=== PATIENT | female | born 1965 | race Caucasian/White ===

== ENCOUNTER 2024-12-11 14:28 | Emergency (ER) | payer OTHER, SELFPAY ==
[2024-12-11 14:51] VITALS: BP 170/113; PULSE 80; RESP 16; TEMP 36.6; O2SAT 98; BMI 35.0
--- NOTE | 2024-12-11 14:56 | CRLHL7_ITS ---
For Patients: As a result of the Century Cures Act, medical imaging exams and procedure reports are released immediately into your electronic medical record. You may view this report before your referring provider. If you have questions, please contact your health care provider. INDICATION: Headache after lifting. TECHNIQUE: Noncontrast CT of the head with multiplanar reconstruction utilizing bone and soft tissue algorithms. COMPARISON: None available. FINDINGS: No acute intracranial hemorrhage. The thao-white matter interface is preserved. The ventricles are normal in size. No abnormal extra-axial fluid collection is identified. Normal calvarium and skull base. Unremarkable orbits. The imaged paranasal sinuses and mastoid air cells are clear. IMPRESSION: No acute intracranial abnormality. Please note that all CT scans at this facility use dose modulation, iterative reconstruction, and/or weight-based dosing when appropriate to reduce radiation dose to as low as reasonably achievable. Dictated by Ant Hdez MD @ 12/11/2024 3:51:00 PM (Electronically Signed)
[2024-12-11] MEDS: ONDANSETRON 2 MG/ML inj 4 MG IVP (15:12)
[2024-12-11] MEDS: 0.9 % SODIUM CHLORIDE 1000 ml 1,000 ML IV (15:12)
[2024-12-11] MEDS: KETOROLAC 30 MG/ML inj IVP (15:12)
[2024-12-11 15:17] LABS: Basophils Absolute Auto 0.09 K/uL (0.00-0.30); Basophils Percent Auto 1.2 % (0.0-3.0); Eosinophils Absolute Auto 0.25 K/uL (0.00-0.50); Eosinophils Percent Auto 3.4 % (0.0-7.0); Hematocrit 37.4 % (33.0-51.0); Hemoglobin* 12.3 gm/dL (12.0-16.0); Lymphocytes Absolute Auto 2.23 K/uL (0.90-2.90); Lymphocytes Percent Auto 29.9 % (20-44); Mean Corpuscular HGB Conc 33 gm/dL (32-36); Mean Corpuscular Hemoglobin 30 pg (26-34); Mean Corpuscular Volume 90 fL (80-100); Monocytes Percent Auto 6.6 % (0.0-11.0); Neutrophils Absolute Auto 4.39 K/uL (1.7-7.0); Neutrophils Percent Auto 58.9 % (42.0-72.0); Platelet Count* 268 K/uL (140-440); RDW Coefficient of Variation % 12.9 % (11.5-15.5); Red Blood Count 4.17 m/uL (4.00-5.20); White Blood Count* 7.45 K/uL (4.50-11.00)
[2024-12-11 15:24] LABS: Chloride* 104 mmol/L (96-114)
[2024-12-11 15:25] LABS: Albumin* 4.7 g/dL (3.3-5.0); Potassium* 3.6 mmol/L (3.6-5.1); Sodium* 139 mmol/L (135-149)
[2024-12-11 15:27] LABS: Alanine Aminotransferase* 19 U/L (4-35); Anion Gap 9 mEq/L (7-15); Aspartate Amino Transferase* 28 U/L (12-35); Blood Urea Nitrogen* 18 mg/dL (7-30); Carbon Dioxide* 26 mmol/L (20-32); Creatinine* 0.8 mg/dL (0.5-1.5); Est. Creatinine Clearance* 78.27; Estimated Glomerular Filt Rate 86 ml/min
[2024-12-11 15:28] LABS: Alkaline Phosphatase* 80 U/L (40-150); Bilirubin Total* 0.6 mg/dL (0.1-1.5); Calcium* 9.6 mg/dL (8.4-10.6); Glucose* 107 mg/dL (60-115); Total Protein* 7.3 g/dL (6.0-8.3)
[2024-12-11 15:31] LABS: Slide Review Reflex No
--- NOTE | 2024-12-11 15:48 | ED_ITS ---
HPI - General Adult General Chief complaint: Headache/Migraine Stated complaint: very lightheaded, nauseous Time Seen by Provider: 12/11/24 14:52 History of Present Illness HPI narrative: Patient is a 59-year-old woman who was lifting heavy stack of would which she developed severe frontal headache. Patient became dizzy and lightheaded. The pain was 8/10 in intensity and she felt like her gait was somewhat unsteady. She presented to the emergency room where she promptly vomited nonbilious material. She is still has a significant headache over the frontal aspect of her head. Her nausea is improving with IV Zofran. No other focal neurologic complaints. Patient has had no similar symptoms previously. She takes minimal home medication in the form of vitamins and supplements. Related Data Home Medications ?Medication ?Instructions ?Recorded ?Confirmed No Known Home Medications 12/11/24 12/11/24 Allergies Allergy/AdvReac Type Severity Reaction Status Date / Time Penicillins Allergy Intermediate Verified 12/11/24 14:48 Review of Systems Status of ROS: Reports: 10 or more systems reviewed and unremarkable except as noted in History and below Exam Narrative: Exam Narrative: EXAM GENERAL: Patient appears comfortable and well. EYES: No scleral icterus. ENT: Tympanic membranes and oropharynx normal. THYROID: no thyroid nodules or thyromegaly. LYMPH: No supraclavicular or cervical lymphadenopathy. SKIN: Visible skin seen during exam normal or with benign process only. EXT: No dependent lower extremity pedal edema. HEART: Regular rate and rhythm with no murmurs, rubs, or gallops. LUNGS: Clear to auscultation bilaterally with no crackles or wheezes. ABD: Soft, non tender, non distended. PSYCH: Good eye contact, speech is not pressured. Neurologic cranial nerves 2-12 grossly intact no focal defects. Const: Vital Signs, click to edit/add: Vital Signs - 24 hr 12/11/24 14:51 Temperature 97.9 F Pulse Rate [Pulse Oximeter] 80 Respiratory Rate 16 Blood Pressure [Ri ght Upper Arm] 170/113 H Pulse Oximetry 98 Oxygen Delivery Me thod Room Air Course Course ED Course: Patient seen and examined. 1 L of normal saline given 4 mg of Zofran given 30 mg of IV Toradol given. CT of the head negative per my review labs are reassuring. Vital Signs Vital signs: Initial Vital Signs Temperature 97.9 F 05/17/25 14:51 Temperature Source Temporal Artery Scan 12/11/24 14:51 Pulse Rate 80 12/11/24 14:51 Respiratory Rate 16 12/11/24 14:51 Blood Pressure 170/113 H 12/11/24 14:51 Blood Pressure Mean 132 H 12/11/24 14:51 Pulse Oximetry 98 12/11/24 14:51 Oxygen Delivery Method Room Air 12/11/24 14:51 Vital Signs Temperature 97.9 F 12/11/24 14:51 Pulse Rate 80 12/11/24 14:51 Respiratory Rate 16 12/11/24 14:51 Blood Pressure 170/113 H 12/11/24 14:51 Pulse Oximetry 98 12/11/24 14:51 Oxygen Delivery Method Room Air 12/11/24 14:51 Temperature 97.9 F 12/11/24 14:51 Pulse Rate 80 12/11/24 14:51 Respiratory Rate 16 12/11/24 14:51 Blood Pressure 170/113 H 12/11/24 14:51 Pulse Oximetry 98 12/11/24 14:51 Oxygen Delivery Method Room Air 12/11/24 14:51 Medications Administered Medications: Discontinued Medications Generic Name Dose Route Start Last Admin Trade Name Freq PRN Reason Stop Dose Admin Sodium Chloride 1,000 mls @ 1,000 mls/hr 12/11/24 14:57 12/11/24 15:12 0.9 % Sodium Chloride 1000 Ml IV 12/11/24 15:56 1,000 mls/hr .Q1H EDILSON Administration Ketorolac Tromethamine 30 mg 12/11/24 14:56 12/11/24 15:12 Ketorolac 30 Mg/Ml Inj IVP 12/11/24 14:57 30 mg ONCE ONE Administration Ondansetron HCl 4 mg 12/11/24 14:56 12/11/24 15:12 Ondansetron 2 Mg/Ml Inj IVP 12/11/24 14:57 4 mg ONCE ONE Administration Medical Decision Making [facility] Narrative Medical decision making narrative: Patient is a 59-year-old healthy woman who comes in with dizziness and severe headache after lifting a heavy object at home. Patient and now feels like she has some room spinning symptoms. I did do CT of her head which is unremarkable labs are reassuring. My neurologic exam and my complete exam were both normal. I did treat her with normal saline Zofran and Toradol with improvement of symptoms. I did instruct her on the Jesusita maneuver for at home if the dizziness persists. I do recommend that she follow-up with her primary physician in the next week especially if her symptoms persist. All questions are answered. Lab Data Labs: Lab Results 12/11/24 Range/Units 15:05 WBC 7.45 (4.50-11.00) K/uL RBC 4.17 (4.00-5.20) m/uL Hgb 12.3 (12.0-16.0) gm/dL Hct 37.4 (33.0-51.0) % MCV 90 (80-100) fL MCH 30 (26-34) pg MCHC 33 (32-36) gm/dL RDW Coeff of Preeti 12.9 (11.5-15.5) % Plt Count 268 (140-440) K/uL Neut % (Auto) 58.9 (42.0-72.0) % Lymph % (Auto) 29.9 (20-44) % Bullitt % (Auto) 6.6 (0.0-11.0) % Eos % (Auto) 3.4 (0.0-7.0) % Baso % (Auto) 1.2 (0.0-3.0) % Neut # (Auto) 4.39 (1.7-7.0) K/uL Lymph # (Auto) 2.23 (0.90-2.90) K/uL Bullitt # (Auto) 0.50 (0.00-0.90) K/UL Eos # (Auto) 0.25 (0.00-0.50) K/uL Baso # (Auto) 0.09 (0.00-0.30) K/uL Abs Immat Gran (auto) 0.00 (0.00-0.30) K/uL Imm/Tot Granulo (auto) 0.0 % Sodium 139 (135-149) mmol/L Potassium 3.6 (3.6-5.1) mmol/L Chloride 104 (96-114) mmol/L Carbon Dioxide 26 (20-32) mmol/L Anion Gap 9 (7-15) mEq/L BUN 18 (7-30) mg/dL Creatinine 0.8 (0.5-1.5) mg/dL Estimated Creat Clear 78.27 Estimated GFR 86 ml/min Glucose 107 (60-115) mg/dL Calcium 9.6 (8.4-10.6) mg/dL Total Bilirubin 0.6 (0.1-1.5) mg/dL AST 28 (12-35) U/L ALT 19 (4-35) U/L Alkaline Phosphatase 80 (40-150) U/L Total Protein 7.3 (6.0-8.3) g/dL Albumin 4.7 (3.3-5.0) g/dL Discharge Plan Discharge Clinical Impression: Headache Patient Disposition: Home, Self-Care Condition: Stable Instructions: Acute Headache (ED) Additional Instructions: Tylenol Motrin Rest Fluids Jesusita maneuver as described Follow-up with your doctor as needed. Activity Level: No Restrictions Discharge Diet: Regular Prescriptions: No Action No Known Home Medications Follow Up/Referrals: Provider,Not a Local [Primary Care Provider] - Stand Alone Forms: MyHealth Info Instructions
[2024-12-11 16:07] VITALS: BP 152/98; PULSE 63; RESP 16
== END 2024-12-11 16:08 | disposition home or self-care (01) ==
PROVIDERS: Emergency Provider Internal Medicine
DX: R51.9 Headache, unspecified (principal)
CPT/HCPCS: 36415; 70450; 80053; 85025; 96374; 96375; 99283; 99284; J1885; J2405; J7030

== ENCOUNTER 2025-04-06 22:55 | Emergency (ER) | payer OTHER, SELFPAY ==
--- OUTSIDE RECORDS SUMMARY | 2024-12-17 10:40 | XMS_ITS | Encounter Summary ---
Author Organization [facility] Address [address] [facility] 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 Name Role Phone Remi Camacho MD Unavailable Alexis Vargas MD Unavailable Cecilio VelascoM Unavailable [phone] Johnny Gauthier MD Unavailable Alpa Max PA-C Unavailable Ayana Fuller MD Unavailable [phone] Nanci Villalba MD Primary Care Provider Ayana Fuller MD Unavailable [phone] Nanci Villalba MD Unavailable [phone] Abdirizak Dowd MD Unavailable Abdirizak Dowd MD Unavailable [phone] Jessica Butler MD Unavailable Ayana Fuller MD Unavailable [phone] Loli Louis DPM, Podiatry /Foot and Ankle Surgery Unavailable Ashwin Franklin MD Unavailable [phone] Valeria Sullivan PA-C Unavailable [phone] Reason for Referral * Diagnostic Imaging MRI (Routine) - Closed Specialty Diagnoses / Procedures Referred By Lashon t Referred To Contact Radiology. Diagnoses Acute nonintractable headache, unspecified headache type Dizziness Procedures MR Brain w/o Contrast Nanci Villalba MD [address] [place] [address] [place] [address] Phone: tel: fax: [facility] [address] 1st [place] [address] Phone: tel: fax: Referral ID Status Reason Start Date Expiration Date Visits Re quested Visits Authorized [id number] Closed 12/18/2024 12/18/2025 1 1 Reason for Visit * Reason Comments Hospital F/U Is feeling okay toda y, is feeling pressure like a band on her head, is having balance issues which isn't normal Encounter Details Date Type Department Care Team (Latest Contact Info) Description 12/17/2024 10:40 AM CDT Office Visit [facility] [place] [id number] [facility], [address] [place], [place] [address] Nanci Villalba MD [address] [place] [address] [id number] Hospital discharge follow-up (Primary Dx); Acute nonintractable headache, unspecified headache type; Elevated blood pressure reading without diagnosis of hypertension; Dizziness Social History Tobacco Use Types Packs/Day Years Used Date Smoking Tobacco: Never Smokeless Tobacco: Never Alcohol Use Standard Drinks/Week Comments No 0 (1 standard drink = 0.6 oz pur e alcohol) Glasses Wine Social Connection and Isolation Panel [NHANES] A nswer Date Recorded Frequency of Communication with Friends and Fami ly Not on file 08/10/2024 How often do you get together with friends or re latives? Twice a week 08/10/2024 Attends Latter Day Services Not on file 08/10 Active Member of Clubs or Organizations Not on f ile 08/10/2024 Attends Club or Organization Meetings Not on sb e 08/10/2024 Marital Status Not on file 08/10/2024 PHQ-2 Answer Date Recorded PHQ-2 Score 0 08/11/2024 [facility] - Occupational Stress Questionnaire Answer Date Recorded Do you feel stress - tense, restless, nervous, or anxious, or unable to sleep at night because your mind is troubled all the time - these days? Only a little 08/10/2024 Exercise Vital Sign Answer Date Recorde d On average, how many days pe r week do you engage in moderate to strenuous exercise (like a brisk walk)? 3 days 08/10/2024 On average, how many minutes do you engage in exercise at this level? 40 min 08/10/2024 Adolescent Education Answer Date Record ed Getting School Help Needed Not on file 04/21 Food Insecurity Answer Date Recorded Within the past 12 months, d id you worry that your food would run out before you got money to buy more? No 08/10/2024 Within the past 12 months, d id the food you bought just not last and you didn t have money to get more? No 08/10/2024 Housing Stability Answer Date Recorded Do you have housing? (Larryin g is defined as stable permanent housing and does not include staying outside in a car, in a tent, in an abandoned building, in an overnight mcfp, or couch-surfing.) Yes 08/10/2024 Are you worried about losing your housing? No 08/10/2024 Financial Resource Strain Answer Date R ecorded Within the past 12 months, h ave you or your family members you live with been unable to get utilities (heat, electricity) when it was really needed? No 08/10/2024 Transportation Needs Answer Date Record ed Within the past 12 months, h as lack of transportation kept you from medical appointments, getting your medicines, non-medical meetings or appointments, work, or from getting things that you need? No 08/10/2024 Interpersonal Safety Answer Date Record ed Do you feel physically and e motionally safe where you currently live? Yes 08/11/2024 Within the past 12 months, h ave you been hit, slapped, kicked or otherwise physically hurt by someone? No 08/11/2024 Within the past 12 months, h ave you been humiliated or emotionally abused in other ways by your partner or ex-partner? 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 Gender Identity Not on file Sexual Orientation Not on file Occupation Industry Job Start Date Job End Date Unemployed Not on file Not on file Not on file documented as of this encounter Last Filed Vital Signs Vital Sign Reading Time Taken Comments Blood Pressure 148/101 12/17/2024 10:33 AM CDT Cecilia's machine Pulse 63 12/17/2024 10:31 AM CDT Temperature 36.7 C (98.1 F) 12/17/2024 10:31 AM CDT Respiratory Rate 15 12/17/2024 10:3 1 AM CDT Oxygen Saturation 100% 12/17/2024 10: 31 AM CDT Inhaled Oxygen Concentration - - Weight - - Height - - Body Mass Index - - documented in this encounter Patient Instructions * Patient Instructions* Nnaci Villalba MD - 12/17/2024 10:40 AM CDT Blood pressure machine is accurate Check readings daily and send me after getting 4-6 readings (My Chart) Vertigo treatment Here is a short video that describes the Jesusita maneuver. You may try this at home if you are experiencing vertigo. If you are unsuccessful (not all types of vertigo respond, but worth a try), then contact us for referral to the vestibular clinic. [email or web address] documented in this encounter Progress Notes * Nanci Villalba MD - 12/17/2024 10:40 AM CDT Images from the original note were not included. Jean [address], [facility] [address] Patient: Cecilia Hammond 1965 Date of Visit: 9:44 PM Referring Provider Referred Self Assessment & Plan (Z09) Hospital discharge follow-up (primary encounter diagnosis) (R51.9) Acute nonintractable headache, unspecified headache type Comment: ER visit for acute onset of migraine like headache with some dizziness, suspect this is vestibular migraine. Still with some residual symptoms. Dull left sided headache. Doing Jesusita maneuverat home Plan: discussed symptoms, CT brain negative for acute bleeding. Discussed ordering MRI scan. Returnto ER for escalating symptoms, weakness, neuro changes. (R03.0) Elevated blood pressure reading without diagnosis of hypertension Comment: elevated blood pressures in ER and at today's visit. She as a reliable BP monitor BP Readings from Last 3 Encounters: 12/17/24 (!) 148/101 11/16/24 129/79 08/11/24 (!) 153/92 Plan: continue checking home readings and send numbers via My chart in next 2-4 wks Hold on Rx for antihypertensive med at this time. Addendum February 21, 2025 Home BP readings sent by Cecilia No need for medication at this time 43 minutes spend on the date of this encounter doing chart review, history and exam, documentation and further activities as noted above. Nanci Villalba MD Cecilia Hammond is a 59 year old female here for the following issues: Hospital discharge follow-up/Headache ER visit 12/11/24 for evaluation of headache, lightheaded, dizzy upon standing up whoosh . Reportsit was difficult driving to ER due to movement (did Jesusita maneuver after ER visit)nausea, pounding,no light sensitivity Abrupt onset of severe frontal headache (8/10) while lifting heavy stack of wood, upon standing,shefelt a whoosh not a spin, then a band of pain throbbing across eyes, felt sharp, pressure, vision was fine. Became lightheaded, dizzy, unsteady gait Vomited in ER x 3 Given saline, Zofran, Toradol--helped with nausea and pain CT scan head negative for bleed Afebrile, hypertensive, 170/113 in ER CBC/ Comp panel normal Discharged home, Jesusita maneuver discussed Today Bending forward seemed to trigger return of headache after ER, took Aleve at bedtime Day after ER left parietal area throbbing, fullness behind eyes and at left side of face. Took tylenol worked from home, went away 3 hr Now fullness, pounding over left side of face and behind eyes. Dry eyes but no light sensitivity. Taking Aleve at night No meds today, pressure over face today, 2/10 Was able to sleep flat for past 2 night Bought flonase Headache is manageable , no nausea Previous hx of cluster migraines, dx at [facility] [place] in her 20s Ocular migraine x 1 episode in this past year, saw eye doctor Post nasal drip Started yesterday, right side now left Sore throat, mild Cetirizine daily Some pressure over left side of face. Previous sinus infection. Elevated blood pressure BP elevated during recent ER trip No current antihypertensive meds Brought in BP ,accurate hers 148/101, ours 145/98 Yesterday, checked BP 143/88, 118/81 after 5 min Previous 142/88 Eating less salt No ankle swelling BP Readings from Last 3 Encounters: 11/16/24 129/79 08/11/24 (!) 153/92 06/07/24 136/86 Patient Active Problem List Diagnosis Esophageal reflux Lichen sclerosus et atrophicus Menopause Eczema History of multiple allergies Chronic idiopathic urticaria Pain of right forearm Morbid obesity (H) Lichen planus Ocular migraine Acute bilateral low back pain with right-sided sciatica Elevated blood pressure reading without diagnosis of hypertension Family history of thyroid disease Current Outpatient Medications Medication Sig Dispense Refill Calcium-Magnesium (TRISTEN/MAG CITRATE PO) Take 1 tablet by mouth 2 times daily. cetirizine (ALLERGY RELIEF CETIRIZINE) 10 MG tablet Take 10 mg by mouth daily. Cholecalciferol (VITAMIN D3) 50 MCG CAPS clindamycin (CLEOCIN) 300 MG capsule TAKE 2 CAPSULES BY MOUTH 1 HOURS BEFORE DENTAL APPOINTMENT 2 capsule 4 clobetasol (TEMOVATE) 0.05 % external ointment Apply sparingly to affected area twice weekly. Do not apply to face. 30 g 3 conjugated estrogens (PREMARIN) 0.625 MG/GM vaginal cream Place 0.5 g vaginally twice a week. 30 g 1 cyanocobalamin (VITAMIN B-12) 500 MCG tablet Take 1 tablet (500 mcg) by mouth daily Docosahexaenoic Acid (DHA OMEGA 3 PO) estradiol (ESTRACE) 0.1 MG/GM vaginal cream Place 2 g vaginally twice a week. 42.5 g 3 fluocinonide (LIDEX) 0.05 % external gel DRY AREA OF AFFECTED GINGIVA WITH GAUZE AND APPLY SMALL AMOUNT TO THE AFFECTED AREA THREE TIMES DAILY. NOTHING BY MOUTH FOR 30 MINUTES AFTER hydrocortisone 2.5 % ointment Apply to the rash on the face twice daily for 7 days. Restart if rashflares. 30 g 4 Methylcobalamin (METHYL B-12 PO) Take 1 tablet by mouth daily. pimecrolimus (ELIDEL) 1 % external cream Apply topically 2 times daily. Apply for estelle maintenance. 100 g 5 Probiotic Product (UP4 PROBIOTICS WOMENS PO) Take 1 tablet by mouth 2 times daily. vitamin E (TOCOPHEROL) 400 units (180 mg) capsule Allergies Allergen Reactions Ciprofloxacin Hives Warm red patch above right anglican for three days. Beta Adrenergic Blockers Other (See Comments) Contraindicated with allergy injections Cats Dogs Dust Mites Other Drug Allergy (See Comments) Amalgam Paraphenylenediamine Other (See Comments) Positive (+) skin patch test Tape [Adhesive Tape] Other (See Comments) STERI-STRIPS (Blisters) Metal [Edison] Rash Amalgam (mercury + silver) Penicillins Rash EXAM BP (!) 148/101 (BP Location: Left arm, Patient Position: Sitting, Cuff Size: Adult Regular) Pulse63 Temp 98.1 ??F (36.7 ??C) (Skin) Resp 15 LMP 06/07/2016 (Approximate) SpO2 100% Gen: Alert, pleasant, NAD COR: S1,S2, no murmur Lungs: CTA bilaterally, no rhonchi, wheezes or rales Ext: no peripheral edema, pulses full Neuro: CN 2-12 grossly intact DTR +2/4 in all extremities Normal tandem gait, toe walking, heel walking Rhomberg negative Mild nystagmus with rightward gaze, extinguishes with repeat eye movement. She is asymptomatic documented in this encounter Nursing Notes * Isabel Fox, EMT - 12/17/2024 10:40 AM CDT 59 year old Chief Complaint Patient presents with Hospital F/U Is feeling okay today, is feeling pressure like a band on her head, is having balance issues which isn't normal Blood pressure (!) 148/101, pulse 63, temperature 98.1 ??F (36.7 ??C), temperature source Skin, resp. rate 15, last menstrual period 06/07/2016, SpO2 100%, not currently . There is no height or weight on file to calculate BMI. Patient Active Problem List Diagnosis Esophageal reflux Lichen sclerosus et atrophicus Menopause Eczema History of multiple allergies Chronic idiopathic urticaria Pain of right forearm Morbid obesity (H) Lichen planus Ocular migraine Acute bilateral low back pain with right-sided sciatica Elevated blood pressure reading without diagnosis of hypertension Family history of thyroid disease Wt Readings from Last 2 Encounters: 11/16/24 108.4 kg (239 lb) 06/07/24 108.9 kg (240 lb) BP Readings from Last 3 Encounters: 12/17/24 (!) 148/101 11/16/24 129/79 08/11/24 (!) 153/92 Current Outpatient Medications Medication Sig Dispense Refill Calcium-Magnesium (TRISTEN/MAG CITRATE PO) Take 1 tablet by mouth 2 times daily. cetirizine (ALLERGY RELIEF CETIRIZINE) 10 MG tablet Take 10 mg by mouth daily. Cholecalciferol (VITAMIN D3) 50 MCG CAPS clindamycin (CLEOCIN) 300 MG capsule TAKE 2 CAPSULES BY MOUTH 1 HOURS BEFORE DENTAL APPOINTMENT 2 capsule 4 clobetasol (TEMOVATE) 0.05 % external ointment Apply sparingly to affected area twice weekly. Do not apply to face. 30 g 3 cyanocobalamin (VITAMIN B-12) 500 MCG tablet Take 1 tablet (500 mcg) by mouth daily Docosahexaenoic Acid (DHA OMEGA 3 PO) fluocinonide (LIDEX) 0.05 % external gel DRY AREA OF AFFECTED GINGIVA WITH GAUZE AND APPLY SMALL AMOUNT TO THE AFFECTED AREA THREE TIMES DAILY. NOTHING BY MOUTH FOR 30 MINUTES AFTER hydrocortisone 2.5 % ointment Apply to the rash on the face twice daily for 7 days. Restart if rashflares. 30 g 4 Methylcobalamin (METHYL B-12 PO) Take 1 tablet by mouth daily. pimecrolimus (ELIDEL) 1 % external cream Apply topically 2 times daily. Apply for estelle maintenance. 100 g 5 Probiotic Product (UP4 PROBIOTICS WOMENS PO) Take 1 tablet by mouth 2 times daily. vitamin E (TOCOPHEROL) 400 units (180 mg) capsule conjugated estrogens (PREMARIN) 0.625 MG/GM vaginal cream Place 0.5 g vaginally twice a week. (Patient not taking: Reported on 12/17/2024) 30 g 1 estradiol (ESTRACE) 0.1 MG/GM vaginal cream Place 2 g vaginally twice a week. (Patient not taking: Reported on 12/17/2024) 42.5 g 3 No current facility-administered medications for this visit. Social History Tobacco Use Smoking status: Never Smokeless tobacco: Never Vaping Use Vaping status: Never Used Substance Use Topics Alcohol use: No Alcohol/week: 0.0 standard drinks of alcohol Comment: Glasses Wine Drug use: No Health Maintenance Due Topic Date Due SKIN CANCER SCREENING 09/26/2023 Lab Results Component Value Date PAP NIL 01/10/2020 December 17, 2024 10:35 AM documented in this encounter Plan of Treatment Upcoming Encounters Date Type Department Care Team (Late st Contact Info) Description 04/20/[address] [facility] [address] [address] Ashwin Franklin MD [address] [place] [address] [id number] Previsit 04/20/2025 1:00 PM CDT Office Visit [facility] [address] [address] Ashwin Franklin MD [address] [place] [address] 05/20/2025 12:45 PM CDT Office Visit 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 [place] [address] [facility] 3rd [place] [phone] Jessica Butler MD [address] [facility] [address] [place], [place] [phone] documented as of this encounter Results * MR Brain w/o Contrast (01/02/2025 8:12 AM CDT) Anatomical Region Laterality Modality Head, SUBRAD MR NEURO, UMP MR NEURO, RAD MR Magnetic Resonance 01/02/2025 8:12 AM CDT Impressions 01/04/2025 9:20 AM CDT IMPRESSION: 1. No acute intracranial process. 2. Minimal presumed age-related changes of the brain, as described. Narrative 01/04/2025 9:20 AM CDT EXAM: MR BRAIN W/O CONTRAST LOCATION: [facility] DATE: 01/02/2025 INDICATION: Suspect vestibular migraine. Persistent pain at left parietal lobe with episodic dizziness, CT scan of brain negative. COMPARISON: None. TECHNIQUE: Routine multiplanar multisequence head MRI without intravenous contrast. FINDINGS: INTRACRANIAL CONTENTS: No findings of recent infarct. The ventricles are normal in size and configuration. A couple of punctate/patchy foci of T2 FLAIR hyperintense signal in the cerebral white matter, nonspecific, potentially representing minimal chronic small vessel ischemic change. Minimal age-commensurate generalized cerebral volume loss. No intracranial hemorrhage, extra-axial fluid collection, or mass effect. SELLA: No abnormality accounting for technique. OSSEOUS STRUCTURES/SOFT TISSUES: Normal marrow signal. The major intracranial vascular flow voids are maintained. ORBITS: No abnormality accounting for technique. SINUSES/MASTOIDS: No paranasal sinus mucosal disease. No middle ear or mastoid effusion. Procedure Note Ridge Larsen MD - 01/04/2025 EXAM: MR BRAIN W/O CONTRAST LOCATION: [facility] DATE: 01/02/2025 INDICATION: Suspect vestibular migraine. Persistent pain at left parietallobe with episodic dizziness, CT scan of brain negative. COMPARISON: None. TECHNIQUE: Routine multiplanar multisequence head MRI without intravenouscontrast. FINDINGS: INTRACRANIAL CONTENTS: No findings of recent infarct. The ventricles arenormal in size and configuration. A couple of punctate/patchy foci of [id number] hyperintense signal in the cerebral white matter, nonspecific,potentially representing minimal chronic small vessel ischemic change. Minimal age-commensurate generalizedcerebral volume loss. No intracranial hemorrhage, extra-axial fluidcollection, or mass effect. SELLA: No abnormality accounting for technique. OSSEOUS STRUCTURES/SOFT TISSUES: Normal marrow signal. The majorintracranial vascular flow voids are maintained. ORBITS: No abnormality accounting for technique. SINUSES/MASTOIDS: No paranasal sinus mucosal disease. No middle ear ormastoid effusion. IMPRESSION: 1. No acute intracranial process. 2. Minimal presumed age-related changes of the brain, as described. 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 Relationship Specialty Start Date End Date Nanci Villalba MD [address] [place] [id number] PCP - General Internal Medicine 06/01/19 Remi Camacho MD [address] [facility] [address] [place], [place] [address] Dermatology 08/28/16 Alexis Vargas MD [address] [place] [address] Dermatology 07/14/17 Cecilio Velasco DPM [address] [place], [place] [phone] Podiatry 12/31/17 Johnny Gauthier MD [address] [facility] [address] [place], [place] [address] Family Medicine - Sports Medicine 08/20/18 Alpa Max PA-C [address] [facility] [address] [place], [place] [phone] Physician Pigment Mixer Physician Pigment Mixer 08/28/18 Ayana Fuller MD [address] [place], [place] [address] hims coder 12/01/18 Ayana Fuller MD [address] [place], [place] [address] Assigned OBGYN Provider 05/19/20 Nanci Villalba MD [address] [facility] [place] [address] Assigned PCP 12/21/20 Abdirizak Dowd MD [address] [place] [address] Dermatology 08/09/21 Abdirizak Dowd MD [address] [place] [address] Dermatology 12/21/21 Jessica Butler MD [address] [place] [address] 98 [place] [address] Dermatology 02/21/23 Ayana Fuller MD [address] [address] [place] [address] hims coder 02/24/23 Loli Louis DPM, Podiatry/Foot and Ankle Surgery [address] [facility] [address] [place] [address] Assigned Musculoskeletal Provider 09/19/23 03/18/25 Ashwin Franklin MD [address] [place] [address] Dermatology 09/17/24 Valeria Sullivan PA-C Dermatology [address] [place] [address] Assigned Dermatology Provider 10/17/24 03/18/25 documented as of this encounter
--- OUTSIDE RECORDS SUMMARY | 2025-02-28 11:00 | XMS_ITS | Encounter Summary ---
Author Organization [facility] Address [address] [place] [address] Care Team Providers Care Oil Driller Name Role Phone Remi Camacho MD Unavailable Alexis Vargas MD Unavailable Cecilio VelascoM Unavailable [phone] Johnny Gauthier MD Unavailable Alpa Max PA-C Unavailable Ayana Fuller MD Unavailable [phone] Nanci Villalba MD Primary Care Provider Ayana Fuller MD Unavailable [phone] Nanci Villalba MD Unavailable [phone] Abdirizak Dowd MD Unavailable Abdirizak Dowd MD Unavailable [phone] Jessica Butler MD Unavailable Ayana Fuller MD Unavailable [phone] Loli Louis DPM, Podiatry /Foot and Ankle Surgery Unavailable Ashwin Franklin MD Unavailable Valeria Sullivan PA-C Unavailable [phone] Reason for Visit * Reason Comments Derm Problem Pt reports that her skin is doing okay. For the facial dermatitis, is using Elidel cream. She has questions about LS; Is currently using clobetasol twice a week. Encounter Details Date Type Department Care Team (Late st Contact Info) Description 02/28/2025 11:00 AM CDT Office Visit 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 Twice a week 08/10/2024 Attends Scientologist Services Not on file 08/10 Active Member of Clubs or Organizations Not on f ile 08/10/2024 Attends Club or Organization Meetings Not on sb e 08/10/2024 Marital Status Not on file 08/10/2024 PHQ-2 Answer Date Recorded PHQ-2 Score 0 08/11/2024 [facility] - Occupational Stress [...] Answer Date Recorded Do you have housing? 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 S/p shave bx 12/27/22. 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 No atypia on dermoscopy 4 mm Photo 01/26/24, stable on follow up 02/28/25 Assessment & Plan: # benign nevus, right jawline. Reviewed prior notes and images, lesion is stable in size ([id number]) and appearance, no concerning features on dermoscopy - benign, no treatment indicated. # lichen sclerosus w/ flare c/b erosions - follows w/ prescriptionist, using clobetasol ointment twice weekly. - stop using aquaphor, use vaseline as barrier instead incase of sensitization to lanolin - clobetasol BID for 2 weeks, then go back to 2x/week - apply to entire affected area including whole vestibule, not just to vulva - advise derm or prescriptionist care team if not improving Procedures Performed: None Follow-up: 6 month(s) in-person for annual FBSE, or earlier for new or changing lesions Staff and Resident: Note is not final until signed and attested by attending physician. Vernon Uribe MD Internal Medicine & Dermatology, PGY2 I, Jessica Butler MD, saw this patient with the resident and agree with the resident???s findings and plan of care as documented in the resident???s note. CC: Derm Problem (Pt reports that her skin is doing okay. For the facial dermatitis, is using Elidel cream when any She has questions about LS; ) HPI: Ms. Cecilia Hammond is a(n) 59 year old female who presents today as a return patient for lesion monitoring on pigmented macule on right jawline. Also inquires about lichen sclerosis. - has not noticed changes in spot on jawline - lichen sclerosis being treated by prescriptionist, clobetasol ointment twice weekly - if not leaning forward, urine touches posterior vulvar vestibule which causes burning and intensepain for past 10 days. Cannot touch the area with toilet paper. Okay with sitting but sometimes painful w/ walking or sitting on bad days. Had before, thought possibly due to estrodil cream so stopped, pain improved but now returned without any estrogen cream. Using aquaphor as barrier. Patient is otherwise feeling well, without additional skin concerns. Labs Reviewed: N/A Physical Exam: Vitals: LMP 06/07/2016 (Approximate) SKIN: Focused examination of face and vulva was performed. - brown pigmented macule 0.4 x 0.4 cm on right jawline w/ benign features on dermoscopy. Stable in appearance and size compared to prior. - Sensitive exam done w/ Dr. Butler as lab systems analyst - raw red eroded patches bilateral lower vestibule L > R with small white scar- like macule - no purulent discharge noted - No other lesions of concern on areas examined. Medications: Current Outpatient Medications Medication Sig Dispense Refill [...] taking: Reported on 12/17/2024) 30 g 1 cyanocobalamin (VITAMIN B-12) 500 MCG tablet Take 1 tablet (500 mcg) by mouth daily Docosahexaenoic Acid (DHA OMEGA 3 PO) estradiol (ESTRACE) 0.1 MG/GM vaginal cream Place 2 g vaginally twice a week. (Patient not taking: Reported on 12/17/2024) 42.5 g 3 fluocinonide (LIDEX) 0.05 % [...] E (TOCOPHEROL) 400 units (180 mg) capsule No current facility-administered medications for this visit. Past Medical History: Patient Active Problem List Diagnosis Esophageal reflux Lichen sclerosus et atrophicus Menopause Eczema History of multiple allergies Chronic idiopathic urticaria Pain of right forearm Morbid obesity (H) Lichen planus Ocular migraine Acute bilateral low back pain with right-sided sciatica Elevated blood pressure reading without diagnosis of hypertension Family history of thyroid disease Past Medical History: Diagnosis Date Abnormal Pap smear 2004? Eczemas, dyshidrotic Fascitis plantar 03/10/2008 Uterine fibroids Varicose veins CC No referring provider defined for this encounter. on close of this encounter. documented in this encounter Nursing Notes * Lorena Garrido CMA - 02/28/2025 11:00 AM CDT Dermatology Rooming Note Cecilia Hammond's goals for this visit include: Chief Complaint Patient presents with Derm Problem Pt reports that her skin is doing okay. For the facial dermatitis, is using Elidel cream. She hasquestions about LS; Is currently using clobetasol twice a week. AKSHAT Wei documented in this encounter Plan of Treatment Upcoming Encounters Date Type Department Care Team (Late st Contact Info) Description 04/20/[address] [facility] All[facility] [address] [phone] Ashwin Franklin MD [address] [place] [address] [phone] Previsit 04/20/2025 1:00 PM CDT Office Visit [facility] [address] [phone] Ashwin Franklin MD [address] [place] [address] [phone] 05/20/2025 12:45 PM CDT Office Visit [facility] [address] [place] [address] 3rd Floor,[address] [facility] 88 [place] [phone] Ayana Fuller MD [address] [place] [address] 300 [place] [address] 09/05/2025 9:45 AM CAB STARTER Office Visit [facility] Dermatology [address] [place] [phone] Jessica Butler MD [address] [facility] 98 [place], [place] [phone] documented as of this encounter Visit Diagnoses Diagnosis Benign nevus without atypia- Primary Lichen sclerosus of female genitalia documented in this encounter Additional Health Concerns Assessment Noted Time PHQ-9 Depression Total Score: 2 10/15/19 23 2:22 PM CDT documented as of this encounter Care Teams Oil Driller Relationship Specialty Start Date End Date Nanci Villalba MD [address] [place] [address] [place] [address] PCP - General Internal Medicine 06/01/19 Remi Camacho MD [address] [facility] 136 [place], [place] [address] Dermatology 08/28/16 Alexis Vargas MD 2450 [place] [address] Dermatology 07/14/17 Cecilio Velasco DPM 909 [place], [place] [address] Podiatry 12/31/17 Johnny Gauthier MD [address] [place], [place] [address] Family Medicine - Sports Medicine 08/20/18 Alpa Max PA-C [address] [facility] 98 [place], [place] [address] Physician Relay Motorman Physician Relay Motorman 08/28/18 Ayana Fuller MD [address] [facility] 300 [place], [place] [phone] band bias machine operator 12/01/18 Ayana Fuller MD [address] [place] [address] [place], [place] [address] Assigned OBGYN Provider 05/19/20 Nanci Villalba MD [address] [facility] [place] [address] Assigned PCP 12/21/20 bAdirizak Dowd MD [address] [place] [address] Dermatology 08/09/21 Abdirizak Dowd MD [address] [place] [address] Dermatology 12/21/21 Jessica Butler MD [address] [place] [address] 98 [place] [address] Dermatology 02/21/23 Ayana Fuller MD [address] [facility] 300 [place] [address] band bias machine operator 02/24/23 Loli Louis DPJean, Podiatry/Foot and Ankle Surgery [address] [facility] 300 [place] [address] Assigned Musculoskeletal Provider 09/19/23 03/18/25 Ashwin Franklin MD [address] [place] [address] Dermatology 09/17/24 Valeria Sullivan PACassieC Dermatology [address] [place] [address] Assigned Dermatology Provider 10/17/24 03/18/25 documented as of this encounter
[2025-04-06 23:01] VITALS: BP 177/115; PULSE 64; RESP 16; TEMP 36.9; O2SAT 99
--- NOTE | 2025-04-06 23:17 | ED.GENADULT ---
HPI - General Adult General Chief complaint: Allergic Reaction Stated complaint: facial swelling/lips Time Seen by Provider: 04/06/25 23:09 Source: patient Mode of arrival: ambulatory Limitations: no limitations History of Present Illness HPI narrative: 59-year-old female presenting today with lip swelling that is been going on for approximately 24 hours. It started on the upper lips and now has migrated to the lower lips, with the upper lips resolving in going back to normal. She denies any swelling of the tongue, back of the throat. No difficulty breathing or swallowing. No difficulty speaking or changes in the sound quality of her voice. Patient takes several cgqa-nch-vjlcjab vitamins, no Richard inhibitors or other prescription medications. No introduction of new foods, make up , lotions or soaps. No family history of hereditary angioedema. Related Data Previous Rx's ?Medication ?Instructions ?Recorded prednisone 20 mg tablet 40 mg (2 x 20 mg) PO DAILY 5 days 04/06/25 #10 tabs Allergies Allergy/AdvReac Type Severity Reaction Status Date / Time Penicillins Allergy Intermediate Verified 12/11/24 14:48 Review of Systems Status of ROS: Reports: 10 or more systems reviewed and unremarkable except as noted in History and below Exam Narrative: Exam Narrative: Well-nourished well-developed patient in no acute distress. Alert and oriented. Answers questions appropriately. Mood and affect are appropriate. Thoughts are goal oriented and rational. No tangential or magical thinking noted. Patient speaks in full sentences without needing to catch her breath. Voice does not sound muffled. HEENT: Normocephalic atraumatic. Pupils are equally round reactive to light. Extraocular muscles are intact. Conjunctivae are moist without any icterus noted. Moist mucous membranes. Posterior pharynx is normal. Neck is soft without any lymphadenopathy or thyromegaly. No masses are appreciated. Lower lip is markedly swollen. Cardiovascular: Heart is regular rate and rhythm. Lungs: Clear to auscultation bilaterally no wheezes appreciated. Skin: Well perfused without any obvious rashes. Const: Vital Signs, click to edit/add: Vital Signs - 24 hr 04/06/25 23:01 Temperature 98.4 F Pulse Rate [Pulse Oximeter] 64 Respiratory Rate 16 Blood Pressure [Ri ght Upper Arm] 177/115 H Pulse Oximetry 99 Oxygen Delivery Me thod Room Air Course Course ED Course: Patient appears to have angioedema. There is no evidence of anaphylaxis or other reactions consistent with an allergic reaction such as hives. Did go ahead and give the patient 25 mg of Benadryl. She does have cetirizine at home. Recommend that she stop taking all of her vitamins or anything that isn't necessary for her immediate health. Vital Signs Vital signs: Initial Vital Signs Temperature 98.4 F 04/06/25 23:01 Temperature Source Temporal Artery Scan 04/06/25 23:01 Pulse Rate 64 04/06/25 23:01 Respiratory Rate 16 04/06/25 23:01 Blood Pressure 177/115 H 04/06/25 23:01 Blood Pressure Mean 135 H 04/06/25 23:01 Blood Pressure Position Sitting 04/06/25 23:01 Pulse Oximetry 99 04/06/25 23:01 Oxygen Delivery Method Room Air 04/06/25 23:01 Vital Signs Temperature 98.4 F 04/06/25 23:01 Pulse Rate 64 04/06/25 23:01 Respiratory Rate 16 04/06/25 23:01 Blood Pressure 177/115 H 04/06/25 23:01 Pulse Oximetry 99 04/06/25 23:01 Oxygen Delivery Method Room Air 04/06/25 23:01 Temperature 98.4 F 04/06/25 23:01 Pulse Rate 64 04/06/25 23:01 Respiratory Rate 16 04/06/25 23:01 Blood Pressure 177/115 H 04/06/25 23:01 Pulse Oximetry 99 04/06/25 23:01 Oxygen Delivery Method Room Air 04/06/25 23:01 Medical Decision Making [facility] Narrative Medical decision making narrative: 59-year-old female with angioedema. Recommend follow-up with primary care. Will do Benadryl once per day and cetirizine b.i.d.. Will prescribed prednisone daily for 5 days. Discharge Plan Discharge Clinical Impression: Angioedema, Elevated blood pressure reading Patient Disposition: Home, Self-Care Condition: Stable Additional Instructions: Recommend taking cetirizine 10 mg in the morning and 10 mg at night. Add Benadryl 25 mg every night as well. Do this for the next 5 days. We will go ahead and start you on a steroid therapy given the amount of swelling present. This will be once per day also for 5 days. Can take 1st dose tomorrow morning. Return to the emergency department if you have any swelling of the tongue, difficulty breathing or changes in the sound of your voice. Lastly, your blood pressure was quite elevated today. Recommend you follow-up with your primary care provider in the next 1-2 weeks to have this rechecked. Prescriptions: New prednisone 20 mg tablet 40 mg PO DAILY 5 Days Qty: 10 0RF Follow Up/Referrals: Provider,Not a Local [Primary Care Provider, Family Practice] Stand Alone Forms: Egnyte Info Instructions
--- OUTSIDE RECORDS SUMMARY | 2025-04-06 23:35 | XMS_ITS | Encounter Summary ---
Author Organization [facility] Address [address] [place] [address] Care Team Providers Care Pattern Marking Supervisor Name Role Phone Remi Camacho MD Unavailable [phone] Alexis Vargas MD Unavailable [phone] Cecilio Velasco DPM Unavailable [phone] Johnny Gauthier MD Unavailable [phone] Alpa Max PA-C Unavailable Ayana Fuller MD Unavailable [phone] Nanci Villalba MD Primary Care Provider Ayana Fuller MD Unavailable [phone] Ashwin Franklin MD Unavailable [phone] Magda Goode MD Unavailable [phone] Nanci Villalba MD Unavailable [phone] Abdirizak Dowd MD Unavailable [phone] Abdirizak Dowd MD Unavailable [phone] Abdirizak Dowd MD Unavailable [phone] Jessica Butler MD Unavailable [phone] Ayana Fuller MD Unavailable [phone] Loli LouisM, Podiatry /Foot and Ankle Surgery Unavailable Jessica Butler MD Unavailable [phone] Ashwin Franklin MD Unavailable [phone] Valeria Sullivan PA-C Unavailable [phone] Jessica Butler MD Unavailable [phone] Encounter Details Date Type Department Care Team (Late st Contact Info) Description 12/12/2021 MyC Medical Advice [facility] [address] [place] [address] Nanci Villalba MD [address] [place] [address] Social History Tobacco Use Types Packs/Day Years Used Date Smoking Tobacco: Never Smokeless Tobacco: Never Alcohol Use Standard Drinks/Week Comments No 0 (1 standard drink = 0.6 oz pur e alcohol) Glasses Wine Humiliation, Afraid, Rape, and Kick questionnair e Answer Date Recorded Within the last year, have y ou been afraid of your partner or ex-partner? No 02/28/2021 Within the last year, have y ou been humiliated or emotionally abused in other ways by your partner or ex-partner? No Within the last year, have y ou been kicked, hit, slapped, or otherwise physically hurt by your partner or ex-partner? No 02/28/2021 Within the last year, have y ou been raped or forced to have any kind of sexual activity by your partner or ex-partner? 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 No / Unsure 12/06/2021 4:27 PM CDT documented as of this encounter Plan of Treatment Upcoming Encounters Date Type Department Care Team (Late st Contact Info) Description 04/20/2025 PRE VISIT [facility] [address] [phone] Ashwin Franklin MD [address] [place] [address] [phone] Previsit 04/20/2025 1:00 PM CDT Office Visit [facility] Allergy [address] [phone] Ashwin Franklin MD [address] [place] [address] [phone] 05/20/2025 12:45 PM CDT Office Visit [facility] [place] [address] [place] [address] 3rd Floor,[address] [facility] [place] [facility] 88 [place] [phone] Ayana Fuller MD [address] [place] [address] 300 [place], [place] [address] 09/05/2025 9:45 AM 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 Office Visit [facility] Clinic [address] [place] [phone] Jessica Butler MD [address] [place] [address] 98 [place], [place] [address] documented as of this encounter Visit Diagnoses Not on filedocumented in this encounter Additional Health Concerns Assessment Noted Time PHQ-9 Depression Total Score: 2 02/29/20 21 1:38 PM CDT documented as of this encounter Care Teams Pattern Marking Supervisor Relationship Specialty Start Date End Date Nanci Villalba MD [address] [facility] [address] PCP - General Internal Medicine 06/01/19 Remi Camacho MD 420 [facility] 136 [place], [place] [phone] Dermatology 08/28/16 Alexis Vargas MD 2450 [place] [address] Dermatology 07/14/17 Cecilio Velasco DPM 909 [place], [place] [phone] Podiatry 12/31/17 Johnny Gauthier MD [address] [place] [address] Family Medicine - Sports Medicine 08/20/18 Alpa Max PA-C 420 [facility] 98 [place], [place] [phone] Physician Equipment Specialist Physician Equipment Specialist 08/28/18 Ayana Fuller MD [address] [facility] 300 [place] [address] director industrial relations 12/01/18 Ayana Fuller MD [address] [facility] 300 [place] [address] Assigned OBGYN Provider 05/19/20 Ashwin Franklin MD [address] [place] [address] Assigned Surgical Provider 05/19/20 03/22/22 Magda Goode MD [address] [place] [address] Assigned Musculoskeletal Provider 10/01/20 01/03/23 Nanci Villalba MD [address] [place] [address] [id number] Assigned PCP 12/21/20 Abdirizak Dowd MD [address] [place] [address] 961995 Dermatology 08/09/21 Abdirizak Dowd MD [address] [place] [address] [id number] Dermatology 12/21/21 Abdirizak Dowd MD [address] [place] [address] 019255 Assigned Surgical Provider 03/23/22 02/16/24 Jessica Butler MD [address] [place] [address] 98 [place] [address] Dermatology 02/21/23 Ayana Fuller MD [address] [place] [address] director industrial relations 02/24/23 Loli Louis DPJean, Podiatry/Foot and Ankle Surgery [address] [place] [address] [place] [address] Assigned Musculoskeletal Provider 09/19/23 03/18/25 Jessica Butler MD [address] [address] Assigned Surgical Provider 02/17/24 10/16/24 Ashwni Franklin MD [address] [place] [address] Dermatology 09/17/24 Valeria Sullivan, PACassieC Dermatology [address] [place] [address] Assigned Dermatology Provider 10/17/24 03/18/25 Jessica Butler MD [address] [address] Assigned Dermatology Provider 03/19/25 documented as of this encounter
--- OUTSIDE RECORDS SUMMARY | 2025-04-06 23:35 | XMS_ITS | Encounter Summary ---
Author Organization [place] Address [address] [facility] [place] [address] Care Team Providers Care Medical Auditor Name Role Phone Remi Camacho MD Unavailable Alexis Vargas MD Unavailable Cecilio VelascoM Unavailable [phone] Johnny Gauthier MD Unavailable Alpa Max PA-C Unavailable Ayana Fuller MD Unavailable [phone] Nanci Villalba MD Primary Care Provider Ayana Fuller MD Unavailable [phone] Nanci Villalba MD Unavailable + [phone] Abdirizak Dowd MD Unavailable Abdirizak Dowd MD Unavailable [phone] Jessica Butler MD Unavailable [phone] Ayana Fuller MD Unavailable [phone] Loli Louis DPM, Podiatry /Foot and Ankle Surgery Unavailable Jessica Butler MD Unavailable [phone] Ashwin Franklin MD Unavailable +[phone] Valeria Sullivan PA-C Unavailable [phone] Jessica Butler MD Unavailable [phone] Encounter Details Date Type Department Care Team (Late st Contact Info) Description 09/22/2024 MyC Medical Advice [facility] Dermatology Clinic [place] [address] [facility] [address] 3rd [place] [address] Jessica Butler MD 420 [facility] 98 [place] [address] Social History Tobacco Use Types Packs/Day Years [...] re latives? Twice a week 08/10/2024 Attends Gnosticist Services Not on file 08/10 Active Member of Clubs or Organizations Not on f ile 08/10/2024 Attends Club or Organization Meetings Not on sb e 08/10/2024 Marital Status Not on file 08/10/2024 PHQ-2 Answer Date Recorded PHQ-2 Score 0 08/11/2024 [facility] [place] of Occupat ional Health - Occupational Stress [...] in an abandoned building, in an overnight detention, or couch-surfing.) Yes 08/10/2024 Are you worried [...] on file Legal Sex Female 3:34 AM TRAINING AND DEVELOPMENT HEAD Gender Identity Not on file Sexual Orientation Not on file Occupation Industry Job Start Date Job End Date Unemployed Not on file Not on file Not on file documented as of this encounter Miscellaneous Notes * Telephone Encounter - Negin Guerra LPN - 09/22/2024 4:28 PM TRAINING AND DEVELOPMENT HEAD Jessica Butler MD to [facility] Dermatology Adult Csc 09/20/24 8:18 AM Yes, she should be seen and then we can take over the Elidel prescription. Could see any provider, including PA to expedite appointment. NING AND DEVELOPMENT HEAD documented in this encounter Plan of Treatment Upcoming Encounters Date Type Department Care Team (Late st Contact Info) Description 04/20/2025 PRE VISIT [facility] Allergy [address] [phone] Ashwin Franklin MD [address] [place] [address] [phone] Previsit 04/20/2025 1:00 PM CDT Office Visit [facility] Allergy [address] [phone] Ashwin Franklin MD [address] [place] [address]2005 05/20/2025 12:45 PM CDT Office Visit [facility] Women's [facility] [address] 3rd Floor,[address] [place] [facility] 88 [place] [phone] Ayana Fuller MD [address] [facility] 300 [place] [address] 09/05/2025 9:45 AM TRAINING AND DEVELOPMENT HEAD Office Visit [facility] Dermatology Clinic [address] [place] [phone] Jessica Butler MD 420 [facility] 98 [place], [place] [address] documented as of this encounter Visit Diagnoses Not on filedocumented in this encounter Additional Health Concerns Assessment Noted Time PHQ-9 Depression Total Score: 2 10/15/19 23 2:22 PM CDT documented as of this encounter Care Teams Medical Auditor Relationship Specialty Start Date End Date Nanci Villalba MD [address] [place] [address] [place] [address] PCP - General Internal Medicine 06/01/19 Remi Camacho MD 420 [facility] 136 [place] [address] Dermatology 08/28/16 Alexis Vargas MD [address]50 [place] [address] Dermatology 07/14/17 Cecilio Velasco DPM 909 [place], [place] 45[address]85 Podiatry 12/31/[address] [facility] [address] [place] [address] Family Medicine - Sports Medicine 08/20/18 Alpa Max PA-C 420 [facility] 98 [place] [address] Physician Patient Care Technician Instructor Physician Patient Care Technician Instructor 08/28/18 Ayana Fuller MD [address] [facility] 300 [place], [place] 52[address] flux core welder 12/01/18 Ayana Fuller MD [address] [facility] 300 [place], [place] [address] Assigned OBGYN Provider 05/19/20 Nanci Villalba MD [address] [place] [address] Assigned PCP 12/21/20 Abdirizak [place] MD [address] [place] [address] Dermatology 08/09/21 Abdirizak Dowd MD [address] [place] [address] Dermatology 12/21/21 Jessica Butler MD [address] [place] [address] Dermatology 02/21/23 Ayana Fuller MD [address] [place] [address] flux core welder 02/24/23 Loli Louis DPM, Podiatry/Foot and Ankle Surgery [address] [address] Assigned Musculoskeletal Provider 09/19/23 03/18/25 Jessica Butler MD [address] [place] [address] Assigned Surgical Provider 02/17/24 10/16/24 Ashwin Franklin MD [address] [place] [address] Dermatology 09/17/24 Valeria Sullivan PA-C Dermatology [address] [place] [address] Assigned Dermatology Provider 10/17/24 03/18/25 Jessica Butler MD [address] [place] [address] 98 [place] [address] Assigned Dermatology Provider 03/19/25 documented as of this encounter
--- OUTSIDE RECORDS SUMMARY | 2025-04-06 23:35 | XMS_ITS | Encounter Summary ---
Author Organization [place] Address [address] [facility] [place] [address] Care Team Providers Care Water Meter Mechanic Name Role Phone Remi Camacho MD Unavailable Alexis Vargas MD Unavailable [phone] Cecilio VelascoM Unavailable [phone] Johnny Gauthier MD Unavailable Alpa Max PA-C Unavailable Ayana Fuller MD Unavailable [phone] Nanci Villalba MD Primary Care Provider Ayana Fuller MD Unavailable [phone] Nanci Villalba MD Unavailable [phone] Abdirizak Dowd MD Unavailable Abdirizak Dowd MD Unavailable [phone] Jessica Butler MD Unavailable [phone] Ayana Fuller MD Unavailable [phone] Loli Louis DPM, Podiatry /Foot and Ankle Surgery Unavailable Jessica Butler MD Unavailable [phone] Ashwin Franklin MD Unavailable [phone] Valeria Sullivan PA-C Unavailable [phone] Jessica Butler MD Unavailable [phone] Encounter Details Date Type Department Care Team (Late st Contact Info) Description 04/01/2024 MyC Medical Advice Initial Department [facility] Social History Tobacco Use Types Packs/Day Years Used Date Smoking Tobacco: Never Smokeless Tobacco: Never Alcohol Use Standard Drinks/Week Comments No 0 (1 standard drink = 0.6 oz pur e alcohol) Glasses Wine PHQ-2 Answer Date Recorded PHQ-2 Score 0 11/17/2023 Adolescent Education Answer Date Record ed Getting School Help Needed Not on file 04/21 Food Insecurity Answer Date Recorded Within the past 12 months, d id you worry that your food would run out before you got money to buy more? No 06/08/2023 Within the past 12 months, d id the food you bought just not last and you didn t have money to get more? No 06/08/2023 Housing Stability Answer Date Recorded Do you have housing? (Leila arthur is defined as stable permanent housing and does not include staying outside in a car, in a tent, in an abandoned building, in an overnight jail, or couch-surfing.) Yes 06/08/2023 Are you worried about losing your housing? No 06/08/2023 Financial Resource Strain Answer Date R ecorded Within the past 12 months, h ave you or your family members you live with been unable to get utilities (heat, electricity) when it was really needed? No 06/08/2023 Transportation Needs Answer Date Record ed Within the past 12 months, h as lack of transportation kept you from medical appointments, getting your medicines, non-medical meetings or appointments, work, or from getting things that you need? No 06/08/2023 Interpersonal Safety Answer Date Record ed Do you feel physically and e motionally safe where you currently live? Yes 06/09/2023 Within the past 12 months, h ave you been hit, slapped, kicked or otherwise physically hurt by someone? No 06/09/2023 Within the past 12 months, h ave you been humiliated or emotionally abused in other ways by your partner or ex-partner? No 06/09/2023 Comments No Sex and Gender Information Value Date Recorded Sex Assigned at Not on file Legal Sex Female 3:34 AM CHURN TENDER Gender Identity Not on file Sexual Orientation Not on file Occupation Industry Job Start Date Job End Date Unemployed Not on file Not on file Not on file documented as of this encounter Plan of Treatment Upcoming Encounters Date Type Department Care Team (Late st Contact Info) Description 04/20/[address] [facility] Allergy [address] [phone] Ashwin Franklin MD [address] [place] [address] [phone] Previsit 04/20/2025 1:00 PM CDT Office Visit [facility] Allergy [address] [phone] Ashwin Franklin MD [address] [place] [address] [phone] 05/20/2025 12:45 PM CDT Office Visit [facility] Women's [facility] [address] 3rd Floor,[address] [facility] 88 [place] [phone] Ayana Fuller MD [address] [facility] 300 [place], [place] [address] 09/05/2025 9:45 AM CHURN TENDER Office Visit [facility] Dermatology Clinic [address]rd [place] [phone] Jessica Butler MD [address] [place] [address] 98 [place], [place] [address] documented as of this encounter Visit Diagnoses Not on filedocumented in this encounter Additional Health Concerns Assessment Noted Time PHQ-9 Depression Total Score: 2 10/15/19 23 2:22 PM CDT documented as of this encounter Care Teams Water Meter Mechanic Relationship Specialty Start Date End Date Nanci Villalba MD [address] [place] [address] PCP - General Internal Medicine 06/01/19 Remi Camacho MD 420 [facility] 136 [place] [address] Dermatology 08/28/16 Alexis Vargas MD 2450 [place] [address] Dermatology 07/14/17 Cecilio Velasco DPM 909 [place] [address] Podiatry 12/31/17 Johnny Gauthier MD [address] [facility] [address] [place] [address] Family Medicine - Sports Medicine 08/20/18 Alpa Max PA-C 420 [facility] 98 [place] [address] Physician Client Service Supervisor Physician Client Service Supervisor 08/28/18 Ayana Fuller MD [address] [facility] 300 [place] [address] case investigator 12/01/18 Ayana Fuller MD [address] [place] [address] Assigned OBGYN Provider 05/19/20 Nanci Villalba MD [address] [place] [address] Assigned PCP 12/21/20 Abdirizak Dowd MD [address] [place] [address] Dermatology 08/09/21 Abdirizak Dowd MD [address] [place] [address] 562425 Dermatology 12/21/21 Jessica Butler MD [address] [place] [address] Dermatology 02/21/23 Ayana Fuller MD [address] [place] [address] [phone] case investigator 02/24/23 Loli Louis DPJean, Podiatry/Foot and Ankle Surgery [address] [address] Assigned Musculoskeletal Provider 09/19/23 03/18/25 Jessica Butler MD [address] [place] [address] Assigned Surgical Provider 02/17/24 10/16/24 Ashwin Franklin MD [address] [place] [address] Dermatology 09/17/24 Valeria Sullivan PA-C Dermatology [address] [place] [address] Assigned Dermatology Provider 10/17/24 03/18/25 Jessica Butler MD [address] [place] [address] 98 [place] [address] Assigned Dermatology Provider 03/19/25 documented as of this encounter
--- OUTSIDE RECORDS SUMMARY | 2025-04-06 23:35 | XMS_ITS | Encounter Summary ---
Author Organization [place] Address [address] [facility] [place] [address] Care Team Providers Care Bond Broker Name Role Phone Remi Camacho MD Unavailable [phone] Alexis Vargas MD Unavailable [phone] Cecilio Velasco DPM Unavailable [phone] Johnny Gauthier MD Unavailable [phone] Alpa Max PA-C Unavailable [phone] Ayana Fuller MD Unavailable [phone] Nanci Villalba MD Primary Care Provider Ayana Fuller MD Unavailable [phone] Ashwin Franklin MD Unavailable [phone] Magda Goode MD Unavailable [phone] Nanci Villalba MD Unavailable [phone] Abdirizak Dowd MD Unavailable [phone] Abdirizak Dowd MD Unavailable [phone] Abdirizak Dowd MD Unavailable [phone] Jessica Butler MD Unavailable [phone] Ayana Fuller MD Unavailable [phone] Loli LouisM, Podiatry /Foot and Ankle Surgery Unavailable Jessica Butler MD Unavailable [phone] Ashwin Franklin MD Unavailable [phone] Valeria Sullivan PA-C Unavailable [phone] Jessica Butler MD Unavailable [phone] Encounter Details Date Type Department Care Team (Late st Contact Info) Description 08/25/2021 MyC Medical Advice [address] [place] [address] Solange Stoddard, PT [facility] 8301 [place] [address] Social History Tobacco Use Types Packs/Day Years [...] PHQ-2 Answer Date Recorded PHQ-2 Score 0 05/15/2021 Comments No Sex and Gender Information Value Date Recorded Sex Assigned at Not on file Legal Sex Female 3:34 AM FLY FRAME TENDER Gender Identity Not on file Sexual Orientation Not on file Occupation Industry Job Start Date Job End Date Unemployed Not on file Not on file Not on file COVID-19 Exposure Response Date Recorded In the last month, have you been in contact with someone who was confirmed or suspected to have Coronavirus / COVID-19? Unable to assess 08/09/2021 9:59 AM FLY FRAME TENDER documented as of this encounter Plan of Treatment Upcoming Encounters Date Type Department Care Team (Late st Contact Info) Description 04/20/2025 PRE VISIT [facility] Allergy Clinic [address] [phone] Ashwin Franklin MD [address] [place] [address] Previsit 04/20/2025 1:00 PM CDT Office Visit [facility] Allergy [address] [phone] Ashwin Franklin MD [address] [place] [address]535 05/20/2025 12:45 PM CDT Office Visit [facility] [place] [address] [place] [address] 3rd Floor,[address] [facility] 88 [place] [phone] Ayana Fuller MD [address] [place] [address] 300 [place], [place] [address] 09/05/2025 9:45 AM FLY FRAME TENDER Office Visit [facility] Dermatology Clinic [address]rd [place] [phone] Jessica Butler MD [address] [place] [address] 98 [place], [place] 8[address] documented as of this encounter Visit Diagnoses Not on filedocumented in this encounter Additional Health Concerns Assessment Noted Time PHQ-9 Depression Total Score: 2 02/29/20 21 1:38 PM CDT documented as of this encounter Care Teams Bond Broker Relationship Specialty Start Date End Date Nanci Villalba MD 901 [facility] S [facility] [place] [address] PCP - General Internal Medicine 06/01/19 Remi Camacho MD 420 [facility] 136 [place], [place] [phone] Dermatology 08/28/16 Alexis Vargas MD 2450 [place] [address] Dermatology 07/14/17 Cecilio Velasco DPM 909 [place], [place] [phone] Podiatry 12/31/17 Johnny Gauthier MD [address] [place] [address] Family Medicine - Sports Medicine 08/20/18 Alpa Max PA-C 420 [facility] 98 [place], [place] [phone] Physician Military Administrative Technician Physician Military Administrative Technician 08/28/18 Ayana Fuller MD [address] [facility] 300 [place] [address] chute puller 12/01/18 Ayana Fuller MD [address] [facility] 300 [place] [address] Assigned OBGYN Provider 05/19/20 Ashwin Franklin MD [address] [place] [address] Assigned Surgical Provider 05/19/20 03/22/22 Magda Goode MD [address] [place] [address] Assigned Musculoskeletal Provider 10/01/20 01/03/23 Nanci Villalba MD [address] [place] [address] 117335 Assigned PCP 12/21/20 Abdirizak Dowd MD [address] [place] [address] [phone] Dermatology 08/09/21 Abdirizak Dowd MD [address] [place] [address] 905445 Dermatology 12/21/21 Abdirizak Dowd MD [address] [place] [address] 267205 Assigned Surgical Provider 03/23/22 02/16/24 Jessica Butler MD [address] [place] [address] 98 [place] [address] Dermatology 02/21/23 Ayana Fuller MD [address] [place] [address] chute puller 02/24/23 Loli Louis DPJean, Podiatry/Foot and Ankle Surgery [address] [place] [address] [place] [address] Assigned Musculoskeletal Provider 09/19/23 03/18/25 Jessica Butler MD [address] [address] Assigned Surgical Provider 02/17/24 10/16/24 Ashwin Franklin MD [address] [place] [address] Dermatology 09/17/24 Valeria Sullivan, PACassieC Dermatology [address] [place] [address] Assigned Dermatology Provider 10/17/24 03/18/25 Jessica Butler MD [address] [address] Assigned Dermatology Provider 03/19/25 documented as of this encounter
--- OUTSIDE RECORDS SUMMARY | 2025-04-06 23:35 | XMS_ITS | Encounter Summary ---
Author Organization [place] Address [address] [facility] [facility] [place] [address] Care Team Providers Care Arcade Game Technician Name Role Phone Remi Camacho MD Unavailable [phone] Alexis Vargas MD Unavailable Cecilio VelascoM Unavailable [phone] Johnny Gauthier MD Unavailable Alpa Max PA-C Unavailable [phone] Ayana Fuller MD Unavailable [phone] Nanci Villalba MD Primary Care Provider Ayana Fuller MD Unavailable [phone] Nanci Villalba MD Unavailable + [phone] Abdirizak Dowd MD Unavailable Abdirizak Dowd MD Unavailable [phone] Jessica Butler MD Unavailable Ayana Fuller MD Unavailable [phone] Loli Louis DPM, Podiatry /Foot and Ankle Surgery Unavailable Jessica Butler MD Unavailable [phone] Ashwin Franklin MD Unavailable [phone] Valeria Sullivan PA-C Unavailable [phone] Jessica Butler MD Unavailable [phone] Reason for Visit * Reason Onset Date Comments Medication Request 09/17/2024 pimecrolimus (ELIDEL) 1 % external cream [[id number]] (Order [id number]) Encounter Details Date Type Department Care Team (Late st Contact Info) Description 09/17/2024 Telephone [facility] D[facility]atology [facility] [place] [address] [facility] [address] 3rd [place] [address] Jessica Butler MD 420 [facility] 98 [place] [address] Medication Request (pimecrolimus (ELIDEL) 1 % external cream [[id number]] (Order [id number])) Social History Tobacco Use Types Packs/Day Years [...] re latives? Twice a week 08/10/2024 Attends [employer] Services Not on file 08/10 Active Member of Clubs or Organizations Not on f ile 08/10/2024 Attends Club or Organization Meetings Not on sb e 08/10/2024 Marital Status Not on file 08/10/2024 PHQ-2 Answer Date Recorded PHQ-2 Score 0 08/11/2024 [facility] [place] of Occupat ional Health - Occupational Stress [...] in an abandoned building, in an overnight assisted, or couch-surfing.) Yes 08/10/2024 Are you worried [...] on file Legal Sex Female 3:34 AM SUPERVISOR BOARDING Gender Identity Not on file Sexual Orientation Not on file Occupation Industry Job Start Date Job End Date Unemployed Not on file Not on file Not on file documented as of this encounter Miscellaneous Notes * Telephone Encounter - Yue Arellano RN - 09/17/2024 2:02 PM SUPERVISOR BOARDING Spoke with pt. She is wondering if Dr Butler can take over her prescription for elidel. Pt also reports new symptoms of under eye redness, swelling, dryness, and itching over the last 6-8 weeks. She states the elidel seems to help it and also has been using aquaphor. Pt is requesting an in person evaluation as well. Routing to Dr Butler and her nurse to advise. Yue Cochran RNglass technologist Surgery RVISOR BOARDING * Telephone Encounter - Teagan Wylie - 09/17/2024 1:31 PM CST Images from the original note were not included. PT was never seen by Derm for this medication. It was prescribed by Dr. Franklin in 2020. Next appointment for monitoring of different condition is scheduled in February. PT reports that this is helpful in managing their condition. PT reports swelling of the eyes and discomfort. RVISOR BOARDING * Telephone Encounter - Shawna Frederick - 09/17/2024 1:01 PM CST [facility] Call Center Phone Message May a detailed message be left on voicemail: yes Reason for Call: Medication Question or concern regarding medication Prescription Clarification Name of Medication: pimecrolimus (ELIDEL) 1 % external cream [[id number]] (Order [id number]) Prescribing Provider: pt thought this was previously prescribed by Dr. Franklin, wondering if Dr. Butler can fill them for her? Pharmacy: [facility] in [place] What on the order needs clarification? wondering if Dr. Butler can fill them for her? Action Taken: Message routed to: [facility] Derm Travel Screening: Not Applicable Date of Service: RVISOR BOARDING documented in this encounter Plan of Treatment Upcoming Encounters Date Type Department Care Team (Late st Contact Info) Description 04/20/2025 PRE VISIT [facility] Allergy [address] [phone] Ashwin Franklin MD [address] [place] [address] 707425 Previsit 04/20/2025 1:00 PM CDT Office Visit [facility] Allergy [address] [phone] Ashwin Franklin MD [address] [place] [address] 929745 05/20/2025 12:45 PM CDT Office Visit [facility] Women's [facility] [address] 3rd Floor,[address] [facility] 88 [place] [phone] Ayana Fuller MD [address] [facility] 300 [place], [place] [address] 09/05/2025 9:45 AM SUPERVISOR BOARDING Office Visit [facility] Dermatology [address] 3rd [place] [phone] Jessica Butler MD 420 [facility] 98 [place], [place] 046475 documented as of this encounter Visit Diagnoses Not on filedocumented in this encounter Additional Health Concerns Assessment Noted Time PHQ-9 Depression Total Score: 2 10/15/19 23 2:22 PM CDT documented as of this encounter Care Teams Arcade Game Technician Relationship Specialty Start Date End Date Nanci Villalba MD [address] [place] [address] S [facility] [place] [address] PCP - General Internal Medicine 06/01/19 Remi Camacho MD 420 [facility] 136 [place] [address] Dermatology 08/28/16 Alexis Vargas MD 2450 [place] [address] Dermatology 07/14/17 Cecilio Velasco DPM [address] [place] [address] Podiatry 12/31/17 Johnny Gauthier MD [facility] [place] [address] [place], [place] 962834 Family Medicine - Sports Medicine 08/20/18 Alpa Max PA-C [address] [place] [address] 98 [place] [address] Physician Tool Grinding Technician Physician Tool Grinding Technician 08/28/18 Ayana Fuller MD 606 [address] [facility] 300 [place], [place] 952244 acidizer water well 12/01/18 Ayana Fuller MD [address] [place] [address] 300 [place], [place] 187074 Assigned OBGYN Provider 05/19/20 Nanci Villalba MD [address] [place] [address] 016775 Assigned PCP 12/21/20 Abdirizak Dowd MD [address] [place] [address] [phone] Dermatology 08/09/21 Abdirizak Dowd MD [address] [place] [address] 894865 Dermatology 12/21/21 Jessica Butler MD [address] [address] Dermatology 02/21/23 Ayana Fuller MD [address] [place] [address] 300 [place] [address] acidizer water well 02/24/23 Loli Louis DPJean, Podiatry/Foot and Ankle Surgery [address] [facility] 300 [place], [place] 969377 Assigned Musculoskeletal Provider 09/19/23 03/18/25 Jessica Butler MD [address] [place] [address] Assigned Surgical Provider 02/17/24 10/16/24 Ashwin Franklin MD [address] [place] [address] Dermatology 09/17/24 Valeria Sullivan PA-C Dermatology [address] [place] [address] Assigned Dermatology Provider 10/17/24 03/18/25 Jessica Butler MD [address] [place] [address] Assigned Dermatology Provider 03/19/25 documented as of this encounter
--- OUTSIDE RECORDS SUMMARY | 2025-04-06 23:35 | XMS_ITS | Encounter Summary ---
Author Organization [place] Address [address] [facility] [place] [address] Care Team Providers Care Drawer In Dobby Loom Name Role Phone Remi Camacho MD Unavailable Alexis Vargas MD Unavailable Cecilio VelascoM Unavailable [phone] Johnny Gauthier MD Unavailable Alpa Max PA-C Unavailable Ayana Fuller MD Unavailable [phone] Nanci Villalba MD Primary Care Provider Ayana Fuller MD Unavailable [phone] Nanci Villalba MD Unavailable [phone] Abdirizak Dowd MD Unavailable Abdirizak Dowd MD Unavailable [phone] Jessica Butler MD Unavailable [phone] Ayana Fuller MD Unavailable [phone] Loli Louis DPM, Podiatry /Foot and Ankle Surgery Unavailable Jessica Butler MD Unavailable [phone] Ashwin Franklin MD Unavailable [phone] Valeria Sullivan PA-C Unavailable [phone] Jessica Butler MD Unavailable [phone] Encounter Details Date Type Department Care Team (Late st Contact Info) Description 08/26/2024 MyC Medical Advice [facility] [address] [place] [address] [place] [address] [place] [address] [place] [address] [place] [address] Social History Tobacco Use Types Packs/Day Years [...] re latives? Twice a week 08/10/2024 Attends Religion Services Not on file 08/10 Active Member of Clubs or Organizations Not on f ile 08/10/2024 Attends Club or Organization Meetings Not on sb e 08/10/2024 Marital Status Not on file 08/10/2024 PHQ-2 Answer Date Recorded PHQ-2 Score 0 08/11/2024 [facility] [place] of Occupat ional Health - Occupational Stress [...] in an abandoned building, in an overnight prison, or couch-surfing.) Yes 08/10/2024 Are you worried [...] on file Legal Sex Female 3:34 AM PUBLIC RELATIONS COUNSELOR Gender Identity Not on file Sexual Orientation Not on file Occupation Industry Job Start Date Job End Date Unemployed Not on file Not on file Not on file documented as of this encounter Plan of Treatment Upcoming Encounters Date Type Department Care Team (Late st Contact Info) Description 04/20/2025 PRE VISIT [facility] All[facility] Clinic [address] [address] Ashwin Franklin MD [address] [place] [address] Previsit 04/20/2025 1:00 PM CDT Office Visit [facility] [address] [phone] Ashwin Franklin MD 909 [place], [place] 6[address] 05/20/2025 12:45 PM CDT Office Visit [facility] Women's [facility] [address] 3rd Floor,[address] [facility] 88 [place] [phone] Ayana Fuller MD [address] [facility] 300 [place], [place] [address]40[address] 09/05/2025 9:45 AM PUBLIC RELATIONS COUNSELOR Office Visit [facility] Dermatology Clinic [address]rd [place] [phone] Jessica Butler MD 420 [facility] 98 [place], [place] 701215 documented as of this encounter Visit Diagnoses Not on filedocumented in this encounter Additional Health Concerns Assessment Noted Time PHQ-9 Depression Total Score: 2 10/15/19 23 2:22 PM CDT documented as of this encounter Care Teams Drawer In Dobby Loom Relationship Specialty Start Date End Date Nanci Villalba MD 901 [facility] [place] [address] PCP - General Internal Medicine 06/01/19 Remi Camacho MD 420 [facility] 136 [place] [address] Dermatology 08/28/16 Alexis Vargas MD 2450 [place] [address] Dermatology 07/14/17 Cecilio Velasco DPM [address] [place] [address] Podiatry 12/31/17 Johnny Gauthier MD [address] [place] [address] R102 [place] [address] Family Medicine - Sports Medicine 08/20/18 Alpa Max PA-C [address] [place] [address] 98 [place], [place] 822835 Physician Amortization Clerk Physician Amortization Clerk 08/28/18 Ayana Fuller MD [address] [place] [address] 474734 retail selling specialist 12/01/18 Ayana Fuller MD [address] [place] [address] 979404 Assigned OBGYN Provider 05/19/20 Nanci Villalba MD [address] [place] [address] 984705 Assigned PCP 12/21/20 Abdirizak Dowd MD [address] [place] [address] 093015 Dermatology 08/09/21 Abdirizak Dowd MD [address] [place] [address] 749525 Dermatology 12/21/21 Jessica Butler MD 420 [facility] 98 [place] [address] Dermatology 02/21/23 Ayana Fuller MD 606 [address] [facility] 300 [place] [address] retail selling specialist 02/24/23 Loli Louis DPM, Podiatry/Foot and Ankle Surgery [address] [facility] 300 [place] [address] Assigned Musculoskeletal Provider 09/19/23 03/18/25 Jessica Butler MD [address] [address] Assigned Surgical Provider 02/17/24 10/16/24 Ashwin Franklin MD 909 [place] [address] Dermatology 09/17/24 Valeria Sullivan, PA-C Dermatology [address] [place] [address] Assigned Dermatology Provider 10/17/24 03/18/25 Jessica Butler MD [address] [address] Assigned Dermatology Provider 03/19/25 documented as of this encounter
--- OUTSIDE RECORDS SUMMARY | 2025-04-06 23:35 | XMS_ITS | Encounter Summary ---
Author Organization [place] Address [address] [facility] [place] [address] Care Team Providers Care Energy And Sustainability Manager Name Role Phone Remi Camacho MD Unavailable Alexis Vargas MD Unavailable Cecilio VelascoM Unavailable [phone] Johnny Gauthier MD Unavailable Alpa Max PA-C Unavailable [phone] Ayana Fuller MD Unavailable [phone] Nanci Villalba MD Primary Care Provider Ayana Fuller MD Unavailable [phone] Nanci Villalba MD Unavailable [phone] Abdirizak Dowd MD Unavailable Abdirizak Dowd MD Unavailable [phone] Jessica Butler MD Unavailable Ayana Fuller MD Unavailable [phone] Loli Louis DPM, Podiatry /Foot and Ankle Surgery Unavailable Jessica Butler MD Unavailable [phone] Ashwin Franklin MD Unavailable [phone] Valeria Sullivan PA-C Unavailable [phone] Jessica Butler MD Unavailable [phone] Encounter Details Date Type Department Care Team (Late st Contact Info) Description 05/27/2024 MyC Medical Advice [facility] [address] [place] [address] [place] [address] [place] [address] [place] [address] [place] [address] Social History Tobacco Use Types [...] you got money to buy more? No 04/27/2024 Within the past 12 months, d id the food you bought just not last and you didn t have money to get more? No 04/27/2024 Housing Stability Answer Date Recorded Do you have housing? (Housin g is defined as stable permanent housing and does not include staying outside in a car, in a tent, in an abandoned building, in an overnight alf, or couch-surfing.) Yes 04/27/2024 Are you worried about losing your housing? No 04/27/2024 Financial Resource Strain Answer Date R ecorded Within the past 12 months, h ave you or your family members you live with been unable to get utilities (heat, electricity) when it was really needed? No 04/27/2024 Transportation Needs Answer Date Record ed Within the past 12 months, h as lack of transportation kept you from medical appointments, getting your medicines, non-medical meetings or appointments, work, or from getting things that you need? No 04/27/2024 Interpersonal Safety Answer Date Record ed Do you feel physically and e motionally safe where you currently live? Yes 05/10/2024 Within the past 12 months, h ave you been hit, slapped, kicked or otherwise physically hurt by someone? No 05/10/2024 Within the past 12 months, h ave you been humiliated or emotionally abused in other ways by your partner or ex-partner? 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 Gender Identity Not on file Sexual Orientation Not on file Occupation Industry Job Start Date Job End Date Unemployed Not on file Not on file Not on file documented as of this encounter Plan of Treatment Upcoming Encounters Date Type Department Care Team (Late st Contact Info) Description 04/20/2025 PRE VISIT [facility] Allergy [address] [phone] Ashwin Franklin MD [address] [place] [address] 111625 Previsit 04/20/2025 1:00 PM CDT Office Visit [facility] Allergy [address] [phone] Ashwin Franklin MD [address] [place] [address] 581235 05/20/2025 12:45 PM CDT Office Visit [facility] [address] 3rd Floor,[address] [place] [facility] 88 [place] [phone] Ayana Fuller MD [address] [place] [address] [place] [address] 09/05/2025 9:45 AM BALLET COMPANY ARTISTIC DIRECTOR Office Visit [facility] Dermatology [address] 3rd [place] [phone] Jessica Butler MD 420 [facility] 98 [place] [address] documented as of this encounter Visit Diagnoses Not on filedocumented in this encounter Additional Health Concerns Assessment Noted Time PHQ-9 Depression Total Score: 2 10/15/19 23 2:22 PM CDT documented as of this encounter Care Teams Energy And Sustainability Manager Relationship Specialty Start Date End Date Nanci Villalba MD [address] [place] [address] A [place], [place] 377715 PCP - General Internal Medicine 06/01/19 Remi Camacho MD [address] [place] [address] Dermatology 08/28/16 Alexis Vargas MD [address] [place] [address] Dermatology 07/14/17 Cecilio Velasco DPM [address] [place] [address] 952105 Podiatry 12/31/17 Johnny Gauthier MD [address] [place], [place] 7[address]102 [place] [address] Family Medicine - Sports Medicine 08/20/18 Alpa Max PA-C 420 [facility] 98 [place] [address] Physician Solution Consultant Physician Solution Consultant 08/28/18 Ayana Fuller MD [address] [facility] 300 [place] [address] instructor correspondence school 12/01/18 Ayana Fluler MD [address] [facility] 300 [place] [address] Assigned OBGYN Provider 05/19/20 Nanci Villalba MD [address] [place] [address] [place] [address] Assigned PCP 12/21/20 Abdirizak Dowd MD [address] [place] [address] 054445 Dermatology 08/09/21 Abdirizak Dowd MD [address] [place] [address] 408865 Dermatology 12/21/21 Jessica Butler MD [address] [place] [address] [facility] 98 [place] [address] Dermatology 02/21/23 Ayana Fuller MD [address] [address] instructor correspondence school 02/24/23 Loli Louis, DPM, Podiatry/Foot and Ankle Surgery [address] [facility] 300 [place] [address] Assigned Musculoskeletal Provider 09/19/23 03/18/25 Jessica Butler MD [address] [address] Assigned Surgical Provider 02/17/24 10/16/24 Ashwin Franklin MD [address] [place] [address] Dermatology 09/17/24 Valeria Sullivan PACassieC Dermatology [address] [place] [address] Assigned Dermatology Provider 10/17/24 03/18/25 Jessica Butler MD [address] [address] Assigned Dermatology Provider 03/19/25 documented as of this encounter
--- OUTSIDE RECORDS SUMMARY | 2025-04-06 23:35 | XMS_ITS | Encounter Summary ---
Author Organization [place] Address [address] [facility] [place] [address] Care Team Providers Care Rn Dermatology Name Role Phone Remi Camacho MD Unavailable Alexis Vargas MD Unavailable Cecilio VelascoM Unavailable [phone] Johnny Gauthier MD Unavailable [phone] Alpa Max PA-C Unavailable Ayana Fuller MD Unavailable [phone] Nanci Villalba MD Primary Care Provider Ayana Fuller MD Unavailable [phone] Nanci Villalba MD Unavailable [phone] Abdirizak Dowd MD Unavailable Abdirizak Dowd MD Unavailable [phone] Jessica Butler MD Unavailable [phone] Ayana Fuller MD Unavailable [phone] Loli Louis DPM, Podiatry /Foot and Ankle Surgery Unavailable Jessica Butler MD Unavailable [phone] Ashwni Franklin MD Unavailable [phone] Valeria Sullivan PA-C Unavailable [phone] Jessica Butler MD Unavailable [phone] Encounter Details Date Type Department Care Team (Late st Contact Info) Description 05/16/2024 MyC Medical Advice [facility] [address] [place] [address] [place] [address] [place] [place] [address] Social History Tobacco Use Types [...] in an overnight jail, or couch-surfing.) Yes 04/27/2024 Are you worried [...] on file Legal Sex Female 3:34 AM BARGE HAND Gender Identity Not on file Sexual Orientation Not on file Occupation Industry Job Start Date Job End Date Unemployed Not on file Not on file Not on file documented as of this encounter Plan of Treatment Upcoming Encounters Date Type Department Care Team (Late st Contact Info) Description 04/20/2025 PRE VISIT [facility] Allergy [address] [phone] Ashwin Franklin MD [address] [place] [address] 458605 Previsit 04/20/2025 1:00 PM CDT Office Visit [facility] Allergy [address] [phone] Ashwin Franklin MD [address] [place] [address] 05/20/2025 12:45 PM CDT Office Visit [facility] Women's [facility] [address] 3rd Floor,[address] [place] [facility] 88 [place] [phone] Ayana Fuller MD [address] [place] [address] [place] [address] 09/05/2025 9:45 AM BARGE HAND Office Visit [facility] Dermatology [address] 3rd [place] [phone] Jessica Butler MD 420 [facility] 98 [place] [address] documented as of this encounter Visit Diagnoses Not on filedocumented in this encounter Additional Health Concerns Assessment Noted Time PHQ-9 Depression Total Score: 2 10/15/19 23 2:22 PM CDT documented as of this encounter Care Teams Rn Dermatology Relationship Specialty Start Date End Date Nanci Villalba MD [address] [place] [address] A [place], [place] [phone] PCP - General Internal Medicine 06/01/19 Remi Camacho MD [address] [place] [address] Dermatology 08/28/16 Alexis Vargas MD [address] [place] [address] Dermatology 07/14/17 Cecilio Velasco DPM [address] [place] [address] 811295 Podiatry 12/31/17 Johnny Gauthier MD [address] [place], [place] [address] [place] [address] Family Medicine - Sports Medicine 08/20/18 Alpa Max PA-C 420 [facility] 98 [place] [address] Physician Biomed Tech Physician Biomed Tech 08/28/18 Ayana Fuller MD [address] [facility] 300 [place] [address] dosimetrist 12/01/18 Ayana Fuller MD [address] [facility] 300 [place] [address] Assigned OBGYN Provider 05/19/20 Nanci Villalba MD [address] [place] [address] [place] [address] Assigned PCP 12/21/20 Abdirizak Dowd MD [address] [place] [address] 930435 Dermatology 08/09/21 Abdirizak Dowd MD [address] [place] [address] 946155 Dermatology 12/21/21 Jessica Butler MD [address] [place] [address] [facility] 98 [place] [address] Dermatology 02/21/23 Ayana Fuller MD [address] [address] dosimetrist 02/24/23 Loli Louis, DPM, Podiatry/Foot and Ankle Surgery [address] [facility] 300 [place] [address] Assigned Musculoskeletal Provider 09/19/23 03/18/25 Jessica Butler MD [address] [address] Assigned Surgical Provider 02/17/24 10/16/24 Ashwin Franklin MD [address] [place] [address] Dermatology 09/17/24 Valeria Sullivan PACassieC Dermatology [address] [place] [address] Assigned Dermatology Provider 10/17/24 03/18/25 Jessica Butler MD [address] [address] Assigned Dermatology Provider 03/19/25 documented as of this encounter
--- OUTSIDE RECORDS SUMMARY | 2025-04-06 23:35 | XMS_ITS | Encounter Summary ---
Author Organization [facility] Address [address] [place] [address] Care Team Providers Care Manager New Product Name Role Phone Remi Camacho MD Unavailable +[phone] Alexis Vargas MD Unavailable +[phone] Cecilio Velasco DPM Unavailable [phone] Johnny Gauthier MD Unavailable +[phone] Alpa Max PA-C Unavailable +[phone] Ayana Fuller MD Unavailable +[phone] Nanci Villalba MD Primary Care Provider Ashwin Franklin MD Unavailable +[phone] Magda Goode MD Unavailable +[phone] Ayana Fuller MD Unavailable +[phone] Ashwin Franklin MD Unavailable +[phone] Cecilio Velasco DPM Unavailable +[phone] Nanci Villalba MD Unavailable +[phone] Magda Goode MD Unavailable + [phone] Nanci Villalba MD Unavailable +[phone] Abdirizak Dowd MD Unavailable +[phone] Abdirizak Dowd MD Unavailable +[phone] Abdirizak Dowd MD Unavailable +[phone] Jessica Butler MD Unavailable +[phone] Ayana Fuller MD Unavailable +[phone] Loli LouisM, Podiatry /Foot and Ankle Surgery Unavailable Jessica Butler MD Unavailable +[phone] Ashwin Franklin MD Unavailable +[phone] Valeria Sullivan PA-C Unavailable +[phone] Jessica Butler MD Unavailable +[phone] Encounter Details Date Type Department Care Team (Late st Contact Info) Description 11/02/2019 MyC Medical Advice [facility] [address] [address] Solange Stoddard, PT [facility] [address] [place], [place] [phone] Social History Tobacco Use Types Packs/Day Years Used Date Smoking Tobacco: Never Smokeless Tobacco: Never Alcohol Use Standard Drinks/Week Comments No 0 (1 standard drink = 0.6 oz pur e alcohol) Glasses Wine PHQ-2 Answer Date Recorded PHQ-2 Score 0 05/31/2019 Comments No Sex and Gender Information Value Date Recorded Sex Assigned at Not on file Legal Sex Female 3:34 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 Gender Identity Not on file Sexual Orientation Not on file Occupation Industry Job Start Date Job End Date Unemployed Not on file Not on file Not on file documented as of this encounter Plan of Treatment Upcoming Encounters Date Type Department Care Team (Late st Contact Info) Description 04/20/2025 PRE VISIT [facility] [address] [phone] Ashwin Franklin MD [address] [place] [address] 165755 Previsit 04/20/2025 1:00 PM CDT Office Visit [facility] [address] [phone] Ashwin Franklin MD [address] [place] [address] 05/20/2025 12:45 PM CDT Office Visit [facility] [address] 3rd Floor,[address] [place] [facility] 88 [place] [phone] Ayana Fuller MD [address] [facility] 300 [place], [place] [address] 09/05/2025 9:45 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 Office Visit [facility] [address] 3rd [place] [phone] Jessica Butler MD 420 [facility] 98 [place], [place] 6[address]105 documented as of this encounter Visit Diagnoses Not on filedocumented in this encounter Additional Health Concerns Assessment Noted Time PHQ-9 Depression Total Score: 2 08/02/19 20 1:35 PM COMPUTER SYSTEMS AUDITOR documented as of this encounter Care Teams Manager New Product Relationship Specialty Start Date End Date Nanci Villalba MD [address] [place] [address] [place], [place] 5[address] PCP - General Internal Medicine 06/01/19 Remi Camacho MD 420 [facility] 136 [place], [place] 37[address]64 Dermatology 08/28/16 Alexis Vargas MD 2450 [place], [place] 180384 Dermatology 07/14/17 Cecilio Velasco DPM 909 [place], [place] 385285 Podiatry 12/31/17 Johnny Gauthier MD [facility] [place] [id number] [place], [place] 6348[address] Family Medicine - Sports Medicine 08/20/18 Alpa Max PA-C 420 [facility] 98 [place], [place] [address] Physician Marker Shipments Physician Marker Shipments 08/28/18 Ayana Fuller MD [facility] [address] [address] help desk engineer 12/01/18 Ashwin Franklin MD 909 [place], [place] 389385 Assigned Pediatric Specialist Provider 05/19/20 08/27/20 Magda Goode MD 909 [place], [place] 226295 Assigned Musculoskeletal Provider 05/19/20 08/19/20 Ayana Fuller MD [address] [facility] 300 [place], [place] [address]674 Assigned OBGYN Provider 05/19/20 Ashwin Franklin MD [address] [place] [address] Assigned Surgical Provider 05/19/20 03/22/22 Cecilio Velasco DPM [address] [place] [address] Assigned Musculoskeletal Provider 08/20/20 09/30/20 Nanci Villalba MD [address] [place] [address] Assigned PCP 09/10/20 11/04/20 Magda Goode MD [address] [place] [address] Assigned Musculoskeletal Provider 10/01/20 01/03/23 Nanci Villalba MD [address] [place] [address] Assigned PCP 12/21/20 Abdirizak Dowd MD [address] [place] [address] Dermatology 08/09/21 Abdirizak Dowd MD [address] [place] [address] Dermatology 12/21/21 Abdirizak Dowd MD [address] [place] [address] Assigned Surgical Provider 03/23/22 02/16/24 Jessica Butler MD 420 [facility] 98 [place] [address] Dermatology 02/21/23 Ayana Fuller MD [address] [place] [address] [place] [address] help desk engineer 02/24/23 Loli Louis DPM, Podiatry/Foot and Ankle Surgery [address] [facility] 300 [place] [address] Assigned Musculoskeletal Provider 09/19/23 03/18/25 Jessica Butler MD 420 [facility] 98 [place] [address] Assigned Surgical Provider 02/17/24 10/16/24 Ashwin Franklin MD 909 [place] [address] Dermatology 09/17/24 Valeria Sullivan, PA-C Dermatology [address] [place] [address] Assigned Dermatology Provider 10/17/24 03/18/25 Jessica Butler MD [address] [place] [facility] 98 [place] [address] Assigned Dermatology Provider 03/19/25 documented as of this encounter
--- OUTSIDE RECORDS SUMMARY | 2025-04-06 23:35 | XMS_ITS | Encounter Summary ---
Author Organization [facility] Address [address] [place] [address] Care Team Providers Care Casino Operations Supervisor Name Role Phone Remi Camacho MD Unavailable [phone] Alexis Vargas MD Unavailable +[phone] Cecilio Velasco DPM Unavailable [phone] Johnny Gauthier MD Unavailable [phone] Alpa Max PA-C Unavailable Ayana Fuller MD Unavailable +[phone] Nanci Villalba MD Primary Care Provider Ayana Fuller MD Unavailable +[phone] Ashwin Franklin MD Unavailable +[phone] Magda Goode MD Unavailable +[phone] Nanci Villalba MD Unavailable +[phone] Abdirizak Dowd MD Unavailable +[phone] Abdirizak Dowd MD Unavailable [phone] Abdirizak Dowd MD Unavailable +[phone] Jessica Butler MD Unavailable +[phone] Ayana Fuller MD Unavailable +[phone] Loli LouisM, Podiatry /Foot and Ankle Surgery Unavailable Jessica Butler MD Unavailable +[phone] Ashwin Franklin MD Unavailable +[phone] Valeria Sullivan PA-C Unavailable +[phone] Jessica Butler MD Unavailable [phone] Encounter Details Date Type Department Care Team (Late st Contact Info) Description 11/19/2021 [facility] Heart [address] [phone] [facility] Social History Tobacco Use Types Packs/Day Years [...] on file 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 Gender Identity Not on file Sexual Orientation Not on file Occupation Industry Job Start Date Job End Date Unemployed Not on file Not on file Not on file documented as of this encounter Plan of Treatment Upcoming Encounters Date Type Department Care Team (Late st Contact Info) Description 04/20/2025 PRE VISIT [facility]ergy [address] [place] [address] [phone] Ashwin Franklin MD [address] [place] [address] 930955 Previsit 04/20/2025 1:00 PM CDT Office Visit [facility]ergy [address] [place] [address] [phone] Ashwin Franklin MD [address] [place] [address] 813115 05/20/2025 12:45 PM CDT Office Visit [facility] [address] [place], [place] [address]e 3rd Floor,[address] [place] Professional [facility]ldg [facility] 88 [place] [phone] Ayana Fuller MD [address] [place] [address] 300 [place], [place] [address]34 09/05/2025 9:45 AM WASTEWATER TREATMENT SUPERVISOR Office Visit [facility] Dermatology [address] 3rd [place] [phone] Jessica Butler MD [address] [place] [address] 98 [place], [place] 403355 documented as of this encounter Visit Diagnoses Not on filedocumented in this encounter Additional Health Concerns Assessment Noted Time PHQ-9 Depression Total Score: 2 02/29/20 21 1:38 PM CDT documented as of this encounter Care Teams Casino Operations Supervisor Relationship Specialty Start Date End Date Nanci Villalba MD [address] [place] [address] [place] [address] PCP - General Internal Medicine 06/01/19 Remi Camacho MD 420 [facility] 136 [place] [address] Dermatology 08/28/16 Alexis Vargas MD 2450 [place] [address] Dermatology 07/14/17 Cecilio Velasco DPM [address] [place] [address] Podiatry 12/31/17 Johnny Gauthier MD [facility] [address] [place] [address] Family Medicine - Sports Medicine 08/20/18 Alpa Max PA-C 420 [facility] 98 [place] [address] Physician Gardening Manager Physician Gardening Manager 08/28/18 Ayana Fuller MD [address] [facility] 300 [place], [place] 202764 curing supervisor 12/01/18 Ayana Fuller MD [address] [facility] 300 [place], [place] 429124 Assigned OBGYN Provider 05/19/20 Ashwin Franklin MD [address] [place] [address] Assigned Surgical Provider 05/19/20 03/22/22 Magda Goode MD [address] [place] [address] Assigned Musculoskeletal Provider 10/01/20 01/03/23 Nanci Villalba MD [address] [place] [address] [place] [address] Assigned PCP 12/21/20 Abdirizak Dowd MD [address] [place] [address] Dermatology 08/09/21 Abdirizak Dowd MD [address] [place] [address] Dermatology 12/21/21 Abdirizak Dowd MD [address] [place] [address] Assigned Surgical Provider 03/23/22 02/16/24 Jessica Butler MD [address] [place] [address] Dermatology 02/21/23 Ayana Fuller MD [address] [place] [address] 300 [place] [address] curing supervisor 02/24/23 Loli Louis DPM, Podiatry/Foot and Ankle Surgery [address] [address] Assigned Musculoskeletal Provider 09/19/23 03/18/25 Jessica Butler MD [address] [place] [address] Assigned Surgical Provider 02/17/24 10/16/24 Ashwin Franklin MD [address] [place] [address] Dermatology 09/17/24 Valeria Sullivan, PA-C Dermatology [address] [place] [address] Assigned Dermatology Provider 10/17/24 03/18/25 Jessica Butler MD [address] [place] [address] 98 [place] [address] Assigned Dermatology Provider 03/19/25 documented as of this encounter
--- OUTSIDE RECORDS SUMMARY | 2025-04-06 23:35 | XMS_ITS | Encounter Summary ---
Author Organization [facility] Address [address] [facility] [place] [address] Care Team Providers Care Regional Operations Director Name Role Phone Remi Camacho MD Unavailable [phone] Alexis Vargas MD Unavailable Cecilio VelascoM Unavailable +[phone] Johnny Gauthier MD Unavailable Alpa Max PA-C Unavailable [phone] Ayana Fuller MD Unavailable +[phone] Nanci Villalba MD Primary Care Provider Ayana Fuller MD Unavailable +[phone] Nanci Villalba MD Unavailable + [phone] Abdirizak Dowd MD Unavailable Abdirizak Dowd MD Unavailable +[phone] Jessica Butler MD Unavailable +[phone] Ayana Fuller MD Unavailable [phone] Loli Louis DPM, Podiatry /Foot and Ankle Surgery Unavailable Jessica Butler MD Unavailable +[phone] Ashwin Franklin MD Unavailable +[phone] Valeria Sullivan PA-C Unavailable [phone] Jessica Butler MD Unavailable [phone] Encounter Details Date Type Department Care Team (Late st Contact Info) Description 07/04/2024 MyC Medical Advice [facility] [place] [address] [address] [place] [address] Nanci Villalba MD [facility] [address] [facility] [place] [address] Social History Tobacco Use Types Packs/Day [...] an overnight senior care, or couch-surfing.) Yes 04/27/2024 Are you worried [...] on file 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 Gender Identity Not on file Sexual Orientation Not on file Occupation Industry Job Start Date Job End Date Unemployed Not on file Not on file Not on file documented as of this encounter Plan of Treatment Upcoming Encounters Date Type Department Care Team (Late st Contact Info) Description 04/20/2025 PRE VISIT [facility] [address] [phone] Ashwin Franklin MD [address] [place] [address] 647745 Previsit 04/20/2025 1:00 PM CDT Office Visit [facility] [address] [phone] Ashwin Franklin MD [address] [place] [address] 651445 05/20/2025 12:45 PM CDT Office Visit [facility] [address] 3rd Floor,[address] [place] [facility] 88 [place] [phone] Ayana Fuller MD [address] [place] [address] [place] [address] 09/05/2025 9:45 AM SIMULATION DEVELOPER Office Visit [facility] Dermatology [address] 3rd [place] [phone] Jessica Butler MD 420 [facility] 98 [place] [address] documented as of this encounter Visit Diagnoses Not on filedocumented in this encounter Additional Health Concerns Assessment Noted Time PHQ-9 Depression Total Score: 2 10/15/19 23 2:22 PM CDT documented as of this encounter Care Teams Regional Operations Director Relationship Specialty Start Date End Date Nanci Villalba MD [address] [place] [address] A [place], [place] 8[address] PCP - General Internal Medicine 06/01/19 Remi Camacho MD [address] [place] [address] 136 [place] [address] Dermatology 08/28/16 Alexis Vargas MD [address] [place] [address] Dermatology 07/14/17 Cecilio Velasco DPM [address] [place] [address] Podiatry 12/31/17 Johnny Gauthier MD [address] [place] [address] R102 [place] [address] Family Medicine - Sports Medicine 08/20/18 Alpa Max PA-C 420 [facility] 98 [place] [address] Physician Claims Adjuster Supervisor Physician Claims Adjuster Supervisor 08/28/18 Ayana Fuller MD [address] [facility] 300 [place] [address] design engineering technician 12/01/18 Ayana Fuller MD [address] [facility] 300 [place] [address] Assigned OBGYN Provider 05/19/20 Nanci Villalba MD [address] [place] [address] [place] [address] Assigned PCP 12/21/20 Abdirizak Dowd MD [address] [place] [place] [address] 296195 Dermatology 08/09/21 Abdirizak Dowd MD [address] [place] [place] [address] 515395 Dermatology 12/21/21 Jessica Butler MD 420 [facility] 98 [place] [address] Dermatology 02/21/23 Ayana Fuller MD [address] [facility] 300 [place] [address] design engineering technician 02/24/23 Loli Louis, DPM, Podiatry/Foot and Ankle Surgery [address] [facility] 300 [place] [address] Assigned Musculoskeletal Provider 09/19/23 03/18/25 Jessica Butler MD [address] [address] Assigned Surgical Provider 02/17/24 10/16/24 Ashwin Franklin MD [address] [place] [address] Dermatology 09/17/24 Valeria Sullivan PA-C Dermatology [address] [place] [address] Assigned Dermatology Provider 10/17/24 03/18/25 Jessica Butler MD [address] [address] Assigned Dermatology Provider 03/19/25 documented as of this encounter
--- OUTSIDE RECORDS SUMMARY | 2025-04-06 23:35 | XMS_ITS | Encounter Summary ---
Author Organization [facility] Address [address] [place] [address] Care Team Providers Care Park Aide Name Role Phone Remi Camacho MD Unavailable Alexis Vargas MD Unavailable [phone] Cecilio Velasco DPM Unavailable [phone] Johnny Gauthier MD Unavailable +[phone] Alpa Max PA-C Unavailable [phone] Ayana Fuller MD Unavailable [phone] Nanci Villalba MD Primary Care Provider Ashwin Franklni MD Unavailable [phone] Magda Goode MD Unavailable +[phone] Ayana Fuller MD Unavailable +[phone] Ashwin Franklin MD Unavailable +[phone] Cecilio Velasco DPM Unavailable +[phone] Nanci Villalba MD Unavailable [phone] Magda Goode MD Unavailable +[phone] Nanci Villalba MD Unavailable +[phone] Abdirizak Dowd MD Unavailable +[phone] Abdirizak Dowd MD Unavailable +[phone] Abdirizak Dowd MD Unavailable +[phone] Jessica Butler MD Unavailable +[phone] Ayana Fuller MD Unavailable +[phone] Loli LouisM, Podiatry /Foot and Ankle Surgery Unavailable Jessica Butler MD Unavailable +[phone] Ashwin Franklin MD Unavailable [phone] Valeria Sullivan PA-C Unavailable +[phone] Jessica Butler MD Unavailable [phone] Encounter Details Date Type Department Care Team (Late st Contact Info) Description 11/02/2019 MyC Medical Advice [address] [place] [address] Nanci Villalba MD [address] [place] [address] [phone] Social History Tobacco Use Types Packs/Day Years Used Date Smoking Tobacco: Never Smokeless Tobacco: Never Alcohol Use Standard Drinks/Week Comments No 0 (1 standard drink = 0.6 oz pur e alcohol) Glasses Wine PHQ-2 Answer Date Recorded PHQ-2 Score 0 05/31/2019 Comments No Sex and Gender Information Value Date Recorded Sex Assigned at Not on file 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 Gender Identity Not on file Sexual Orientation Not on file Occupation Industry Job Start Date Job End Date Unemployed Not on file Not on file Not on file documented as of this encounter Plan of Treatment Upcoming Encounters Date Type Department Care Team (Late st Contact Info) Description 04/20/2025 PRE VISIT [facility] [address] [phone] Ashwin Franklin MD [address] [place] [address] [phone] Previsit 04/20/2025 1:00 PM CDT Office Visit [facility] [address] [phone] Ashwin Franklin MD [address] [place] [address] 05/20/2025 12:45 PM CDT Office Visit [facility] [address] 3rd Floor,[address] [place] [facility]ldg [facility] 88 [place] [phone] Ayana Fuller MD [address] [facility] 300 [place], [place] [address] 09/05/2025 9:45 AM SURFACE MOUNT TECHNOLOGY OPERATOR Office Visit [facility] [address] 3rd [place] [phone] Jessica Butler MD 420 [facility] 98 [place], [place] 14[address]85 documented as of this encounter Visit Diagnoses Not on filedocumented in this encounter Additional Health Concerns Assessment Noted Time PHQ-9 Depression Total Score: 2 08/02/19 20 1:35 PM SURFACE MOUNT TECHNOLOGY OPERATOR documented as of this encounter Care Teams Park Aide Relationship Specialty Start Date End Date Nanci Villalba MD [address] [place] [address] A [place], [place] 4[address] PCP - General Internal Medicine 06/01/19 Remi Camacho MD 420 [facility] 136 [place], [place] 07[address]84 Dermatology 08/28/16 Alexis Vargas MD 2450 [place], [place] 572264 Dermatology 07/14/17 Cecilio Velasco DPM 909 [place], [place] 14[address]35 Podiatry 12/31/17 Johnny Gauthier MD [facility]2 [place] 4819202 [place], [place] 295984 Family Medicine - Sports Medicine 08/20/18 Alpa Max PA-C 420 [facility] 98 [place], [place] 59[address] Physician Ophthalmologist Physician Ophthalmologist 08/28/18 Ayana Fuller MD 60[facility] [address] [address] cotton wringer 12/01/18 Ashwin Franklin MD 909 [place], [place] 9[address]385 Assigned Pediatric Specialist Provider 05/19/20 08/27/20 Magda Goode MD 909 [place], [place] 589175 Assigned Musculoskeletal Provider 05/19/20 08/19/20 Ayana Fuller MD [address] [facility] 300 [place], [place] 636204 Assigned OBGYN Provider 05/19/20 Ashwin Franklin MD [address] [place] [address] Assigned Surgical Provider 05/19/20 03/22/22 Cecilio Velasco DPM [address] [place] [address] Assigned Musculoskeletal Provider 08/20/20 09/30/20 Nanci Villalba MD [address] [place] [address] Assigned PCP 09/10/20 11/04/20 Magda Goode MD [address] [place] [address] Assigned Musculoskeletal Provider 10/01/20 01/03/23 Nanci Villalba MD [address] [place] [address] Assigned PCP 12/21/20 Abdirizak Dowd MD [address] [place] [address] Dermatology 08/09/21 Abdirizak Dowd MD [address] [place] [address] Dermatology 12/21/21 Abdirizak Dowd MD [address] [place] [address] Assigned Surgical Provider 03/23/22 02/16/24 Jessica Butler MD 420 [facility] 98 [place] [address] Dermatology 02/21/23 Ayana Fuller MD [address] [place] [address] [place] [address] cotton wringer 02/24/23 Loli Louis DPM, Podiatry/Foot and Ankle Surgery [address] [facility] 300 [place] [address] Assigned Musculoskeletal Provider 09/19/23 03/18/25 Jessica Butler MD 420 [facility] 98 [place] [address] Assigned Surgical Provider 02/17/24 10/16/24 Ashwin Franklin MD 909 [place] [address] Dermatology 09/17/24 Valeria Sullivan, PA-C Dermatology [address] [place] [address] Assigned Dermatology Provider 10/17/24 03/18/25 Jessica Butler MD [address] [place] [address] [facility] 98 [place] [address] Assigned Dermatology Provider 03/19/25 documented as of this encounter
--- OUTSIDE RECORDS SUMMARY | 2025-04-06 23:35 | XMS_ITS | Encounter Summary ---
Author Organization [place] Address [address] [place] [place] [address] Care Team Providers Care Biomedical Engineering Supervisor Name Role Phone Remi Camacho MD Unavailable Alexis Vargas MD Unavailable [phone] Cecilio VelascoM Unavailable [phone] Johnny Gauthier MD Unavailable Alpa Max PA-C Unavailable [phone] Ayana Fuller MD Unavailable [phone] Nanci Villalba MD Primary Care Provider Ayana Fuller MD Unavailable +[phone] Nanci Villalba MD Unavailable + [phone] Abdirizak Dowd MD Unavailable Abdirizak Dowd MD Unavailable [phone] Jessica Butler MD Unavailable Ayana Fuller MD Unavailable [phone] Loli Louis DPM, Podiatry /Foot and Ankle Surgery Unavailable Jessica Butler MD Unavailable +[phone] Ashwin Franklin MD Unavailable [phone] Valeria Sullivan PA-C Unavailable [phone] Jessica Butler MD Unavailable [phone] Encounter Details Date Type Department Care Team [...] in an abandoned building, in an overnight custodial, or couch-surfing.) Yes 06/08/2023 Are you worried [...] on file 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 Gender Identity Not on file Sexual Orientation Not on file Occupation Industry Job Start Date Job End Date Unemployed Not on file Not on file Not on file documented as of this encounter Plan of Treatment Upcoming Encounters Date Type Department Care Team (Late st Contact Info) Description 04/20/2025 PRE VISIT [facility] Allergy [address] [phone] Ashwin Franklin MD [address] [place] [address] 191605 Previsit 04/20/2025 1:00 PM CDT Office Visit [facility] Allergy [address] [phone] Ashwin Franklin MD [address] [place] [address] [phone] 05/20/2025 12:45 PM CDT Office Visit [facility] Women's [facility] [address] 3rd Floor,[address] [place] [facility] 88 [place] [phone] Ayana Fuller MD [address] [facility] 300 [place], [place] [address] 09/05/2025 9:45 AM CLINICAL TRIALS DATA COORDINATOR Office Visit [facility] Dermatology Clinic [address] 3rd [place] [phone] Jessica Butler MD [address] [place] [address] 98 [place], [place] 434195 documented as of this encounter Visit Diagnoses Not on filedocumented in this encounter Additional Health Concerns Assessment Noted Time PHQ-9 Depression Total Score: 2 10/15/19 23 2:22 PM CDT documented as of this encounter Care Teams Biomedical Engineering Supervisor Relationship Specialty Start Date End Date Nanci Villalba MD [address] [place] [address] PCP - General Internal Medicine 06/01/19 Remi Camacho MD 420 [facility] 136 [place] [address] Dermatology 08/28/16 Alexis Vargas MD 2450 [place] [address] Dermatology 07/14/17 Cecilio Velasco DPM 909 [place] [address] Podiatry 12/31/17 Johnny Gauthier MD [address] [facility] [address] [place] [address] Family Medicine - Sports Medicine 08/20/18 Alpa Max PA-C 420 [facility] 98 [place] [address] Physician Recycling Specialist Physician Recycling Specialist 08/28/18 Ayana Fuller MD [address] [facility] 300 [place] [address] typing office worker 12/01/18 Ayana Fuller MD [address] [place] [address]398 Assigned OBGYN Provider 05/19/20 Nanci Villlaba MD [address] [place] [address] Assigned PCP 12/21/20 Abdirizak Dowd MD [address] [place] [address] Dermatology 08/09/21 Abdirizak Dowd MD [address] [place] [address] 577135 Dermatology 12/21/21 Jessica Butler MD [address] [place] [address] Dermatology 02/21/23 Ayana Fuller MD [address] [place] [address] [phone] typing office worker 02/24/23 Loli Louis DPJean, Podiatry/Foot and Ankle Surgery [address] [address] Assigned Musculoskeletal Provider 09/19/23 03/18/25 Jessica Butler MD [address] [place] [address] 23482 Assigned Surgical Provider 02/17/24 10/16/24 Ashwin Franklin MD [address] [place] [address] Dermatology 09/17/24 Valeria Sullivan PA-C Dermatology [address] [place] [address] 24484 Assigned Dermatology Provider 10/17/24 03/18/25 Jessica Butler MD [address] [place] [address] 98 [place] [address] Assigned Dermatology Provider 03/19/25 documented as of this encounter
--- OUTSIDE RECORDS SUMMARY | 2025-04-06 23:35 | XMS_ITS | Encounter Summary ---
Author Organization [place] Address [address] [facility] [place] [address] Care Team Providers Care Professional Development Instructor Name Role Phone Remi Camacho MD Unavailable [phone] Alexis Vargas MD Unavailable [phone] Cecilio Velasco DPM Unavailable [phone] Johnny Gauthier MD Unavailable [phone] Alpa Max PA-C Unavailable Ayana Fuller MD Unavailable [phone] Nanci Villalba MD Primary Care Provider Ayana Fuller MD Unavailable [phone] Ashwin Franklin MD Unavailable [phone] Magda Goode MD Unavailable [phone] Nanci Villalba MD Unavailable [phone] Abdirizak Dowd MD Unavailable [phone] Abdirizak Dowd MD Unavailable [phone] Abdirizak Dowd MD Unavailable [phone] Jessica Butler MD Unavailable [phone] Ayana Fuller MD Unavailable [phone] Loli LouisM, Podiatry /Foot and Ankle Surgery Unavailable Jessica Butler MD Unavailable +[phone] Ashwin Franklin MD Unavailable [phone] Valeria Sullivan PA-C Unavailable [phone] Jessica Butler MD Unavailable [phone] Encounter Details Date Type Department Care Team (Late st Contact Info) Description 12/11/2021 [facility] [place] [place] Medical Advice [facility] Pharm D Project 7[address] [place] [address] Jennifer Richardson Social History Tobacco Use Types Packs/Day Years [...] on file 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 Allergy [address] [phone] Ashwin Franklin MD [address] [place] [address] [id number] Previsit 04/20/2025 1:00 PM CDT Office Visit [facility] Allergy [address] [phone] Ashwin Franklin MD [address] [place] [address] 140445 05/20/2025 12:45 PM CDT Office Visit [facility] Women's [facility] [address] [place] [address] 3rd Floor,[address] [place] [facility] 88 [place] [phone] Ayana Fuller MD [address] [place] [address] 300 [place], [place] [address]164 09/05/2025 9:45 AM MUSEUM CURATOR Office [facility] Dermatology Clinic [address] 3rd [place] [phone] Jessica Butler MD 420 [facility] 98 [place], [place] [address] documented as of this encounter Visit Diagnoses Not on filedocumented in this encounter Additional Health Concerns Assessment Noted Time PHQ-9 Depression Total Score: 2 02/29/20 21 1:38 PM CDT documented as of this encounter Care Teams Professional Development Instructor Relationship Specialty Start Date End Date Nanci Villalba MD [address] [place] [address] [place] [address] PCP - General Internal Medicine 06/01/19 Remi Camacho MD 420 [facility] 136 [place] [address] Dermatology 08/28/16 Alexis Vargas MD [address] [place] [address] Dermatology 07/14/17 Cecilio Velasco DPM [address] [place] [address] 326695 Podiatry 12/31/17 Johnny Gauthier MD [facility] [address] [place], [place] 4[address] Family Medicine - Sports Medicine 08/20/18 Alpa Max PA-C 420 [facility] 98 [place], [place] 9737[address] Physician Lunch Counter Manager Physician Lunch Counter Manager 08/28/18 Ayana Fuller MD [address] [facility] 300 [place], [place] [address] reading instructor 12/01/18 Ayana Fuller MD [address] [facility] 300 [place], [place] [phone] Assigned OBGYN Provider 05/19/20 Ashwin Franklin MD [address] [place] [address] [id number] Assigned Surgical Provider 05/19/20 03/22/22 Magda Goode MD [address] [place] [address] 50504 Assigned Musculoskeletal Provider 10/01/20 01/03/23 Nanci Villalba MD [address] [place] [address] 127[address] Assigned PCP 12/21/20 Abdirizak Dowd MD [address] [place] [address] 080945 Dermatology 08/09/21 Abdirizak Dowd MD [address] [place] [address] 168115 Dermatology 12/21/21 Abdirizak Dowd MD [address] [place] [address] 283805 Assigned Surgical Provider 03/23/22 02/16/24 Jessica Butler MD [address] [place] [address] 98 [place] [address] Dermatology 02/21/23 Ayana Fuller MD 606 [facility] 300 [place], [place] 7[address] reading instructor 02/24/23 Loli Louis DPM, Podiatry/Foot and Ankle Surgery 18466 [facility] 300 [place] [address] Assigned Musculoskeletal Provider 09/19/23 03/18/25 Jessica Butler MD [address] [place] [address] 41990 Assigned Surgical Provider 02/17/24 10/16/24 Ashwin Franklin MD [address] [place] [address] 90[address] Dermatology 09/17/24 Valeria Sullivan PA-C Dermatology [address] [place] [address] Assigned Dermatology Provider 10/17/24 03/18/25 Jessica Butler MD [address] [place] [address]13 Assigned Dermatology Provider 03/19/25 documented as of this encounter
--- OUTSIDE RECORDS SUMMARY | 2025-04-06 23:36 | XMS_ITS | Encounter Summary ---
Author Organization [place] Address [address] [facility] [place] [address] Care Team Providers Care Inhalation Therapy Aide Name Role Phone Remi Camacho MD Unavailable Alexis Vargas MD Unavailable Cecilio Velasco DPM Unavailable [phone] Johnny Gauthier MD Unavailable [phone] Alpa Max PA-C Unavailable Ayana Fuller MD Unavailable [phone] Nanci Villalba MD Primary Care Provider Ayana Fuller MD Unavailable [phone] Magda Goode MD Unavailable [phone] Nanci Villalba MD Unavailable [phone] Abdirizak Dowd MD Unavailable Abdirizak Dowd MD Unavailable [phone] Abdirizak Dowd MD Unavailable Jessica Butler MD Unavailable Ayana Fuller MD Unavailable [phone] Loli LouisM, Podiatry /Foot and Ankle Surgery Unavailable Jessica Butler MD Unavailable [phone] Ashwin Franklin MD Unavailable [phone] Valeria Sullivan PA-C Unavailable [phone] Jessica Butler MD Unavailable [phone] Encounter Details Date Type Department Care Team (Late st Contact Info) Description 04/09/2022 MyC Medical Advice [address] [place] [address] Nanci Villalba MD [address] [place] [address] Social History Tobacco Use Types Packs/Day [...] on file 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 No / Unsure 03/11/2022 1:39 PM CDT documented as of this encounter Plan of Treatment Upcoming Encounters Date Type Department Care Team (Late st Contact Info) Description 04/20/2025 PRE VISIT [facility] Allergy Clinic [address] [phone] Ashwin Franklin MD [address] [place] [address] [phone] Previsit 04/20/2025 1:00 PM CDT Office Visit [facility] Allergy [address] [phone] Ashwin Franklin MD [address] [place] [address] [phone] 05/20/2025 12:45 PM CDT Office Visit [facility] [place] [address] [place] [address] 3rd Floor,[address] [place] [facility] 88 [place] [phone] Ayana Fuller MD [address] [address] [facility] 300 [place], [place] [address]304 09/05/2025 9:45 AM LEGAL COLLECTOR Office Visit [facility] Dermatology Clinic [address] 3rd [place] [phone] Jessica Butler MD 420 [facility] 98 [place], [place] [address]635 documented as of this encounter Visit Diagnoses Not on filedocumented in this encounter Additional Health Concerns Assessment Noted Time PHQ-9 Depression Total Score: 2 02/29/20 21 1:38 PM CDT documented as of this encounter Care Teams Inhalation Therapy Aide Relationship Specialty Start Date End Date Nanci Villalba MD [address] [place], [place] [phone] PCP - General Internal Medicine 06/01/19 Remi Camacho MD 420 [facility] 136 [place], [place] 0[address]774 Dermatology 08/28/16 Alexis Vargas MD 2450 [place], [place] 334194 Dermatology 07/14/17 Cecilio Velasco DPM 909 [place], [place] 113585 Podiatry 12/31/17 Johnny Gauthier MD [address] [place], [place] 758624 Family Medicine - Sports Medicine 08/20/18 Alpa Max PA-C 420 [facility] 98 [place], [place] 105025 Physician Roll Trucker Physician Roll Trucker 08/28/18 Ayana Fuller MD [address] [place] 300 [place] [address] journalist 12/01/18 Ayana Fuller MD [address] [place] 300 [place], [place] 435094 Assigned OBGYN Provider 05/19/20 Magda Goode MD [address] [place] [address] 89059 Assigned Musculoskeletal Provider 10/01/20 01/03/23 Nanci Villalba MD [address] [place] [address] [place] [address] Assigned PCP 12/21/20 Abdirizak Dowd MD [address] [place] [address] 807515 Dermatology 08/09/21 Abdirizak Dowd MD [address] [place] [address] Dermatology 12/21/21 Abdirizak Dowd MD [address] [place] [address] 955615 Assigned Surgical Provider 03/23/22 02/16/24 Jessica Butler MD [address] [place] [address] 98 [place] [address] Dermatology 02/21/23 Ayana Fuller MD [address] [place] [address] 300 [place] [address] journalist 02/24/23 Loli Louis, DPM, Podiatry/Foot and Ankle Surgery [address] [address] Assigned Musculoskeletal Provider 09/19/23 03/18/25 Jessica Butler MD [facility] [address] [address] Assigned Surgical Provider 02/17/24 10/16/24 Ashwin Franklin MD 909 [place] [address] Dermatology 09/17/24 Valeria Sullivan PACassieC Dermatology [address] [place] [address] Assigned Dermatology Provider 10/17/24 03/18/25 Jessica Butler MD [address] [address] Assigned Dermatology Provider 03/19/25 documented as of this encounter
--- OUTSIDE RECORDS SUMMARY | 2025-04-06 23:36 | XMS_ITS | Encounter Summary ---
Author Organization [place] Address [address] [facility] [place] [address] Care Team Providers Care Surgical Corsetier Name Role Phone Remi Camacho MD Unavailable [phone] Alexis Vargas MD Unavailable Cecilio VelascoM Unavailable [phone] Johnny Gauthier MD Unavailable [phone] Alpa Max PA-C Unavailable Ayana Fuller MD Unavailable [phone] Nanci Villalba MD Primary Care Provider Ayana Fuller MD Unavailable [phone] Nanci Villalba MD Unavailable [phone] Abdirizak Dowd MD Unavailable Abdirizak Dowd MD Unavailable [phone] Jessica Butler MD Unavailable [phone] Ayana Fuller MD Unavailable [phone] Loli Louis DPM, Podiatry /Foot and Ankle Surgery Unavailable Ashwin Franklin MD Unavailable Valeria Sullivan PA-C Unavailable [phone] Jessica Butler MD Unavailable [phone] Encounter Details Date Type Department Care Team (Late st Contact Info) Description 01/04/2025 MyC Medical Advice Physicians [facility] Building [address] [facility], [address] [place], [place] [phone] Nanci Villalba MD [address] [facility] [place] [address] Social History Tobacco Use Types [...] re latives? 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 Gender Identity Not on file Sexual Orientation Not on file Occupation Industry Job Start Date Job End Date Unemployed Not on file Not on file Not on file documented as of this encounter Plan of Treatment Upcoming Encounters Date Type Department Care Team (Late st Contact Info) Description 04/20/2025 PRE VISIT [facility] Allergy Clinic [address] [phone] Ashwin Franklin MD [address] [place] [address] Previsit 04/20/2025 1:00 PM CDT Office Visit [facility] Allergy Clinic [address] [phone] Ashwin Franklin MD [address] [place] [address] 05/20/2025 12:45 PM CDT Office Visit [facility] Women's [facility] 3[address] [facility],[address] [place] [facility] 88 [place] [phone] Ayana Fuller MD [address] [place] [address] 300 [place], [place] [address]374 09/05/2025 9:45 AM IMPLEMENTATION PROJECT COORDINATOR Office Visit [facility] Dermatology Clinic [address] 3rd [place] [phone] Jessica Butelr MD 420 [facility] 98 [place], [place] 26[address] documented as of this encounter Visit Diagnoses Not on filedocumented in this encounter Additional Health Concerns Assessment Noted Time PHQ-9 Depression Total Score: 2 10/15/19 23 2:22 PM CDT documented as of this encounter Care Teams Surgical Corsetier Relationship Specialty Start Date End Date Nanci Villalba MD [address] [place] [address] [place] [address] PCP - General Internal Medicine 06/01/19 Remi Camacho MD 420 [facility] 136 [place], [place] [phone] Dermatology 08/28/16 Alexis Vargas MD 2450 [place], [place] 813974 Dermatology 07/14/17 Cecilio Velasco DPM 909 [place], [place] [address]375 Podiatry 12/31/17 Johnny Gauthier MD [address] [place], [place] 84[address] Family Medicine - Sports Medicine 08/20/18 Alpa Max PA-C 420 [facility] 98 [place], [place] 2[address]65 Physician Medical Secretary Teacher Physician Medical Secretary Teacher 08/28/18 Ayana Fuller MD [address] [facility] 300 [place] [address] ux design manager 12/01/18 Ayana Fuller MD [address] [facility] 300 [place] [address] Assigned OBGYN Provider 05/19/20 Nanci Villalba MD [address] [facility] [place], [place] 550134[address] Assigned PCP 12/21/20 Abdirizak Dowd MD [address] [facility] A [place], [place] 79[address] Dermatology 08/09/21 Abdirizak Dowd MD [address] [place] [address] A [place], [place] [address] Dermatology 12/21/21 Jessica Butler MD 420 [facility] 98 [place] [address] Dermatology 02/21/23 Ayana Fuller MD [address] [place] 300 [place] [address] ux design manager 02/24/23 Loli Louis DPJean, Podiatry/Foot and Ankle Surgery [address] [facility] 300 [place], [place] [address] Assigned Musculoskeletal Provider 09/19/23 03/18/25 Ashwin Franklin MD 909 [place] [address] Dermatology 09/17/24 Valeria Sullivan PACassieC Dermatology [address] [place] [address] Assigned Dermatology Provider 10/17/24 03/18/25 Jessica Butler MD 420 [facility] 98 [place] [address] Assigned Dermatology Provider 03/19/25 documented as of this encounter
--- OUTSIDE RECORDS SUMMARY | 2025-04-06 23:36 | XMS_ITS | Encounter Summary ---
Author Organization [place] Address [address] [facility] [place] [address] Care Team Providers Care Children'S Minister Name Role Phone Remi Camacho MD Unavailable [phone] Alexis Vargas MD Unavailable [phone] Cecilio Velasco DPM Unavailable [phone] Johnny Gauthier MD Unavailable [phone] Alpa Max PA-C Unavailable Ayana Fuller MD Unavailable [phone] Nanci Villalba MD Primary Care Provider Ayana Fuller MD Unavailable [phone] Magda Goode MD Unavailable [phone] Nanci Villalba MD Unavailable [phone] Abdirizak Dowd MD Unavailable Abdirizak Dowd MD Unavailable [phone] Abdirizak Dowd MD Unavailable Jessica Butler MD Unavailable Ayana Fuller MD Unavailable [phone] Loli LouisM, Podiatry /Foot and Ankle Surgery Unavailable Jessica Butler MD Unavailable [phone] Ashwin Franklin MD Unavailable [phone] Valeria Sullivan PA-C Unavailable [phone] Jessica Butler MD Unavailable [phone] Encounter Details Date Type Department Care Team (Late st Contact Info) Description 06/08/2022 MyC Medical Advice [address] [place] [address] Nanci Villalba MD [address] [place] [address] Social History Tobacco Use Types Packs/Day [...] on file 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 No / Unsure 06/07/2022 1:31 PM CISO documented as of this encounter Plan of Treatment Upcoming Encounters Date Type Department Care Team (Late st Contact Info) Description 04/20/2025 PRE VISIT [facility] [address] [phone] Ashwin Franklin MD [address] [place] [address] 295495 Previsit 04/20/2025 1:00 PM CDT Office Visit [facility] Allergy [address] [phone] Ashwin Franklin MD [address] [place] [address] [phone] 05/20/2025 12:45 PM CDT Office Visit [facility] [place] [address] 3rd Floor,[address] [place] [facility] 88 [place] [phone] Ayana Fuller MD [address] [facility] 300 [place], [place] [address] 09/05/2025 9:45 AM CISO Office Visit [facility] [address] 3rd [place] [phone] Jessica Butler MD [address] [place] [address] 98 [place], [place] [address] documented as of this encounter Visit Diagnoses Not on filedocumented in this encounter Additional Health Concerns Assessment Noted Time PHQ-9 Depression Total Score: 2 02/29/20 21 1:38 PM CDT documented as of this encounter Care Teams Children'S Minister Relationship Specialty Start Date End Date Nanci Villalba MD [address] [place] [address] PCP - General Internal Medicine 06/01/19 Remi Camacho MD 420 [facility] 136 [place], [place] [address]14 Dermatology 08/28/16 Alexis Vargas MD 2450 [place], [place] 483334 Dermatology 07/14/17 Cecilio Velasco DPM 909 [place], [place] [address] Podiatry 12/31/17 Johnny Gauthier MD [address] [place], [place] 903874 Family Medicine - Sports Medicine 08/20/18 Alpa Max PA-C 420 [facility] 98 [place], [place] 94[address] Physician Vp Of Product Physician Vp Of Product 08/28/18 Ayana Fuller MD [address] [place] [address] [place], [place] [address]404 debeader 12/01/18 Ayana Fuller MD [address] [place] [address] [place], [place] 664584 Assigned OBGYN Provider 05/19/20 Magda Goode MD [address] [place] [address] Assigned Musculoskeletal Provider 10/01/20 01/03/23 Nanci Villalba MD [address] [place] [address] [place] [address] Assigned PCP 12/21/20 Abdirizak Dowd MD [address] [place] [address] 290285 Dermatology 08/09/21 bAdirizak Dowd MD [address] [place] [address] Dermatology 12/21/21 Abdirizak Dowd MD [address] [place] [address] 400135 Assigned Surgical Provider 03/23/22 02/16/24 Jessica Butler MD [address] [place] [address] 98 [place] [address] Dermatology 02/21/23 Ayana Fuller MD 606 [facility] 300 [place] [address] debeader 02/24/23 Loli Louis, DPM, Podiatry/Foot and Ankle Surgery [address] [address] Assigned Musculoskeletal Provider 09/19/23 03/18/25 Jessica Butler MD [address] [address] Assigned Surgical Provider 02/17/24 10/16/24 Ashwin Franklin MD 909 [place] [address] Dermatology 09/17/24 Valeria Sullivan PA-C Dermatology [address] [place] [address] Assigned Dermatology Provider 10/17/24 03/18/25 Jessica Butler MD [address] [address] Assigned Dermatology Provider 03/19/25 documented as of this encounter
--- OUTSIDE RECORDS SUMMARY | 2025-04-06 23:36 | XMS_ITS | Encounter Summary ---
Author Organization [place] Address [address] [facility] [place] [address] Care Team Providers Care Shingles Roofer Name Role Phone Remi Camacho MD Unavailable [phone] Alexis Vargas MD Unavailable Cecilio VelascoM Unavailable [phone] Johnny Gauthier MD Unavailable Alpa Max PA-C Unavailable Ayana Fuller MD Unavailable [phone] Nanci Villalba MD Primary Care Provider Ayana Fuller MD Unavailable [phone] Nanci Villalba MD Unavailable [phone] Abdirizak Dowd MD Unavailable Abdirizak Dowd MD Unavailable [phone] Jessica Butler MD Unavailable [phone] Ayana Fuller MD Unavailable [phone] Loli Louis DPM, Podiatry /Foot and Ankle Surgery Unavailable Ashwin Franklin MD Unavailable [phone] Valeria Sullivan PA-C Unavailable [phone] Jessica Butler MD Unavailable [phone] Encounter Details Date Type Department Care Team (Late st Contact Info) Description 12/13/2024 Telephone [facility] Building [address] [facility], [address] [place], [place] [phone] Nanci Villalba MD [address] [place] [address] Social History Tobacco Use Types [...] re latives? 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 Called and requested records which are being faxed now. WAYNE Swan, RN 12/13/24, 10:50 AM * Telephone Encounter - Heidi Medellin RN - 12/13/2024 9:06 AM CDT Pt called to report she was seen at [facility] on 12/11/2024. She was lifting something heavy using her left side of body and then quickly put the object down. She stood up and experienced head norton, dizziness and pounding in both temples. Reports she freaked out and became nauseous. CT and accompanying tests were normal. Reports BP at hospital was 170/13, took again 153/87 P 80. She was nauseous and vomited in ER and given IV fluids, pain meds and anti-nausea meds. Returned home and continued with low-grade headache since then. Woke up this morning with headache in right rastafari and feels pressure behind eyes. Does not have BP machine at home and is looking for one with a large cuff. Reports Dr. Villalba advised lifestyle changes at previous visit and is working on them. Unable to sync medical record through [employer] so pt will scan and send to My Chart. Held 40 min appt on 12/17/[address] Villalba wants to see pt today for 20 min appt. WAYNE Swan, ELLI 12/13/24, 9:31 AM documented in this encounter Plan of Treatment Upcoming Encounters Date Type Department Care Team (Late st Contact Info) Description 04/20/2025 PRE VISIT [facility] Allergy [address] [phone] Ashwin Franklin MD [address] [place] [address] Previsit 04/20/2025 1:00 PM CDT Office Visit [facility] All[facility] [address] [phone] Ashwin Franklin MD 909 [place], [place] [address] 05/20/2025 12:45 PM CDT Office Visit [facility] [address] 3rd Floor,[address] [place] [facility] 88 [place] [phone] Ayana Fuller MD [address] [facility] 300 [place], [place] [address] 09/05/2025 9:45 AM BUCKLE SORTER Office Visit [facility] [place] [address] [facility] 3rd [place] [phone] Jessica Butler MD 420 [facility] 98 [place], [place] [address] documented as of this encounter Visit Diagnoses Not on filedocumented in this encounter Additional Health Concerns Assessment Noted Time PHQ-9 Depression Total Score: 2 10/15/19 23 2:22 PM CDT documented as of this encounter Care Teams Shingles Roofer Relationship Specialty Start Date End Date Nanci Villalba MD [address] [place] [address] A [place], [place] [address] PCP - General Internal Medicine 06/01/19 Remi Camacho MD 420 [facility] 136 [place] [address] Dermatology 08/28/16 Alexis Vargas MD 2450 [place] [address] Dermatology 07/14/17 Cecilio Velasco DPM [address] [place] [address] Podiatry 12/31/17 Johnny Gauthier MD [address] [facility] [address] [place] [address] Family Medicine - Sports Medicine 08/20/18 Alpa Max PA-C 420 [facility] 98 [place] [address] Physician Customer Project Manager Physician Customer Project Manager 08/28/18 Ayana Fuller MD [address] [facility] 300 [place] [address] alteration workroom supervisor 12/01/18 Ayana Fuller MD [address] [facility] 300 [place] [address] Assigned OBGYN Provider 05/19/20 Nanci Villalba MD [address] [place] [address] 126395 Assigned PCP 12/21/20 Abdirizak Dowd MD [address] [place] [address] 487395 Dermatology 08/09/21 Abdirizak Dowd MD [address] [place] [address] Dermatology 12/21/21 Jessica Butler MD [address] [address] Dermatology 02/21/23 Ayana Fuller MD [address] [facility] 300 [place] [address] alteration workroom supervisor 02/24/23 Loli Louis, DPM, Podiatry/Foot and Ankle Surgery [address] [facility] 300 [place] [address] Assigned Musculoskeletal Provider 09/19/23 03/18/25 Ashwin Franklin MD [address] [place] [address] Dermatology 09/17/24 Valeria Sullivan, PA-C Dermatology [address] [place] [address] Assigned Dermatology Provider 10/17/24 03/18/25 Jessica Butler MD [address] [place] [address] 98 [place] [address] Assigned Dermatology Provider 03/19/25 documented as of this encounter
--- OUTSIDE RECORDS SUMMARY | 2025-04-06 23:36 | XMS_ITS | Encounter Summary ---
Author Organization [place] Address [address] [facility] [place] [address] Care Team Providers Care Field Control Inspector Name Role Phone Remi Camacho MD Unavailable Alexis Vargas MD Unavailable Cecilio VelascoM Unavailable [phone] Johnny Gauthier MD Unavailable Alpa Max PA-C Unavailable Ayana Fuller MD Unavailable [phone] Nanci Villalba MD Primary Care Provider Ayana Fuller MD Unavailable [phone] Nanci Villalba MD Unavailable [phone] Abdirizak Dowd MD Unavailable Abdirizak Dowd MD Unavailable [phone] Jessica Butler MD Unavailable [phone] Ayana Fuller MD Unavailable [phone] Loli Louis DPM, Podiatry /Foot and Ankle Surgery Unavailable Ashwin Franklin MD Unavailable [phone] Valeria Sullivan PA-C Unavailable [phone] Encounter Details Date Type Department Care Team (Late st Contact Info) Description 01/04/2025 Results Follow-Up [facility] Internal Medicine [address] 4th [place] [address] Nanci Villalba MD [address] [facility] [place] [place] [address] Subj: Message about your results Social History Tobacco Use Types Packs/Day Years [...] re latives? 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 Gender Identity Not on file Sexual Orientation Not on file Occupation Industry Job Start Date Job End Date Unemployed Not on file Not on file Not on file documented as of this encounter Plan of Treatment Upcoming Encounters Date Type Department Care Team (Late st Contact Info) Description 04/20/2025 PRE VISIT [facility] [address] [address] Ashwin Franklin MD [address] [place] [address] Previsit 04/20/2025 1:00 PM CDT Office Visit [facility] [address] [phone] Ashwin Franklin MD 909 [place], [place] [address] 05/20/2025 12:45 PM CDT Office Visit [facility] Women[facility] [address] 3rd Floor,[address] [place] [facility] 88 [place] [phone] Ayana Fuller MD [address] [facility] 300 [place], [place] [address] 09/05/2025 9:45 AM PRODUCT SUPPORT ENGINEER Office Visit [facility] [address]rd [place] [phone] Jessica Butler MD 420 [facility] 98 [place] [address] documented as of this encounter Visit Diagnoses Not on filedocumented in this encounter Additional Health Concerns Assessment Noted Time PHQ-9 Depression Total Score: 2 10/15/19 23 2:22 PM CDT documented as of this encounter Care Teams Field Control Inspector Relationship Specialty Start Date End Date Nanci Villalba MD [address] [place] [address] [place] [address] PCP - General Internal Medicine 06/01/19 Remi Camacho MD 420 [facility] 136 [place] [address] Dermatology 08/28/16 Alexis Vargas MD 2450 [place] [address] Dermatology 07/14/17 Cecilio Velasco DPM 909 [facility] [place], [place] [address] Podiatry 12/31/17 Johnny Gauthier MD [address] [place] [address] Family Medicine - Sports Medicine 08/20/18 Alpa Max PA-C 420 [facility] 98 [place], [place] [address] Physician Director Of Acquisition Marketing Physician Director Of Acquisition Marketing 08/28/18 Ayana Fuller MD [address] [place] [address] [place], [place] [address] pattern finisher 12/01/18 Ayana Fuller MD [address] [place] [address] [place], [place] [address] Assigned OBGYN Provider 05/19/20 Nanci Villalba MD [address] [place], [place] [address] Assigned PCP 12/21/20 Abdirizak Dowd MD [address] [facility] [place], [place] [address] Dermatology 08/09/21 Abdirizak Dowd MD 901 [facility] [place], [place] [address] Dermatology 12/21/21 Jessica Butler MD [address] [place] [address] 98 [place] [address] Dermatology 02/21/23 Ayana Fuller MD [address] [facility] 300 [place] [address] pattern finisher 02/24/23 Loli Louis DPM, Podiatry/Foot and Ankle Surgery [address] [facility] 300 [place] [address] Assigned Musculoskeletal Provider 09/19/23 03/18/25 Ashwin Franklin MD [address] [place] [address] Dermatology 09/17/24 Valeria Sullivan, PA-C Dermatology [address] [place] [address] Assigned Dermatology Provider 10/17/24 03/18/25 documented as of this encounter
--- OUTSIDE RECORDS SUMMARY | 2025-04-06 23:36 | XMS_ITS | Encounter Summary ---
Author Organization [place] Address [address] [facility] [place] [address] Care Team Providers Care Airline Operations Agent Name Role Phone Remi Camacho MD Unavailable [phone] Alexis Vargas MD Unavailable [phone] Cecilio VelascoM Unavailable [phone] Johnny Gauthier MD Unavailable Alpa Max PA-C Unavailable Ayana Fuller MD Unavailable [phone] Nanci Villalba MD Primary Care Provider Ayana Fuller MD Unavailable [phone] Nanci Villalba MD Unavailable [phone] Abdirizak Dowd MD Unavailable Abdirizak Dowd MD Unavailable [phone] Jessica Butler MD Unavailable [phone] Ayana Fuller MD Unavailable [phone] Loli Louis DPM, Podiatry /Foot and Ankle Surgery Unavailable Ashwin Franklin MD Unavailable Valeria Sullivan PA-C Unavailable [phone] Encounter Details Date Type Department Care Team (Late st Contact Info) Description 02/24/[address] 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 All[facility] Clinic [address] [address] Ashwin Franklin MD [address] [place] [address] Previsit 04/20/2025 1:00 PM CDT Office Visit [facility] Clinic [place] [address] [place] [phone] Ashwin Franklin MD 909 [place] [address] 05/20/2025 12:45 PM CDT Office Visit [facility] [address] 3rd Floor,[address] [place] [facility] 88 [place] [phone] Ayana Fuller MD [address] [facility] 300 [place], [place] [address] 09/05/2025 9:45 AM SAWMILL TALLY CLERK Office Visit [facility] Dermatology Clinic [address] 3rd [place] [phone] Jessica Butler MD 420 [facility] 98 [place], [place] [address] documented as of this encounter Visit Diagnoses Not on filedocumented in this encounter Additional Health Concerns Assessment Noted Time PHQ-9 Depression Total Score: 2 10/15/19 23 2:22 PM CDT documented as of this encounter Care Teams Airline Operations Agent Relationship Specialty Start Date End Date Nanci Villalba MD [address] [place] [address] [place] [address] PCP - General Internal Medicine 06/01/19 Remi Camacho MD 420 [facility] 136 [place], [place] [address] Dermatology 08/28/16 Alexis Vargas MD 2450 [place] [address] Dermatology 07/14/17 Cecilio Velasco DPM [address] [facility] [place], [place] [address] Podiatry 12/31/17 Johnny Gauthier MD [address] [place], [place] [address] Family Medicine - Sports Medicine 08/20/18 Alpa Max PA-C 420 [facility] 98 [place], [place] [address] Physician Plant And Maintenance Technician Physician Plant And Maintenance Technician 08/28/18 Ayana Fluler MD [address] [place] [address] [place], [place] [address] all source intelligence analyst 12/01/18 Ayana Fuller MD [address] [place] [address] [place] [address] Assigned OBGYN Provider 05/19/20 Nanci Villalba MD [address] [place], [place] [address] Assigned PCP 12/21/20 Abdirizak Dowd MD [address] [place], [place] [address] Dermatology 08/09/21 Abdirizak Dowd MD [address] [place] [address] Dermatology 12/21/21 Jessica Butler MD 420 [facility] 98 [place] [address] Dermatology 02/21/23 Ayana Fuller MD [address] [facility] 300 [place] [address] all source intelligence analyst 02/24/23 Loli Louis DPM, Podiatry/Foot and Ankle Surgery [address] [facility] 300 [place], [place] [address] Assigned Musculoskeletal Provider 09/19/23 03/18/25 Ashwin Franklin MD 909 [place] [address] Dermatology 09/17/24 Valeria Sullivan PACassieC Dermatology [address] [place] [address] Assigned Dermatology Provider 10/17/24 03/18/25 documented as of this encounter
--- OUTSIDE RECORDS SUMMARY | 2025-04-06 23:36 | XMS_ITS | Encounter Summary ---
Author Organization [place] Address [address] [facility] [place] [address] Care Team Providers Care Loading And Unloading Supervisor Name Role Phone Remi Camacho MD Unavailable Alexis Vargas MD Unavailable Cecilio VelascoM Unavailable [phone] Johnny Gauthier MD Unavailable Alpa Max PA-C Unavailable Ayana Fuller MD Unavailable [phone] Nanci Villalba MD Primary Care Provider Ayana Fuller MD Unavailable [phone] Nanci Villalba MD Unavailable [phone] Abdirizak Dowd MD Unavailable Abdirizak Dowd MD Unavailable [phone] Jessica Butler MD Unavailable Ayana Fuller MD Unavailable [phone] Loli Louis DPM, Podiatry /Foot and Ankle Surgery Unavailable Ashwin Franklin MD Unavailable Valeria Sullivan PA-C Unavailable [phone] Jessica Butler MD Unavailable [phone] Encounter Details Date Type Department Care Team (Late st Contact Info) Description 02/21/2025 MyC Medical Advice [facility] Building [address] [facility], [address] [place], [place] [phone] Nanci Villalba MD [address] [facility] [place] [address] Social History Tobacco Use Types [...] re latives? 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 [address] [phone] Ashwin Franklin MD [address] [place] [address] Previsit 04/20/2025 1:00 PM CDT Office Visit [facility] [address] [phone] Ashwin Franklin MD [address] [place] [address] 05/20/2025 12:45 PM CDT Office Visit [facility] [address] [facility] [facility] [address] [place] [phone] Ayana Fuller MD [address] [place] [address] 300 [place], [place] [address] 09/05/2025 9:45 AM JANITOR HELPER Office Visit [facility] Dermatology Clinic [address] [place] [phone] Jessica Butler MD [address] [facility] 98 [place], [place] [phone] documented as of this encounter Visit Diagnoses Not on filedocumented in this encounter Additional Health Concerns Assessment Noted Time PHQ-9 Depression Total Score: 2 10/15/19 23 2:22 PM CDT documented as of this encounter Care Teams Loading And Unloading Supervisor Relationship Specialty Start Date End Date Nanci Villalba MD [address] [place] [address] [place] [address] PCP - General Internal Medicine 06/01/19 Remi Camacho MD [address] [facility] 136 [place], [place] [phone] Dermatology 08/28/16 Alexis Vargas MD [address] [place], [place] [address] Dermatology 07/14/17 Cecilio Velasco DPM 909 [place], [place] [address] Podiatry 12/31/17 Johnny Gauthier MD [address] [place], [place] [address] Family Medicine - Sports Medicine 08/20/18 Alpa Max PA-C 420 [facility] 98 [place], [place] [address] Physician Sales And Marketing Professional Physician Sales And Marketing Professional 08/28/18 Ayana Fuller MD [address] [facility] 300 [place] [address] stand up comedian 12/01/18 Ayana Fuller MD [address] [facility] 300 [place] [address] Assigned OBGYN Provider 05/19/20 Nanci Villalba MD [address] [facility] [place], [place] [phone] Assigned PCP 12/21/20 Abdirizak Dowd MD [address] [facility] [place], [place] [address] Dermatology 08/09/21 Abdirizak Dowd MD [address] [place] [address] [place], [place] [address] Dermatology 12/21/21 Jessica Butler MD 420 [facility] 98 [place] [address] Dermatology 02/21/23 Ayana Fuller MD [address] [facility] 300 [place] [address] stand up comedian 02/24/23 Loli Louis DPJean, Podiatry/Foot and Ankle Surgery [address] [facility] 300 [place], [place] [address] Assigned Musculoskeletal Provider 09/19/23 03/18/25 Ashwin Franklin MD 909 [place] [address] Dermatology 09/17/24 Valeria Sullivan PACassieC Dermatology [address] [place] [address] Assigned Dermatology Provider 10/17/24 03/18/25 Jessica Butler MD 420 [facility] 98 [place] [address] Assigned Dermatology Provider 03/19/25 documented as of this encounter
--- OUTSIDE RECORDS SUMMARY | 2025-04-06 23:36 | XMS_ITS | Encounter Summary ---
Author Organization [place] Address [address] [place] [address] Care Team Providers Care Crusher Loader Equipment Operator Name Role Phone Remi Camacho MD Unavailable Alexis Vargas MD Unavailable [phone] Cecilio Velasco DPM Unavailable [phone] Johnny Gauthier MD Unavailable [phone] Alpa Max PA-C Unavailable Ayana Fuller MD Unavailable [phone] Nanci Villalba MD Primary Care Provider Ashwin Franklin MD Unavailable [phone] Magda Goode MD Unavailable [phone] Ayana Fuller MD Unavailable [phone] Ashwin Franklin MD Unavailable [phone] Cecilio Velasco DPM Unavailable [phone] Nanci Villalba MD Unavailable [phone] Magda Goode MD Unavailable [phone] Nanci Villalba MD Unavailable [phone] Abdirizak Dowd MD Unavailable [phone] Abdirizak Dowd MD Unavailable [phone] Abdirizak Dowd MD Unavailable [phone] Jessica Butler MD Unavailable [phone] Ayana Fuller MD Unavailable [phone] Loli LouisM, Podiatry /Foot and Ankle Surgery Unavailable Jessica Butler MD Unavailable [phone] Ashwin Franklin MD Unavailable [phone] Valeria Sullivan PA-C Unavailable [phone] Jessica Butler MD Unavailable [phone] Encounter Details Date Type Department Care Team (Late st Contact Info) Description 11/02/2019 MyC Medical Advice [facility] [address] 3rd Floor,[address] [facility] [address] [place] [address] Aayna Fuller MD [address] [facility] [address] [place] [address] Social History Tobacco Use Types Packs/Day Years Used Date Smoking Tobacco: Never Smokeless Tobacco: Never Alcohol Use Standard Drinks/Week Comments No 0 (1 standard drink = 0.6 oz pur e alcohol) Glasses Wine PHQ-2 Answer Date Recorded PHQ-2 Score 0 05/31/2019 Comments No Sex and Gender Information Value Date Recorded Sex Assigned at Not on file 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 Gender Identity Not on file Sexual Orientation Not on file Occupation Industry Job Start Date Job End Date Unemployed Not on file Not on file Not on file documented as of this encounter Plan of Treatment Upcoming Encounters Date Type Department Care Team (Late st Contact Info) Description 04/20/2025 PRE VISIT [facility] Allergy [address] [phone] Ashwin Franklin MD [address] [place] [phone] Previsit 04/20/2025 1:00 PM CDT Office Visit [facility] Allergy [address] [phone] Ashwin Franklin MD [address] [place] [phone] 05/20/2025 12:45 PM CDT Office Visit [facility] [address] 3rd Floor,[address] [place] [facility] 88 [place] [phone] Ayana Fuller MD [address] [facility] [address] [place] [address], [place] [address] 09/05/2025 9:45 AM REVIEWER SALES Office Visit [facility] Dermatology [address]rd [place] [phone] Jessica Butler MD 420 [facility] [address], [place] [address] documented as of this encounter Visit Diagnoses Not on filedocumented in this encounter Additional Health Concerns Assessment Noted Time PHQ-9 Depression Total Score: 2 08/02/19 20 1:35 PM REVIEWER SALES documented as of this encounter Care Teams Crusher Loader Equipment Operator Relationship Specialty Start Date End Date Nanci Villalba MD [address] [place] [address] PCP - General Internal Medicine 06/01/19 Remi Camacho MD [address] [place] [address] [place] [address] Dermatology 08/28/16 Alexis Vargas MD [address] [place] [address] Dermatology 07/14/17 Cecilio Velasco DPM [address] [place] [address] Podiatry 12/31/17 Johnny Gauthier MD [address] [place] [address] [phone] Family Medicine - Sports Medicine 08/20/18 Alpa Max PA-C [address] [place] [address] 98 [place], [place] [address] Physician Eating Disorder Psychologist Physician Eating Disorder Psychologist 08/28/18 Ayana Fuller MD [address] [place] [phone] renewals manager 12/01/18 Ashwin Franklin MD [address] [place] [address] [phone] Assigned Pediatric Specialist Provider 05/19/20 08/27/20 Magda Goode MD [address] [place] [address] [phone] Assigned Musculoskeletal Provider 05/19/20 08/19/20 Ayana Fuller MD [address] [place] [address] [phone] Assigned OBGYN Provider 05/19/20 Ashwin Franklin MD [address] [place] [address] Assigned Surgical Provider 05/19/20 03/22/22 Cecilio Velasco DPM [address] [place] [address] Assigned Musculoskeletal Provider 08/20/20 09/30/20 Nanci Villalba MD [address] [place] [address] Assigned PCP 09/10/20 11/04/20 Magda Goode MD [address] [place] [address] Assigned Musculoskeletal Provider 10/01/20 01/03/23 Nanci Villalba MD [address] [place] [address] Assigned PCP 12/21/20 Abdirizak Dowd MD [address] [place] [address] Dermatology 08/09/21 Abdirizak Dowd MD [address] [place] [address] [phone] Dermatology 12/21/21 Abdirizak Dowd MD [address] [place] [address] Assigned Surgical Provider 03/23/22 02/16/24 Jessica Butler MD 420 [facility] [address] [place] [address] Dermatology 02/21/23 Ayana Fuller MD [address] [facility] [address] [place] [address] renewals manager 02/24/23 Loli Louis DPM, Podiatry/Foot and Ankle Surgery [address] [facility] 300 [place] [address] Assigned Musculoskeletal Provider 09/19/23 03/18/25 Jessica Butler MD [address] [address] Assigned Surgical Provider 02/17/24 10/16/24 Ashwin Franklin MD [address] [place] [address] Dermatology 09/17/24 Valeria Sullivan PA-C Dermatology [address] [place] [address] Assigned Dermatology Provider 10/17/24 03/18/25 Jessica Butler MD [address] [address] Assigned Dermatology Provider 03/19/25 documented as of this encounter
--- OUTSIDE RECORDS SUMMARY | 2025-04-06 23:36 | XMS_ITS | Clinical Summary ---
Author Organization [place] Address [address] [place] [address] Care Team Providers Care Retail Asset Protection Specialist Name Role Phone Remi Camacho MD Unavailable Alexis Vargas MD Unavailable [phone] Cecilio Velasco DPM Unavailable [phone] Johnny Gauthier MD Unavailable [phone] Alpa Max PA-C Unavailable Ayana Fuller MD Unavailable [phone] Nanci Villalba MD Primary Care Provider Ayana Fuller MD Unavailable [phone] Nanci Villalba MD Unavailable [phone] Abdirizak Dowd MD Unavailable [phone] Abdirizak Dowd MD Unavailable [phone] Jessica Butler MD Unavailable [phone] Ayana Fuller MD Unavailable [phone] Ashwin Franklin MD Unavailable [phone] Jessica Butler MD [facility] Allergies Active Allergy Reactions Criticality Noted Date Comments Beta Adrenergic Blockers Other (See Comments) 11/24/2015 Contraindicated with allergy injections Cats 11/07/2015 Ciprofloxacin Hives Medium 02/14/2016 Warm red patch above right samaritan for three days. Dogs 11/07/2015 Dust Mites 11/07/2015 Edison Rash Low 04/01/2020 Amalgam (mercury + silver) Other Drug Allergy (See Comments) 02/28/2021 Amalgam Paraphenylenediamine Other (See Comments) 06/16/2015 Positive (+) skin patch test Penicillins Rash Low 08/24/2006 Adhesive Tape Other (See Comments) 12/28/2010 STERI-STRIPS (Blisters) Medications fluocinonide (LIDEX) 0.05 % external gel DRY AREA OF AFFECTED GINGIVA WITH GAUZE AND APPLY SMALL AMOUNT TO THE AFFECTED AREA THREE TIMES DAILY. NOTHING BY MOUTH FOR 30 MINUTES AFTER 3 Active clobetasol (TEMOVATE) 0.05 % external ointmentIndicat ions:Lichen sclerosus Apply sparingly to affected area twice weekly. Do not apply to face. 30 g 3 3 Active cyanocobalamin (VITAMIN B-12) 500 MCG tablet Take 1 tablet (500 mcg) by mouth daily 3 Active conjugated estrogens (PREMARIN) 0.625 MG/GM vaginal creamIndication s:Vaginal atrophy Place 0.5 g vaginally twice a week. 30 g 1 4 Active Additional Information Patient not taking.Reported on 12/17/2024 cetirizine (ALLERGY RELIEF CETIRIZINE) 10 MG tablet Take 10 mg by mouth daily. Active Calcium-Magnesi um (TRISTEN/MAG CITRATE PO) Take 1 tablet by mouth 2 times daily. 2 Active Methylcobalamin (METHYL B-12 PO) Take 1 tablet by mouth daily. 9 Active Docosahexaenoic Acid (DHA OMEGA 3 PO) 2 Active Probiotic Product (UP4 PROBIOTICS WOMENS PO) Take 1 tablet by mouth 2 times daily. 5 Active vitamin E (TOCOPHEROL) 400 units (180 mg) capsule 8 Active Cholecalciferol (VITAMIN D3) 50 MCG CAPS 9 Active estradiol (ESTRACE) 0.1 MG/GM vaginal creamIndication s:Vaginal atrophy Place 2 g vaginally twice a week. 42.5 g 3 5 Active Additional Information Patient not taking.Reported on 12/17/2024 pimecrolimus (ELIDEL) 1 % external creamIndication s:Facial dermatitis Apply topically 2 times daily. Apply for estelle maintenance. 100 g 5 5 Active hydrocortisone 2.5 % ointmentIndicat ions:Facial dermatitis Apply to the rash on the face twice daily for 7 days. Restart if rash flares. 30 g 4 5 Active clindamycin (CLEOCIN) 300 MG capsuleIndicati ons:S/P left knee surgery TAKE 2 CAPSULES BY MOUTH 1 HOURS BEFORE DENTAL APPOINTMENT 2 capsule 4 5 Active Active Problems Problem Noted Date Diagnosed Date Elevated blood pressure read ing without diagnosis of hypertension 08/11/2024 Family history of thyroid disease 08/11/2024 Ocular migraine 04/27/2024 Acute bilateral low back pain with right-sided s ciatica 04/27/2024 Lichen planus 06/09/2023 Morbid obesity 06/07/2022 Pain of right forearm 09/01/2021 Chronic idiopathic urticaria 09/01/2019 Lichen sclerosus et atrophicus 05/31/2019 Overview (05/31/2019): 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 with lime plant operator at [facility], no hx of asthma Menopause 05/31/2017 Esophageal reflux 04/28/2014 Resolved Problems Problem Noted Date Diagnosed Date Resolved Date Vaginal atrophy 12/27/2022 11/24/2023 Pelvic floor dysfunction 12/27/2022 Aftercare following surgery of the musculoskeletal system 04/17/2020 10/11/2020 Patellofemoral arthritis of left knee 02/23/2020 10/11/2020 Overview (02/23/2020): Added automatically from request for surgery [id number] Medial epicondylitis of elbow, left 12/17/2019 01/28/2020 Hip pain, left 11/09/2019 01/28/2020 Patellofemoral arthralgia of both knees 09/25/2018 05/15/2019 Peroneal tendonitis, left 03/06/2018 Hip pain, left 07/04/2017 12/26/2017 Vaginal discharge 02/28/2014 11/01/2014 Metrorrhagia 02/09/2013 11/01/2014 Patellofemoral stress syndrome 12/27/2011 05/25/2012 Patellofemoral stress syndrome 02/21/2011 07/02/2011 Plantar fasciitis 06/16/2008 06/16/2008 Overview (04/27/2012): (Problem list name updated by automated process. Provider to review and confirm.) Foot pain 06/16/2008 06/16/2008 Overview (04/27/2012): (Problem list name updated by automated process. Provider to review and confirm.) Plantar fasciitis 03/10/2008 06/16/2008 Overview (04/27/2012): (Problem list name updated by automated process. Provider to review and confirm.) Encounters Date Type Department Care Team Description 04/06/2025 MyC Medical Advice [facility] Dermatology [address] [place] [address] Hallie Hager 04/06/2025 MyC Medical Advice [facility] [address] [facility], [place] [address] Nanci Villalba MD 04/05/2025 Documentation Only [facility] Orth[facility] Clinic [address] 4th [place] [phone] Magda Goode MD Forms 02/28/2025 11:00 AM CDT Office Visit [facility] Dermatology [address] [place] [phone] Jessica Butler MD Benign nevus without atypia (Primary Dx); Lichen sclerosus of female genitalia 02/28/2025 Telephone [facility] Clinic [address] [place] [phone] Jessica Butelr MD 02/27/2025 Travel 02/24/2025 MyC Medical Advice [facility] [place] [address] [place] [facility] [address] [place] [phone] Ayana Fuller MD 02/21/2025 MyC Medical Advice [facility] [address] [place] [address] Nanci Villalba MD 02/15/2025 Care Coordination [facility] Orthopedic [address] [place] [phone] Magda Goode MD Medication Refill 02/08/2025 Medical Correspondence [facility] Information Management [address] [place] [address] Scan, Non-Provider 01/04/2025 Results Follow-Up [facility] [address] [place] [phone] Nanci Villalba MD Subj: Message about your results 01/04/2025 MyC Medical Advice [facility] [address] [place] [address] Nanci Villalba MD from Last 3 Months Immunizations Immunization Administration Dates Next Due COVID-19 12+ (MODERNA) 04/27/2024 COVID-19 MONOVALENT 12+ (Pfizer) 07/17/2021,10/27,11/01/2020 COVID-19 Monovalent 12+ (Pfizer 2021) 12/21/2021 Influenza Vaccine 18-64 (Flublok) 05/31/2019 Influenza Vaccine >6 months,quad, PF 05/08/2023, 06/07/2022,04/27/2021 Influenza, Split Virus, Triv alent, Pf (Fluzone\Fluarix) 04/27/2024 Influenza,INJ,MDCK,PF,Quad >6mo(Flucelvax) 05/18 Pneumococcal 20 valent Conju gate (Prevnar 20) 08/11/2024 TDAP (Adacel,Boostrix) 06/07/2022 TDAP Vaccine (Boostrix) 11/05/2011 Zoster recombinant adjuvanted (Shingrix) 021,02/28/2021 Family History Medical History Relation Comments Anesthesia Reaction Father Hallucinatio n with kidney stone removal Cerebrovascular Disease Father Hypertension Father Skin Cancer Father Thyroid Disease Father Cerebrovascular Disease Maternal Grandfather Osteoporosis Maternal Grandmother Hypertension Mother Heart Disease Paternal Grandfather Thyroid Cancer Paternal Grandmother Pulmonary fibrosis Sister 1 Depression Sister 2 Myasthenia gravis Sister 2 s/p thymectomy Other - See Comments Sister 2 Lipoidema, obesity Skin Cancer Sister 2 Thyroid Disease Sister 2 Anxiety Disorder Sister 3 Depression Sister 3 Thyroid Disease Sister 4 Unknown/Adopted Sister 5 Family History Negative No family hx of Relation Status Comments Father Maternal Grandfather Maternal Grandmother Mother Alive Paternal Grandfather Paternal Grandmother Sister 1 Alive Sister 2 Alive Sister 3 Alive Sister 4 Alive Sister 5 Alive Social History Tobacco Use Types Packs/Day Years Used Date Smoking Tobacco: Never Smokeless Tobacco: Never Tobacco Cessation:Counseling Given: Not Answered Alcohol Use Standard Drinks/Week Comments No 0 (1 standard drink = 0.6 oz pur e alcohol) Glasses Wine Social Connection and Isolation Panel [NHANES] A nswer Date Recorded Frequency of Communication with Friends and Fami ly Not on file 08/10/2024 How often do you get together with friends or re latives? Twice a week 08/10/2024 Attends Protestant Services Not on file 08/10 Active Member of Clubs or Organizations Not on f ile 08/10/2024 Attends Club or Organization Meetings Not on sb e 08/10/2024 Marital Status Not on file 08/10/2024 PHQ-2 Answer Date Recorded PHQ-2 Score 0 08/11/2024 [employer] [place] of Occupat ional Health - Occupational Stress [...] Date Recorded Do you have housing? (Leila g is defined as stable permanent housing [...] on file Legal Sex Female 3:34 AM LINING SEWER Gender Identity Not on file Sexual Orientation Not on file Occupation Industry Job Start Date Job End Date Unemployed Not on file Not on file Not on file Last Filed Vital Signs Vital Sign Reading Time Taken Comments Blood Pressure 148/101 12/17/2024 10:33 AM CDT Cecilia's machine Pulse 63 12/17/2024 10:31 AM CDT Temperature 36.7 C (98.1 F) 12/17/2024 10:31 AM CDT Respiratory Rate 15 12/17/2024 10:3 1 AM CDT Oxygen Saturation 100% 12/17/2024 10: 31 AM CDT Inhaled Oxygen Concentration - - Weight 108.4 kg (239 lb) 11/16/2024 11: 19 AM CDT Height 174 cm (5' 8.5) 05/17/2024 10:0 1 AM CDT Body Mass Index 35.81 05/17/2024 10:01 AM CDT Plan of Treatment Upcoming Encounters Date Type Department Care Team (Late st Contact Info) Description 04/20/2025 PRE VISIT [facility] Allergy [address] [phone] Ashwin Franklin MD [address] [place] [phone] Previsit 04/20/2025 1:00 PM CDT Office Visit [facility] Allergy [address] [phone] Ashwin Franklin MD [address] [place] [phone] 05/20/2025 12:45 PM CDT Office Visit [facility] [address] [place] [facility] [address] [place] [phone] Ayana Fuller MD [address] [place], [place] [address] 09/05/2025 9:45 AM LINING SEWER Office Visit [facility] Dermatology [facility] [place] [address] 3rd [place] [address] Jessica Butler MD [address] [facility] [address] [place] [address] Health Maintenance Due Date Last Done Comments ANNUAL REVIEW OF HM ORDERS 1965 CT COLONOGRAPHY 1965 FIT 1965 FLEX SIG 1965 sDNA (Cologuard) 1965 SKIN CANCER SCREENING 09/26/2023 09/25/2022 INFLUENZA VACCINE (#1) 2025 , 05/08/2023, 06/07/2022, Additional history exists YEARLY PREVENTIVE VISIT 08/11/2025 08/11/19 25, 06/09/2023, 06/07/2022, Additional history exists MAMMO SCREENING 10/30/2025 10/30/2024, 09/25, 03/15/2023, Additional history exists DIABETES SCREENING 08/11/2027 08/11/2024, 1 08/07/2021, 12/15/2017, Additional history exists ADVANCE CARE PLANNING 12/17/2028 12/18/2023 COLONOSCOPY 04/12/2029 04/12/2019, 04/12/2019 COLORECTAL CANCER SCREENING 04/12/2029 LIPID 08/11/2029 08/11/2024, 05/28, 06/07/2022, Additional history exists HPV TEST 11/16/2029 11/16/2024, 12/26, 11/01/2014 PAP 11/16/2029 11/16/2024, 10/27, 11/16/2024, Additional history exists DTAP/TDAP/TD VACCINE (3 - Td or Tdap) 06/07/2032 06/07/2022, 11/05/2011 ZOSTER VACCINE Completed 05/15/2021, 02/28/2021 HEPATITIS C SCREENING Addressed 06/09/2023 Overri dden with the intention of not completing the topic HIV SCREENING Addressed 06/09/2023 Overridden zoraida h the intention of not completing the topic COVID-19 VACCINE Completed 04/27/2024, 06/2023, 07/26/2022, Additional history exists PHQ-2 (once per calendar year) Completed 08/11/2024, 11/17/2023, 04/16/2023, Additional history exists PNEUMOCOCCAL VACCINE 50+ YEARS Completed 08/11/2024 HEPATITIS B VACCINE Discontinued HPV VACCINE (No Doses Required) Completed MENINGITIS VACCINE Aged Out No longer eligible based on patient's age to complete this topic Medical Devices Implanted Type Area Impregnator Helper Device Identifier Shelf Expiration Date Model / Serial / Lot Bone Cement Radiopaque Simplex P Speedset 6192-1-001 Implanted:Qty: 1 on 04/13/2020 by Magda Goode MD at [facility] Cement, Bone Left: Knee [employer] 09/24/2020 6192-1-001 / / [id number] Genny Ii Resurfacing Patellar Component 32mm 7.5mm Thick Implanted:Qty: 1 on 04/13/2020 by Magda Goode MD at [facility] Left: Knee [employer] 01/11/2030 [id number] / / [id number] Journey Pfj Oxinium Trochlear Component, Medium, Left Implanted:Qty: 1 on 04/13/2020 by Magda Goode MD at [facility] Left: Knee [employer]W 10/01/2029 [id number] / / [id number] Procedures Procedure Name Priority Date/Time Associated Diagnosis Comments HPV AND GYNECOLOGIC CYTOLOGY PANEL Routine 11/16/2024 11:47 AM CDT Screening for malignant neoplasm of cervix MA SCREENING BILATERAL W/ EPI Routine 10/30/2024 11:39 AM CDT Visit for screening mammogram BASIC METABOLIC PANEL Routine 08/11/2024 10:49 AM LINING SEWER Elevated blood pressure reading without diagnosis of hypertension LIPID PROFILE Routine 08/11/2024 10:49 AM LINING SEWER Lipid screening COLONOSCOPY Routine 04/12/2019 6:40 AM CDT from Last 3 Months or Most Recently Relevant to Health Maintenance Results * HPV and Gynecologic Cytology Panel - Recommended Age 30 - 65 Years (11/16/2024 11:47 AM CDT) Human Papilloma Virus 16 DNA Negative Negative 11/17/2024 10:24 PM CDT [facility] Human Papilloma Virus 18 DNA Negative Negative 11/17/2024 10:24 PM CDT [facility] Human Papilloma Virus Other Negative Negative 11/17/2024 10:24 PM CDT [facility] FINAL DIAGNOSIS This patient's sample is negative for high risk HPV DNA. METHODOLOGY: The Digify system uses automated extraction, simultaneous amplification of HPV (E6/E7 oncogenes) and beta-globin, followed by real time detection of fluorescent labeled HPV and beta globin using specific oligonucleotide probes. The test specifically identifies types HPV 16 DNA and HPV 18 DNA while concurrently detecting the rest of the high risk types (31, 33, 35, 39, 45, 51, 52, 56, 58, 59, 66 or 68). COMMENTS: This test is not intended for use as a screening device for woman under age 30 with normal cervical cytology. Results should be correlated with cytologic and histologic findings. Close clinical follow up is recommended. Please see the separate Gynecologic Cytology (Pap) report from the same collection date. 11/17/2024 10:24 PM CDT [facility] Brushing ENDOCERVICAL STRUCTURE / Unknown Non-blood Collection / Unknown 11/16/2024 11:47 AM CDT 11/16/2024 6:30 PM CDT us Ayana Fuller MD LAB - BLOOD ORDERABLES Final Result [facility] Specialty Lab [address] [place] [address], [facility] MOLECULAR DIAGNOSTICS Molecular Diagnostics [address], [address] [place] [address], [place] * MA Screening Bilateral w/ Epi (10/30/2024 11:39 AM CDT) Anatomical Region Laterality Modality Breast Bilateral Mammography Impressions 11/01/2024 8:35 AM CDT IMPRESSION: ACR BI-RADS Category 1: Negative BREAST CANCER SCREENING RECOMMENDATION: Routine yearly mammography beginning at age 40 or as discussed with your provider. The results and recommendations of this examination will be communicated to the patient. Nba Randolph MD Narrative 11/01/2024 8:35 AM CDT BILATERAL FULL FIELD DIGITAL SCREENING MAMMOGRAM WITH TOMOSYNTHESIS Performed on: 10/30/24 Compared to: 10/14/2023, 10/14/2023, 03/15/2023, 03/09/2022, 01/12/2021, 01/06/2020, and 12/23/2018 Technique: This study was evaluated with the assistance of Computer-Aided Detection. Breast Tomosynthesis was used in interpretation. Findings: There are scattered areas of fibroglandular density. There is no radiographic evidence of malignancy. Nanci Villalba MD IMG MAMMOGRAPHY ORDERAB LES Final Result * (ABNORMAL) Lipid Profile (08/11/2024 10:49 AM LINING SEWER) Cholesterol 223(H) <200 mg/dL 08/11/2024 3:17 PM LINING SEWER [facility] Triglycerides 87 <150 mg/dL 08/11/2024 3:17 PM LINING SEWER [facility] Direct Measure HDL 51 >=50 mg/dL 08/11/2024 3:17 PM LINING SEWER [facility] LDL Cholesterol Calculated 155(H) <100 mg/dL 08/11/2024 3:17 PM LINING SEWER [facility] Non HDL Cholesterol 172(H) <130 mg/dL 08/11/2024 3:17 PM LINING SEWER [facility] Patient Fasting > 8hrs? Yes 08/11/2024 3:17 PM LINING SEWER [facility] Blood BLOOD SPECIMEN / Unknown Venipuncture / Unknown 08/11/2024 10:49 AM LINING SEWER 08/11/2024 10:55 AM LINING SEWER Narrative [facility] - 08/11/2024 3:17 PM LINING SEWER Cholesterol Desirable: < 200 mg/dL Borderline High: 200 - 239 mg/dL High: >= 240 mg/dL Triglycerides Normal: < 150 mg/dL Borderline High: 150 - 199 mg/dL High: 200-499 mg/dL Very High: >= 500 mg/dL Direct Measure HDL Female: >= 50 mg/dL Male: >= 40 mg/dL LDL Cholesterol Desirable: < 100 mg/dL Above Desirable: 100 - 129 mg/dL Borderline High: 130 - 159 mg/dL High: 160 - 189 mg/dL Very High: >= 190 mg/dL Non HDL Cholesterol Desirable: < 130 mg/dL Above Desirable: 130 - 159 mg/dL Borderline High: 160 - 189 mg/dL High: 190 - 219 mg/dL Very High: >= 220 mg/dL Nanci Villalba MD LAB - BLOOD ORDERABLES Final Result [facility] [place] [address] [facility] [place] [address] * Basic metabolic panel (08/11/2024 10:49 AM LINING SEWER) Sodium 139 135 - 145 mmol/L 08/11/2024 3:17 PM LINING SEWER [facility] Potassium 4.9 3.4 - 5.3 mmol/L 08/11/2024 3:17 PM LINING SEWER [facility] Chloride 104 98 - 107 mmol/L 08/11/2024 3:17 PM LINING SEWER [facility] Carbon Dioxide (CO2) 27 22 - 29 mmol/L 08/11/2024 3:17 PM LINING SEWER [facility] Anion Gap 8 7 - 15 mmol/L 08/11/2024 3:17 PM LINING SEWER [facility] Urea Nitrogen 16.8 6.0 - 20.0 mg/dL 08/11/2024 3:17 PM LINING SEWER [facility] Creatinine 0.70 0.51 - 0.95 mg/dL 08/11/2024 3:17 PM LINING SEWER [facility] GFR Estimate >90 >60 mL/min/1.7 3m2 08/11/2024 3:17 PM LINING SEWER [facility] Comment:eGFR calculated us2020 CKD-EPI equation. Calcium 10.0 8.8 - 10.4 mg/dL 08/11/2024 3:17 PM LINING SEWER [facility] Comment:Reference intervals for this test were updated on 02/10/2024 to reflect our healthy population more accurately. There may be differences in the flagging of prior results with similar values performed with this method. Those prior results can be interpreted in the context of the updated reference intervals. Glucose 89 70 - 99 mg/dL 08/11/2024 3:17 PM LINING SEWER [facility] Patient Fasting > 8hrs? Yes 08/11/2024 3:17 PM LINING SEWER [facility] Blood BLOOD SPECIMEN / Unknown Venipuncture / Unknown 08/11/2024 10:49 AM LINING SEWER 08/11/2024 10:55 AM LINING SEWER us Nanci Villalba MD LAB - BLOOD ORDERABLES Final Result [facility] Lab [address] [facility] [address] [place] [address] * COLONOSCOPY (04/12/2019 6:40 AM CDT) [facility] COLONOSCOPY [facility] [address] [place] [address] [phone] Endoscopy Department ___ Patient Name: Cecilia Hammond Procedure Date: 04/12/2019 6:40 AM Date of : 1965 Admit Type: Outpatient Age: 53 Gender: Female Note Status: Finalized Attending MD: Carla Valladares MD Pause for the Cause: performed. Total Sedation Time: 17 minutes of continuous 1:1 bedside monitoring performed. ___ Procedure: Colonoscopy Indications: Screening for colorectal malignant neoplasm Providers: Carla Valladares MD, Victoria Friend RN Referring MD: Ayana Fuller MD Medicines: Midazolam 2 mg IV, Fentanyl 50 micrograms IV Complications: No immediate complications. ___ Procedure: Pre-Anesthesia Assessment: - Prior to the procedure, a History and Physical was performed, and patient medications and allergies were reviewed. The patient is competent. The risks and benefits of the procedure and the sedation options and risks were discussed with the patient. All questions were answered and informed consent was obtained. Patient identification and proposed procedure were verified by the physician, the nurse and the bulk mail technician in the pre-procedure area in the procedure room. Mental Status Examination: alert and oriented. Airway Examination: normal oropharyngeal airway and neck mobility. Respiratory Examination: clear to auscultation. CV Examination: normal. Prophylactic Antibiotics: The patient does not require prophylactic antibiotics. Prior Anticoagulants: The patient has taken no previous anticoagulant or antiplatelet agents. ASA Grade Assessment: I - A normal, healthy patient. After reviewing the risks and benefits, the patient was deemed in satisfactory condition to undergo the procedure. The anesthesia plan was to use moderate sedation / analgesia (conscious sedation). Immediately prior to administration of medications, the patient was re-assessed for adequacy to receive sedatives. The heart rate, respiratory rate, oxygen saturations, blood pressure, adequacy of pulmonary ventilation, and response to care were monitored throughout the procedure. The physical status of the patient was re-assessed after the procedure. After obtaining informed consent, the colonoscope was passed under direct vision. Throughout the procedure, the patient's blood pressure, pulse, and oxygen saturations were monitored continuously. The Colonoscope was introduced through the anus and advanced to the terminal ileum, with identification of the appendiceal orifice and IC valve. The colonoscopy was performed with ease. The quality of the bowel preparation was evaluated using the BBPS ([place] Bowel Preparation Scale) with scores of: Right Colon = 3, Transverse Colon = 3 and Left Colon = 3 (entire mucosa seen well with no residual staining, small fragments of stool or opaque liquid). The total BBPS score equals 9. Findings: The terminal ileum appeared normal. Non-bleeding internal hemorrhoids were found during retroflexion. The hemorrhoids were mild. The exam was otherwise without abnormality. No colon polyps were seen on today's exam. The perianal and digital rectal examinations were normal. Impression: - The examined portion of the ileum was normal. - Non-bleeding internal hemorrhoids. - The examination was otherwise normal. - No specimens collected. Recommendation: - Discharge patient to home (ambulatory). - Resume previous diet. - Continue present medications. - Await pathology results. - Repeat colonoscopy in 10 years for screening purposes. - Return to referring physician PRN. - The findings and recommendations were discussed with the patient. Electronically signed by: Carla Valladares MD Carla Valladares MD 04/12/2019 9:00:33 AM I was physically present for the entire viewing portion of the exam. 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 Analyst Expl anation Advance Directives and Living Will 12/18/2023 Health Care Directiv e 11-20-2023 Healthcare Agents on File Name Relationship Healthcare Agent Nayelyhi p Kais Rahman Spouse Health Care Agent Marlin Hammond Sister First Alternat e Health Care Agent Christiana Alvarez Sister Second Altern ate Health Care Agent Care Teams Retail Asset Protection Specialist Relationship Specialty Start Date End Date Nanci Villalba MD [address] [place] [address] [place], [place] [address]85 PCP - General Internal Medicine 06/01/19 Remi Camacho MD 420 [facility] 136 [place], [place] 370464 Dermatology 08/28/16 Alexis Vargas MD 2450 [place], [place] 941654 Dermatology 07/14/17 Cecilio Velasco DPM 909 [place], [place] 488055 Podiatry 12/31/17 Johnny Gauthier MD [facility] [address] [place], [place] 264564 Family Medicine - Sports Medicine 08/20/18 Alpa Max PA-C 420 [facility] 98 [place], [place] 7[address]85 Physician Black Oxide Operator Physician Black Oxide Operator 08/28/18 Ayana Fuller MD [address] [place] [address] machinist tool and die 12/01/18 Ayana Fuller MD [address] [place] [address] Assigned OBGYN Provider 05/19/20 Nanci Villalba MD [address] [place] [address] [place], [place] 622555 Assigned PCP 12/21/20 Abdirizak Dowd MD [address] [place] [address] 410685 Dermatology 08/09/21 Abdirizak Dowd MD [address] [place] [address] 702675 Dermatology 12/21/21 Jessica Butler MD [address] [address] MD Dermatology 02/21/23 Ayana Fuller MD [address] [address] machinist tool and die 02/24/23 Ashwin Franklin MD [address] [place] [address] 807585 Dermatology 09/17/24 Jessica Butler MD 420 [facility] 98 [place], [place] 658195 Assigned Dermatology Provider 03/19/25
--- OUTSIDE RECORDS SUMMARY | 2025-04-06 23:36 | XMS_ITS | Encounter Summary ---
Author Organization [place] Address [address] [facility] [place] [address] Care Team Providers Care Station Installation Supervisor Name Role Phone Remi Camacho MD Unavailable Alexis Vargas MD Unavailable [phone] Cecilio VelascoM Unavailable [phone] Johnny Gauthier MD Unavailable [phone] Alpa Max PA-C Unavailable Ayana Fuller MD Unavailable [phone] Nanci Villalba MD Primary Care Provider Ayana Fuller MD Unavailable [phone] Nanci Villalba MD Unavailable [phone] Abdirizak Dowd MD Unavailable Abdirizak Dowd MD Unavailable [phone] Jessica Butler MD Unavailable Ayana Fuller MD Unavailable [phone] Loli Louis DPM, Podiatry /Foot and Ankle Surgery Unavailable Ashwin Franklin MD Unavailable Valeria Sullivan PA-C Unavailable [phone] Jessica Butler MD Unavailable [phone] Encounter Details Date Type Department Care Team (Late st Contact Info) Description 12/13/2024 MyC Medical Advice [facility] Building [address] [facility] [facility], [address] [place], [place] [phone] Nanci Villalba MD [address] [facility] [place] [address] Social History Tobacco Use Types [...] re latives? Twice a week 08/10/2024 Attends Gnosticism Services Not on file 08/10 Active Member of Clubs or Organizations Not on f ile 08/10/2024 Attends Club or Organization Meetings Not on sb e 08/10/2024 Marital Status Not on file 08/10/2024 PHQ-2 Answer Date Recorded PHQ-2 Score 0 08/11/2024 [facility] - Occupational [...] in an abandoned building, in an overnight mcc, or couch-surfing.) Yes 08/10/2024 Are you worried [...] on file Legal Sex Female 3:34 AM DOMESTIC TRAVEL CONSULTANT Gender Identity Not on file Sexual Orientation Not on file Occupation Industry Job Start Date Job End Date Unemployed Not on file Not on file Not on file documented as of this encounter Miscellaneous Notes * Telephone Encounter - Naheed Cruz - 12/13/2024 10:38 AM CDT Requesting call back from Heidi. documented in this encounter Plan of Treatment Upcoming Encounters Date Type Department Care Team (Late st Contact Info) Description 04/20/2025 PRE VISIT [facility] [address] [phone] Ashwin Franklin MD [address] [place] [address] 245145 Previsit 04/20/2025 1:00 PM CDT Office Visit [facility] Allergy [address] [phone] Ashwin Franklin MD [address] [place] [address] 744935 05/20/2025 12:45 PM CDT Office Visit [facility] [address] 3rd Floor,[address] [place] [facility] 88 [place] [phone] Ayana Fuller MD [address] [facility] 300 [place], [place] 5[address]14 09/05/2025 9:45 AM DOMESTIC TRAVEL CONSULTANT Office Visit [facility] Dermatology [address] 3rd [place] [phone] Jessica Butler MD 420 [facility] 98 [place], [place] 869175 documented as of this encounter Visit Diagnoses Not on filedocumented in this encounter Additional Health Concerns Assessment Noted Time PHQ-9 Depression Total Score: 2 10/15/19 23 2:22 PM CDT documented as of this encounter Care Teams Station Installation Supervisor Relationship Specialty Start Date End Date Nanci Villalba MD [address] [place] [address] [place] [address] PCP - General Internal Medicine 06/01/19 Remi Camacho MD 420 [facility] 136 [place] [address] Dermatology 08/28/16 Alexis Vargas MD 2450 [place] [address] Dermatology 07/14/17 Cecilio Velasco DPM [address] [place] [address] 395345 Podiatry 12/31/17 Johnny Gauthier MD [address] [place] [address] [address] [place], [place] 429784 Family Medicine - Sports Medicine 08/20/18 Alpa Max PA-C [address] [place] [address] 98 [place], [place] 884735 Physician Studio Couch Frame Builder Physician Studio Couch Frame Builder 08/28/18 Ayana Fuller MD [address] [place] [address] 771364 internet salesperson 12/01/18 Ayana Fuller MD [address] [place] [address] 300 [place], [place] 0[address]44 Assigned OBGYN Provider 05/19/20 Nanci Villalba MD [address] [place] [address] [place], [place] [phone] Assigned PCP 12/21/20 Abdirizak Dowd MD [address] [place] [address] [place], [place] [phone] Dermatology 08/09/21 Abdirizak Dowd MD [address] [place] [address] [place], [place] 9[address]65 Dermatology 12/21/21 Jessica Butler MD 420 [facility] 98 [place] [address] Dermatology 02/21/23 Ayana Fuller MD 606 [facility] 300 [place] [address] internet salesperson 02/24/23 Loli Louis DPM, Podiatry/Foot and Ankle Surgery [address] [facility] 300 [place] [address] Assigned Musculoskeletal Provider 09/19/23 03/18/25 Ashwin Franklin MD 909 [place], [place] 553665 Dermatology 09/17/24 Valeria Sullivan, PA-C Dermatology [address] [place] [address] Assigned Dermatology Provider 10/17/24 03/18/25 Jessica Butler MD 420 [facility] 98 [place] [address] Assigned Dermatology Provider 03/19/25 documented as of this encounter
--- OUTSIDE RECORDS SUMMARY | 2025-04-06 23:36 | XMS_ITS | Encounter Summary ---
Author Organization [place] Address [address] [facility] [place] [address] Care Team Providers Care Porter Luggage Name Role Phone Remi Camacho MD Unavailable Alexis Vargas MD Unavailable Cecilio Velasco DPM Unavailable [phone] Johnny Gauthier MD Unavailable [phone] Alpa Max PA-C Unavailable Ayana Fuller MD Unavailable [phone] Nanci Villalba MD Primary Care Provider Ayana Fuller MD Unavailable [phone] Magda Goode MD Unavailable [phone] Nanci Villalba MD Unavailable [phone] Abdirizak Dowd MD Unavailable Abdirizak Dowd MD Unavailable [phone] Abdirizak Dowd MD Unavailable Jessica Butler MD Unavailable Ayana Fuller MD Unavailable [phone] Loli LouisM, Podiatry /Foot and Ankle Surgery Unavailable Jessica Butler MD Unavailable [phone] Ashwin Franklin MD Unavailable [phone] Valeria Sullivan PA-C Unavailable [phone] Jessica Butler MD Unavailable [phone] Encounter Details Date Type Department Care Team (Late st Contact Info) Description 01/02/2023 MyC Medical Advice [facility] [address] [facility] [address] [place] [address] [place] [address] [place] [address] Social History Tobacco Use Types [...] PHQ-2 Answer Date Recorded PHQ-2 Score 0 10/14/2022 Comments No Sex and Gender Information Value Date Recorded Sex Assigned at Not on file Legal Sex Female 3:34 AM PANEL LAMINATOR Gender Identity Not on file Sexual Orientation Not on file Occupation Industry Job Start Date Job End Date Unemployed Not on file Not on file Not on file COVID-19 Exposure Response Date Recorded In the last 10 days, have yo u been in contact with someone who was confirmed or suspected to have Coronavirus/COVID-19? No / Unsure 12/27/2022 6:19 AM CDT documented as of this encounter Plan of Treatment Upcoming Encounters Date Type Department Care Team (Late st Contact Info) Description 04/20/2025 PRE VISIT [facility] [address] [phone] Ashwin Franklin MD [address] [place] [address] [phone] Previsit 04/20/2025 1:00 PM CDT Office Visit [facility] Allergy [address] [phone] Ashwin Franklin MD [address] [place] [address] 660645 05/20/2025 12:45 PM CDT Office Visit [facility] [place] [address] [place] [address] 3rd Floor,[address] [place] [facility]ldg [facility] 88 [place] [phone] Ayana Fuller MD [address] [address] 300 [place], [place] 585184 09/05/2025 9:45 AM PANEL LAMINATOR Office Visit [facility] Dermatology Clinic [address] 3rd [place] [phone] Jessica Butler MD [address] [place] [address] 98 [place], [place] 741875 documented as of this encounter Visit Diagnoses Not on filedocumented in this encounter Additional Health Concerns Assessment Noted Time PHQ-9 Depression Total Score: 2 10/15/19 2:22 PM CDT documented as of this encounter Care Teams Porter Luggage Relationship Specialty Start Date End Date Nanci Villalba MD [address] [place], [place] 8[address] PCP - General Internal Medicine 06/01/19 Remi Camacho MD 420 [facility] 136 [place], [place] 211484 Dermatology 08/28/16 Alexis Vargas MD 2450 [place], [place] 294484 Dermatology 07/14/17 Cecilio Velasco DPM 909 [place], [place] 440865 Podiatry 12/31/17 Johnny Gauthier MD [address] [place], [place] 662404 Family Medicine - Sports Medicine 08/20/18 Alpa Max PA-C 420 [facility] 98 [place], [place] 9[address]65 Physician [facility]S Institution Attendant Physician [facility]S Institution Attendant 08/28/18 Ayana Fuller MD [address] [place] [address] scheduling assistant 12/01/18 Ayana Fuller MD [address] [place], [place] 065004 Assigned OBGYN Provider 05/19/20 Magda Goode MD [address] [place] [address] Assigned Musculoskeletal Provider 10/01/20 01/03/23 Nanci Villalba MD [address] [place] [address] [place] [address] Assigned PCP 12/21/20 Abdirizak Dowd MD [address] [place] [address] 261885 Dermatology 08/09/21 Abdirizak Dowd MD [address] [place] [address] Dermatology 12/21/21 Abdirizak Dowd MD [address] [place] [address] 885375 Assigned Surgical Provider 03/23/22 02/16/24 Jessica Butler MD [address] [place] [address] 98 [place] [address] Dermatology 02/21/23 Ayana Fuller MD 60 [facility] 300 [place] [address] scheduling assistant 02/24/23 Loli Louis, DPM, Podiatry/Foot and Ankle Surgery [address] [address] Assigned Musculoskeletal Provider 09/19/23 03/18/25 Jessica Butler MD 420 [facility] 98 [place] [address] Assigned Surgical Provider 02/17/24 10/16/24 Ashwin Franklin MD [address] [place] [address] Dermatology 09/17/24 Valeria Sullivan PACassieC Dermatology [address] [place] [address] Assigned Dermatology Provider 10/17/24 03/18/25 Jessica Butler MD [address] [address] Assigned Dermatology Provider 03/19/25 documented as of this encounter
--- OUTSIDE RECORDS SUMMARY | 2025-04-06 23:36 | XMS_ITS | Encounter Summary ---
Author Organization [place] Address [address] [place] [address] Care Team Providers Care Lead Java Software Engineer Name Role Phone Remi Camacho MD Unavailable Alexis Vargas MD Unavailable [phone] Cecilio Velasco DPM Unavailable [phone] Johnny Gauthier MD Unavailable [phone] Alpa Max PA-C Unavailable Ayana Fuller MD Unavailable [phone] Nanci Villalba MD Primary Care Provider Ashwin Franklin MD Unavailable [phone] Magda Goode MD Unavailable [phone] Ayana Fuller MD Unavailable [phone] Ashwin Franklin MD Unavailable [phone] Cecilio Velasco DPM Unavailable [phone] Nanci Villalba MD Unavailable [phone] Magda Goode MD Unavailable [phone] Nanci Villalba MD Unavailable [phone] Abdirizak Dowd MD Unavailable [phone] Abdirizak Dowd MD Unavailable [phone] Abdirizak Dowd MD Unavailable [phone] Jessica Butler MD Unavailable [phone] Ayana Fuller MD Unavailable [phone] Loli LouisM, Podiatry /Foot and Ankle Surgery Unavailable Jessica Butler MD Unavailable [phone] Ashwin Franklin MD Unavailable [phone] Valeria Sullivan PA-C Unavailable [phone] Jessica Butler MD Unavailable [phone] Reason for Visit * Reason Onset Date Comments *-*INCOMING RECORDS*-* 12/17/2019 Encounter Details Date Type Department Care Team (Late st Contact Info) Description 12/17/2019 PRE VISIT [facility] [address] [place] [phone] Cecilio Velasco DPM 909 [place] [address] *-*INCOMING RECORDS*-* Social History Tobacco Use Types Packs/Day Years Used Date Smoking Tobacco: Never Smokeless Tobacco: Never Alcohol Use Standard Drinks/Week Comments No 0 (1 standard drink = 0.6 oz pur e alcohol) Glasses Wine PHQ-2 Answer Date Recorded PHQ-2 Score 0 05/31/2019 Comments No Sex and Gender Information Value Date Recorded Sex Assigned at Not on file Legal Sex Female 3:34 AM IN STORE DEMONSTRATOR Gender Identity Not on file Sexual Orientation Not on file Occupation Industry Job Start Date Job End Date Unemployed Not on file Not on file Not on file COVID-19 Exposure Response Date Recorded In the last month, have you been in contact with someone who was confirmed or suspected to have Coronavirus / COVID-19? No / Unsure 12/18/2019 7:56 AM CDT documented as of this encounter Plan of Treatment Upcoming Encounters Date Type Department Care Team (Late st Contact Info) Description 04/20/2025 PRE VISIT [facility] Allergy [address] [phone] Ashwin Franklin MD [address] [place] [address] 612735 Previsit 04/20/2025 1:00 PM CDT Office Visit [facility] Allergy [address] [phone] Ashwin Franklin MD [address] [place] [address] 409915 05/20/2025 12:45 PM CDT Office Visit [facility] Women's [facility] [address] [place] [address] 3rd Floor,[address] [place] [facility] 88 [place] [phone] Ayana Fuller MD [address] [place] [address] 300 [place], [place] [address]654 09/05/2025 9:45 AM IN STORE DEMONSTRATOR Office Visit [facility] Dermatology [address] 3rd [place] [phone] Jessica Butler MD 420 [facility] 98 [place] [address] documented as of this encounter Visit Diagnoses Not on filedocumented in this encounter Additional Health Concerns Assessment Noted Time PHQ-9 Depression Total Score: 2 08/02/19 20 1:35 PM IN STORE DEMONSTRATOR documented as of this encounter Care Teams Lead Java Software Engineer Relationship Specialty Start Date End Date Nanci Villalba MD [address] [place] [address] PCP - General Internal Medicine 06/01/19 Remi Camacho MD 420 [facility] 136 [place] [address] Dermatology 08/28/16 Alexis Vargas MD [address] [place] [address] Dermatology 07/14/17 Cecilio Velasco DPM [address] [place] [address] 437055 Podiatry 12/31/17 Johnny Gauthier MD [address] [place], [place] 49[address]102 [place], [place] [address] Family Medicine - Sports Medicine 08/20/18 Alpa Max PA-C [address] [place] [address] 98 [place], [place] 329045 Physician Test Deck Supervisor Physician Test Deck Supervisor 08/28/18 Ayana Fuller MD [address] [place] [address] 300 [place], [place] 328474 commercial accountant 12/01/18 Ashwin Franklin MD [address] [place] [address] 931335 Assigned Pediatric Specialist Provider 05/19/20 08/27/20 Magda Goode MD [address] [place] [address] 399635 Assigned Musculoskeletal Provider 05/19/20 08/19/20 Ayana Fuller MD [address] [address] Assigned OBGYN Provider 05/19/20 Ashwin Franklin MD [address] [place] [address] Assigned Surgical Provider 05/19/20 03/22/22 Cecilio Velasco DPM [address] [place] [address] Assigned Musculoskeletal Provider 08/20/20 09/30/20 Nanci Villalba MD [address] [place] [address] Assigned PCP 09/10/20 11/04/20 Magda Goode MD [address] [place] [address] Assigned Musculoskeletal Provider 10/01/20 01/03/23 Nanci Villalba MD [address] [place] [address] Assigned PCP 12/21/20 Abdirizak Dowd MD [address] [place] [address] 164645 Dermatology 08/09/21 Abdirizak Dowd MD [address] [place] [address] 823865 Dermatology 12/21/21 Abdirizak Dowd MD [address] [place] [address] Assigned Surgical Provider 03/23/22 02/16/24 Jessica Butler MD [address] [place] [address] Dermatology 02/21/23 Ayana Fuller MD 606 [facility] 300 [place] [address] commercial accountant 02/24/23 Loli Louis DPM, Podiatry/Foot and Ankle Surgery [address] [facility] 300 [place], [place] 212187 Assigned Musculoskeletal Provider 09/19/23 03/18/25 Jessica Butler MD [address] [place] [address] Assigned Surgical Provider 02/17/24 10/16/24 Ashwin Franklin MD [address] [place] [address] Dermatology 09/17/24 Valeria Sullivan, PA-C Dermatology [address] [place] [address] Assigned Dermatology Provider 10/17/24 03/18/25 Jessica Butler MD [address] [place] [address] Assigned Dermatology Provider 03/19/25 documented as of this encounter
--- OUTSIDE RECORDS SUMMARY | 2025-04-06 23:36 | XMS_ITS | Encounter Summary ---
Author Organization [place] Address [address] [facility] [place] [address] Care Team Providers Care Ash Handler Name Role Phone Remi Camacho MD Unavailable Alexis Vargas MD Unavailable [phone] Cecilio Velasco DPM Unavailable [phone] Johnny Gauthier MD Unavailable Alpa Max PA-C Unavailable Ayana Fuller MD Unavailable [phone] Nanci Villalba MD Primary Care Provider Ayana Fuller MD Unavailable [phone] Nanci Villalba MD Unavailable [phone] Abdirizak Dowd MD Unavailable Abdirizak Dowd MD Unavailable [phone] Jessica Butler MD Unavailable [phone] Ayana Fuller MD Unavailable [phone] Ashwin Franklin MD Unavailable [phone] Jessica Butler MD Unavailable Encounter Details Date Type Department Care Team (Late st Contact Info) Description 04/06/2025 MyC Medical Advice [facility] Dermatology Clinic [address] 3rd [place] [address] Alley Hallie Social History Tobacco Use Types Packs/Day Years [...] re latives? Twice a week 08/10/2024 Attends Sabianist Services Not on file 08/10 Active Member of Clubs or Organizations Not on f ile 08/10/2024 Attends Club or Organization Meetings Not on sb e 08/10/2024 Marital Status Not on file 08/10/2024 PHQ-2 Answer Date Recorded PHQ-2 Score 0 08/11/2024 [facility] [place] of Occupat ional Health - Occupational Stress [...] on file Legal Sex Female 3:34 AM SALES OFFICE ADMINISTRATOR Gender Identity Not on file Sexual Orientation Not on file Occupation Industry Job Start Date Job End Date Unemployed Not on file Not on file Not on file documented as of this encounter Plan of Treatment Upcoming Encounters Date Type Department Care Team (Late st Contact Info) Description 04/20/2025 PRE VISIT [facility] All[facility] Clinic [address] [phone] Ashwin Franklin MD [address] [place] [address] 486225 Previsit 04/20/2025 1:00 PM CDT Office Visit [facility] [address] [phone] Ashwin Franklin MD [address] [place] [address] 944685 05/20/2025 12:45 PM CDT Office Visit [facility] [address] 3rd Floor,[address] [place] Professional Bldg [facility] 88 [place] [phone] Ayana Fuller MD [address] [facility] 300 [place] [address] 09/05/2025 9:45 AM SALES OFFICE ADMINISTRATOR Office Visit [facility] [place] 909 [facility] 3rd [place] [phone] Jessica Butler MD 420 [facility] 98 [place], [place] 501365 documented as of this encounter Visit Diagnoses Not on filedocumented in this encounter Additional Health Concerns Assessment Noted Time PHQ-9 Depression Total Score: 2 10/15/19 23 2:22 PM CDT documented as of this encounter Care Teams Ash Handler Relationship Specialty Start Date End Date Nanci Villalba MD [address] [place] [address] [place], [place] 719975 PCP - General Internal Medicine 06/01/19 Remi Camacho MD 420 [facility] 136 [place], [place] 390714 Dermatology 08/28/16 Alexis Vargas MD 2450 [place] [address] Dermatology 07/14/17 Cecilio Velasco DPM 909 [place] [address] Podiatry 12/31/17 Johnny Gauthier MD [address] [place] [address] Family Medicine - Sports Medicine 08/20/18 Alpa Max PA-C [address] [address] Physician Textile Bag Sewer Physician Textile Bag Sewer 08/28/18 Ayana Fuller MD [address] 119454 optimization engineer 12/01/18 Ayana Fuller MD [address] 279364 Assigned OBGYN Provider 05/19/20 Nanci Villalba MD [address] [place] [address] Assigned PCP 12/21/20 Abdirizak Dowd MD [address] [place] [address] 215575 Dermatology 08/09/21 Abdirizak Dowd MD [address] [place] [address] Dermatology 12/21/21 Jessica Butler MD [address] 489385 Dermatology 02/21/23 Ayana Fuller MD [address] 947864 optimization engineer 02/24/23 Ashwin Franklin MD [address] [place] [address] Dermatology 09/17/24 Jessica Butler MD [address] [place] [address] Assigned Dermatology Provider 03/19/25 documented as of this encounter
--- OUTSIDE RECORDS SUMMARY | 2025-04-06 23:36 | XMS_ITS | Encounter Summary ---
Author Organization [place] Address [address] [facility] [place] [address] Care Team Providers Care Social Service Technician Name Role Phone Remi Camacho MD Unavailable Alexis Vargas MD Unavailable [phone] Cecilio VelascoM Unavailable [phone] Johnny Gauthier MD Unavailable Alpa Max PA-C Unavailable Ayaan Fuller MD Unavailable +[phone] Nacni Villalba MD Primary Care Provider Ayana Fuller MD Unavailable [phone] Nanci Villalba MD Unavailable [phone] Abdirizak Dowd MD Unavailable Abdirizak Dowd MD Unavailable [phone] Jessica Butler MD Unavailable [phone] Ayana Fuller MD Unavailable [phone] Loli Louis DPM, Podiatry /Foot and Ankle Surgery Unavailable Ashwin Franklin MD Unavailable [phone] Valeria Sullivan PA-C Unavailable [phone] Encounter Details Date Type Department Care Team (Late st Contact Info) Description 02/08/2025 Medical Correspondence [facility] Information Management [address] [facility] [address] [place] [address] Scan, Non-Provider Social History Tobacco Use Types Packs/Day Years [...] Answer Date Recorded PHQ-2 Score 0 08/11/2024 [facility] [place] of Occupat ional Health - Occupational Stress [...] in an abandoned building, in an overnight half-way, or couch-surfing.) Yes 08/10/2024 Are you worried [...] on file 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 Gender Identity Not on file Sexual Orientation Not on file Occupation Industry Job Start Date Job End Date Unemployed Not on file Not on file Not on file documented as of this encounter Plan of Treatment Upcoming Encounters Date Type Department Care Team (Late st Contact Info) Description 04/20/2025 PRE VISIT [facility] [address] [address] Ashwin Franklin MD [address] [place] [address] Previsit 04/20/2025 1:00 PM CDT Office Visit [facility] [address] [address] Ashwin Franklin MD [address] [place] [address] 05/20/2025 12:45 PM CDT Office Visit [facility] [address] 3rd Floor,[address] [place] [facility] 88 [place] [phone] Ayana Fuller MD [address] [facility] 300 [place], [place] [address] 09/05/2025 9:45 AM WATER AND FIRE TECHNICIAN Office Visit [facility] [place] 909 [facility] 3rd [place] [phone] Jessica Butler MD 420 [facility] 98 [place], [place] [address] documented as of this encounter Visit Diagnoses Not on filedocumented in this encounter Additional Health Concerns Assessment Noted Time PHQ-9 Depression Total Score: 2 10/15/19 23 2:22 PM CDT documented as of this encounter Care Teams Social Service Technician Relationship Specialty Start Date End Date Nanci Villalba MD [address] [place] [address] A [place], [place] [address] PCP - General Internal Medicine 06/01/19 Remi Camacho MD 420 [facility] 136 [place], [place] [address] Dermatology 08/28/16 Alexis Vargas MD 2450 [place] [address] Dermatology 07/14/17 Cecilio Velasco DPM 909 [place], [place] [address] Podiatry 12/31/17 Johnny Gauthier MD [address] [place] [address] Family Medicine - Sports Medicine 08/20/18 Alpa Max PA-C 420 [facility] 98 [place], [place] [address] Physician Hunting And Fishing Guide Physician Hunting And Fishing Guide 08/28/18 Ayana Fuller MD [address] [facility] 300 [place], [place] [address] box builder 12/01/18 Ayana Fuller MD [address] [facility] 300 [place], [place] [address] Assigned OBGYN Provider 05/19/20 Nanci Villalba MD [address] [place], [place] [address] Assigned PCP 12/21/20 Abdirizak Dowd MD [address] [facility] A [place], [place] [address] Dermatology 08/09/21 Abdirizak Dowd MD [address] [place], [place] [address] Dermatology 12/21/21 Jessica Butler MD 420 [facility] 98 [place] [address] Dermatology 02/21/23 Ayana Fuller MD [address] [facility] 300 [place] [address] box builder 02/24/23 Loli Louis DPM, Podiatry/Foot and Ankle Surgery [address] [facility] 300 [place] [address] Assigned Musculoskeletal Provider 09/19/23 03/18/25 Ashwin Franklin MD 909 [place] [address] Dermatology 09/17/24 Valeria Sullivan, PA-C Dermatology [address] [place] [id number] Assigned Dermatology Provider 10/17/24 03/18/25 documented as of this encounter
--- OUTSIDE RECORDS SUMMARY | 2025-04-06 23:36 | XMS_ITS | Encounter Summary ---
Author Organization [place] Address [address] [place] [address] Care Team Providers Care Scale Expert Name Role Phone Remi Camacho MD Unavailable Alexis Vargas MD Unavailable [phone] Cecilio Velasco DPM Unavailable [phone] Johnny Gauthier MD Unavailable [phone] Alpa Max PA-C Unavailable [phone] Ayana Fuller MD Unavailable [phone] Nanci Villalba MD Primary Care Provider Ashwin Franklin MD Unavailable [phone] Magda Goode MD Unavailable [phone] Ayana Fuller MD Unavailable [phone] Ashwin Franklin MD Unavailable [phone] Cecilio Velasco DPM Unavailable [phone] Nanci Villalba MD Unavailable [phone] Magda Goode MD Unavailable [phone] Nanci Villalba MD Unavailable [phone] Abdirizak Dowd MD Unavailable [phone] Abdirizak Dowd MD Unavailable [phone] Abdirizak Dowd MD Unavailable [phone] Jessica Butler MD Unavailable [phone] Ayana Fuller MD Unavailable [phone] Loli LouisM, Podiatry /Foot and Ankle Surgery Unavailable Jessica Butler MD Unavailable [phone] Ashwin Franklin MD Unavailable +[phone] Valeria Sullivan PA-C Unavailable [phone] Jessica Butler MD Unavailable [phone] Encounter Details Date Type Department Care Team (Late st Contact Info) Description 01/18/2020 [facility] Medical Advice [facility] [address] 3rd Floor,[address] [place] [facility] 88 [place] [address] Ayana Fuller MD [address] [facility] 300 [place] [address] Social History Tobacco Use Types Packs/Day Years Used Date Smoking Tobacco: Never Smokeless Tobacco: Never Alcohol Use Standard Drinks/Week Comments No 0 (1 standard drink = 0.6 oz pur e alcohol) Glasses Wine PHQ-2 Answer Date Recorded PHQ-2 Score 0 05/31/2019 Comments No Sex and Gender Information Value Date Recorded Sex Assigned at Not on file 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 No / Unsure 01/10/2020 4:27 PM CDT documented as of this encounter Plan of Treatment Upcoming Encounters Date Type Department Care Team (Late st Contact Info) Description 04/20/2025 PRE VISIT [facility] [address] [phone] Ashwin Franklin MD [address] [place] [address] 828735 Previsit 04/20/2025 1:00 PM CDT Office Visit [facility] [address] [phone] Ashwin Franklin MD [address] [place] [address] 05/20/2025 12:45 PM CDT Office Visit [facility] [address] [place], [place] [address]e 3rd Floor,[address] [place] [facility] 88 [place] [phone] Ayana Fuller MD [address] [place] [address] 300 [place], [place] [address] 09/05/2025 9:45 AM AUTO BODY REPAIRMAN Office Visit [facility] Dermatology [address] 3rd [place] [phone] Jessica Butler MD [address] [place] [address] 98 [place], [place] [address] documented as of this encounter Visit Diagnoses Not on filedocumented in this encounter Additional Health Concerns Assessment Noted Time PHQ-9 Depression Total Score: 2 08/02/19 20 1:35 PM AUTO BODY REPAIRMAN documented as of this encounter Care Teams Scale Expert Relationship Specialty Start Date End Date Nanci Villalba MD [address] [place] [address] [place] [address] PCP - General Internal Medicine 06/01/19 Remi Camacho MD 420 [facility] 136 [place] [address] Dermatology 08/28/16 Alexis Vargas MD 2450 [place], [place] [address] Dermatology 07/14/17 Cecilio Velasco DPM 909 [place], [place] [address] Podiatry 12/31/17 Johnny Gauthier MD [facility] [address] [place], [place] [address] Family Medicine - Sports Medicine 08/20/18 Alpa Max PA-C 420 [facility] 98 [place], [place] [phone] Physician Motor Vehicle Inspector Physician Motor Vehicle Inspector 08/28/18 Ayana Fuller MD [address] [place] 300 [place], [place] [phone] financial aid officer 12/01/18 Ashwin Franklin MD 909 [place], [place] 123465 Assigned Pediatric Specialist Provider 05/19/20 08/27/20 Magda Goode MD 909 [place], [place] 196405 Assigned Musculoskeletal Provider 05/19/20 08/19/20 Ayana Fuller MD [address] [address] Assigned OBGYN Provider 05/19/20 Ashwin Franklin MD [address] [place] [address] 738975 Assigned Surgical Provider 05/19/20 03/22/22 Cecilio Velasco DPM [address] [place] [address]84255 Assigned Musculoskeletal Provider 08/20/20 09/30/20 Nanci Villalba MD [address] [place] [address] [id number] Assigned PCP 09/10/20 11/04/20 Magda Goode MD [address] [place] [address] 113585 Assigned Musculoskeletal Provider 10/01/20 01/03/23 Nanci Villalba MD [address] [place] [address] 2039[address] Assigned PCP 12/21/20 Abdirizak Dowd MD [address] [place] [address] 656305 Dermatology 08/09/21 Abdirizak Dowd MD [address] [place] [address] Dermatology 12/21/21 Abdirizak Dowd MD 909 [place] [address] Assigned Surgical Provider 03/23/22 02/16/24 Jessica Butler MD 420 [facility] 98 [place] [address] Dermatology 02/21/23 Ayana Fuller MD [address] [facility] 300 [place] [address] financial aid officer 02/24/23 Loli Louis DPM, Podiatry/Foot and Ankle Surgery [address] [facility] 300 [place] [address] Assigned Musculoskeletal Provider 09/19/23 03/18/25 Jessica Butler MD [address] [address] Assigned Surgical Provider 02/17/24 10/16/24 Ashwin Franklin MD [address] [place] [address] Dermatology 09/17/24 Valeria Sullivan PA-C Dermatology [address] [place] [address] Assigned Dermatology Provider 10/17/24 03/18/25 Jessica Butler MD [address] [address] Assigned Dermatology Provider 03/19/25 documented as of this encounter
--- OUTSIDE RECORDS SUMMARY | 2025-04-06 23:36 | XMS_ITS | Encounter Summary ---
Author Organization [place] Address [address] [facility] [place] [address] Care Team Providers Care Senior Product Consultant Name Role Phone Remi Camacho MD Unavailable Alexis Vargas MD Unavailable Cecilio Velasco DPM Unavailable [phone] Johnny Gauthier MD Unavailable Alpa Max PA-C Unavailable Ayana Fuller MD Unavailable [phone] Nanci Villalba MD Primary Care Provider Ayana Fuller MD Unavailable [phone] Nanci Villalba MD Unavailable [phone] Abdirizak Dowd MD Unavailable Abdirizak Dowd MD Unavailable [phone] Jessica Butler MD Unavailable Ayana Fuller MD Unavailable [phone] Ashwin Franklin MD Unavailable [phone] Jessica Butler MD Unavailable Encounter Details Date Type Department Care Team (Late st Contact Info) Description 04/06/2025 MyC Medical Advice [facility] Building [address] [place], [place] [address] Nanci Villalba MD [address] [place], [place] [address] Social History Tobacco Use Types Packs/Day Years [...] re latives? 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 Gender Identity Not on file Sexual Orientation Not on file Occupation Industry Job Start Date Job End Date Unemployed Not on file Not on file Not on file documented as of this encounter Plan of Treatment Upcoming Encounters Date Type Department Care Team (Late st Contact Info) Description 04/20/2025 PRE VISIT [facility] Allergy [address] [address] Ashwin Franklin MD [address] [place] [address] [phone] Previsit 04/20/2025 1:00 PM CDT Office Visit [facility] Allergy [address] [address] Ashwin Franklin MD 909 [place] [address] 05/20/2025 12:45 PM CDT Office Visit [facility] [address] [facility] 3rd Floor,[address] [place] [facility] 88 [place] [phone] Ayana Fuller MD [address] [facility] 300 [place], [place] [address] 09/05/2025 9:45 AM WHITE WASHER PILER Office Visit [facility] [place] 909 [facility] 3rd [place] [phone] Jessica Butler MD 420 [facility] 98 [place], [place] [address] documented as of this encounter Visit Diagnoses Not on filedocumented in this encounter Additional Health Concerns Assessment Noted Time PHQ-9 Depression Total Score: 2 10/15/19 23 2:22 PM CDT documented as of this encounter Care Teams Senior Product Consultant Relationship Specialty Start Date End Date Nanci Villalba MD [address] [place] [address] [place] [address] PCP - General Internal Medicine 06/01/19 Remi Camacho MD [address] [place] [address] 136 [place] [address] Dermatology 08/28/16 Alexis Vargas MD [address] [place] [address] Dermatology 07/14/17 Cecilio Velasco DPM [address] [place] [address] 85[address] Podiatry 12/31/17 Johnny Gauthier MD [address] [facility] [address] [place], [place] [address] Family Medicine - Sports Medicine 08/20/18 Alpa Max PA-C 420 [facility] 98 [place], [place] [address] Physician Ota Physician Ota 08/28/18 Ayana Fuller MD [address] [email or web address] 300 [place], [place] [address] transit proof machine operator 12/01/18 Ayana Fuller MD [address] [place] [address] [place], [place] [address] Assigned OBGYN Provider 05/19/20 Nanci Villalba MD [address] [facility] [place], [place] [address] Assigned PCP 12/21/20 Abdirizak Dowd MD [address] [place] [address] [place], [place] 38[address]85 Dermatology 08/09/21 Abdirizak Dowd MD [address] [place] [address] [place], [place] [address]85 Dermatology 12/21/21 Jessica Butler MD 420 [facility] 98 [place], [place] [address] Dermatology 02/21/23 Ayana Fuller MD [address] [place] [address] [place], [place] 52[address] transit proof machine operator 02/24/23 Ashwin Franklin MD 909 [facility] SE [place], [place] [phone] Dermatology 09/17/24 Jessica Butler MD 420 [facility] 98 [place], [place] [address] Assigned Dermatology Provider 03/19/25 documented as of this encounter
--- OUTSIDE RECORDS SUMMARY | 2025-04-06 23:36 | XMS_ITS | Encounter Summary ---
Author Organization [place] Address [address] [facility] [place] [address] Care Team Providers Care Chief General Pediatric Clinic Name Role Phone Remi Camacho MD Unavailable Alexis Vargas MD Unavailable [phone] Cecilio Velasco DPM Unavailable [phone] Johnny Gauthier MD Unavailable [phone] Alpa Max PA-C Unavailable Ayana Fuller MD Unavailable [phone] Nanci Villalba MD Primary Care Provider Ayana Fuller MD Unavailable [phone] Magda Goode MD Unavailable [phone] Nanci Villalba MD Unavailable [phone] Abdirizak Dowd MD Unavailable Abdirizak Dowd MD Unavailable [phone] Abdirizak Dowd MD Unavailable Jessica Butler MD Unavailable Ayana Fuller MD Unavailable [phone] Loli LouisM, Podiatry /Foot and Ankle Surgery Unavailable Jessica Butler MD Unavailable [phone] Ashwin Franklin MD Unavailable [phone] Valeria Sullivan PA-C Unavailable [phone] Jessica Butler MD Unavailable [phone] Encounter Details Date Type Department Care Team (Late st Contact Info) Description 10/21/2022 MyC Medical Advice [address] [place] [address] Nanci Villalba MD [address] [place] [address] Social History Tobacco Use Types Packs/Day [...] on file 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 No / Unsure 10/14/2022 2:12 PM CDT documented as of this encounter Plan of Treatment Upcoming Encounters Date Type Department Care Team (Late st Contact Info) Description 04/20/2025 PRE VISIT [facility] [address] [phone] Ashwin Franklin MD [address] [place] [address] [phone] Previsit 04/20/2025 1:00 PM CDT Office Visit [facility] [address] [phone] Ashwin Franklin MD [address] [place] [address] [phone] 05/20/2025 12:45 PM CDT Office Visit [facility] [place] [address] [place] [address] 3rd Floor,[address] [place] [facility] 88 [place] [phone] Ayana Fuller MD [address] [facility] 300 [place], [place] [address] 09/05/2025 9:45 AM PADDED PRODUCTS INSPECTOR TRIMMER Office Visit [facility] Dermatology Clinic [address] 3rd [place] [phone] Jessica Butler MD 420 [facility] 98 [place], [place] [address] documented as of this encounter Visit Diagnoses Not on filedocumented in this encounter Additional Health Concerns Assessment Noted Time PHQ-9 Depression Total Score: 2 10/15/19 23 2:22 PM CDT documented as of this encounter Care Teams Chief General Pediatric Clinic Relationship Specialty Start Date End Date Nanci Villalba MD [address] [place], [place] [address] PCP - General Internal Medicine 06/01/19 Remi Camacho MD 420 [facility] 136 [place], [place] [address]304 Dermatology 08/28/16 Alexis Vargas MD 2450 [place], [place] [address]774 Dermatology 07/14/17 Cecilio Velasco DPM 909 [place], [place] 5[address] Podiatry 12/31/17 Johnny Gauthier MD [address] [place], [place] [address] Family Medicine - Sports Medicine 08/20/18 Alpa Max PA-C 420 [facility] 98 [place], [place] [address] Physician Evp Physician Evp 08/28/18 Ayana Fuller MD [address] [place] [address] [place] [address] nutritionalist 12/01/18 Ayana Fuller MD [address] [place] 300 [place], [place] 82[address]24 Assigned OBGYN Provider 05/19/20 Magda Goode MD [address] [place] [address] Assigned Musculoskeletal Provider 10/01/20 01/03/23 Nanci Villalba MD [address] [place] [address] [place] [address] Assigned PCP 12/21/20 Abdirizak Dowd MD [address] [place] [address] 775865 Dermatology 08/09/21 Abdirizak Dowd MD [address] [place] [address] Dermatology 12/21/21 Abdirizak Dowd MD [address] [place] [address] 481205 Assigned Surgical Provider 03/23/22 02/16/24 Jessica Butler MD [address] [place] [address] 98 [place] [address] Dermatology 02/21/23 Ayana Fuller MD [address] [place] [address] 300 [place] [address] nutritionalist 02/24/23 Loli Louis, DPM, Podiatry/Foot and Ankle Surgery [address] [address] Assigned Musculoskeletal Provider 09/19/23 03/18/25 Jessica Butler MD [facility] [address] [address] Assigned Surgical Provider 02/17/24 10/16/24 Ashwin Franklin MD 909 [place] [address] Dermatology 09/17/24 Valeria Sullivan PACassieC Dermatology [address] [place] [address] Assigned Dermatology Provider 10/17/24 03/18/25 Jessica Butler MD [address] [address] Assigned Dermatology Provider 03/19/25 documented as of this encounter
--- OUTSIDE RECORDS SUMMARY | 2025-04-06 23:36 | XMS_ITS | Encounter Summary ---
Author Organization [place] Address [address] [facility] [place] [address] Care Team Providers Care Lobby Attendant Name Role Phone Remi Camacho MD Unavailable Alexis Vargas MD Unavailable Cecilio Velasco DPM Unavailable [phone] Johnny Gauthier MD Unavailable [phone] Alpa Max PA-C Unavailable [phone] Ayana Fuller MD Unavailable [phone] Nanci Villalba MD Primary Care Provider Ayana Fuller MD Unavailable [phone] Nanci Villalba MD Unavailable +[phone] Abdirizak Dowd MD Unavailable [phone] Abdirizak Dowd MD Unavailable Abdirizak Dowd MD Unavailable +[phone] Jessica Butler MD Unavailable +[phone] Ayana Fuller MD Unavailable [phone] Loli Louis DPM, Podiatry /Foot and Ankle Surgery Unavailable Jessica Butler MD Unavailable +[phone] Ashwin Franklin MD Unavailable +[phone] BertronValeria Jaylan MOTTA Unavailable +[phone] Jessica Butler MD Unavailable [phone] Encounter Details Date Type Department Care Team (Late st Contact Info) Description 01/24/2023 MyC Medical Advice [facility] Women's [address] 3rd Floor,[address] [place] [facility] 88 [place] [address] Rocío Martinez RN Social History Tobacco Use Types Packs/Day Years [...] on file 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 No / Unsure 01/23/2023 11:30 AM CDT documented as of this encounter Plan of Treatment Upcoming Encounters Date Type Department Care Team (Late st Contact Info) Description 04/20/2025 PRE VISIT [facility] Allergy [address] [phone] Ashwin Franklin MD [address] [place] [address] [phone] Previsit 04/20/2025 1:00 PM CDT Office Visit [facility] Allergy [address] [phone] Ashwin Franklin MD [address] [place] [address] 356345 05/20/2025 12:45 PM CDT Office Visit [facility] Women's [facility] [address] [place] [address] 3rd Floor,[address] [place] [facility] 88 [place] [phone] Ayana Fuller MD [address] [place] [address] 300 [place], [place] [phone] 09/05/2025 9:45 AM ENVELOPE MAKER Office Visit [facility] Dermatology [address] 3rd [place] [phone] Jessica Butler MD 420 [facility] 98 [place], [place] 298255 documented as of this encounter Visit Diagnoses Not on filedocumented in this encounter Additional Health Concerns Assessment Noted Time PHQ-9 Depression Total Score: 2 10/15/19 23 2:22 PM CDT documented as of this encounter Care Teams Lobby Attendant Relationship Specialty Start Date End Date Nanci Villalba MD [address] [place] [address] [phone] PCP - General Internal Medicine 06/01/19 Remi Camacho MD 420 [facility] 136 [place] [address] Dermatology 08/28/16 Alexis Vargas MD 2450 [place] [address] Dermatology 07/14/17 Cecilio Velasco DPM 909 [place] [address] Podiatry 12/31/17 Johnny Gauthier MD [address] [place] [address] Family Medicine - Sports Medicine 08/20/18 Alpa Max PA-C 420 [facility] 98 [place] [address] Physician Television Actor Physician Television Actor 08/28/18 Ayana Fuller MD [address] [facility] 300 [place] [address] canvas baster jumpbasting 12/01/18 Ayana Fuller MD [address] [facility] 300 [place], [place] [phone] Assigned OBGYN Provider 05/19/20 Nanci Villalba MD 901 [facility] [place], [place] 822265 Assigned PCP 12/21/20 Abdirizak Dowd MD [address] [place] [address] 817535 Dermatology 08/09/21 Abdirizak Dowd MD [address] [place] [address] 316175 Dermatology 12/21/21 Abdirizak Dowd MD [address] [place] [address] 081555 Assigned Surgical Provider 03/23/22 02/16/24 Jessica Butler MD [address] [address] Dermatology 02/21/23 Ayana Fuller MD [address] [phone] canvas baster jumpbasting 02/24/23 Loli Louis DPM, Podiatry/Foot and Ankle Surgery 72968 [facility] 300 [place] [address] Assigned Musculoskeletal Provider 09/19/23 03/18/25 Jessica Butler MD 420 [facility] 98 [place] [address] Assigned Surgical Provider 02/17/24 10/16/24 Ashwin Franklin MD 909 [place] [address] Dermatology 09/17/24 Valeria Sullivan PA-C Dermatology [address] [place] [address] Assigned Dermatology Provider 10/17/24 03/18/25 Jessica Butler MD [address] [place] [address] 98 [place] [address] Assigned Dermatology Provider 03/19/25 documented as of this encounter
--- OUTSIDE RECORDS SUMMARY | 2025-04-06 23:37 | XMS_ITS | Encounter Summary ---
Author Organization [place] Address [address] [place] [address] Care Team Providers Care Print Line Inspector Name Role Phone Remi Camacho MD Unavailable Alexis Vargas MD Unavailable [phone] Cecilio Velasco DPM Unavailable [phone] Johnny Gauthier MD Unavailable Alpa Max PA-C Unavailable Ayana Fuller MD Unavailable [phone] Nanci Villalba MD Primary Care Provider Ashwin Franklin MD Unavailable [phone] Magda Goode MD Unavailable [phone] Ayana Fuller MD Unavailable [phone] Ashwin Franklin MD Unavailable [phone] Cecilio Velasco DPM Unavailable [phone] Nanci Villalba MD Unavailable [phone] Magda Goode MD Unavailable [phone] Nanci Villalba MD Unavailable [phone] Abdirizak Dowd MD Unavailable +[phone] Abdirizak Dowd MD Unavailable [phone] Abdirizak Dowd MD Unavailable [phone] Jessiac Butler MD Unavailable [phone] Ayana Fuller MD Unavailable [phone] Loli LouisM, Podiatry /Foot and Ankle Surgery Unavailable Jessica Butler MD Unavailable [phone] Ashwin Franklin MD Unavailable +[phone] Valeria Sullivan PA-C Unavailable [phone] Jessica Butler MD Unavailable [phone] Encounter Details Date Type Department Care Team (Late st Contact Info) Description 05/16/2020 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 No / Unsure 05/15/2020 8:58 AM CDT documented as of this encounter Plan of Treatment Upcoming Encounters Date Type Department Care Team (Late st Contact Info) Description 04/20/2025 PRE VISIT [facility] Allergy [address] [phone] Ashwin Franklin MD [address] [place] [address] 474285 Previsit 04/20/2025 1:00 PM CDT Office Visit [facility] Allergy [address] [phone] Ashwin Franklin MD [address] [place] [address] 949765 05/20/2025 12:45 PM CDT Office Visit [facility] Women's [facility] [address] [place], [place] [address]e 3rd Floor,[address] [place] [facility] 88 [place] [phone] Ayana Fuller MD [address] [place] [address] 300 [place], [place] 5[address]34 09/05/2025 9:45 AM TANK BUILDER HELPER Office Visit [facility] Dermatology [address] 3rd [place] [phone] Jessica Butler MD [address] [place] [address] 98 [place] [address] documented as of this encounter Visit Diagnoses Not on filedocumented in this encounter Additional Health Concerns Assessment Noted Time PHQ-9 Depression Total Score: 2 08/02/19 20 1:35 PM TANK BUILDER HELPER documented as of this encounter Care Teams Print Line Inspector Relationship Specialty Start Date End Date Nanci Villalba MD [address] [place] [address] [place] [address] PCP - General Internal Medicine 06/01/19 Remi Camacho MD 420 [facility] 136 [place], [place] [address]1934 Dermatology 08/28/16 Alexis Vargas MD 2450 [place] [address] Dermatology 07/14/17 Cecilio Velasco DPM [address] [place] [address] 160515 Podiatry 12/31/17 Johnny Gauthier MD [address] [place], [place] 58[address]44 Family Medicine - Sports Medicine 08/20/18 Alpa Max PA-C 420 [facility] 98 [place], [place] 6[address] Physician Forest Ecologist Physician Forest Ecologist 08/28/18 Ayana Fuller MD 606 24TH [facility] 300 [place], [place] 031464 advertising copy writer 12/01/18 Ashwin Franklin MD 909 [place], [place] 189365 Assigned Pediatric Specialist Provider 05/19/20 08/27/20 Magda Goode MD 909 [place], [place] 544275 Assigned Musculoskeletal Provider 05/19/20 08/19/20 Ayana Fuller MD 606 [facility] 300 [place] [address] Assigned OBGYN Provider 05/19/20 Ashwin Franklin MD [address] [place] [address] Assigned Surgical Provider 05/19/20 03/22/22 Cecilio Velasco DPM [address] [place] [address] 904665 Assigned Musculoskeletal Provider 08/20/20 09/30/20 Nanci Villalba MD [address] [place] [address] Assigned PCP 09/10/20 11/04/20 Magda Goode MD [address] [place] [address] 353875 Assigned Musculoskeletal Provider 10/01/20 01/03/23 Nanci Villalba MD [address] [place] [address] Assigned PCP 12/21/20 Abdirizak Dowd MD [address] [place] [address] 741445 Dermatology 08/09/21 Abdirizak Dowd MD [address] [place] [address] Dermatology 12/21/21 Abdirizak Dowd MD 909 [place] [address] Assigned Surgical Provider 03/23/22 02/16/24 Jessica Butler MD [address] [address] Dermatology 02/21/23 Ayana Fuller MD 606 [facility] 300 [place] [address] advertising copy writer 02/24/23 Loli Louis DPM, Podiatry/Foot and Ankle Surgery 23256 [facility] 300 [place] [address] Assigned Musculoskeletal Provider 09/19/23 03/18/25 Jessica Butler MD [address] [address] Assigned Surgical Provider 02/17/24 10/16/24 Ashwin Franklin MD [address] [place] [address] Dermatology 09/17/24 Valeria Sullivan, PA-C Dermatology [address] [place] [address] Assigned Dermatology Provider 10/17/24 03/18/25 Jessica Butler MD [address] [address] Assigned Dermatology Provider 03/19/25 documented as of this encounter
--- OUTSIDE RECORDS SUMMARY | 2025-04-06 23:37 | XMS_ITS | Encounter Summary ---
Author Organization [place] Address [address] [facility] [place] [address] Care Team Providers Care Key Bed Installer Name Role Phone Lacie Marks MD Primary Care Provider Remi Camacho MD Unavailable [phone] Alexis Vargas MD Unavailable [phone] Cecilio Velasco DPM Unavailable [phone] Johnny Gauthier MD Unavailable [phone] Alpa Max PA-C Unavailable [phone] Ayana Fuller MD Unavailable [phone] No Ref-Primary, Physician Primary Care Provider Nanci Villalba MD Primary Care Provider Ashwin Franklin MD Unavailable [phone] Magda Goode MD Unavailable [phone] Ayana Fuller MD Unavailable [phone] Ashwin Franklin MD Unavailable [phone] Cecilio Velasco DPM Unavailable Nanci Villalba MD Unavailable [phone] Magda Goode MD Unavailable [phone] Nanci Villalba MD Unavailable [phone] Abdirizak Dowd MD Unavailable [phone] Abdirizak Dowd MD Unavailable +[phone] Abdirizak Dowd MD Unavailable [phone] Jessica Butler MD Unavailable [phone] Ayana Fuller MD Unavailable [phone] Loli Louis DPM, Podiatry /Foot and Ankle Surgery Unavailable Jessica Butler MD Unavailable [phone] Ashwin Franklin MD Unavailable [phone] Valeria Sullivan PA-C Unavailable [phone] Jessica Butler MD Unavailable [phone] Encounter Details Date Type Department Care Team (Late st Contact Info) Description 01/01/2019 MyC Medical Advice [facility] 2635 [facility] 100 [place] [address] Rehana Sykes, ELLI Social History Tobacco Use Types Packs/Day Years Used Date Smoking Tobacco: Never Smokeless Tobacco: Never Alcohol Use Standard Drinks/Week Comments No 0 (1 standard drink = 0.6 oz pur e alcohol) Glasses Wine PHQ-2 Answer Date Recorded PHQ-2 Score 0 08/04/2018 Comments No Sex and Gender Information Value Date Recorded Sex Assigned at Not on file Legal Sex Female 3:34 AM RECEPTIONIST Gender Identity Not on file Sexual Orientation Not on file Occupation Industry Job Start Date Job End Date Unemployed Not on file Not on file Not on file documented as of this encounter Plan of Treatment Upcoming Encounters Date Type Department Care Team (Late st Contact Info) Description 04/20/2025 PRE VISIT [facility] Allergy [address] [phone] Ashwin Franklin MD [address] [place] [address] 567515 Previsit 04/20/2025 1:00 PM CDT Office Visit [facility] All[facility] Clinic [address] [phone] Ashwin Franklin MD [address] [place] [address] 05/20/2025 12:45 PM CDT Office Visit [facility] Women's [facility] [address] 3rd Floor,[address] [place] [facility] 88 [place] [phone] Ayana Fuller MD [address] [address] 09/05/2025 9:45 AM RECEPTIONIST Office Visit [facility] Dermatology Clinic [address] 3rd [place] [phone] Jsesica Butler MD 420 [facility] 98 [place], [place] [address] documented as of this encounter Visit Diagnoses Not on filedocumented in this encounter Care Teams Key Bed Installer Relationship Specialty Start Date End Date Lacie Marks MD [address] [place] 300 [place] [address] PCP - General custom feed mill operator helper 11/01/14 03/19/19 No Ref-Primary, Physician PCP - General 03/20/19 05/31/19 Nanci Villalba MD [address] [facility] [place] [address] PCP - General Internal Medicine 06/01/19 Remi Camacho MD 420 [facility] 136 [place] [address] Dermatology 08/28/16 Alexis Vargas MD 2450 [place], [place] 04055[address] Dermatology 07/14/17 Cecilio Velasco DPM [address] [place] [address] Podiatry 12/31/17 Johnny Gauthier MD [facility] [place] 0838402 [place] [address] Family Medicine - Sports Medicine 08/20/18 Alpa Max PA-C 420 [facility] 98 [place] [address] Physician Double Reamer Operator Physician Double Reamer Operator 08/28/18 Ayana Fuller MD 606 24[facility] 300 [place] [address] custom feed mill operator helper 12/01/18 Ashwin Franklin MD 909 [place] [address] Assigned Pediatric Specialist Provider 05/19/20 08/27/20 Magda Goode MD [address] [place] [address] [phone] Assigned Musculoskeletal Provider 05/19/20 08/19/20 Ayana Fuller MD [address] [id number] Assigned OBGYN Provider 05/19/20 Ashwin Franklin MD [address] [place] [address] 116455 Assigned Surgical Provider 05/19/20 03/22/22 Cecilio Velasco DPM [address] [place] [address] 751825 Assigned Musculoskeletal Provider 08/20/20 09/30/20 Nanci Villalba MD [address] [place] [address] Assigned PCP 09/10/20 11/04/20 Magda Goode MD [address] [place] [address] Assigned Musculoskeletal Provider 10/01/20 01/03/23 Nanci Villalba MD [address] [place] [address] Assigned PCP 12/21/20 Abdirizak Dowd MD [address] [place] [address] 399625 Dermatology 08/09/21 Abdirizak Dowd MD [address] [place] [address] Dermatology 12/21/21 Abdirizak Dowd MD 9 [place] [address] Assigned Surgical Provider 03/23/22 02/16/24 Jessica Butler MD [address] [address] Dermatology 02/21/23 Ayana Fuller MD 606 [facility] 300 [place], [place] [address]774 custom feed mill operator helper 02/24/23 Loli Louis DPM, Podiatry/Foot and Ankle Surgery [address] [facility] 300 [place] [address] Assigned Musculoskeletal Provider 09/19/23 03/18/25 Jessica Butler MD [address] [place] [address] Assigned Surgical Provider 02/17/24 10/16/24 Ashwin Franklin MD [address] [place] [address] Dermatology 09/17/24 Valeria Sullivan PACassieC Dermatology [address] [place] [address] [id number] Assigned Dermatology Provider 10/17/24 03/18/25 Jessica Butler MD [address] [place] [address] Assigned Dermatology Provider 03/19/25 documented as of this encounter
--- OUTSIDE RECORDS SUMMARY | 2025-04-06 23:37 | XMS_ITS | Encounter Summary ---
Author Organization [place] Address [address] [facility] [place] [address] Care Team Providers Care Hand Bunch Maker Name Role Phone Remi Camacho MD Unavailable Alexis Vargas MD Unavailable [phone] Cecilio VelascoM Unavailable [phone] Johnny Gauthier MD Unavailable Alpa Max PA-C Unavailable Ayana Fuller MD Unavailable [phone] Nanci Villalba MD Primary Care Provider Ayana Fuller MD Unavailable [phone] Nanci Villalba MD Unavailable [phone] Abdirizak Dowd MD Unavailable Abdirizak Dowd MD Unavailable [phone] Jessica Butler MD Unavailable Ayana Fuller MD Unavailable [phone] Loli Louis DPM, Podiatry /Foot and Ankle Surgery Unavailable Ashwin [place] MD Unavailable Valeria Sullivan PA-C Unavailable [phone] Encounter Details Date Type Department Care Team (Late st Contact Info) Description 02/28/2025 Telephone [facility] Dermatology Clinic [place] [phone] [facility] [address] 3rd [place] [address] Jessica Butler MD 420 [facility] 98 [place] [address] Social History Tobacco Use Types [...] re latives? 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 Gender Identity Not on file Sexual Orientation Not on file Occupation Industry Job Start Date Job End Date Unemployed Not on file Not on file Not on file documented as of this encounter Miscellaneous Notes * Telephone Encounter - Shilpa Brewer - 03/01/2025 9:33 AM CDT 03/01 Left Voicemail (1st Attempt) and Sent Mychart (1st Attempt) for the patient to call back and schedule the following: Appointment type: Return Dermatology Provider: Luke Return date: Aug 2025 Specialty phone number: [phone] Additional appointment(s) needed: na Additonal Notes: Okay to use ARMAND per [place] * Telephone Encounter - Shilpa Brewer - 02/28/2025 11:53 AM CDT 02/28 Pt came to pod to schedule follow up with Dr. Butler. Order request for Aug 2025. No openingsuntil December 2025. Okay to use ARMAND? Please advise. documented in this encounter Plan of Treatment Upcoming Encounters Date Type Department Care Team (Late st Contact Info) Description 04/20/2025 PRE VISIT [facility] Allergy [address] [phone] Ashwin [place] MD [address] [place] [address] 720295 Previsit 04/20/2025 1:00 PM CDT Office Visit [facility] Allergy [address] [phone] Ashwin Franklin MD [address] [place] [address] [phone] 05/20/2025 12:45 PM CDT Office Visit [facility] Women's [facility] [address] 3rd Floor,[address] [place] [facility]ld[facility] 88 [place] [phone] Ayana Fuller MD [address] [facility] 300 [place], [place] [address]484 09/05/2025 9:45 AM BASKET BOTTOM MACHINE OPERATOR Office Visit [facility] Dermatology Clinic [address]rd [place] [phone] Jessica Butler MD [address] [place] [address] 98 [place], [place] 454175 documented as of this encounter Visit Diagnoses Not on filedocumented in this encounter Additional Health Concerns Assessment Noted Time PHQ-9 Depression Total Score: 2 10/15/19 23 2:22 PM CDT documented as of this encounter Care Teams Hand Bunch Maker Relationship Specialty Start Date End Date Nanci Villalba MD [address] [place], [place] [address] PCP - General Internal Medicine 06/01/19 Remi Camacho MD 420 [facility] 136 [place], [place] 455834 Dermatology 08/28/16 Alexis Vargas MD 2450 [place], [place] 094724 Dermatology 07/14/17 Cceilio Velasco DPM 909 [facility] SE [place], [place] 222405 Podiatry 12/31/17 Johnny Gauthier MD [address] [place] [address] Family Medicine - Sports Medicine 08/20/18 Alpa Max PA-C 420 [facility] 98 [place], [place] 130715 Physician Correctional Case Manager Physician Correctional Case Manager 08/28/18 Ayana Fuller MD 606 24TH [facility] 300 [place], [place] 826444 floor representative 12/01/18 Ayana Fuller MD 606 24[facility] 300 [place] [address] Assigned OBGYN Provider 05/19/20 Nanci Villalba MD [address] [place] [address] Assigned PCP 12/21/20 Abdirizak Dowd MD [address] [place] [address] 743075 Dermatology 08/09/21 Abdirizak Dowd MD [address] [place] [address] 041915 Dermatology 12/21/21 Jessica Butler MD [address] [place] [address] 98 [place] [address] Dermatology 02/21/23 Ayana Fuller MD [address] [place] [address] floor representative 02/24/23 Loli Louis, DPM, Podiatry/Foot and Ankle Surgery 15795 [facility] 300 [place] [address] Assigned Musculoskeletal Provider 09/19/23 03/18/25 Ashwin Franklin MD [address] [place] [address] Dermatology 09/17/24 Valeria Sullivan, PA-C Dermatology [address] [place] [address] Assigned Dermatology Provider 10/17/24 03/18/25 documented as of this encounter
--- OUTSIDE RECORDS SUMMARY | 2025-04-06 23:37 | XMS_ITS | Encounter Summary ---
Author Organization [facility] Address [address] [facility] [place] [address] Care Team Providers Care Director Compliance Name Role Phone Remi Camacho MD Unavailable [phone] Alexis Vargas MD Unavailable +[phone] Cecilio VelascoM Unavailable +[phone] Johnny Gauthier MD Unavailable +[phone] Alpa Max PA-C Unavailable +[phone] Ayana Fuller MD Unavailable +[phone] Nanci Villalba MD Primary Care Provider Ayana Fuller MD Unavailable + [phone] Ashwin Franklin MD Unavailable +[phone] Cecilio VelascoM Unavailable +[phone] Nanci Villalba MD Unavailable +[phone] Magda Goode MD Unavailable +[phone] Nanci Villalba MD Unavailable +[phone] Abdirizak Dowd MD Unavailable +[phone] Abdirizak Dowd MD Unavailable +[phone] Abdirizak Dowd MD Unavailable +[phone] Jessica Butler MD Unavailable +[phone] Ayana Fuller MD Unavailable +[phone] Loli Louis DPM, Podiatry /Foot and Ankle Surgery Unavailable Jessica Butler MD Unavailable +[phone] Ashwin Franklin MD Unavailable +[phone] Valeria Sullivan PA-C Unavailable +[phone] Jessica Butler MD Unavailable +[phone] Encounter Details Date Type Department Care Team (Late st Contact Info) Description 09/07/2020 MyC Medical Advice [facility] [address] [address] Victoria De La Cruz, [facility] [address] [place] [address] Social History Tobacco Use Types Packs/Day Years Used Date Smoking Tobacco: Never Smokeless Tobacco: Never Alcohol Use Standard Drinks/Week Comments No 0 (1 standard drink = 0.6 oz pur e alcohol) Glasses Wine PHQ-2 Answer Date Recorded PHQ-2 Score 0 05/31/2019 Comments No Sex and Gender Information Value Date Recorded Sex Assigned at Not on file 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 Gender Identity Not on file Sexual Orientation Not on file Occupation Industry Job Start Date Job End Date Unemployed Not on file Not on file Not on file documented as of this encounter Plan of Treatment Upcoming Encounters Date Type Department Care Team (Late st Contact Info) Description 04/20/2025 PRE VISIT [facility] [address] [address] Ashwin Franklin MD [address] [place] [address] Previsit 04/20/2025 1:00 PM CDT Office Visit [facility] [address] [phone] Ashwin Franklin MD 909 [place], [place] 46[address] 05/20/2025 12:45 PM CDT Office Visit [facility] Women's [facility] [address] 3rd Floor,[address] [facility] [address] [place] [phone] Ayana Fuller MD [address] [facility] 300 [place] [address] 09/05/2025 9:45 AM SHEET ROCK SANDER Office Visit [facility] [address] [place] [phone] Jessica Butler MD 420 [facility] 98 [place], [place] 6[address] documented as of this encounter Visit Diagnoses Not on filedocumented in this encounter Additional Health Concerns Assessment Noted Time PHQ-9 Depression Total Score: 2 08/02/19 20 1:35 PM SHEET ROCK SANDER documented as of this encounter Care Teams Director Compliance Relationship Specialty Start Date End Date Nanci Villalba MD [address] [facility] [place] [place] [address] PCP - General Internal Medicine 06/01/19 Remi Camacho MD 420 [facility] 136 [place] [address] Dermatology 08/28/16 Alexis Vargas MD [address] [place] [address] Dermatology 07/14/17 Cecilio Velasco DPM [address] [place] [address] Podiatry 12/31/17 Johnny Gauthier MD [address] [place], [place] [address] [place] [address] Family Medicine - Sports Medicine 08/20/18 Alpa Max PA-C [address] [place] [address] 98 [place] [address] Physician Director Of Recruitment And Admissions Physician Director Of Recruitment And Admissions 08/28/18 Ayana Fuller MD [address] [place] [address] 649634 church business administrator 12/01/18 Ayana Fuller MD [address] [place] [address] 536764 Assigned OBGYN Provider 05/19/20 Ashwin Franklin MD [address] [place] [address] Assigned Surgical Provider 05/19/20 03/22/22 Cecilio Velasco DPM [address] [place] [address] Assigned Musculoskeletal Provider 08/20/20 09/30/20 Nanci Villalba MD [address] [place] [address] Assigned PCP 09/10/20 11/04/20 Magda Goode MD [address] [place] [address] Assigned Musculoskeletal Provider 10/01/20 01/03/23 Nanci Villalba MD [address] [place] [address] Assigned PCP 12/21/20 Abdirizak Dowd MD [address] [place] [address] Dermatology 08/09/21 Abdirizak Dowd MD [address] [place] [address] Dermatology 12/21/21 Abdirizak Dowd MD [address] [place] [address] 180075 Assigned Surgical Provider 03/23/22 02/16/24 Jessica Butler MD [address] [place] [address] 98 [place] [address] Dermatology 02/21/23 Ayana Fuller MD 606 [facility] 300 [place], [place] 6[address]684 church business administrator 02/24/23 Loli Louis, DPM, Podiatry/Foot and Ankle Surgery [address] [facility] 300 [place] [address] Assigned Musculoskeletal Provider 09/19/23 03/18/25 Jessica Butler MD [address] [place] [address] Assigned Surgical Provider 02/17/24 10/16/24 Ashwin Franklin MD [address] [place] [address] Dermatology 09/17/24 Valeria Sullivan, PA-C Dermatology [address] [place] [address] Assigned Dermatology Provider 10/17/24 03/18/25 Jessica Butler MD [address] [place] [address] Assigned Dermatology Provider 03/19/25 documented as of this encounter
--- OUTSIDE RECORDS SUMMARY | 2025-04-06 23:37 | XMS_ITS | Encounter Summary ---
Author Organization [facility] Address [address] [place] [address] Care Team Providers Care Cane Burner Name Role Phone Remi Camacho MD Unavailable [phone] Alexis Vargas MD Unavailable +[phone] Cecilio Velasco DPM Unavailable [phone] Johnny Gauthier MD Unavailable Alpa Max PA-C Unavailable Ayana Fuller MD Unavailable +[phone] Nanci Villalba MD Primary Care Provider Ashwin Franklin MD Unavailable +[phone] Magda Goode MD Unavailable +[phone] Ayana Fuller MD Unavailable +[phone] Ashwin Franklin MD Unavailable +[phone] Cecilio Velasco DPM Unavailable [phone] Nanci Villalba MD Unavailable [phone] Magda Goode MD Unavailable +[phone] Nanci Villalba MD Unavailable +[phone] Abdirizak Dowd MD Unavailable +[phone] Abdirizak Dowd MD Unavailable +[phone] Abdirizak Dowd MD Unavailable +[phone] Jessica Butler MD Unavailable [phone] Ayana Fuller MD Unavailable +[phone] Loli LouisM, Podiatry /Foot and Ankle Surgery Unavailable Jessica Butler MD Unavailable +[phone] Ashwin Franklin MD Unavailable +[phone] Valeria Sullivan PA-C Unavailable +[phone] Jessica Butler MD Unavailable [phone] Encounter Details Date Type Department Care Team (Late st Contact Info) Description 05/16/2020 MyC Medical Advice [facility] Rehabilitation Services [facility] [address] [place] [address] [address] [place] [address] [place], PT [address] [place], [place] [address] Social History Tobacco Use Types Packs/Day Years Used Date Smoking Tobacco: Never Smokeless Tobacco: Never Alcohol Use Standard Drinks/Week Comments No 0 (1 standard drink = 0.6 oz pur e alcohol) Glasses Wine PHQ-2 Answer Date Recorded PHQ-2 Score 0 05/31/2019 Comments No Sex and Gender Information Value Date Recorded Sex Assigned at Not on file Legal Sex Female 3:34 AM CHARGER TESTER Gender Identity Not on file Sexual Orientation [...] st Contact Info) Description 04/20/2025 PRE VISIT [facility] Allergy [address] [phone] Ashwin Franklin MD [address] [place] [address] 737315 Previsit 04/20/2025 1:00 PM CDT Office Visit [facility] Allergy [address] [phone] Ashwin Franklin MD [address] [place] [address] 333195 05/20/2025 12:45 PM CDT Office Visit [facility] Women's [facility] [address] [place] [address] 3rd Floor,[address] [facility] 88 [place] [phone] [place] Fuller [place] [address] [place] [address] 300 [place], [place] [address] 09/05/2025 9:45 AM CHARGER TESTER Office Visit [facility] Dermatology [address] [place] [phone] Jessica Butler MD [address] [place] [address] 98 [place] [address] documented as of this encounter Visit Diagnoses Not on filedocumented in this encounter Additional Health Concerns Assessment Noted Time PHQ-9 Depression Total Score: 2 08/02/19 20 1:35 PM CHARGER TESTER documented as of this encounter Care Teams Cane Burner Relationship Specialty Start Date End Date Nanci Villalba MD [address] [place] [address] [place] [address] PCP - General Internal Medicine 06/01/19 Remi Camacho MD 420 [facility] 136 [place], [place] 95[address] Dermatology 08/28/16 Alexis Vargas MD 2450 [place] [address] Dermatology 07/14/17 Cecilio Velasco DPM 909 [place], [place] [address]215 Podiatry 12/31/17 Johnny Gauthier MD [address] [place], [place] [address] Family Medicine - Sports Medicine 08/20/18 Alpa Max PA-C 420 [facility] 98 [place], [place] [address] Physician Graduate Rn Physician Graduate Rn 08/28/18 Ayana Fuller MD [address] [facility] 300 [place], [place] 10[address]74 grab operator 12/01/18 Ashwin Franklin MD 909 [place], [place] 473285 Assigned Pediatric Specialist Provider 05/19/20 08/27/20 Magda Goode MD 909 [place], [place] 727985 Assigned Musculoskeletal Provider 05/19/20 08/19/20 Ayana Fuller MD [facility] 300 [place], [place] 7[address]404 Assigned OBGYN Provider 05/19/20 Ashwin Franklin MD [address] [place] [address] Assigned Surgical Provider 05/19/20 03/22/22 Cecilio Velasco DPM [address] [place] [address] 493195 Assigned Musculoskeletal Provider 08/20/20 09/30/20 Nanci Villalba MD [address] [place] [address] Assigned PCP 09/10/20 11/04/20 Magda Goode MD [address] [place] [address] 388635 Assigned Musculoskeletal Provider 10/01/20 01/03/23 Nanci Villalba MD [address] [place] [address] 544105 Assigned PCP 12/21/20 Abdirizak Dowd MD [address] [place] [address] 769445 Dermatology 08/09/21 Abdirizak Dowd MD [address] [place] [address] 461765 Dermatology 12/21/21 Abdirizak Dowd MD 909 [place] [address] Assigned Surgical Provider 03/23/22 02/16/24 Jessica Butler MD [address] [address] Dermatology 02/21/23 Ayana Fuller MD [address] [place] [address] 300 [place] [address] grab operator 02/24/23 Loli Louis DPM, Podiatry/Foot and Ankle Surgery [address] [facility] 300 [place] [address] Assigned Musculoskeletal Provider 09/19/23 03/18/25 Jessica Butler MD [address] [place] [address] Assigned Surgical Provider 02/17/24 10/16/24 Ashwin Franklin MD [address] [place] [address] Dermatology 09/17/24 Valeria Sullivan, PACassieC Dermatology [address] [place] [address] [phone] Assigned Dermatology Provider 10/17/24 03/18/25 Jessica Butler MD [address] [address] Assigned Dermatology Provider 03/19/25 documented as of this encounter
--- OUTSIDE RECORDS SUMMARY | 2025-04-06 23:37 | XMS_ITS | Encounter Summary ---
Author Organization [facility] Address [address] [facility] [place] [address] Care Team Providers Care Splitter Operator Name Role Phone Lacie Marks MD Primary Care Provider Coby Mcelroy MD Unavailable Grace Goodrich MD Unavailable [phone] Remi Camacho MD Unavailable Shane Pemberton MD Unavailable +[phone] Alexis Vargas MD Unavailable +[phone] Cecilio Velasco DPM Unavailable +[phone] Johnny Gauthier MD Unavailable +[phone] Alpa Max PA-C Unavailable +[phone] Ayana Fuller MD Unavailable [phone] No Ref-Primary, Physician Primary Care Provider Nanci Villalba MD Primary Care Provider Ashwin Franklin MD Unavailable +[phone] Magda Goode MD Unavailable + [phone] Ayana Fuller MD Unavailable +[phone] Ashwin Franklin MD Unavailable +[phone] Cecilio Velasco DPM Unavailable + [phone] Nanci Villalba MD Unavailable +[phone] Magda Goode MD Unavailable + Nanci Villalba MD Unavailable +[phone] Abdirizak Dowd MD Unavailable Abdirizak Dowd MD Unavailable +[phone] Abdirizak Dowd MD Unavailable +[phone] Jessica Butler MD Unavailable +[phone] Ayana Fuller MD Unavailable +[phone] Loli LouisM, Podiatry /Foot and Ankle Surgery Unavailable Jessica Butler MD Unavailable +[phone] Ashwin Franklin MD Unavailable +[phone] Valeria Sullivan PA-C Unavailable +[phone] Jessica Butler MD Unavailable +[phone] Encounter Details Date Type Department Care Team (Late st Contact Info) Description 12/16/2014 MyC Medical Advice [facility] Women's [facility] [address] [employer] 88 [place] [address] Lacie Marks MD [address] [place] 300 [place] [address] Social History Tobacco Use Types Packs/Day Years Used Date Smoking Tobacco: Never Smokeless Tobacco: Never Alcohol Use Standard Drinks/Week Comments Yes 0 (1 standard drink = 0.6 oz pur e alcohol) Glasses Wine Comments No Sex and Gender Information Value Date Recorded Sex Assigned at Not on file Legal Sex Female 3:34 AM FORM STRIPPER Gender Identity Not on file Sexual Orientation Not on file Occupation Industry Job Start Date Job End Date Unemployed Not on file Not on file Not on file documented as of this encounter Plan of Treatment Upcoming Encounters Date Type Department Care Team (Late st Contact Info) Description 04/20/2025 PRE VISIT [facility] Allergy [address] [phone] Ashwin Franklin MD [address] [place] [address] 489575 Previsit 04/20/2025 1:00 PM CDT Office Visit [facility] Allergy [address] [phone] Ashwin Franklin MD [address] [place] [address] 347355 05/20/2025 12:45 PM CDT Office Visit [facility] Women[facility] [address] 3rd Floor,[address] [employer] [facility] 88 [place] [phone] Ayana Fuller MD [address] [facility] 300 [place], [place] 4[address] 09/05/2025 9:45 AM FORM STRIPPER Office Visit [facility] Dermatology Clinic [address] 3rd [place] [phone] Jessica Butler MD 420 [facility] 98 [place], [place] [address]15 documented as of this encounter Visit Diagnoses Not on filedocumented in this encounter Care Teams Splitter Operator Relationship Specialty Start Date End Date Lacie Marks MD [address] [facility] 300 [place], [place] [phone] PCP - General relay engineer 11/01/14 03/19/19 No Ref-Primary, Physician PCP - General 03/20/19 05/31/19 Nanci Villalba MD [address] [place] [address] A [place], [place] [address] PCP - General Internal Medicine 06/01/19 Coby Mcelroy MD 606 24[address] [facility] 300 [place], [place] [phone] Resident Dermatology 03/22/15 03/22/15 Grace Goodrich MD [facility] [place] [phone] [place] [address] [place] [phone] Resident Dermatology 03/22/15 06/04/17 Remi Camacho MD 420 [facility] 136 [place] [address] Dermatology 08/28/16 Shane Pemberton MD [facility] 420 [facility] 391 [place], [place] [phone] Resident Student in organized health care education/training program 05/13/17 02/16/18 Alexis Vargas MD 2450 [place], [place] 938764 Dermatology 07/14/17 Cecilio Velasco DPM 909 [place], [place] 4[address] Podiatry 12/31/17 Johnny Gauthier MD [facility] [place] [address] Family Medicine - Sports Medicine 08/20/18 Alpa Max PA-C [address] [place] [address] 98 [place], [place] 47[address] Physician Career Consultant Physician Career Consultant 08/28/18 Ayana Fuller MD [address] [facility] 300 [place], [place] [address] relay engineer 12/01/18 Ashwin Franklin MD [address] [place] [address] 928675 Assigned Pediatric Specialist Provider 05/19/20 08/27/20 Magda Goode MD [address] [place] [address] 057665 Assigned Musculoskeletal Provider 05/19/20 08/19/20 Ayana Fuller MD [address] 886884 Assigned OBGYN Provider 05/19/20 Ashwin Franklin MD [address] [place] [address] 694695 Assigned Surgical Provider 05/19/20 03/22/22 Cecilio Velasco DPM [address] [place] [address] 786365 Assigned Musculoskeletal Provider 08/20/20 09/30/20 Nanci Villalba MD [address] [place] [address] Assigned PCP 09/10/20 11/04/20 Magda Goode MD [address] [place] [address] Assigned Musculoskeletal Provider 10/01/20 01/03/23 Nanci Villalba MD [address] [place] [address] Assigned PCP 12/21/20 Abdirizak Dowd MD [address] [place] [address] Dermatology 08/09/21 Abdirizak Dowd MD [address] [place] [address] 505805 Dermatology 12/21/21 Abdirizak Dowd MD [address] [place] [address] Assigned Surgical Provider 03/23/22 02/16/24 Jessica Butler MD [address] [place] [address] 98 [place] [address] Dermatology 02/21/23 Ayana Fuller MD [address] [place] [address] 300 [place] [address] relay engineer 02/24/23 Loli Louis DPM, Podiatry/Foot and Ankle Surgery [address] [place] [address] Assigned Musculoskeletal Provider 09/19/23 03/18/25 Jessica Butler MD [address] [address] Assigned Surgical Provider 02/17/24 10/16/24 Ashwin Franklin MD [address] [place] [address] Dermatology 09/17/24 Valeria Sullivan PACassieC Dermatology [address] [place] [address] Assigned Dermatology Provider 10/17/24 03/18/25 Jessica Butler MD [address] [address] Assigned Dermatology Provider 03/19/25 documented as of this encounter
--- OUTSIDE RECORDS SUMMARY | 2025-04-06 23:37 | XMS_ITS | Encounter Summary ---
Author Organization [facility] Address [address] [place] [address] Care Team Providers Care Per Diem Clerk Name Role Phone Remi Camacho MD Unavailable Alexis Vargas MD Unavailable [phone] Cecilio Velasco DPM Unavailable [phone] Johnny Gauthier MD Unavailable +[phone] Alpa Max PA-C Unavailable Ayana Fuller MD Unavailable +[phone] Nanci Villalba MD Primary Care Provider Ashwin Franklin MD Unavailable +[phone] Magda Goode MD Unavailable +[phone] Ayana Fuller MD Unavailable +[phone] Ashwin Franklin MD Unavailable +[phone] Cecilio Velasco DPM Unavailable +[phone] Nanci Villalba MD Unavailable +[phone] Magda Goode MD Unavailable +[phone] Nanci Villalba MD Unavailable +[phone] Abdirizak Dowd MD Unavailable +[phone] Abdirizak Dowd MD Unavailable +[phone] Abdirizak Dowd MD Unavailable +[phone] Jessica Butler MD Unavailable +[phone] Ayana Fuller MD Unavailable +[phone] Loli LouisM, Podiatry /Foot and Ankle Surgery Unavailable Jessica Butler MD Unavailable +[phone] Ashwin Franklin MD Unavailable +[phone] Valeria Sullivan PA-C Unavailable +[phone] Jessica Butler MD Unavailable [phone] Encounter Details Date Type Department Care Team (Late st Contact Info) Description 07/05/2020 MyC Medical Advice [facility] [address] [place] [address] [address] [place] [address] Ridge Cloud, PT [address] [place], [place] 6[address] Social History Tobacco Use Types Packs/Day Years Used Date Smoking Tobacco: Never Smokeless Tobacco: Never Alcohol Use Standard Drinks/Week Comments No 0 (1 standard drink = 0.6 oz pur e alcohol) Glasses Wine PHQ-2 Answer Date Recorded PHQ-2 Score 0 05/31/2019 Comments No Sex and Gender Information Value Date Recorded Sex Assigned at Not on file Legal Sex Female 3:34 AM HAY BALER Gender Identity Not on file Sexual Orientation Not on file Occupation Industry Job Start Date Job End Date Unemployed Not on file Not on file Not on file COVID-19 Exposure Response Date Recorded In the last month, have you been in contact with someone who was confirmed or suspected to have Coronavirus / COVID-19? No / Unsure 06/12/2020 9:04 AM HAY BALER documented as of this encounter Plan of Treatment Upcoming Encounters Date Type Department Care Team (Late st Contact Info) Description 04/20/2025 PRE VISIT [facility] Allergy [address] [phone] Ashwin Franklin MD [address] [place] [address] 710105 Previsit 04/20/2025 1:00 PM CDT Office Visit [facility] [address] [phone] Ashwin Franklin MD [address] [place] [address] 208135 05/20/2025 12:45 PM CDT Office Visit [facility] Women's [facility] [address] [place], [place] [address]e 3rd Floor,[address] [place] [facility] 88 [place] [phone] Ayana Fuller MD [address] [place] [address] 300 [place], [place] 476524 09/05/2025 9:45 AM HAY BALER Office Visit [facility] Dermatology [address] 3rd [place] [phone] Jessica Butler MD [address] [place] [address] 98 [place] [address] documented as of this encounter Visit Diagnoses Not on filedocumented in this encounter Additional Health Concerns Assessment Noted Time PHQ-9 Depression Total Score: 2 08/02/19 20 1:35 PM HAY BALER documented as of this encounter Care Teams Per Diem Clerk Relationship Specialty Start Date End Date Nanci Villalba MD [address] [place] [address] [place] [address] PCP - General Internal Medicine 06/01/19 Remi Camacho MD 420 [facility] 136 [place], [place] 355474 Dermatology 08/28/16 Alexis Vagras MD 2450 [place] [address] Dermatology 07/14/17 Cecilio Velasco DPM [address] [place] [address] 433165 Podiatry 12/31/17 Johnny Gauthier MD [address] [place], [place] 397[address] Family Medicine - Sports Medicine 08/20/18 Alpa Max PA-C 420 [facility] 98 [place], [place] 338785 Physician Shearing Shed Worker Physician Shearing Shed Worker 08/28/18 Ayana Fuller MD [address] [facility] 300 [place], [place] 340444 business development agent 12/01/18 Ashwin Franklin MD 909 [place], [place] 813165 Assigned Pediatric Specialist Provider 05/19/20 08/27/20 Magda Goode MD 909 [place], [place] 599135 Assigned Musculoskeletal Provider 05/19/20 08/19/20 Ayana Fuller MD 606 [facility] 300 [place] [address] Assigned OBGYN Provider 05/19/20 Ashwin Franklin MD [address] [place] [address] Assigned Surgical Provider 05/19/20 03/22/22 Cecilio Velasco DPM [address] [place] [address] 666655 Assigned Musculoskeletal Provider 08/20/20 09/30/20 Nanci Villalba MD [address] [place] [address]33 Assigned PCP 09/10/20 11/04/20 Magda Goode MD [address] [place] [address] 116265 Assigned Musculoskeletal Provider 10/01/20 01/03/23 Nanci Villalba MD [address] [place] [address] Assigned PCP 12/21/20 Abdirizak Dowd MD [address] [place] [address] 792005 Dermatology 08/09/21 Abdirizak Dowd MD [address] [place] [address] Dermatology 12/21/21 Abdirizak Dowd MD 909 [place] [address] Assigned Surgical Provider 03/23/22 02/16/24 Jessica Butler MD [address] [address] Dermatology 02/21/23 Ayana Fuller MD 606 [facility] 300 [place] [address] business development agent 02/24/23 Loli Louis DPM, Podiatry/Foot and Ankle Surgery 0[address]68 [facility] 300 [place] [address] Assigned Musculoskeletal Provider 09/19/23 03/18/25 Jessica Butler MD [address] [address] Assigned Surgical Provider 02/17/24 10/16/24 Ashwin Franklin MD [address] [place] [address] Dermatology 09/17/24 Valeria Sullivan, PA-C Dermatology [address] [place] [address] Assigned Dermatology Provider 10/17/24 03/18/25 Jessica Butler MD [address] [address] Assigned Dermatology Provider 03/19/25 documented as of this encounter
--- OUTSIDE RECORDS SUMMARY | 2025-04-06 23:37 | XMS_ITS | Encounter Summary ---
Author Organization [facility] Address [address] [place] [address] Care Team Providers Care Annual Giving Manager Name Role Phone Lacie Marks MD Primary Care Provider Remi Camacho MD Unavailable [phone] Alexis Vargas MD Unavailable [phone] Cecilio Velasco DPM Unavailable [phone] Johnny Gauthier MD Unavailable [phone] Alpa Max PA-C Unavailable [phone] Ayana Fuller MD Unavailable [phone] No Ref-Primary, Physician Primary Care Provider Nanci Villalba MD Primary Care Provider Ashwin Franklin MD Unavailable [phone] Magda Goode MD Unavailable [phone] yAana Fuller MD Unavailable +[phone] Ashwin Franklin MD Unavailable +[phone] Cecilio Velasco DPM Unavailable Nanci Villalba MD Unavailable +[phone] Magda Goode MD Unavailable [phone] Nanci Villalba MD Unavailable +[phone] Abdirizak Dowd MD Unavailable Abdirizak Dowd MD Unavailable [phone] Abdirizak Dowd MD Unavailable [phone] Jessica Butler MD Unavailable +[phone] Ayana Fuller MD Unavailable +[phone] Loli Louis DPM, Podiatry /Foot and Ankle Surgery Unavailable Jessica Butler MD Unavailable +[phone] Ashwin Franklin MD Unavailable [phone] Valeria Sullivan PA-C Unavailable +[phone] Jessica Butler MD Unavailable [phone] Encounter Details Date Type Department Care Team (Late st Contact Info) Description 10/21/2018 MyC Medical Advice [address] [address] Solange Stoddard, PT [facility] [id number] [place] [address] Social History Tobacco Use Types Packs/Day Years Used Date Smoking Tobacco: Never Smokeless Tobacco: Never Alcohol Use Standard Drinks/Week Comments No 0 (1 standard drink = 0.6 oz pur e alcohol) Glasses Wine PHQ-2 Answer Date Recorded PHQ-2 Score 0 08/04/2018 Comments No Sex and Gender Information Value Date Recorded Sex Assigned at Not on file Legal Sex Female 3:34 AM EDUCATIONAL PROGRAMMING DIRECTOR Gender Identity Not on file Sexual Orientation Not on file Occupation Industry Job Start Date Job End Date Unemployed Not on file Not on file Not on file documented as of this encounter Plan of Treatment Upcoming Encounters Date Type Department Care Team (Late st Contact Info) Description 04/20/2025 PRE VISIT [facility] Allergy [address] [phone] Ashwin Franklin MD [address] [place] [address] 026645 Previsit 04/20/2025 1:00 PM CDT Office Visit [facility] Allergy [address] [phone] Ashwin Franklin MD [address] [place] [address] 670595 05/20/2025 12:45 PM CDT Office Visit [facility] Women's [facility] [address] 3rd Floor,[address] [place] [facility] 88 [place] [phone] Ayana Fuller MD [address] 760164 09/05/2025 9:45 AM EDUCATIONAL PROGRAMMING DIRECTOR Office Visit [facility] Dermatology [address] 3rd [place] [phone] Jessica Butler MD [address] [place] [address] 98 [place], [place] 309555 documented as of this encounter Visit Diagnoses Not on filedocumented in this encounter Care Teams Annual Giving Manager Relationship Specialty Start Date End Date Lacie Marks MD [address] [place] 300 [place], [place] [phone] PCP - General hangersmith 11/01/14 03/19/19 No Ref-Primary, Physician PCP - General 03/20/19 05/31/19 Nanci Villalba MD [address] [place], [place] 724935 PCP - General Internal Medicine 06/01/19 Remi Camacho MD 420 [facility] 136 [place], [place] 286554 Dermatology 08/28/16 Alexis Vargas MD 2450 [place], [place] 866244 Dermatology 07/14/17 Cecilio Velasco DPM [address] [place] [address] 131825 Podiatry 12/31/17 Johnny Gauthier MD [address] [place], [place] 138634 Family Medicine - Sports Medicine 08/20/18 Alpa Max PA-C 420 [facility] 98 [place], [place] 184735 Physician Associate Store Leader Physician Associate Store Leader 08/28/18 Ayana Fuller MD 606 24TH [facility] 300 [place], [place] [phone] hangersmith 12/01/18 Ashwin Franklin MD [address] [place] [address] 485105 Assigned Pediatric Specialist Provider 05/19/20 08/27/20 Magda Goode MD [address] [place] [address] Assigned Musculoskeletal Provider 05/19/20 08/19/20 Ayana Fuller MD [address] 573094 Assigned OBGYN Provider 05/19/20 Ashwin Franklin MD [address] [place] [address] 662465 Assigned Surgical Provider 05/19/20 03/22/22 Cecilio Velasco DPM [address] [place] [address] 875935 Assigned Musculoskeletal Provider 08/20/20 09/30/20 Nanci Villalba MD [address] [place] [address] Assigned PCP 09/10/20 11/04/20 Magda Goode MD [address] [place] [address] Assigned Musculoskeletal Provider 10/01/20 01/03/23 Nanci Villalba MD [address] [place] [address] Assigned PCP 12/21/20 Abdirizak Dowd MD [address] [place] [address] MD Dermatology 08/09/21 Abdirizak Dowd MD [address] [place] [address] Dermatology 12/21/21 Abdirizak Dowd MD [address] [place] [address] Assigned Surgical Provider 03/23/22 02/16/24 Jesisca Butler MD [address] [place] [address] Dermatology 02/21/23 Ayana Fuller MD [address] [place] [address] hangersmith 02/24/23 Loli Louis DPM, Podiatry/Foot and Ankle Surgery [address] [address] Assigned Musculoskeletal Provider 09/19/23 03/18/25 Jessica Butler MD [address] [place] [address] Assigned Surgical Provider 02/17/24 10/16/24 Ashwin Franklin MD [address] [place] [address] Dermatology 09/17/24 Valeria Sullivan, PA-C Dermatology [address] [place] [address] Assigned Dermatology Provider 10/17/24 03/18/25 Jessica Butler MD [address] [place] [address] 98 [place] [address] Assigned Dermatology Provider 03/19/25 documented as of this encounter
--- OUTSIDE RECORDS SUMMARY | 2025-04-06 23:37 | XMS_ITS | Encounter Summary ---
Author Organization [place] Address 2450 [facility] [place] [address] Care Team Providers Care Post Tensioning Ironworker Name Role Phone No Ref-Primary, Physician Primary Care Provider Lacie Marks MD Primary Care Provider Coby Mcelroy MD Unavailable Grace Goodrich MD Unavailable [phone] Remi Camacho MD Unavailable [phone] Shane Pemberton MD Unavailable +[phone] Alexis Vargas MD Unavailable [phone] Cecilio Velasco DPM Unavailable [phone] Johnny Gauthier MD Unavailable [phone] Alpa Max PA-C Unavailable Ayana Fuller MD Unavailable [phone] No Ref-Primary, Physician Primary Care Provider Nanci Villalba MD Primary Care Provider Ashwin Franklin MD Unavailable [phone] Magda Goode MD Unavailable + [phone] Ayana Fuller MD Unavailable [phone] Ashwin Franklin MD Unavailable [phone] Krista Cecilio Manny DPM Unavailable Nanci Villalba MD Unavailable [phone] Magda Goode MD Unavailable + [phone] Nanci Villalba MD Unavailable [phone] Abdirizak Dowd MD Unavailable Abdirizak Dowd MD Unavailable Nile, Abdirizak Turner MD Unavailable Jessica Butler MD Unavailable [phone] Ayana Fuller MD Unavailable [phone] Loli Louis DPM, Podiatry /Foot and Ankle Surgery Unavailable Jessica Butler MD Unavailable +[phone] Ashwin Franklin MD Unavailable [phone] Valeria Sullivan PA-C Unavailable +[phone] Jessica Butler MD Unavailable [phone] Encounter Details Date Type Department Care Team (Late st Contact Info) Description 05/30/[address] [facility] Women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 Allergy [address] [phone] Ashwin Franklin MD [address] [place] [address] 075075 Previsit 04/20/2025 1:00 PM CDT Office Visit [facility] Allergy [address] [phone] Ashwin Franklin MD [address] [place] [address] 514905 05/20/2025 12:45 PM CDT Office Visit [facility] [address] 3rd Floor,[address] [place] [facility] 88 [place] [phone] Ayana Fuller MD [address] 147[address] 09/05/2025 9:45 AM VARNISH MELTER HELPER Office Visit [facility] Dermatology [address] 3rd [place] [phone] Jessica Butler MD [address] [place] [address] 98 [place] [address] documented as of this encounter Visit Diagnoses Not on filedocumented in this encounter Care Teams Post Tensioning Ironworker Relationship Specialty Start Date End Date No Ref-Primary, Physician PCP - General 12/28/10 10/31/14 Lacie Marks MD [address] [place] [address] [place], [place] [phone] PCP - General booker 11/01/14 03/19/19 No Ref-Primary, Physician PCP - General 03/20/19 05/31/19 Nanci Villalba MD [address] [place] [address] [place] [address] PCP - General Internal Medicine 06/01/19 Coby Mcelroy MD [address] [place] [address] 300 [place] [address] Resident Dermatology 03/22/15 03/22/15 Grace Goodrich MD [facility] [place] [address] [place] [address] [place], [place] [phone] Resident Dermatology 03/22/15 06/04/17 Remi Camacho MD 420 [facility] 136 [place], [place] 6[address]04 Dermatology 08/28/16 Shane Pemberton MD [facility] 420 [facility] 391 [place], [place] 151095 Resident Student in organized health care education/training program 05/13/17 02/16/18 Alexis Vargas MD 2450 [place], [place] 531424 Dermatology 07/14/17 Cecilio Velasco DPM 909 [place], [place] 340425 Podiatry 12/31/17 Johnny Gauthier MD [address] [facility] [address] [place] [address] Family Medicine - Sports Medicine 08/20/18 Alpa Max PA-C [address] [place] [address] [facility] 98 [place] [address] Physician Primary Special Educator Physician Primary Special Educator 08/28/18 Ayana Fuller MD [address] [place] [address] [place], [place] 871314 booker 12/01/18 Ashwin Franklin MD [address] [place] [address] Assigned Pediatric Specialist Provider 05/19/20 08/27/20 Magda Goode MD [address] [place] [address] 733225 Assigned Musculoskeletal Provider 05/19/20 08/19/20 Ayana Fuller MD [address] [facility] 300 [place], [place] 467474 Assigned OBGYN Provider 05/19/20 Ashwin Franklin MD [address] [place] [address] Assigned Surgical Provider 05/19/20 03/22/22 Cecilio Velasco DPM [address] [place] [address] 28[address] Assigned Musculoskeletal Provider 08/20/20 09/30/20 Nanci Villalba MD [address] [place] [address] Assigned PCP 09/10/20 11/04/20 Magda Goode MD [address] [place] [address] Assigned Musculoskeletal Provider 10/01/20 01/03/23 Nanci Villalba MD [address] [place] [address] Assigned PCP 12/21/20 Abdirizak Dowd MD [address] [place] [address] 176785 Dermatology 08/09/21 Abdirizak Dowd MD [address] [place] [address] 746995 Dermatology 12/21/21 Abdirizak Dowd MD [address] [place] [address]47 Assigned Surgical Provider 03/23/22 02/16/24 Jessica Butler MD [address] [place] [address] 98 [place] [address] Dermatology 02/21/23 Ayana Fuller MD 60 [facility] 300 [place] [address] booker 02/24/23 Loli Louis, DPJean, Podiatry/Foot and Ankle Surgery [address] [address] Assigned Musculoskeletal Provider 09/19/23 03/18/25 Jessica Butler MD 420 [facility] 98 [place] [address] Assigned Surgical Provider 02/17/24 10/16/24 Ashwin Franklin MD 909 [place] [address] Dermatology 09/17/24 Valeria Sullivan, PA-C Dermatology [address] [place] [address] Assigned Dermatology Provider 10/17/24 03/18/25 Jessica Butler MD [address] [address] [address] Assigned Dermatology Provider 03/19/25 documented as of this encounter
--- OUTSIDE RECORDS SUMMARY | 2025-04-06 23:37 | XMS_ITS | Encounter Summary ---
Author Organization [place] Address [address] [place] [address] Care Team Providers Care Paralegal Internship Name Role Phone Remi Camacho MD Unavailable [phone] Alexis Vargas MD Unavailable [phone] Cecilio VelascoM Unavailable [phone] Johnny Gauthier MD Unavailable Alpa Max PA-C Unavailable [phone] Ayana Fuller MD Unavailable [phone] Nanci Villalba MD Primary Care Provider Ayana Fuller MD Unavailable +[phone] Nanci Villalba MD Unavailable [phone] Abdirizak Dowd MD Unavailable Abdirizak Dowd MD Unavailable [phone] Jessica Butler MD Unavailable Ayana Fuller MD Unavailable [phone] Loli Louis DPM, Podiatry /Foot and Ankle Surgery Unavailable Ashwin [place] MD Unavailable [phone] Valeria Sullivan PA-C Unavailable [phone] Encounter Details Date Type Department Care Team (Latest Contact Info) Description 02/27/2025 Travel Social History Tobacco Use Types Packs/Day Years [...] re latives? 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 Gender Identity Not on file Sexual Orientation Not on file Occupation Industry Job Start Date Job End Date Unemployed Not on file Not on file Not on file documented as of this encounter Plan of Treatment Upcoming Encounters Date Type Department Care Team (Late st Contact Info) Description 04/20/2025 PRE VISIT [facility] [address] [address] Ashwin Franklin MD [address] [place] [address] 052705 Previsit 04/20/2025 1:00 PM CDT Office Visit [facility] [address] [phone] Ashwin Franklin MD [address] [place] [address] 489165 05/20/2025 12:45 PM CDT Office Visit [facility] [address] 3rd Floor,[address] [place] [facility] 88 [place] [phone] Ayana Fuller MD [address] [facility] 300 [place], [place] [address]994 09/05/2025 9:45 AM TEAM LEAD Office Visit [facility] [place] 909 [facility] 3rd [place] [phone] Jessica Butler MD 420 [facility] 98 [place], [place] 7675[address] documented as of this encounter Visit Diagnoses Not on filedocumented in this encounter Additional Health Concerns Assessment Noted Time PHQ-9 Depression Total Score: 2 10/15/19 23 2:22 PM CDT documented as of this encounter Care Teams Paralegal Internship Relationship Specialty Start Date End Date Nanci Villalba MD [address] [place] [address] A [place], [place] 363[address] PCP - General Internal Medicine 06/01/19 Remi Camacho MD 420 [facility] 136 [place] [address] Dermatology 08/28/16 Alexis Vargas MD 2450 [place] [address] Dermatology 07/14/17 Cecilio Velasco DPM 909 [place] [address] Podiatry 12/31/17 Johnny Gauthier MD [address] [place] [address] R102 [place] [address] Family Medicine - Sports Medicine 08/20/18 Alpa Max PA-C [address] [address] Physician Tractor Mechanic Helper Physician Tractor Mechanic Helper 08/28/18 Ayana Fuller MD [address] [facility] 300 [place], [place] [address] palliative care specialist 12/01/18 Ayana Fuller MD [address] 041184 Assigned OBGYN Provider 05/19/20 Nanci Villalba MD [address] [place] [address] Assigned PCP 12/21/20 Abdirizak Dowd MD [address] [place] [address] 430655 Dermatology 08/09/21 Abdirizak Dowd MD [address] [place] [address] Dermatology 12/21/21 Jessica Butler MD [address] 820085 Dermatology 02/21/23 Ayana Fuller MD [address] 720184 palliative care specialist 02/24/23 Loli Louis DPM, Podiatry/Foot and Ankle Surgery [address] [place] [address] [address] Assigned Musculoskeletal Provider 09/19/23 03/18/25 Ashwin Franklin MD [address] [place] [address] Dermatology 09/17/24 Valeria Sullivan, PA-C Dermatology [address] [place] [address] Assigned Dermatology Provider 10/17/24 03/18/25 documented as of this encounter
--- OUTSIDE RECORDS SUMMARY | 2025-04-06 23:37 | XMS_ITS | Encounter Summary ---
Author Organization [place] Address [address] [place] [address] Care Team Providers Care Data Entry Clerk Name Role Phone Remi Camacho MD Unavailable [phone] Alexis Vargas MD Unavailable +[phone] Cecilio Velasco DPM Unavailable +[phone] Johnny Gauthier MD Unavailable +[phone] Alpa Max PA-C Unavailable Ayana Fuller MD Unavailable +[phone] Nanci Villalba MD Primary Care Provider Ayana Fuller MD Unavailable +[phone] Ashwin Franklin MD Unavailable +[phone] Magda Goode MD Unavailable +[phone] Nanci Villalba MD Unavailable +[phone] Abdirizak Dowd MD Unavailable +[phone] Abdirizak Dowd MD Unavailable [phone] Abdirizak Dowd MD Unavailable +[phone] Jessica Butler MD Unavailable +[phone] Ayana Fuller MD Unavailable +[phone] Loli LousiM, Podiatry /Foot and Ankle Surgery Unavailable Jessica Butler MD Unavailable +[phone] Ashwin Franklin MD Unavailable +[phone] Valeria Sullivan PA-C Unavailable +[phone] Jessica Butler MD Unavailable +[phone] Encounter Details Date Type Department Care Team (Late st Contact Info) Description 05/04/2021 [facility] [address] [phone] Magda Goode MD [address] [place] [address] Social History Tobacco Use Types Packs/Day [...] PHQ-2 Answer Date Recorded PHQ-2 Score 0 02/28/2021 Comments No Sex and Gender Information Value Date Recorded Sex Assigned at Not on file 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 No / Unsure 04/27/2021 10:44 AM CDT documented as of this encounter Plan of Treatment Upcoming Encounters Date Type Department Care Team (Late st Contact Info) Description 04/20/2025 PRE VISIT [facility] All[facility] Clinic [address] [phone] Ashwin Franklin MD [address] [place] [address] [phone] Previsit 04/20/2025 1:00 PM CDT Office Visit [facility] Allergy [address] [phone] Ashwin Franklin MD [address] [place] [address] 930115 05/20/2025 12:45 PM CDT Office Visit [facility] [place] [address] [place], [place] [address]e 3rd Floor,[address] [place] [facility] 88 [place] [phone] Ayana Fuller MD [address] [address] 300 [place], [place] 8[address] 09/05/2025 9:45 AM EXTENDED DAY TEACHER Office Visit [facility] Dermatology Clinic [address] 3rd [place] [phone] Jessica Butler MD [address] [place] [address] 98 [place] [address] documented as of this encounter Visit Diagnoses Not on filedocumented in this encounter Additional Health Concerns Assessment Noted Time PHQ-9 Depression Total Score: 2 02/29/20 21 1:38 PM CDT documented as of this encounter Care Teams Data Entry Clerk Relationship Specialty Start Date End Date Nanci Villalba MD [address] [place] [address] PCP - General Internal Medicine 06/01/19 Remi Camacho MD 420 [facility] 136 [place], [place] [phone] Dermatology 08/28/16 Alexis Vargas MD 2450 [place] [address] Dermatology 07/14/17 Cecilio Velasco DPM 909 [place], [place] 19044[address] Podiatry 12/31/17 Johnny Gauthier MD [address] [place] [address] Family Medicine - Sports Medicine 08/20/18 Alpa Max PA-C 420 [facility] 98 [place], [place] [phone] Physician Second Baller Physician Second Baller 08/28/18 Ayana Fuller MD [address] 300 [place] [address] track leader 12/01/18 Ayana Fuller MD [address] [place], [place] [phone] Assigned OBGYN Provider 05/19/20 Ashwin Franklin MD [address] [place] [address] Assigned Surgical Provider 05/19/20 03/22/22 Magda Goode MD [address] [place] [address] Assigned Musculoskeletal Provider 10/01/20 01/03/23 Nanci Villalba MD [address] [place] [address] 390135 Assigned PCP 12/21/20 Abdirizak Dowd MD [address] [place] [address] 774785 Dermatology 08/09/21 Abdirizak Dowd MD [address] [place] [address] 425515 Dermatology 12/21/21 Abdirizak Dowd MD [address] [place] [address] 495335 Assigned Surgical Provider 03/23/22 02/16/24 Jessica Butler MD [address] [place] [address] 98 [place] [address] Dermatology 02/21/23 Ayana Fuller MD [address] [place] [address] track leader 02/24/23 Missy, Loli J, DPM, Podiatry/Foot and Ankle Surgery [address] [place] [address] Assigned Musculoskeletal Provider 09/19/23 03/18/25 Jessica Butler MD [address] [address] Assigned Surgical Provider 02/17/24 10/16/24 Ashwin Franklin MD 909 [place] [address] Dermatology 09/17/24 Valeria Sullivan PACassieC Dermatology [address] [place] [address] Assigned Dermatology Provider 10/17/24 03/18/25 Jessica Butler MD [address] [address] Assigned Dermatology Provider 03/19/25 documented as of this encounter
--- OUTSIDE RECORDS SUMMARY | 2025-04-06 23:37 | XMS_ITS | Encounter Summary ---
Author Organization [place] Address [address] [place] [address] Care Team Providers Care Certified Nurse Name Role Phone Remi Camacho MD Unavailable Alexis Vargas MD Unavailable [phone] Cecilio Velasco DPM Unavailable [phone] Johnny Gauthier MD Unavailable Alpa Max PA-C Unavailable Ayana Fuller MD Unavailable [phone] Nanci Villalba MD Primary Care Provider Ashwin Franklin MD Unavailable [phone] Magda Goode MD Unavailable +[phone] Ayana Fuller MD Unavailable +[phone] Ashwin Franklin MD Unavailable [phone] Cecilio Velasco DPM Unavailable +[phone] Nanci Villalba MD Unavailable [phone] Magda Goode MD Unavailable [phone] Nanci Villalba MD Unavailable +[phone] Abdirziak Dowd MD Unavailable +[phone] Abdirizak Dowd MD Unavailable +[phone] Abdirizak Dowd MD Unavailable +[phone] Jessica Butler MD Unavailable +[phone] Ayana Fuller MD Unavailable [phone] Loli LouisM, Podiatry /Foot and Ankle Surgery Unavailable Jessica Butler MD Unavailable +[phone] Ashwin Franklin MD Unavailable +[phone] Valeria Sullivan PA-C Unavailable +[phone] Jessica Butler MD Unavailable [phone] Encounter Details Date Type Department Care Team (Late st Contact Info) Description 04/28/2020 [facility] Orth[facility] Clinic [address] [phone] Maurisio Fisher MD [address] [place] [address] Social History Tobacco Use Types Packs/Day Years Used Date Smoking Tobacco: Never Smokeless Tobacco: Never Alcohol Use Standard Drinks/Week Comments No 0 (1 standard drink = 0.6 oz pur e alcohol) Glasses Wine PHQ-2 Answer Date Recorded PHQ-2 Score 0 05/31/2019 Comments No Sex and Gender Information Value Date Recorded Sex Assigned at Not on file 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 No / Unsure 05/01/2020 8:58 AM CDT documented as of this encounter Plan of Treatment Upcoming Encounters Date Type Department Care Team (Late st Contact Info) Description 04/20/2025 PRE VISIT [facility] Allergy [address] [phone] Ashwin Franklin MD [address] [place] [address] 221945 Previsit 04/20/2025 1:00 PM CDT Office Visit [facility] Allergy [address] [phone] Ashwin Franklin MD [address] [place] [address] 326395 05/20/2025 12:45 PM CDT Office Visit [facility] 3rd [facility],[address] [place] [facility] 88 [place] [phone] Ayana Fuller MD [address] [place] [address] 300 [place], [place] 722534 09/05/2025 9:45 AM PUNCH MACHINE OPERATOR Office Visit [facility] Dermatology [address] 3rd [place] [phone] Jessica Butler MD [address] [place] [address] 98 [place] [address] documented as of this encounter Visit Diagnoses Not on filedocumented in this encounter Additional Health Concerns Assessment Noted Time PHQ-9 Depression Total Score: 2 08/02/19 20 1:35 PM PUNCH MACHINE OPERATOR documented as of this encounter Care Teams Certified Nurse Relationship Specialty Start Date End Date Nanci Villalba MD [address] [place] [address] [place] [address] PCP - General Internal Medicine 06/01/19 Remi Camacho MD 420 [facility] 136 [place] [address] Dermatology 08/28/16 Alexis Vargas MD 2450 [place] [address] Dermatology 07/14/17 Cecilio Velasco DPM 909 [place], [place] [address] Podiatry 12/31/17 Johnny Gauthier MD [address] [place] [address] Family Medicine - Sports Medicine 08/20/18 Alpa Max PA-C 420 [facility] 98 [place], [place] 290325 Physician Sexual Health Physician Physician Sexual Health Physician 08/28/18 Ayana Fuller MD 606 [address] [facility] [address] 300 [place], [place] 394834 security expert 12/01/18 Ashwin Franklin MD 909 [place], [place] 302485 Assigned Pediatric Specialist Provider 05/19/20 08/27/20 Magda Goode MD 909 [place] [address] Assigned Musculoskeletal Provider 05/19/20 08/19/20 Ayana Fuller MD [address] [facility] 300 [place], [place] 802044 Assigned OBGYN Provider 05/19/20 Ashwin Franklin MD [address] [place] [address] Assigned Surgical Provider 05/19/20 03/22/22 Cecilio Velasco DPM [address] [place] [address] 720575 Assigned Musculoskeletal Provider 08/20/20 09/30/20 Nanci Villalba MD [address] [place] [address] Assigned PCP 09/10/20 11/04/20 Magda Goode MD [address] [place] [address] 467195 Assigned Musculoskeletal Provider 10/01/20 01/03/23 Nanci Villalba MD [address] [place] [address] 528845 Assigned PCP 12/21/20 Abdirizak Dowd MD [address] [place] [address] 445535 Dermatology 08/09/21 Abdirizak Dowd MD [address] [place] [address] 657655 Dermatology 12/21/21 Abdirizak Dowd MD 909 [place] [address] Assigned Surgical Provider 03/23/22 02/16/24 Jessica Butler MD [address] [address] Dermatology 02/21/23 Ayana Fuller MD 606 [facility] 300 [place] [address] security expert 02/24/23 Loli Louis DPM, Podiatry/Foot and Ankle Surgery [address] [facility] 300 [place] [address] Assigned Musculoskeletal Provider 09/19/23 03/18/25 Jessica Butler MD [address] [address] Assigned Surgical Provider 02/17/24 10/16/24 Ashwin Franklin MD [address] [place] [address] Dermatology 09/17/24 Valeria Sullivan, PA-C Dermatology [address] [place] [address] Assigned Dermatology Provider 10/17/24 03/18/25 Jessica Butler MD [address] [address] Assigned Dermatology Provider 03/19/25 documented as of this encounter
--- OUTSIDE RECORDS SUMMARY | 2025-04-06 23:37 | XMS_ITS | Encounter Summary ---
Author Organization [place] Address [address] [facility] [place] [address] Care Team Providers Care Dinkey Operator Name Role Phone Lacie Marks MD Primary Care Provider Grace Goodrich MD Unavailable [phone] Remi Camacho MD Unavailable [phone] Shane Pemberton MD Unavailable +[phone] Alexis Vargas MD Unavailable [phone] [facility] DPM Unavailable +[phone] Johnny Gauthier MD Unavailable + [phone] Alpa Max PA-C Unavailable Ayana Fuller MD Unavailable [phone] No Ref-Primary, Physician Primary Care Provider Nanci Villalba MD Primary Care Provider Ashwin Franklin MD Unavailable [phone] Magda Goode MD Unavailable +[phone] Ayana Fuller MD Unavailable [phone] Ashwin Franklin MD Unavailable +[phone] Cecilio Velasco DPM Unavailable + [phone] Nanci Villalba MD Unavailable +[phone] Magda Goode MD Unavailable +[phone] Nanci Villalba MD Unavailable +[phone] Abdirizak Dowd MD Unavailable Abdirizak Dowd MD Unavailable +[phone] Abdirizak Dowd MD Unavailable +[phone] Jessica Butler MD Unavailable +[phone] Ayana Fuller MD Unavailable +[phone] Loli LouisM, Podiatry /Foot and Ankle Surgery Unavailable Jessica Butler MD Unavailable +[phone] Ashwin Franklin MD Unavailable +[phone] Valeria Sullivan PA-C Unavailable +[phone] Jessica Butler MD Unavailable [phone] Encounter Details Date Type Department Care Team (Late st Contact Info) Description 05/17/2015 [facility] Advice Dermatology 5th Floor, Clinic [address] [place] [address] 88 [place] [address] Grace Goodrich MD [facility] [place] [address] [facility] [address] [place] [id number] Social History Tobacco Use Types Packs/Day Years Used Date Smoking Tobacco: Never Smokeless Tobacco: Never Alcohol Use Standard Drinks/Week Comments Yes 0 (1 standard drink = 0.6 oz pur e alcohol) Glasses Wine Comments No Sex and Gender Information Value Date Recorded Sex Assigned at Not on file Legal Sex Female 3:34 AM CLOTH HAULER Gender Identity Not on file Sexual Orientation Not on file Occupation Industry Job Start Date Job End Date Unemployed Not on file Not on file Not on file documented as of this encounter Plan of Treatment Upcoming Encounters Date Type Department Care Team (Late st Contact Info) Description 04/20/2025 PRE VISIT [facility] Allergy [address] [phone] Ashwin Franklin MD [address] [place] [address] 266045 Previsit 04/20/2025 1:00 PM CDT Office Visit [facility] Allergy [address] [phone] Ashwin Franklin MD [address] [place] [address] 113655 05/20/2025 12:45 PM CDT Office Visit [facility] [address] 3rd Floor,[address] [place] [facility] 88 [place] [phone] Ayana Fuller MD [address] [phone] 09/05/2025 9:45 AM CLOTH HAULER Office Visit [facility] Dermatology [address] 3rd [place] [phone] Jessica Butler MD 420 [facility] 98 [place], [place] 854815 documented as of this encounter Visit Diagnoses Not on filedocumented in this encounter Care Teams Dinkey Operator Relationship Specialty Start Date End Date Lacie Marks MD [address] [place], [place] 57[address]44 PCP - General still cleaner tube 11/01/14 03/19/19 No Ref-Primary, Physician PCP - General 03/20/19 05/31/19 Nanci Villalba MD [address] [place] [address] PCP - General Internal Medicine 06/01/19 Grace Goodrich MD [facility] DERMATOLOGY [address] [place] [address] Resident Dermatology 03/22/15 06/04/17 Remi Camacho MD 420 [facility] 136 [place], [place] 0[address]274 Dermatology 08/28/16 Shane Pemberton MD [facility] 420 [facility] 391 [place], [place] 944925 Resident Student in organized health care education/training program 05/13/17 02/16/18 Alexis Vargas MD [facility]0 [place], [place] 906714 Dermatology 07/14/17 Cecilio Velasco DPM 909 [place], [place] 870815 Podiatry 12/31/17 Johnny Gauthier MD [facility] [address] 324634 Family Medicine - Sports Medicine 08/20/18 Alpa Max PA-C 420 [facility] 98 [place] [address] Physician Switchboard Wire Worker Helper Physician Switchboard Wire Worker Helper 08/28/18 Ayana Fuller MD [address] [place] [address] still cleaner tube 12/01/18 Ashwin Franklin MD [address] [place] [address] Assigned Pediatric Specialist Provider 05/19/20 08/27/20 Magda Goode MD [address] [place] [address] Assigned Musculoskeletal Provider 05/19/20 08/19/20 Ayana Fuller MD [address] [place] [address] Assigned OBGYN Provider 05/19/20 Ashwin Franklin MD [address] [place] [address] Assigned Surgical Provider 05/19/20 03/22/22 Cecilio Velasco DPM [address] [place] [address] Assigned Musculoskeletal Provider 08/20/20 09/30/20 Nanci Villalba MD [address] [place] [address] Assigned PCP 09/10/20 11/04/20 Magda Goode MD [address] [place] [address] Assigned Musculoskeletal Provider 10/01/20 01/03/23 Nanci Villalba MD [address] [place] [address] [place] [address] Assigned PCP 12/21/20 Abdirizak Dowd MD [address] [place] [address] Dermatology 08/09/21 Abdirizak Dowd MD [address] [place] [address] Dermatology 12/21/21 Abdirizak Dowd MD [address] [place] [address] Assigned Surgical Provider 03/23/22 02/16/24 Jessica Butler MD [address] [place] [address] Dermatology 02/21/23 Ayana Fuller MD [address] [place] [address] 300 [place] [address] still cleaner tube 02/24/23 Loli Louis DPM, Podiatry/Foot and Ankle Surgery [address] [place] [address] [address] Assigned Musculoskeletal Provider 09/19/23 03/18/25 Jessica Butler MD [address] [place] [address] Assigned Surgical Provider 02/17/24 10/16/24 Ashwin Franklin MD [address] [place] [address] Dermatology 09/17/24 Valeria Sullivan, PA-C Dermatology [address] [place] [address] Assigned Dermatology Provider 10/17/24 03/18/25 Jessica Butler MD [address] [place] [address] 98 [place] [address] Assigned Dermatology Provider 03/19/25 documented as of this encounter
--- OUTSIDE RECORDS SUMMARY | 2025-04-06 23:37 | XMS_ITS | Encounter Summary ---
Author Organization [place] Address [address] [facility] [place] [address] Care Team Providers Care Gas Engine Operator Compressors Name Role Phone Remi Camacho MD Unavailable [phone] Alexis Vargas MD Unavailable Cecilio Velasco DPM Unavailable [phone] Johnny Gauthier MD Unavailable Alpa Max PA-C Unavailable [phone] Ayana Fuller MD Unavailable [phone] Nanci iVllalba MD Primary Care Provider Ayana Fuller MD Unavailable +[phone] Nanci Villalba MD Unavailable +[phone] Abdirizak Dowd MD Unavailable [phone] Abdirizak Dowd MD Unavailable Abdirizak Dowd MD Unavailable +[phone] Jessica Butler MD Unavailable Ayana Fuller MD Unavailable +[phone] Loli Louis DPM, Podiatry /Foot and Ankle Surgery Unavailable Jessica Butler MD Unavailable +[phone] Ashwin Franklin MD Unavailable +[phone] Valeria Sullivan PA-C Unavailable +[phone] Jessica Butler MD Unavailable [phone] Encounter Details Date Type Department Care Team (Late st Contact Info) Description 05/07/2023 [facility] Medical Advice [place] [facility] Orthopedic Clinic [address]th [place] [address] Valeria Lopez, RN Social History Tobacco Use Types Packs/Day [...] PHQ-2 Answer Date Recorded PHQ-2 Score 0 04/16/2023 Adolescent Education Answer Date Record ed Getting School Help Needed Not on file 04/21 Comments No Sex and Gender Information Value Date Recorded Sex Assigned at Not on file Legal Sex Female 3:34 AM INDUSTRIAL STAFF NURSE Gender Identity Not on file Sexual Orientation Not on file Occupation Industry Job Start Date Job End Date Unemployed Not on file Not on file Not on file COVID-19 Exposure Response Date Recorded In the last 10 days, have yo u been in contact with someone who was confirmed or suspected to have Coronavirus/COVID-19? No / Unsure 04/16/2023 6:28 AM CDT documented as of this encounter Plan of Treatment Upcoming Encounters Date Type Department Care Team (Late st Contact Info) Description 04/20/2025 PRE VISIT [place] [facility] Allergy [address] [phone] Ashwin Franklin MD [address] [place] [address] 378015 Previsit 04/20/2025 1:00 PM CDT Office Visit [place] [facility] Allergy [address] [phone] Ashwin Franklin MD [address] [place] [address] 182685 05/20/2025 12:45 PM CDT Office Visit [place] [facility] [address] [place], [place] [address]e S 3rd Floor,[address] [facility] 88 [place] [phone] Ayana Fuller MD [address] [place], [place] [address]E S [facility] 300 [place], [place] 8[address]394 09/05/2025 9:45 AM INDUSTRIAL STAFF NURSE Office Visit [facility] Dermatology [address] 3rd [place] [phone] Jessica Butler MD 420 [facility] 98 [place], [place] 519145 documented as of this encounter Visit Diagnoses Not on filedocumented in this encounter Additional Health Concerns Assessment Noted Time PHQ-9 Depression Total Score: 2 10/15/19 23 2:22 PM CDT documented as of this encounter Care Teams Gas Engine Operator Compressors Relationship Specialty Start Date End Date Nanci Villalba MD [address] [place] [address] [phone] PCP - General Internal Medicine 06/01/19 Remi Camacho MD 420 [facility] 136 [place], [place] 6[address]894 Dermatology 08/28/16 Alexis Vargas MD 2450 [place], [place] 850974 Dermatology 07/14/17 Cecilio Velasco DPM 909 [place], [place] 392055 Podiatry 12/31/17 Johnny Gauthier MD [facility] [address] [place], [place] [address] Family Medicine - Sports Medicine 08/20/18 Alpa Max PA-C 420 [facility] 98 [place], [place] [address] Physician After School Driver Physician After School Driver 08/28/18 Ayana Fuller MD [address] [facility] 300 [place], [place] 255364 contractor general building 12/01/18 Ayana Fuller MD [address] [facility] 300 [place] [address] Assigned OBGYN Provider 05/19/20 Nanci Villalba MD [address] [facility] [address] [facility] [place], [place] 304535 Assigned PCP 12/21/20 Abdirizak Dowd MD [address] [place] [address] 946875 Dermatology 08/09/21 Abdirizak Dowd MD [address] [place] [address] Dermatology 12/21/21 Abdirizak Dowd MD [address] [place] [address] 287375 Assigned Surgical Provider 03/23/22 02/16/24 Jessica Butler MD [address] [address] Dermatology 02/21/23 Ayana Fuller MD [address] 620024 contractor general building 02/24/23 Loli Louis DPM, Podiatry/Foot and Ankle Surgery [address] [facility] 300 [place], [place] 346627 Assigned Musculoskeletal Provider 09/19/23 03/18/25 Jessica Butler MD [address] [address] Assigned Surgical Provider 02/17/24 10/16/24 Ashwin Franklin MD [address] [place] [address] Dermatology 09/17/24 Valeria Sullivan PA-C Dermatology [address] [place] [address] [id number] Assigned Dermatology Provider 10/17/24 03/18/25 Jessica Butler MD [address] [place] [address] 094955 Assigned Dermatology Provider 03/19/25 documented as of this encounter
--- OUTSIDE RECORDS SUMMARY | 2025-04-06 23:37 | XMS_ITS | Encounter Summary ---
Author Organization [place] Address [address] [facility] [place] [address] Care Team Providers Care Inflated Pad Buffer Name Role Phone Remi Camacho MD Unavailable [phone] Alexis Vargas MD Unavailable [phone] Cecilio VelascoM Unavailable [phone] Johnny Gauthier MD Unavailable +[phone] Alpa Max PA-C Unavailable Ayana Fuller MD Unavailable +[phone] Nanci Villalba MD Primary Care Provider Ayana Fuller MD Unavailable + [phone] Ashwin Franklin MD Unavailable [phone] Cecilio VelascoM Unavailable +[phone] Nanci Villalba MD Unavailable +[phone] Magda Goode MD Unavailable +[phone] Nanci Villalba MD Unavailable +[phone] Abdirizak Dowd MD Unavailable Abdirizak Dowd MD Unavailable +[phone] Abdirizak Dowd MD Unavailable +[phone] Jessica Butler MD Unavailable +[phone] Ayana Fuller MD Unavailable +[phone] Loli Louis DPM, Podiatry /Foot and Ankle Surgery Unavailable Jessica Butler MD Unavailable +[phone] Ashwin Franklin MD Unavailable +[phone] Valeria Sullivan PA-C Unavailable +[phone] Jessica Butler MD Unavailable +[phone] Encounter Details Date Type Department Care Team (Late Contact Info) Description 09/14/2020 MyC Medical Advice [facility] [address] [address] Isabel Pedraza ATC Social History Tobacco Use Types Packs/Day Years Used Date Smoking Tobacco: Never Smokeless Tobacco: Never Alcohol Use Standard Drinks/Week Comments No 0 (1 standard drink = 0.6 oz pur e alcohol) Glasses Wine PHQ-2 Answer Date Recorded PHQ-2 Score 0 05/31/2019 Comments No Sex and Gender Information Value Date Recorded Sex Assigned at Not on file Legal Sex Female 3:34 AM BOTTLE BOOTH ATTENDANT Gender Identity Not on file Sexual Orientation Not on file Occupation Industry Job Start Date Job End Date Unemployed Not on file Not on file Not on file documented as of this encounter Plan of Treatment Upcoming Encounters Date Type Department Care Team (Late Contact Info) Description 04/20/2025 PRE VISIT [facility] [address] [address] Ashwin Franklin MD [address] [place] [address] [id number] Previsit 04/20/2025 1:00 PM CDT Office Visit [facility] All[facility] [address] [place] [phone] Ashwin Franklin MD 909 [place], [place] [address] 05/20/2025 12:45 PM CDT Office Visit [facility] Women's [facility] [address] 3rd Floor,[address] [place] [employer] [facility] 88 [place] [phone] Ayana Fuller MD [address] [facility] 300 [place], [place] [address] 09/05/2025 9:45 AM BOTTLE BOOTH ATTENDANT Office Visit [facility] [address]rd [place] [phone] Jessica Butler MD 420 [facility] 98 [place], [place] 7089[address] documented as of this encounter Visit Diagnoses Not on filedocumented in this encounter Additional Health Concerns Assessment Noted Time PHQ-9 Depression Total Score: 2 08/02/19 20 1:35 PM BOTTLE BOOTH ATTENDANT documented as of this encounter Care Teams Inflated Pad Buffer Relationship Specialty Start Date End Date Nanci Villalba MD [address] [place] [address] [place] [address] PCP - General Internal Medicine 06/01/19 Remi Camacho MD 420 [facility] 136 [place], [place] 24[address]34 Dermatology 08/28/16 Alexis Vargas MD 2450 [place] [address] Dermatology 07/14/17 Cecilio Velasco DPM 909 [place] [address] Podiatry 12/31/17 Johnny Gauthier MD [address] [place] [address] Family Medicine - Sports Medicine 08/20/18 Alpa Max PA-C 420 [facility] 98 [place], [place] 4[address] Physician Cardiology Manager Physician Cardiology Manager 08/28/18 Ayana Fuller MD [address] [place], [place] [address] demo coordinator 12/01/18 Ayana Fuller MD [address] [place], [place] [address] Assigned OBGYN Provider 05/19/20 Ashwin Franklin MD 909 [place] [address] Assigned Surgical Provider 05/19/20 03/22/22 Cecilio Vealsco DPM 909 [place] [address] Assigned Musculoskeletal Provider 08/20/20 09/30/20 Nanci Villalba MD 901 [facility] [place] [address] Assigned PCP 09/10/20 11/04/20 Magda Goode MD [address] [place] [address] Assigned Musculoskeletal Provider 10/01/20 01/03/23 Nanci Villalba MD [address] [place] [address] [place] [address] Assigned PCP 12/21/20 Abdirizak Dowd MD [address] [place] [address] 740225 Dermatology 08/09/21 Abdirizak Dowd MD [address] [place] [address] Dermatology 12/21/21 Abdirizak Dowd MD [address] [place] [address] 589975 Assigned Surgical Provider 03/23/22 02/16/24 Jessica Butler MD [address] [place] [address] 98 [place] [address] Dermatology 02/21/23 Ayana Fuller MD 606 [facility] 300 [place] [address] demo coordinator 02/24/23 Loli Louis, DPM, Podiatry/Foot and Ankle Surgery [address] [address] Assigned Musculoskeletal Provider 09/19/23 03/18/25 Jessica Butler MD 420 [facility] 98 [place] [address] Assigned Surgical Provider 02/17/24 10/16/24 Ashwin Franklin MD [address] [place] [address] Dermatology 09/17/24 Valeria Sullivan PAC[facility]ie[facility] Dermatology [address] [place] [address] Assigned Dermatology Provider 10/17/24 03/18/25 Jessica Butler MD [address] [address] Assigned Dermatology Provider 03/19/25 documented as of this encounter
--- OUTSIDE RECORDS SUMMARY | 2025-04-06 23:37 | XMS_ITS | Encounter Summary ---
Author Organization [place] Address [address] [place] [address] Care Team Providers Care Electronic Design Engineer Name Role Phone Lacie Marks MD Primary Care Provider Grace Goodrich MD Unavailable [phone] Remi Camacho MD Unavailable [phone] Shane Pemberton MD Unavailable +[phone] Alexis Vargas MD Unavailable [phone] [facility] DPM Unavailable +[phone] Johnny Gauthier MD Unavailable + [phone] Alpa Max PA-C Unavailable Ayana Fuller MD Unavailable + [phone] No Ref-Primary, Physician Primary Care Provider Nanci Villalba MD Primary Care Provider Aswhin Franklin MD Unavailable +[phone] Magda Goode MD Unavailable +[phone] Ayana Fuller MD Unavailable [phone] Ashwin Franklin MD Unavailable +[phone] Cecilio Velasco DPM Unavailable + [phone] Nanci Villalba MD Unavailable +[phone] Magda Goode MD Unavailable +[phone] Nanci Villalba MD Unavailable +[phone] Abdirizak Dowd MD Unavailable +[phone] Abdirizak Dowd MD Unavailable +[phone] Abdirizak Dowd MD Unavailable +[phone] Jessica Butler MD Unavailable +[phone] Ayana Fuller MD Unavailable +[phone] Loli LouisM, Podiatry /Foot and Ankle Surgery Unavailable Jessica Butler MD Unavailable +[phone] Ashwin Franklin MD Unavailable +[phone] Valeria Sullivan PA-C Unavailable +[phone] Jessica Butler MD Unavailable [phone] Reason for Visit * Reason Onset Date Comments Orders 04/13/2015 Encounter Details Date Type Department Care Team (Late st Contact Info) Description 04/13/2015 [facility] [place] [place] Medical Advice [facility] [address] 3rd Floor,[address] [place] [facility] 88 [place] [address] Lacie Marks MD [address] [place] [address] Orders Social History Tobacco Use Types Packs/Day Years Used Date Smoking Tobacco: Never Smokeless Tobacco: Never Alcohol Use Standard Drinks/Week Comments Yes 0 (1 standard drink = 0.6 oz pur e alcohol) Glasses Wine Comments No Sex and Gender Information Value Date Recorded Sex Assigned at Not on file Legal Sex Female 3:34 AM ONLINE TRADER Gender Identity Not on file Sexual Orientation Not on file Occupation Industry Job Start Date Job End Date Unemployed Not on file Not on file Not on file documented as of this encounter Miscellaneous Notes * Telephone Encounter - Olivia Hamilton LPN - 04/13/2015 1:41 PM CDT Will pend orders for md to approve. documented in this encounter Plan of Treatment Upcoming Encounters Date Type Department Care Team (Late st Contact Info) Description 04/20/2025 PRE VISIT [facility] [address] [phone] Ashwin Franklin MD [address] [place] [address] [phone] Previsit 04/20/2025 1:00 PM CDT Office Visit [facility] [address] [phone] Ashwin Franklin MD [address] [place] [address] [phone] 05/20/2025 12:45 PM CDT Office Visit [facility] [place] [address] 3rd Floor,[address] [place] [employer] [facility] 88 [place] [phone] Ayana Fuller MD [address] [facility] 300 [place], [place] [address] 09/05/2025 9:45 AM ONLINE TRADER Office Visit [facility] [address]rd [place] [phone] Jessica Butler MD [address] [place] [address] 98 [place], [place] [address] documented as of this encounter Results * Anti thyroglobulin antibody (04/21/2015 3:04 PM CDT) Thyroglobulin Antibody <20 <40 IU/mL [facility] Blood specimen (specimen) 04/21/2015 3:04 PM CDT 04/21/2015 3:05 PM CDT Lacie Marks MD LAB - BLOOD ORDERABLES Final Result Performing Organization Address City/[facility]/ZIP Co de Phone Number [address] [address] * Thyroid peroxidase antibody (04/21/2015 3:04 PM CDT) Thyroid Peroxidase Antibody <10 <35 IU/mL [facility] Blood specimen (specimen) 04/21/2015 3:04 PM CDT 04/21/2015 3:05 PM CDT Result [facility] Lacie Marks MD LAB - BLOOD ORDERABLES Final Result Performing Organization Address [facility] Co de Phone Number [address] [address] * T3 reverse (04/21/2015 3:04 PM CDT) T3, Reverse ng/dL 18.5 [facility] Comment: Reference range: 9.0 to 27.0 Unit: ng/dL (Note) INTERPRETIVE INFORMATION: Triiodothyronine, Reverse - LC-MS/MS Test developed and characteristics determined by [employer]. See Compliance Statement B: [employer] Performed by [employer], [address] [place] [address] [email or web address], Hipolito Ferguson MD, Lab. Director Blood specimen (specimen) 04/21/2015 3:04 PM CDT 04/21/2015 3:05 PM CDT Lacie Marks MD LAB - BLOOD ORDERABLES Final Result [facility] [address] [place] [address] * T3 Free (04/21/2015 3:04 PM CDT) Free T3 2.3 2.3 - 4.2 pg/mL [facility] Blood specimen (specimen) 04/21/2015 3:04 PM CDT 04/21/2015 3:05 PM CDT Lacie Marks MD LAB - BLOOD ORDERABLES Final Result [facility] 500 [place] [address] * TSH (04/21/2015 3:04 PM CDT) TSH 1.25 0.40 - 4.00 mU/L [facility] Blood specimen (specimen) 04/21/2015 3:04 PM CDT 04/21/2015 3:05 PM CDT Lacie Marks MD LAB - BLOOD ORDERABLES Final Result [facility] * Thyroxine, Free (04/21/2015 3:04 PM CDT) T4 Free 0.98 0.76 - 1.46 ng/dL [facility] Blood specimen (specimen) 04/21/2015 3:04 PM CDT 04/21/2015 3:05 PM CDT Lacie Marks MD LAB - BLOOD ORDERABLES Final Result [facility] documented in this encounter Visit Diagnoses Diagnosis Fatigue- Primary Other malaise and fatigue Weight gain Abnormal weight gain Eczema Contact dermatitis and other eczema, due to unspecified cause documented in this encounter Care Teams Electronic Design Engineer Relationship Specialty Start Date End Date Lacie Marks MD [address] [facility] 300 [place], [place] [address] PCP - General sales research analyst 11/01/14 03/19/19 No Ref-Primary, Physician PCP - General 03/20/19 05/31/19 Nanci Villalba MD [address] [place] [address] [place] [address] PCP - General Internal Medicine 06/01/19 Grace Goodrich MD [facility] [id number] [place] [address] [place] [address] Resident Dermatology 03/22/15 06/04/17 Remi Camacho MD 420 [facility] 136 [place], [place] 84[address] Dermatology 08/28/16 Shane Pemberton MD [facility] 420 [facility] 391 [place], [place] [address] Resident Student in organized health care education/training program 05/13/17 02/16/18 Alexis Vargas MD 2450 [place], [place] 44[address] Dermatology 07/14/17 Cecilio Velasco DPM 909 [place] [address] Podiatry 12/31/17 Johnny Gauthier MD [address] [facility] [address] [place] [address] Family Medicine - Sports Medicine 08/20/18 Alpa Max PA-C [address] [place] [address] [facility] 98 [place] [address] Physician Kosher Sealer Physician Kosher Sealer 08/28/18 Ayana Fuller MD [address] [place], [place] 2[address] sales research analyst 12/01/18 Ashwin Franklin MD [address] [place] [address] Assigned Pediatric Specialist Provider 05/19/20 08/27/20 Magda Goode MD [address] [place] [address] 291635 Assigned Musculoskeletal Provider 05/19/20 08/19/20 Ayana Fuller MD [address] [facility] 300 [place], [place] [address] Assigned OBGYN Provider 05/19/20 Ashwin Franklin MD [address] [place] [address] Assigned Surgical Provider 05/19/20 03/22/22 Cecilio Velasco DPM [address] [place] [address] Assigned Musculoskeletal Provider 08/20/20 09/30/20 Nanci Villalba MD [address] [place] [address] Assigned PCP 09/10/20 11/04/20 Magda Goode MD [address] [place] [address] Assigned Musculoskeletal Provider 10/01/20 01/03/23 Nanci Villalba MD [address] [place] [address] Assigned PCP 12/21/20 Abdirizak Dowd MD [address] [place] [address] 153035 Dermatology 08/09/21 Abdirizak Dowd MD [address] [place] [address] 0664[address] Dermatology 12/21/21 Abdirizak Dowd MD [address] [place] [address] Assigned Surgical Provider 03/23/22 02/16/24 Jessica Butler MD [address] [place] [address] 98 [place] [address] Dermatology 02/21/23 Ayana Fuller MD 60 [facility] 300 [place] [address] sales research analyst 02/24/23 Loli Louis, DPJean, Podiatry/Foot and Ankle Surgery [address] [place] [address] Assigned Musculoskeletal Provider 09/19/23 03/18/25 Jessica Butler MD 420 [facility] 98 [place] [address] Assigned Surgical Provider 02/17/24 10/16/24 Ashwin Franklin MD 909 [place] [address] Dermatology 09/17/24 Valeria Sullivan, PA-C Dermatology [address] [place] [address] Assigned Dermatology Provider 10/17/24 03/18/25 Jessica Butler MD [address] [address] Assigned Dermatology Provider 03/19/25 documented as of this encounter
--- OUTSIDE RECORDS SUMMARY | 2025-04-06 23:37 | XMS_ITS | Encounter Summary ---
Author Organization [place] Address [address] [facility] [place] [place] [address] Care Team Providers Care Asphalt Heater Tender Name Role Phone Lacie Marks MD Primary Care Provider Grace Goodrich MD Unavailable [phone] Remi Camacho MD Unavailable [phone] Shane Pemberton MD Unavailable +[phone] Alexis Vargas MD Unavailable [phone] [facility] DPM Unavailable +[phone] Johnny Gauthier MD Unavailable + [phone] Alpa Max PA-C Unavailable Ayana Fuller MD Unavailable + [phone] No Ref-Primary, Physician Primary Care Provider Nanci Villalba MD Primary Care Provider Ashwin Franklin MD Unavailable +[phone] Magda Goode MD Unavailable +[phone] Ayana Fuller MD Unavailable [phone] Ashwin Franklin MD Unavailable +[phone] Cecilio Velasco DPM Unavailable + [phone] Nanci Villalba MD Unavailable +[phone] Magda Goode MD Unavailable +[phone] Nanci Villalba MD Unavailable +[phone] Abdirizak Dowd MD Unavailable +[phone] Abdirizak Dowd MD Unavailable +[phone] Abdirizak Dowd MD Unavailable +[phone] Jessica Butler MD Unavailable +[phone] Ayana Fuller MD Unavailable [phone] Loli LouisM, Podiatry /Foot and Ankle Surgery Unavailable Jessica Butler MD Unavailable +[phone] Ashwin Franklin MD Unavailable +[phone] Valeria Sullivan PA-C Unavailable +[phone] Jessica Butler MD Unavailable [phone] Encounter Details Date Type Department Care Team (Late st Contact Info) Description 04/14/2015 [facility] [address] 3rd Floor,[address] [place] [facility] [place] [phone] Marivel Wiggins, RN Social History Tobacco Use Types Packs/Day Years Used Date Smoking Tobacco: Never Smokeless Tobacco: Never Alcohol Use Standard Drinks/Week Comments Yes 0 (1 standard drink = 0.6 oz pur e alcohol) Glasses Wine Comments No Sex and Gender Information Value Date Recorded Sex Assigned at Not on file Legal Sex 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:34 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 OFFICER Gender Identity Not on file Sexual Orientation Not on file Occupation Industry Job Start Date Job End Date Unemployed Not on file Not on file Not on file documented as of this encounter Plan of Treatment Upcoming Encounters Date Type Department Care Team (Late st Contact Info) Description 04/20/2025 PRE VISIT [facility] [address] [phone] Ashwin Franklin MD [address] [place] [address] 850415 Previsit 04/20/2025 1:00 PM CDT Office Visit [facility] [address] [phone] Ashwin Franklin MD [address] [place] [address]1825 05/20/2025 12:45 PM CDT Office Visit [facility] Women's [facility] [address] 3rd Floor,[address] [place] [facility] 88 [place] [phone] Ayana Fuller MD [address] 875824 09/05/2025 9:45 AM HOUSING OFFICER Office Visit [facility] Dermatology [address] [place] [phone] Jessica Butler MD [address] [place] [address] 98 [place], [place] 5938[address] documented as of this encounter Visit Diagnoses Not on filedocumented in this encounter Care Teams Asphalt Heater Tender Relationship Specialty Start Date End Date Lacie Marks MD [address] [place], [place] [phone] PCP - General terrazzo tile maker 11/01/14 03/19/19 No Ref-Primary, Physician PCP - General 03/20/19 05/31/19 Nanci Villalba MD [address] [place] [address] PCP - General Internal Medicine 06/01/[address] [facility] D[facility] [address] [place] [address] Resident Dermatology 03/22/15 06/04/17 Remi Camacho MD 420 [facility] 136 [place], [place] 15[address]84 Dermatology 08/28/16 Shane Pemberton MD [facility] 420 [facility] 391 [place], [place] 94[address] Resident Student in organized health care education/training program 05/13/17 02/16/18 Alexis Vargas MD 2450 [place], [place] 015624[address] Dermatology 07/14/17 Cecilio Velasco DPM 909 [place], [place] 60[address] Podiatry 12/31/17 Johnny Gauthier MD [address] [place], [place] [address] Family Medicine - Sports Medicine 08/20/18 Alpa Max PA-C 420 [facility] 98 [place], [place] 39[address] Physician Weaving Supervisor Physician Weaving Supervisor 08/28/18 Ayana Fuller MD [address] [place] [address] terrazzo tile maker 12/01/18 Ashwin Franklin MD [address] [place] [address] Assigned Pediatric Specialist Provider 05/19/20 08/27/20 Magda Goode MD [address] [place] [address] 400175 Assigned Musculoskeletal Provider 05/19/20 08/19/20 Ayana Fuller MD [address] [place] [address] 971364 Assigned OBGYN Provider 05/19/20 Ashwin Franklin MD [address] [place] [address] 578855 Assigned Surgical Provider 05/19/20 03/22/22 Cecilio Velasco DPM [address] [place] [address] 968325 Assigned Musculoskeletal Provider 08/20/20 09/30/20 Nanci Villalba MD [address] [place] [address] 243025 Assigned PCP 09/10/20 11/04/20 Magda Goode MD [address] [place] [address] Assigned Musculoskeletal Provider 10/01/20 01/03/23 Nanci Villalba MD [address] [place] [address] A [place], [place] 137[address] Assigned PCP 12/21/20 Abdirizak Dowd MD [address] [place] [address] Dermatology 08/09/21 Abdirizak Dowd MD [address] [place] [address] 925535 Dermatology 12/21/21 Abdirizak Dowd MD [address] [place] [address] 226505 Assigned Surgical Provider 03/23/22 02/16/24 Jessica Butler MD 420 [facility] 98 [place] [address] Dermatology 02/21/23 Ayana Fuller MD 606 [facility] 300 [place], [place] [address] terrazzo tile maker 02/24/23 Loli Louis DPM, Podiatry/Foot and Ankle Surgery 24881 [facility] 300 [place] [address] Assigned Musculoskeletal Provider 09/19/23 03/18/25 Jessica Butler MD 420 [facility] 98 [place] [address] Assigned Surgical Provider 02/17/24 10/16/24 Ashwin Franklin MD 909 [place] [address] Dermatology 09/17/24 Valeria Sullivan PA-C Dermatology [address] [place] [address] Assigned Dermatology Provider 10/17/24 03/18/25 Jessica Butler MD 420 [facility] 98 [place] [address] Assigned Dermatology Provider 03/19/25 documented as of this encounter
--- OUTSIDE RECORDS SUMMARY | 2025-04-06 23:37 | XMS_ITS | Encounter Summary ---
Author Organization [place] Address [address] [facility] [place] [place] [address] Care Team Providers Care Manufacturing Scheduler Name Role Phone Remi Camacho MD Unavailable [phone] Alexis Vargas MD Unavailable Cecilio Velasco DPM Unavailable [phone] Johnny Gauthier MD Unavailable +[phone] Alpa Max PA-C Unavailable Ayana Fuller MD Unavailable [phone] Nanci Villalba MD Primary Care Provider Ayana Fuller MD Unavailable +[phone] Nanci Villalba MD Unavailable +[phone] Abdirizak Dowd MD Unavailable Abdirizak Dowd MD Unavailable +[phone] Jessica Butler MD Unavailable +[phone] Ayana Fuller MD Unavailable +[phone] Ashwin Franklin MD Unavailable [phone] Jessica Butler MD Unavailable Reason for Visit * Reason Comments Forms Encounter Details Date Type Department Care Team (Late st Contact Info) Description 04/05/2025 Documentation Only [facility] [address] 4th [place] [address] Magda Goode MD [address] [place] [address] Forms Social History Tobacco Use Types Packs/Day Years [...] re latives? 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 Gender Identity Not on file Sexual Orientation Not on file Occupation Industry Job Start Date Job End Date Unemployed Not on file Not on file Not on file documented as of this encounter Progress Notes * Cristina Larkin - 04/05/2025 3:18 PM CDT Received Completed forms Yes Faxed Forms Faxed To: [facility] Sent to HIM (Date) 04/05/25 documented in this encounter Plan of Treatment Upcoming Encounters Date Type Department Care Team (Late st Contact Info) Description 04/20/2025 PRE VISIT [facility] [address] [phone] Ashwin Franklin MD [address] [place] [address] [phone] Previsit 04/20/2025 1:00 PM CDT Office Visit [facility] [address] [phone] Ashwin Franklin MD [address] [place] [address] 05/20/2025 12:45 PM CDT Office Visit [facility] [address] 3rd Floor,[address] [place] [facility] 88 [place] [phone] Ayana Fuller MD [address] [facility] 300 [place], [place] [address] 09/05/2025 9:45 AM DEVELOPMENT ANALYST Office Visit [facility] [place] [address] [facility] 3rd [place] [phone] Jessica Butler MD 420 [facility] 98 [place] [address] documented as of this encounter Visit Diagnoses Not on filedocumented in this encounter Additional Health Concerns Assessment Noted Time PHQ-9 Depression Total Score: 2 10/15/19 23 2:22 PM CDT documented as of this encounter Care Teams Manufacturing Scheduler Relationship Specialty Start Date End Date Nanci Villalba MD [address] [place] [address] [place], [place] [address] PCP - General Internal Medicine 06/01/19 Remi Camacho MD 420 [facility] 136 [place] [address] Dermatology 08/28/16 Alexis Vargas MD 2450 [place] [address] Dermatology 07/14/17 Cecilio Velasco DPM 909 [place], [place] [address] Podiatry 12/31/17 Johnny Gauthier MD [address] [place], [place] 55[address] Family Medicine - Sports Medicine 08/20/18 Alpa Max PA-C 420 [facility] 98 [place], [place] [address] Physician Glaze Carrier Physician Glaze Carrier 08/28/18 Ayana Fuller MD [address] [facility] 300 [place] [address] shell fisherman 12/01/18 Ayana Fuller MD [address] [place] [address] [place], [place] [address] Assigned OBGYN Provider 05/19/20 Nanci Villalba MD [address] [place], [place] [address] Assigned PCP 12/21/20 Abdirizak Dowd MD [address] [facility] [place], [place] [address] Dermatology 08/09/21 Abdirizak Dowd MD [address] [place] [address] A [place], [place] 9028[address] Dermatology 12/21/21 Jessica Butler MD 420 [facility] 98 [place] [address] Dermatology 02/21/23 Ayana Fuller MD 606 [facility] 300 [place] [address] shell fisherman 02/24/23 Ashwin Franklin MD 909 [place] [address] Dermatology 09/17/24 Jessica Butler MD [address] [place] [address] Assigned Dermatology Provider 03/19/25 documented as of this encounter
--- OUTSIDE RECORDS SUMMARY | 2025-04-06 23:37 | XMS_ITS | Encounter Summary ---
Author Organization [place] Address [address] [facility] [place] [address] Care Team Providers Care Hand Worker Name Role Phone Remi Camacho MD Unavailable [phone] Alexis Vargas MD Unavailable Cecilio Velasco DPM Unavailable [phone] Johnny Gauthier MD Unavailable +[phone] Alpa Max PA-C Unavailable [phone] Ayana Fuller MD Unavailable [phone] Nanci Villalba MD Primary Care Provider Ayana Fuller MD Unavailable +[phone] Nanci Villalba MD Unavailable +[phone] Abdirizak Dowd MD Unavailable [phone] Abdirizak Dowd MD Unavailable Abdirizak Dowd MD Unavailable +[phone] Jessica Butler MD Unavailable Ayana Fuller MD Unavailable Loli Louis DPM, Podiatry /Foot and Ankle Surgery Unavailable Jessica Butler MD Unavailable [phone] Ashwin Franklin MD Unavailable [phone] Valeria Sullivan PA-C Unavailable +[phone] Jessica Butler MD Unavailable [phone] Encounter Details Date Type Department Care Team (Late st Contact Info) Description 09/10/2023 MyC Medical Advice [facility] Orth[facility] [address] 4th [place] [address] Valeria Lopez, RN Social History [...] in an abandoned building, in an overnight longterm, or couch-surfing.) Yes 06/08/2023 Are you worried [...] on file 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 Gender Identity Not on file Sexual Orientation Not on file Occupation Industry Job Start Date Job End Date Unemployed Not on file Not on file Not on file documented as of this encounter Plan of Treatment Upcoming Encounters Date Type Department Care Team (Late st Contact Info) Description 04/20/2025 PRE VISIT [facility] Allergy [address] [phone] Ashwin Franklin MD [address] [place] [address] 795465 Previsit 04/20/2025 1:00 PM CDT Office Visit [facility] Allergy [address] [phone] Ashwin Franklin MD [address] [place] [address] 349625 05/20/2025 12:45 PM CDT Office Visit [facility] [address] 3rd Floor,[address] [place] [facility] 88 [place] [phone] Ayana Fuller MD [address] [place] [address] [place], [place] [address] 09/05/2025 9:45 AM TRANSFER DRIVER Office Visit [facility] Dermatology [address] 3rd [place] [phone] Jessica Butler MD 420 [facility] 98 [place] [address] documented as of this encounter Visit Diagnoses Not on filedocumented in this encounter Additional Health Concerns Assessment Noted Time PHQ-9 Depression Total Score: 2 10/15/19 23 2:22 PM CDT documented as of this encounter Care Teams Hand Worker Relationship Specialty Start Date End Date Nanci Villalba MD [address] [place] [address] [place] [address] PCP - General Internal Medicine 06/01/19 Remi Camacho MD 420 [facility] 136 [place] [address] Dermatology 08/28/16 [place] [address] [place] [address] Dermatology 07/14/17 Cecilio Velasco DPM 909 [place] [address] Podiatry 12/31/17 Johnny Gauthier MD [facility] [address] [place] [address] Family Medicine - Sports Medicine 08/20/18 Alpa Max PA-C 420 [facility] 98 [place] [address] Physician Ice Cream Maker Physician Ice Cream Maker 08/28/18 Ayana Fuller MD [address] [place] [address] 300 [place] [address] risk adjustment specialist 12/01/18 Ayana Fuller MD [address] [address] Assigned OBGYN Provider 05/19/20 Nanci Villalba MD [address] [place] [address] Assigned PCP 12/21/20 Abdirizak Dowd MD [address] [place] [address] Dermatology 08/09/21 Abdirizak Dowd MD [address] [place] [address] 195275 Dermatology 12/21/21 Abdirizak Dowd MD [address] [place] [address] 468505 Assigned Surgical Provider 03/23/22 02/16/24 Jessica Butler MD [address] [place] [address] 98 [place] [address] Dermatology 02/21/23 Ayana Fuller MD [address] [address] risk adjustment specialist 02/24/23 Loli Louis, DPM, Podiatry/Foot and Ankle Surgery [address] [address] Assigned Musculoskeletal Provider 09/19/23 03/18/25 Jessica Butler MD [address] [place] [address] Assigned Surgical Provider 02/17/24 10/16/24 Ashwin Franklin MD [address] [place] [address] Dermatology 09/17/24 Valeria Sullivan, PACassieC Dermatology [address] [place] [address] Assigned Dermatology Provider 10/17/24 03/18/25 Jessica Butler MD [address] [place] [address] Assigned Dermatology Provider 03/19/25 documented as of this encounter
--- OUTSIDE RECORDS SUMMARY | 2025-04-06 23:37 | XMS_ITS | Encounter Summary ---
Author Organization [place] Address [address] [facility] [place] [address] Care Team Providers Care Joint Sealer Name Role Phone Remi Camacho MD Unavailable Alexis Vargas MD Unavailable [phone] Cecilio Velasco DPM Unavailable [phone] Johnny Gauthier MD Unavailable [phone] Alpa Max PA-C Unavailable [phone] Ayana Fuller MD Unavailable [phone] Nanci Villalba MD Primary Care Provider Ayana Fuller MD Unavailable [phone] Ashwin Franklin MD Unavailable [phone] Nanci Villalba MD Unavailable [phone] Magda Goode MD Unavailable [phone] Nanci Villalba MD Unavailable +[phone] Abdirizak Dowd MD Unavailable [phone] Abdirizak Dowd MD Unavailable [phone] Abdirizak Dowd MD Unavailable +[phone] Jessica Butler MD Unavailable [phone] Ayana Fuller MD Unavailable [phone] Loli LouisM, Podiatry /Foot and Ankle Surgery Unavailable Jessica Butler MD Unavailable [phone] Ashwin Franklin MD Unavailable [phone] Valeria Sullivan PA-C Unavailable [phone] Jessica Butler MD Unavailable [phone] Encounter Details Date Type Department Care Team (Late Contact Info) Description 10/11/2020 MyC Medical Advice [facility] Orthopedic [address] 4th [place] [address] Magda Goode MD [address] [place] [address] Social History Tobacco Use Types Packs/Day Years Used Date Smoking Tobacco: Never Smokeless Tobacco: Never Alcohol Use Standard Drinks/Week Comments No 0 (1 standard drink = 0.6 oz pur e alcohol) Glasses Wine PHQ-2 Answer Date Recorded PHQ-2 Score 0 09/19/2020 Comments No Sex and Gender Information Value Date Recorded Sex Assigned at Not on file Legal Sex Female 3:34 AM CARVER HAND Gender Identity Not on file Sexual Orientation Not on file Occupation Industry Job Start Date Job End Date Unemployed Not on file Not on file Not on file COVID-19 Exposure Response Date Recorded In the last month, have you been in contact with someone who was confirmed or suspected to have Coronavirus / COVID-19? No / Unsure 10/03/2020 4:40 PM CARVER HAND documented as of this encounter Plan of Treatment Upcoming Encounters Date Type Department Care Team ([facility] Contact Info) Description 04/20/2025 PRE VISIT [facility] All[facility] Clinic [address] [phone] Ashwin Franklin MD [address] [place] [address] 039455 Previsit 04/20/2025 1:00 PM CDT Office Visit [facility] [address] [phone] Ashwin Franklin MD [address] [place] [address] 983175 05/20/2025 12:45 PM CDT Office Visit [facility] Women's [facility] [address] 3rd Floor,[address] [place] [facility] 88 [place] [phone] Ayana Fuller MD [address] [facility] 300 [place], [place] 44[address] 09/05/2025 9:45 AM CARVER HAND Office Visit [facility]atology [facility] [place] [address] [place] [address] 3rd [place] [phone] Jessica Butler MD 420 [facility] 98 [place] [address] documented as of this encounter Visit Diagnoses Not on filedocumented in this encounter Additional Health Concerns Assessment Noted Time PHQ-9 Depression Total Score: 2 08/02/19 20 1:35 PM CARVER HAND documented as of this encounter Care Teams Joint Sealer Relationship Specialty Start Date End Date Nanci Villalba MD [address] [facility] [place] [address] PCP - General Internal Medicine 06/01/19 Remi Camacho MD 420 [facility] 136 [place], [place] 50[address] Dermatology 08/28/16 Alexis Vargas MD 2450 [place] [address] Dermatology 07/14/17 Cecilio Velasco DPM 909 [place], [place] 5[address] Podiatry 12/31/17 Johnny Gauthier MD [address] [place], [place] [address] Family Medicine - Sports Medicine 08/20/18 Alpa Max PA-C 420 [facility] 98 [place], [place] [address] Physician Chemicals Distiller Physician Chemicals Distiller 08/28/18 Ayana Fuller MD [address] [facility] 300 [place], [place] 49[address]44 management coordinator 12/01/18 Ayana Fuller MD [address] [facility] 300 [place], [place] 34[address] Assigned OBGYN Provider 05/19/20 Ashwin Franklin MD 909 [place], [place] 2[address] Assigned Surgical Provider 05/19/20 03/22/22 Nanci Villalba MD [address] [place] [address] Assigned PCP 09/10/20 11/04/20 Magda Goode MD [address] [place] [address] Assigned Musculoskeletal Provider 10/01/20 01/03/23 Nanci Villalba MD [address] [place] [address] [place] [address] Assigned PCP 12/21/20 Abdirizak Dowd MD [address] [place] [address] 976965 Dermatology 08/09/21 Abdirizak Dowd MD [address] [place] [address] 047345 Dermatology 12/21/21 Abdirizak Dowd MD [address] [place] [address] 424205 Assigned Surgical Provider 03/23/22 02/16/24 Jessica Butler MD [address] [place] [address] 98 [place] [address] Dermatology 02/21/23 Ayana Fuller MD [address] [place] [address] 300 [place] [address] management coordinator 02/24/23 Loli Louis DPM, Podiatry/Foot and Ankle Surgery [address] [address] Assigned Musculoskeletal Provider 09/19/23 03/18/25 Jessica Butler MD 420 [facility] 98 [place] [address] Assigned Surgical Provider 02/17/24 10/16/24 Ashwin Franklin MD 909 [place] [address] Dermatology 09/17/24 Valeria Sullivan PACassieC Dermatology [address] [place] [address] Assigned Dermatology Provider 10/17/24 03/18/25 Jessica Butler MD [address] [address] Assigned Dermatology Provider 03/19/25 documented as of this encounter
--- OUTSIDE RECORDS SUMMARY | 2025-04-06 23:38 | XMS_ITS | Encounter Summary ---
Author Organization [place] Address [address] [place] [address] Care Team Providers Care Wood Engraver Name Role Phone Remi Camacho MD Unavailable [phone] Alexis Vargas MD Unavailable [phone] Cecilio Velasco DPM Unavailable [phone] Johnny Gauthier MD Unavailable +[phone] Alpa Max PA-C Unavailable Ayana Fuller MD Unavailable [phone] Nanci Villalba MD Primary Care Provider Ashwin Franklin MD Unavailable [phone] Magda Goode MD Unavailable [phone] Ayana Fuller MD Unavailable [phone] Ashwin Franklin MD Unavailable [phone] Cecilio Velasco DPM Unavailable [phone] Nanci Villalba MD Unavailable [phone] Magda Goode MD Unavailable [phone] Nanci Villalba MD Unavailable [phone] Abdirizak Dowd MD Unavailable +[phone] Abdirizak Dowd MD Unavailable +[phone] Abdirizak Dowd MD Unavailable +[phone] Jessica Butler MD Unavailable +[phone] Ayana Fuller MD Unavailable [phone] Loli LouisM, Podiatry /Foot and Ankle Surgery Unavailable Jessica Butler MD Unavailable +[phone] Ashwin Franklin MD Unavailable +[phone] Valeria Sullivan PA-C Unavailable +[phone] Jessica Butler MD Unavailable [phone] Encounter Details Date Type Department Care Team (Late st Contact Info) Description 08/03/2019 MyC Medical Advice [facility] Rehabilitation [address] [address] Solange Stoddard, PT [facility] 8301 [place], [place] 8[address] Social History Tobacco Use Types Packs/Day Years Used Date Smoking Tobacco: Never Smokeless Tobacco: Never Alcohol Use Standard Drinks/Week Comments No 0 (1 standard drink = 0.6 oz pur e alcohol) Glasses Wine PHQ-2 Answer Date Recorded PHQ-2 Score 0 05/31/2019 Comments No Sex and Gender Information Value Date Recorded Sex Assigned at Not on file Legal Sex Female 3:34 AM SPEEDER HAND Gender Identity Not on file Sexual Orientation Not on file Occupation Industry Job Start Date Job End Date Unemployed Not on file Not on file Not on file documented as of this encounter Plan of Treatment Upcoming Encounters Date Type Department Care Team (Late st Contact Info) Description 04/20/2025 PRE VISIT [facility] Allergy Clinic [address] [phone] Ashwin Franklin MD [address] [place] [address] 330975 Previsit 04/20/2025 1:00 PM CDT Office Visit [facility] All[facility] Clinic [address] [phone] Ashwin Franklin MD [address] [place] [address] 05/20/2025 12:45 PM CDT Office Visit [facility] Women's [facility] [address] 3rd Floor,[address] [place] [facility] 88 [place] [phone] Ayana Fuller MD [address] [facility] 300 [place], [place] [address] 09/05/2025 9:45 AM SPEEDER HAND Office Visit [facility] Dermatology Clinic [address] 3rd [place] [phone] Jessica Butler MD 420 [facility] 98 [place], [place] [address] documented as of this encounter Visit Diagnoses Not on filedocumented in this encounter Additional Health Concerns Assessment Noted Time PHQ-9 Depression Total Score: 2 08/02/19 20 1:35 PM SPEEDER HAND documented as of this encounter Care Teams Wood Engraver Relationship Specialty Start Date End Date Nanci Villalba MD [address] [place] [address] A [place], [place] [address] PCP - General Internal Medicine 06/01/19 Remi Camacho MD 420 [facility] 136 [place], [place] [address] Dermatology 08/28/16 Alexis Vargas MD 2450 [place], [place] 7[address] Dermatology 07/14/17 Cecilio Velasco DPM 909 [place], [place] [address] Podiatry 12/31/17 Johnny Gauthier MD [facility]2 [place] 6620802 [place], [place] [address] Family Medicine - Sports Medicine 08/20/18 Alpa Max PA-C 420 [facility] 98 [place], [place] 4[address] Physician Delivery Stock Clerk Physician Delivery Stock Clerk 08/28/18 Ayana Fuller MD [facility] [address] [address] guillotine operator 12/01/18 Ashwin Franklin MD 909 [place], [place] [address]365 Assigned Pediatric Specialist Provider 05/19/20 08/27/20 Magda Goode MD 909 [place], [place] 239745 Assigned Musculoskeletal Provider 05/19/20 08/19/20 Ayana Fuller MD [address] [facility] 300 [place], [place] [address] Assigned OBGYN Provider 05/19/20 Ashwin Franklin MD [address] [place] [address] Assigned Surgical Provider 05/19/20 03/22/22 Cecilio Velasco DPM [address] [place] [address] Assigned Musculoskeletal Provider 08/20/20 09/30/20 Nanci Villalba MD [address] [place] [address] Assigned PCP 09/10/20 11/04/20 Magda Goode MD [address] [place] [address] Assigned Musculoskeletal Provider 10/01/20 01/03/23 Nanci Villalba MD [address] [place] [address] Assigned PCP 12/21/20 Abdirizak Dowd MD [address] [place] [address] Dermatology 08/09/21 Abdirizak Dowd MD [address] [place] [address] Dermatology 12/21/21 Abdirizak Dowd MD [address] [place] [address] Assigned Surgical Provider 03/23/22 02/16/24 Jessica Butler MD 420 [facility] SE [facility] 98 [place] [address] Dermatology 02/21/23 Ayana Fuller MD [address] [place] [address] [place] [address] guillotine operator 02/24/23 Loli Louis DPM, Podiatry/Foot and Ankle Surgery 35[address] [facility] 300 [place] [address] Assigned Musculoskeletal Provider 09/19/23 03/18/25 Jessica Butler MD 420 [facility] 98 [place] [address] Assigned Surgical Provider 02/17/24 10/16/24 Ashwin Franklin MD 909 [place] [address] Dermatology 09/17/24 Valeria Sullivan, PA-C Dermatology [address] [place] [address] Assigned Dermatology Provider 10/17/24 03/18/25 Jessica Butler MD 420 [place] [facility] 98 [place] [address] Assigned Dermatology Provider 03/19/25 documented as of this encounter
--- OUTSIDE RECORDS SUMMARY | 2025-04-06 23:38 | XMS_ITS | Encounter Summary ---
Author Organization [facility] Address [address] [place] [address] Care Team Providers Care Photolettering Machine Operator Name Role Phone Remi Camacho MD Unavailable Alexis Vargas MD Unavailable [phone] Cecilio Velasco DPM Unavailable [phone] Johnny Gauthier MD Unavailable Alpa Max PA-C Unavailable Ayana Fuller MD Unavailable +[phone] Nanci Villalba MD Primary Care Provider Ashwin [place] MD Unavailable +[phone] Magda Goode MD Unavailable +[phone] Ayana Fuller MD Unavailable +[phone] Ashwin [place] MD Unavailable +[phone] Cecilio Velasco DPM Unavailable +[phone] Nanci Villalba MD Unavailable [phone] Magda Goode MD Unavailable +[phone] Nanci Villalba MD Unavailable +[phone] Abdirizak Dowd MD Unavailable +[phone] Abdirizak Dowd MD Unavailable +[phone] Abdirizak Dowd MD Unavailable +[phone] Jessica Butler MD Unavailable +[phone] Ayana Fuller MD Unavailable +[phone] Loli LouisM, Podiatry /Foot and Ankle Surgery Unavailable Jessica Butler MD Unavailable +[phone] Ashwin [place] MD Unavailable +[phone] Valeria Sullivan PA-C Unavailable +[phone] Jessica Butler MD Unavailable [phone] Encounter Details Date Type Department Care Team (Late st Contact Info) Description 11/02/2019 [facility] [address] [place] [phone] Ashwin [place] MD [address] [place] [address] Social History Tobacco Use Types Packs/Day Years Used Date Smoking Tobacco: Never Smokeless Tobacco: Never Alcohol Use Standard Drinks/Week Comments No 0 (1 standard drink = 0.6 oz pur e alcohol) Glasses Wine PHQ-2 Answer Date Recorded PHQ-2 Score 0 05/31/2019 Comments No Sex and Gender Information Value Date Recorded Sex Assigned at Not on file Legal Sex Female 3:34 AM MAKEUP INSTRUCTOR Gender Identity Not on file Sexual Orientation Not on file Occupation Industry Job Start Date Job End Date Unemployed Not on file Not on file Not on file documented as of this encounter Miscellaneous Notes * Telephone Encounter - Waleska Pratt RN - 11/15/2019 3:06 PM CDT Spoke with pt this morning and she opted to not do injection training at this time. She is uncertain if she even wants to start the medication during the covid pandemic in fears of her immune system becoming weakend. Hand Filer Balance Wheel informed Cecilia that providers are not asking pt's to stop medications likedupixent but are letting them know if they are not comfortable taking the medication that they do not need to during this time. Cecilia will let clinic know in a week or two what her plans are as she will need to stop any automatic refills. No questions at this time. documented in this encounter Plan of Treatment Upcoming Encounters Date Type Department Care Team (Late st Contact Info) Description 04/20/2025 PRE VISIT [facility] Allergy [address] [phone] Ashwin [place] MD [address] [place] [address] 111965 Previsit 04/20/2025 1:00 PM CDT Office Visit [facility] [address] [phone] Ashwin [place] MD [address] [place] [address] 693425 05/20/2025 12:45 PM CDT Office Visit [facility] [address] 3rd Floor,[address] [facility] 88 [place] [phone] Ayana Fuller MD [address] [facility] [address] [place], [place] [address] 09/05/2025 9:45 AM MAKEUP INSTRUCTOR Office Visit [facility] Dermatology [address] [place] [phone] Jessica [place] MD [address] [place] [address] 98 [place] [address] documented as of this encounter Visit Diagnoses Not on filedocumented in this encounter Additional Health Concerns Assessment Noted Time PHQ-9 Depression Total Score: 2 08/02/19 20 1:35 PM MAKEUP INSTRUCTOR documented as of this encounter Care Teams Photolettering Machine Operator Relationship Specialty Start Date End Date Nanci Villalba MD [address] [place] [address] PCP - General Internal Medicine 06/01/19 Remi Camacho MD 420 [facility] 136 [place], [place] 273084 Dermatology 08/28/16 Alexis Vargas MD 2450 [place], [place] 0[address]184 Dermatology 07/14/17 Cecilio Velasco DPM [address] [place], [place] 8[address] Podiatry 12/31/17 Johnny Gauthier MD [address] [place], [place] 6[address] Family Medicine - Sports Medicine 08/20/18 Alpa Max PA-C 420 [facility] 98 [place], [place] 14[address] Physician Liner Helper Physician Liner Helper 08/28/18 Ayana Fuller MD [address] [facility] 300 [place], [place] [address]374 petal shaper hand 12/01/18 Ashwin [place] MD [address] [place] [address] Assigned Pediatric Specialist Provider 05/19/20 08/27/20 Magda Goode MD [address] [place] [address] 67528 Assigned Musculoskeletal Provider 05/19/20 08/19/20 Ayana Fuller MD [address] [place] [address] 065094 Assigned OBGYN Provider 05/19/20 Ashwin [place] MD [address] [place] [address] Assigned Surgical Provider 05/19/20 03/22/22 Cecilio Velasco DPM [address] [place] [address] Assigned Musculoskeletal Provider 08/20/20 09/30/20 Nanci Villalba MD [address] [place] [address] 28764 Assigned PCP 09/10/20 11/04/20 Magda Goode MD [address] [place] [address] Assigned Musculoskeletal Provider 10/01/20 01/03/23 Nanci Villalba MD [address] [place] [address] Assigned PCP 12/21/20 Abdirizak Dowd MD [address] [place] [address] 704535 Dermatology 08/09/21 Abdirizak Dowd MD [address] [place] [address] 471925 Dermatology 12/21/21 Abdirizak Dowd MD [address] [place] [address] 984395 Assigned Surgical Provider 03/23/22 02/16/24 Jessica Butler MD [address] [place] [address]89 Dermatology 02/21/23 Ayana Fuller MD [address] [facility] 300 [place], [place] [address] petal shaper hand 02/24/23 Loli Louis, DPM, Podiatry/Foot and Ankle Surgery [address] [facility] 300 [place], [place] [address] Assigned Musculoskeletal Provider 09/19/23 03/18/25 Jessica Butler MD [address] [address] Assigned Surgical Provider 02/17/24 10/16/24 Ashwin [place] MD [address] [place] [address] Dermatology 09/17/24 Valeria Sullivan PA-C Dermatology [address] [place] [address] 67863 Assigned Dermatology Provider 10/17/24 03/18/25 Jessica Butler MD [address] [place] [address]18 Assigned Dermatology Provider 03/19/25 documented as of this encounter
--- OUTSIDE RECORDS SUMMARY | 2025-04-06 23:38 | XMS_ITS | Encounter Summary ---
Author Organization [facility] Address [address] [facility] [place] [address] Care Team Providers Care Tipple Repairer Name Role Phone Lacie Marks MD Primary Care Provider Grace Goodrich MD Unavailable [phone] Remi Camacho MD Unavailable [phone] Shane Pemberton MD Unavailable [phone] Alexis Vargas MD Unavailable [phone] [facility] DPM Unavailable +[phone] Johnny Gauthier MD Unavailable + [phone] Alpa Max PA-C Unavailable Ayana Fuller MD Unavailable + [phone] No Ref-Primary, Physician Primary Care Provider Nanci Villalba MD Primary Care Provider Ashwin [place] MD Unavailable +[phone] Magda Goode MD Unavailable +[phone] Ayana Fuller MD Unavailable Ashwin [place] MD Unavailable +[phone] Cecilio Velasco DPM Unavailable + [phone] Nanci Villalba MD Unavailable +[phone] Magda Goode MD Unavailable +[phone] Nanci Villalba MD Unavailable +[phone] Abdirizak Dowd MD Unavailable Abdirizak Dowd MD Unavailable +[phone] Abdirizak Dowd MD Unavailable +[phone] Jessica [place] MD Unavailable +[phone] Ayana Fuller MD Unavailable +[phone] Loli LouisM, Podiatry /Foot and Ankle Surgery Unavailable Jessica [place] MD Unavailable +[phone] Ashwin [place] MD Unavailable +[phone] Valeria Sullivan PA-C Unavailable +[phone] Jessica Butler MD Unavailable [phone] Encounter Details Date Type Department Care Team (Late st Contact Info) Description 04/28/2015 [facility] Medical Advice [facility] Women[facility] [place] [address] [place] [facility] 88 [place] [address] Lacie Marks MD [address] [place] [address] Social History Tobacco Use Types Packs/Day Years Used Date Smoking Tobacco: Never Smokeless Tobacco: Never Alcohol Use Standard Drinks/Week Comments Yes 0 (1 standard drink = 0.6 oz pur e alcohol) Glasses Wine Comments No Sex and Gender Information Value Date Recorded Sex Assigned at Not on file Legal Sex Female 3:34 AM GUEST SERVICES ASSISTANT Gender Identity Not on file Sexual Orientation Not on file Occupation Industry Job Start Date Job End Date Unemployed Not on file Not on file Not on file documented as of this encounter Plan of Treatment Upcoming Encounters Date Type Department Care Team (Late st Contact Info) Description 04/20/2025 PRE VISIT [facility] Allergy [address] [phone] Ashwin [place] MD [address] [place] [address] 011585 Previsit 04/20/2025 1:00 PM CDT Office Visit [facility] Allergy [address] [phone] Ashwin [place] MD [address] [place] [address] 889315 05/20/2025 12:45 PM CDT Office Visit [facility] Women[facility] [address] 3rd Floor,[address] [facility] [place] [phone] Ayana [place] MD [address] [facility] 300 [place], [place] [address] 09/05/2025 9:45 AM GUEST SERVICES ASSISTANT Office Visit [facility] Dermatology [address]rd [place] [phone] Jessica [place] MD 420 [facility] 98 [place] [address] documented as of this encounter Visit Diagnoses Not on filedocumented in this encounter Care Teams Tipple Repairer Relationship Specialty Start Date End Date Lacie Marks MD [address] [place], [place] [address] PCP - General towboat engineer 11/01/14 03/19/19 No Ref-Primary, Physician PCP - General 03/20/19 05/31/19 Nanci Villalba MD [address] [place] [address] PCP - General Internal Medicine 06/01/19 Grace Goodrich MD [address] [place] [address] Resident Dermatology 03/22/15 06/04/17 Remi Camacho MD 420 [facility] 136 [place] [address] Dermatology 08/28/16 Shane Pemberton MD [facility] 420 [facility] 391 [place], [place] [address] Resident Student in organized health care education/training program 05/13/17 02/16/18 Alexis Vargas MD 2450 [place], [place] 593834 Dermatology 07/14/17 Cecilio Velasco DPM 909 [place], [place] 5[address] Podiatry 12/31/17 Johnny Gauthier MD [facility] [address] 725014 Family Medicine - Sports Medicine 08/20/18 Alpa Max PA-C [address] [place] [address] 98 [place] [address] Physician Credit Card Clerk Physician Credit Card Clerk 08/28/18 Ayana Fuller MD [address] [place] [address] towboat engineer 12/01/18 Ashwin [place] MD [address] [place] [address] 30015 Assigned Pediatric Specialist Provider 05/19/20 08/27/20 Magda Goode MD [address] [place] [address] 48035 Assigned Musculoskeletal Provider 05/19/20 08/19/20 Ayana Fuller MD [address] [place] [address] 926294 Assigned OBGYN Provider 05/19/20 Ashwin [place] MD [address] [place] [address] 54414 Assigned Surgical Provider 05/19/20 03/22/22 Cecilio Velasco DPM [address] [place] [address] 86603 Assigned Musculoskeletal Provider 08/20/20 09/30/20 Nanci Villalba MD [address] [place] [address]51 Assigned PCP 09/10/20 11/04/20 Magda Goode MD [address] [place] [address] 05687 Assigned Musculoskeletal Provider 10/01/20 01/03/23 Nanci Villalba MD [address] [place] [address] [place] [address] Assigned PCP 12/21/20 Abdirizak Dowd MD [address] [place] [address] Dermatology 08/09/21 Abdirizak Dowd MD [address] [place] [address]28 Dermatology 12/21/21 Abdirizak Dowd MD [address] [place] [address] 22805 Assigned Surgical Provider 03/23/22 02/16/24 Jessica [place] MD [address] [address] Dermatology 02/21/23 Ayana Fuller MD 60 [facility] 300 [place] [address] towboat engineer 02/24/23 Loli Louis DPM, Podiatry/Foot and Ankle Surgery [address] [place] [address] [place] [address] 26476 Assigned Musculoskeletal Provider 09/19/23 03/18/25 Jessica [place] MD [address] [address] Assigned Surgical Provider 02/17/24 10/16/24 Ashwin [place] MD [address] [place] [address] Dermatology 09/17/24 Valeria Sullivan PA-C Dermatology [address] [place] [address] Assigned Dermatology Provider 10/17/24 03/18/25 Jessica [place] MD [address] [address] Assigned Dermatology Provider 03/19/25 documented as of this encounter
--- OUTSIDE RECORDS SUMMARY | 2025-04-06 23:38 | XMS_ITS | Encounter Summary ---
Author Organization [place] Address [address] [facility] [place] [address] Care Team Providers Care Greens Laborer Name Role Phone Lacie Marks MD Primary Care Provider Grace Goodrich MD Unavailable [phone] Remi Camacho MD Unavailable [phone] Shane Pemberton MD Unavailable +[phone] Alexis Vargas MD Unavailable [phone] [facility] DPM Unavailable +[phone] Johnny Gauthier MD Unavailable + [phone] Alpa Max PA-C Unavailable Ayana Fuller MD Unavailable + [phone] No Ref-Primary, Physician Primary Care Provider Nanci Villalba MD Primary Care Provider Ashwin [place] MD Unavailable [phone] Magda Goode MD Unavailable [phone] Ayana Fuller MD Unavailable +[phone] Ashwin [place] MD Unavailable [phone] Cecilio Velasco DPM Unavailable + [phone] Nanci Villalba MD Unavailable +[phone] Magda Goode MD Unavailable +[phone] Nanci Villalba MD Unavailable +[phone] Abdirizak Dowd MD Unavailable Abdirizak Dowd MD Unavailable +[phone] Abdirizak Dowd MD Unavailable +[phone] Jessica [place] MD Unavailable +[phone] Ayana [place] MD Unavailable +[phone] Loli LouisM, Podiatry /Foot and Ankle Surgery Unavailable Jessica [place] MD Unavailable +[phone] Ashwin [place] MD Unavailable +[phone] Valeria Sullivan PA-C Unavailable +[phone] Jessica [place] MD Unavailable +[phone] Encounter Details Date Type Department Care Team (Late st Contact Info) Description 04/29/2015 [facility] [place]ice Dermatology 5th Floor, Clinic [address] [place] [address] 88 [place] [phone] Grace Goodrich MD [facility] [place] [address] [facility] [address] [place] [phone] Social History Tobacco Use Types Packs/Day Years Used Date Smoking Tobacco: Never Smokeless Tobacco: Never Alcohol Use Standard Drinks/Week Comments Yes 0 (1 standard drink = 0.6 oz pur e alcohol) Glasses Wine Comments No Sex and Gender Information Value Date Recorded Sex Assigned at Not on file Legal Sex Female 3:34 AM APPLICATION SUPPORT INTERN Gender Identity Not on file Sexual Orientation Not on file Occupation Industry Job Start Date Job End Date Unemployed Not on file Not on file Not on file documented as of this encounter Plan of Treatment Upcoming Encounters Date Type Department Care Team (Late st Contact Info) Description 04/20/2025 PRE VISIT [facility] Allergy [address] [phone] Ashwin [place] MD [address] [place] [address] 450725 Previsit 04/20/2025 1:00 PM CDT Office Visit [facility] Allergy [address] [phone] Ashwin [place] MD [address] [place] [address] 091145 05/20/2025 12:45 PM CDT Office Visit [facility] Women's [facility] [address] 3rd [address] [place] [facility] 88 [place] [phone] Ayana [place] MD [address] [id number] 09/05/2025 9:45 AM APPLICATION SUPPORT INTERN Office Visit [facility] Dermatology [address]rd [place] [phone] Jessica [place] MD 420 [facility] 98 [place], [place] [address] documented as of this encounter Visit Diagnoses Not on filedocumented in this encounter Care Teams Greens Laborer Relationship Specialty Start Date End Date Lacie Marks MD [address] [place], [place] [address] PCP - General director of national sales 11/01/14 03/19/19 No Ref-Primary, Physician PCP - General 03/20/19 05/31/19 Nanci Villalba MD [address] [place] [address] PCP - General Internal Medicine 06/01/19 Grace Goodrich MD [facility] DERMATOLOGY [address] [place] [address] Resident Dermatology 03/22/15 06/04/17 Remi Camacho MD 420 [facility] 136 [place], [place] [address] Dermatology 08/28/16 Shane Pemberton MD [facility] 420 [facility] 391 [place], [place] [address] Resident Student in organized health care education/training program 05/13/17 02/16/18 Alexis Vargas MD [facility]0 [place], [place] [address] Dermatology 07/14/17 Cecilio Velasco DPM 909 [place], [place] [address] Podiatry 12/31/17 Johnny Gauthier MD [facility] [address] 146244 Family Medicine - Sports Medicine 08/20/18 Alpa Max PA-C 420 [facility] 98 [place] [address] Physician Counter Intelligence Technician Physician Counter Intelligence Technician 08/28/18 Ayana Fuller MD [address] [place] [address] director of national sales 12/01/18 Ashwin [place] MD [address] [place] [address] 67868 Assigned Pediatric Specialist Provider 05/19/20 08/27/20 Magda Goode MD [address] [place] [address] 63584 Assigned Musculoskeletal Provider 05/19/20 08/19/20 Ayana Fuller MD [address] [place] [address] 06093 Assigned OBGYN Provider 05/19/20 Ashwin [place] MD [address] [place] [address] 25061 Assigned Surgical Provider 05/19/20 03/22/22 Cecilio Velasco DPM [address] [place] [address] 67638 Assigned Musculoskeletal Provider 08/20/20 09/30/20 Nanci Villalba MD [address] [place] [address] 26219 Assigned PCP 09/10/20 11/04/20 Magda Goode MD [address] [place] [address] 19476 Assigned Musculoskeletal Provider 10/01/20 01/03/23 Nanci Villalba MD [address] [place] [address] [place] [address] Assigned PCP 12/21/20 Abdirizak Dowd MD [address] [place] [address] Dermatology 08/09/21 Abdirizak Dowd MD [address] [place] [address] 73831 Dermatology 12/21/21 Abdirizak Dowd MD [address] [place] [address] 48766 Assigned Surgical Provider 03/23/22 02/16/24 Jessica [place] MD [address] [place] [address] Dermatology 02/21/23 Ayana Fuller MD [address] [place] [address] 300 [place] [address] director of national sales 02/24/23 Loli Louis DPM, Podiatry/Foot and Ankle Surgery [address] [address] Assigned Musculoskeletal Provider 09/19/23 03/18/25 Jessica [place] MD [address] [place] [address] 86512 Assigned Surgical Provider 02/17/24 10/16/24 Ashwin [place] MD [address] [place] [address]97 Dermatology 09/17/24 Valeria Sullivan, PA-C Dermatology [address] [place] [address] Assigned Dermatology Provider 10/17/24 03/18/25 Jessica [place] MD [address] [place] [address] 98 [place] [address] Assigned Dermatology Provider 03/19/25 documented as of this encounter
--- OUTSIDE RECORDS SUMMARY | 2025-04-06 23:38 | XMS_ITS | Encounter Summary ---
Author Organization [place] Address [address] [place] [address] Care Team Providers Care Insurance Collector Name Role Phone Lacie Marks MD Primary Care Provider Grace Goodrich MD Unavailable [phone] Remi Camacho MD Unavailable +[phone] Shane Pemberton MD Unavailable +[phone] Alexis Vargas MD Unavailable +[phone] [facility] Unavailable +[phone] Johnny Gauthier MD Unavailable + [phone] Alpa Max PA-C Unavailable Ayana Fulelr MD Unavailable + [phone] No Ref-Primary, Physician Primary Care Provider Nanci Villalba MD Primary Care Provider Ashwin Franklin MD Unavailable +[phone] Magda Goode MD Unavailable +[phone] Ayana Fuller MD Unavailable Ashwin Franklin MD Unavailable +[phone] Cecilio Velasco DPM Unavailable + [phone] Nanci Villalba MD Unavailable +[phone] Magda Goode MD Unavailable +[phone] Nanci Villalba MD Unavailable +[phone] Abdirizak Dowd MD Unavailable +[phone] Abdirizak Dowd MD Unavailable +[phone] Abdirizak Dowd MD Unavailable +[phone] Jessica Butler MD Unavailable +[phone] Ayana Fuller MD Unavailable +[phone] Loli LouisM, Podiatry /Foot and Ankle Surgery Unavailable Jessica Butler MD Unavailable +[phone] Ashwin Franklin MD Unavailable +[phone] Valeria Sullivan PA-C Unavailable +[phone] Jessica Butler MD Unavailable +[phone] Encounter Details Date Type Department Care Team (Late st Contact Info) Description 11/20/[address] [facility] Women's [place] [address]rd Floor,[address] [place] [facility] [address] [place] [address] Ayana Fuller MD [address] [place] [address] Social History Tobacco Use Types Packs/Day Years Used Date Smoking Tobacco: Never Smokeless Tobacco: Never Alcohol Use Standard Drinks/Week Comments No 0 (1 standard drink = 0.6 oz pur e alcohol) Glasses Wine Comments No Sex and Gender Information Value Date Recorded Sex Assigned at Not on file Legal Sex Female 3:34 AM NEUROSCIENCE SPECIALIST Gender Identity Not on file Sexual Orientation Not on file Occupation Industry Job Start Date Job End Date Unemployed Not on file Not on file Not on file documented as of this encounter Plan of Treatment Upcoming Encounters Date Type Department Care Team (Late st Contact Info) Description 04/20/[address] [facility] Allergy [address] [phone] Ashwin Franklin MD [address] [place] [address] 191855 Previsit 04/20/2025 1:00 PM CDT Office Visit [facility] Allergy [address] [phone] Ashwin Franklin MD [address] [place] [address] 300995 05/20/2025 12:45 PM CDT Office Visit [facility] Women's [facility] [address] [place] [facility] 88 [place] [phone] Ayana Fuller MD [address] [facility] [address] [place], [place] [address] 09/05/2025 9:45 AM NEUROSCIENCE SPECIALIST Office Visit [facility] Dermatology [address]rd [place] [phone] Jessica Butler MD 420 [facility] 98 [place] [address] documented as of this encounter Visit Diagnoses Not on filedocumented in this encounter Care Teams Insurance Collector Relationship Specialty Start Date End Date Lacie Marks MD [address] [place], [place] [address] PCP - General medical information specialist 11/01/14 03/19/19 No Ref-Primary, Physician PCP - General 03/20/19 05/31/19 Nanci Villalba MD [address] [place] [address] PCP - General Internal Medicine 06/01/19 Grace Goodrich MD [address] [place] [address] Resident Dermatology 03/22/15 06/04/17 Remi Camacho MD 420 [facility] 136 [place] [address] Dermatology 08/28/16 Shane Pemberton MD [facility] 420 [facility] [address] [place], [place] [address] Resident Student in organized health care education/training program 05/13/17 02/16/18 Alexis Vargas MD 2450 [place], [place] 204[address] Dermatology 07/14/17 Cecilio Velasco DPM 909 [place], [place] 703945 Podiatry 12/31/17 Johnny Gauthier MD [facility] [address] 828534 Family Medicine - Sports Medicine 08/20/18 Alpa Max PA-C [address] [place] [address] 98 [place] [address] Physician Equine Vet Physician Equine Vet 08/28/18 Ayana Fuller MD [address] [place] [address] medical information specialist 12/01/18 Ashwin Franklin MD [address] [place] [address] 26[address] Assigned Pediatric Specialist Provider 05/19/20 08/27/20 Magda Goode MD [address] [place] [address] 81535 Assigned Musculoskeletal Provider 05/19/20 08/19/20 Ayana Fuller MD [address] [place] [address] 901154 Assigned OBGYN Provider 05/19/20 Ashwin Franklin MD [address] [place] [address] 74525 Assigned Surgical Provider 05/19/20 03/22/22 Cecilio Velasco DPM [address] [place] [address] 53[address] Assigned Musculoskeletal Provider 08/20/20 09/30/20 Nanci Villalba MD [address] [place] [address] Assigned PCP 09/10/20 11/04/20 Magda Goode MD [address] [place] [address] 28619 Assigned Musculoskeletal Provider 10/01/20 01/03/23 Nanci Villalba MD [address] [place] [address] [place] [address] Assigned PCP 12/21/20 Abdirizak Dowd MD [address] [place] [address] Dermatology 08/09/21 Abdirizak Dowd MD [address] [place] [address] Dermatology 12/21/21 Abdirizak Dowd MD [address] [place] [address] 34760 Assigned Surgical Provider 03/23/22 02/16/24 Jessica Butler MD [address] [address] Dermatology 02/21/23 Ayana Fuller MD 60 [facility] [address] [place] [address] medical information specialist 02/24/23 Loli Louis DPM, Podiatry/Foot and Ankle Surgery [address] [place] [address] Assigned Musculoskeletal Provider 09/19/23 03/18/25 Jessica Butler MD [address] [address] Assigned Surgical Provider 02/17/24 10/16/24 Ashwin Franklin MD [address] [place] [address] Dermatology 09/17/24 Valeria Sullivan PA-C Dermatology [address] [place] [address] Assigned Dermatology Provider 10/17/24 03/18/25 Jessica Butler MD [address] [address] Assigned Dermatology Provider 03/19/25 documented as of this encounter
--- OUTSIDE RECORDS SUMMARY | 2025-04-06 23:38 | XMS_ITS | Encounter Summary ---
Author Organization [place] Address [address] [facility] [place] [address] Care Team Providers Care Hospice Administrator Name Role Phone Lacie Marks MD Primary Care Provider Grace Goodrich MD Unavailable [phone] Remi Camacho MD Unavailable [phone] Shane Pemberton MD Unavailable +[phone] Alexis Vargas MD Unavailable +[phone] [facility] DPM Unavailable [phone] Johnny Gauthier MD Unavailable + [phone] Alpa Max PA-C Unavailable Ayana Fuller MD Unavailable + [phone] No Ref-Primary, Physician Primary Care Provider Nanci Villalba MD Primary Care Provider Ashwin Franklin MD Unavailable +[phone] Magda Goode MD Unavailable +[phone] Ayana Fuller MD Unavailable [phone] Ashwin Franklin MD Unavailable +[phone] Cecilio Velasco DPM Unavailable + [phone] Nanci Villalba MD Unavailable +[phone] Magda Goode MD Unavailable +[phone] Nanci Villalba MD Unavailable +[phone] Abdirizak Dowd MD Unavailable +[phone] Abdirizak Dowd MD Unavailable +[phone] Abdriizak Dowd MD Unavailable +[phone] Jessica Butler MD Unavailable +[phone] Ayana Fuller MD Unavailable +[phone] Loli LouisM, Podiatry /Foot and Ankle Surgery Unavailable Jessica Butler MD Unavailable +[phone] Ashwin Franklin MD Unavailable +[phone] Valeria Sullivan PA-C Unavailable +[phone] Jessica Butler MD Unavailable [phone] Encounter Details Date Type Department Care Team (Late st Contact Info) Description 02/25/2016 [facility] Medical Advice [facility] Women's [place] [address]rd Floor,[address] [place] [facility] 88 [place] [address] Ayana Fuller MD [address] [place] [address] Social History Tobacco Use Types Packs/Day Years Used Date Smoking Tobacco: Never Smokeless Tobacco: Never Alcohol Use Standard Drinks/Week Comments No 0 (1 standard drink = 0.6 oz pur e alcohol) Glasses Wine Comments No Sex and Gender Information Value Date Recorded Sex Assigned at Not on file 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 Sex Female 3:34 AM TRACK 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 Gender Identity Not on file Sexual Orientation Not on file Occupation Industry Job Start Date Job End Date Unemployed Not on file Not on file Not on file documented as of this encounter Plan of Treatment Upcoming Encounters Date Type Department Care Team (Late st Contact Info) Description 04/20/2025 PRE VISIT [facility] Allergy [address] [phone] Ashwin Franklin MD [address] [place] [address] 905605 Previsit 04/20/2025 1:00 PM CDT Office Visit [facility] Allergy [address] [phone] Ashwin Franklin MD [address] [place] [address] 803355 05/20/2025 12:45 PM CDT Office Visit [facility] Women's [facility] [address]rd Floor,[address] [place] [facility] 88 [place] [phone] Ayana Fuller MD [address] [facility] 300 [place], [place] [address] 09/05/2025 9:45 AM TRACK RIDER Office Visit [facility] Dermatology [address]rd [place] [phone] Jessica Butler MD 420 [facility] 98 [place] [address] documented as of this encounter Visit Diagnoses Not on filedocumented in this encounter Care Teams Hospice Administrator Relationship Specialty Start Date End Date Lacie Marks MD [address] [place], [place] [address] PCP - General barley steeper 11/01/14 03/19/19 No Ref-Primary, Physician PCP - General 03/20/19 05/31/19 Nanci Villalba MD [address] [place] [address] PCP - General Internal Medicine 06/01/19 Grace Goodrich MD [address] [place] [address] Resident Dermatology 03/22/15 06/04/17 Remi Camacho MD 420 [facility] 136 [place] [address] Dermatology 08/28/16 Shane Pembreton MD [facility] 420 [facility] 391 [place], [place] 0[address] Resident Student in organized health care education/training program 05/13/17 02/16/18 Alexis Vargas MD 2450 [place], [place] 519574 Dermatology 07/14/17 Cecilio Velasco DPM 909 [place], [place] 586825 Podiatry 12/31/17 Johnny Gauthier MD [facility] [address] 392704 Family Medicine - Sports Medicine 08/20/18 Alpa Max PA-C [address] [place] [address] 98 [place] [address] Physician Salesperson Shoes Physician Salesperson Shoes 08/28/18 Ayana Fuller MD [address] [place] [address] barley steeper 12/01/18 Ashwin Franklin MD [address] [place] [address] 78108 Assigned Pediatric Specialist Provider 05/19/20 08/27/20 Magda Goode MD [address] [place] [address] 86283 Assigned Musculoskeletal Provider 05/19/20 08/19/20 Ayana Fuller MD [address] [place] [address] 911764 Assigned OBGYN Provider 05/19/20 Ashwin Franklin MD [address] [place] [address] 34595 Assigned Surgical Provider 05/19/20 03/22/22 Cecilio Velasco DPM [address] [place] [address] 95632 Assigned Musculoskeletal Provider 08/20/20 09/30/20 Nanci Villalba MD [address] [place] [address]66 Assigned PCP 09/10/20 11/04/20 Magda Goode MD [address] [place] [address] 62762 Assigned Musculoskeletal Provider 10/01/20 01/03/23 Nanci Villalba MD [address] [place] [address] [place] [address] Assigned PCP 12/21/20 Abdirizak Dowd MD [address] [place] [address] Dermatology 08/09/21 Abdirizak Dowd MD [address] [place] [address] Dermatology 12/21/21 Abdirizak Dowd MD [address] [place] [address] 77085 Assigned Surgical Provider 03/23/22 02/16/24 Jessica Butler MD [address] [address] Dermatology 02/21/23 Ayana Fuller MD 60 24[facility] 300 [place] [address] barley steeper 02/24/23 Loli Louis DPM, Podiatry/Foot and Ankle Surgery [address] [place] [address] Assigned Musculoskeletal Provider 09/19/23 03/18/25 Jessica Bulter MD [address] [address] Assigned Surgical Provider 02/17/24 10/16/24 Ashwin Franklin MD [address] [place] [address] Dermatology 09/17/24 Valeria Sullivan PA-C Dermatology [address] [place] [address] Assigned Dermatology Provider 10/17/24 03/18/25 Jessica Butler MD [address] [address] Assigned Dermatology Provider 03/19/25 documented as of this encounter
--- OUTSIDE RECORDS SUMMARY | 2025-04-06 23:38 | XMS_ITS | Encounter Summary ---
Author Organization [place] Address [address] [place] [address] Care Team Providers Care Smocking Machine Operator Name Role Phone Lacie Marks MD Primary Care Provider Grace Goodrich MD Unavailable [phone] Remi Camacho MD Unavailable [phone] Shane Pemberton MD Unavailable +[phone] Alexis Vargas MD Unavailable +[phone] [facility] DPM Unavailable +[phone] Johnny Gauthier MD Unavailable + [phone] Alpa Max PA-C Unavailable Ayana Fuller MD Unavailable + [phone] No Ref-Primary, Physician Primary Care Provider Nanci Villalba MD Primary Care Provider Ashwin Franklin MD Unavailable +[phone] Magda Goode MD Unavailable +[phone] Ayana Fuller MD Unavailable +[phone] Ashwin Franklin MD Unavailable +[phone] Cecilio Velasco DPM Unavailable + [phone] Nanci Villalba MD Unavailable +[phone] Magda Goode MD Unavailable +[phone] Nanci Villalba MD Unavailable +[phone] Abdirizak Dowd MD Unavailable +[phone] Abdirizak Dowd MD Unavailable +[phone] Abdirizak Dowd MD Unavailable +[phone] Jessica Butler MD Unavailable +[phone] Ayana Fuller MD Unavailable +[phone] Loli LouisM, Podiatry /Foot and Ankle Surgery Unavailable Jessica Butler MD Unavailable +[phone] Ashwin Farnklin MD Unavailable +[phone] Valeria Sullivan PA-C Unavailable +[phone] Jessica Butler MD Unavailable +[phone] Encounter Details Date Type Department Care Team (Late st Contact Info) Description 05/29/2015 MyC Medical Advice Initial Department [facility] Social History Tobacco Use Types Packs/Day Years Used Date Smoking Tobacco: Never Smokeless Tobacco: Never Alcohol Use Standard Drinks/Week Comments Yes 0 (1 standard drink = 0.6 oz pur e alcohol) Glasses Wine Comments No Sex and Gender Information Value Date Recorded Sex Assigned at Not on file Legal Sex Female 3:34 AM BASE LOADER Gender Identity Not on file Sexual Orientation Not on file Occupation Industry Job Start Date Job End Date Unemployed Not on file Not on file Not on file documented as of this encounter Plan of Treatment Upcoming Encounters Date Type Department Care Team (Late Contact Info) Description 04/20/2025 PRE VISIT [facility] [address] [phone] Ashwin Franklin MD [address] [place] [address] 728445 Previsit 04/20/2025 1:00 PM CDT Office Visit [facility] All[facility] [place] [address] [place] [address] [phone] Ashwin Franklin MD [address] [place] [address] 047035 05/20/2025 12:45 PM CDT Office Visit [facility] Women's [facility] [address] 3rd Floor,[address] [place] [facility] 88 [place] [phone] Ayana Fuller MD [address] [address] 09/05/2025 9:45 AM BASE LOADER Office Visit [facility] Dermatology Clinic [place] [address] [place] [address] 3rd [place] [phone] Jessica Butler MD 420 [facility] 98 [place] [address] documented as of this encounter Visit Diagnoses Not on filedocumented in this encounter Care Teams Smocking Machine Operator Relationship Specialty Start Date End Date Lacie Marks MD [address] [place] [address] PCP - General trench trimmer fine 11/01/14 03/19/19 No Ref-Primary, Physician PCP - General 03/20/19 05/31/19 Nanci Villalba MD [address] [facility] [place] [address] PCP - General Internal Medicine 06/01/19 Grace Goodrich MD [address] [place] [address] Resident Dermatology 03/22/15 06/04/17 Remi Camacho MD 420 [facility] 136 [place], [place] [phone] Dermatology 08/28/[address] [facility] 420 [facility] 391 [place] [address] Resident Student in organized health care education/training program 05/13/17 02/16/18 [place] [address] [place] [address] 009214 Dermatology 07/14/17 Cecilio Velasco DPM 909 [place] [address] Podiatry 12/31/17 Johnny Gauthier MD [facility] [address] [place], [place] [address] Family Medicine - Sports Medicine 08/20/18 Alpa Max PA-C 420 [facility] 98 [place] [address] Physician Senior Sas Programmer Physician Senior Sas Programmer 08/28/18 Ayana Fuller MD [address] [place] [address] 300 [place] [address] trench trimmer fine 12/01/18 Ashwin Franklin MD [address] [place] [address]13 Assigned Pediatric Specialist Provider 05/19/20 08/27/20 Magda Goode MD [address] [place] [address] 21102 Assigned Musculoskeletal Provider 05/19/20 08/19/20 Ayana Fuller MD [address] [place] [address]006 Assigned OBGYN Provider 05/19/20 Ashwin Franklin MD [address] [place] [address] 25404 Assigned Surgical Provider 05/19/20 03/22/22 Cecilio Velasco DPM [address] [place] [address] 526095 Assigned Musculoskeletal Provider 08/20/20 09/30/20 Nanci Villalba MD [address] [place] [address] 80[address] Assigned PCP 09/10/20 11/04/20 Magda Goode MD [address] [place] [address] 20034 Assigned Musculoskeletal Provider 10/01/20 01/03/23 Nanci Villalba MD [address] [place] [address] 48214 Assigned PCP 12/21/20 Abdirizak Dowd MD [address] [place] [address] Dermatology 08/09/21 Abdirizak Dowd MD [address] [place] [address] 99546 Dermatology 12/21/21 Abdirizak Dowd MD [address] [place] [address] 907885 Assigned Surgical Provider 03/23/22 02/16/24 Jessica Butler MD [address] [place] [address] Dermatology 02/21/23 Ayana Fuller MD [address] 400204 trench trimmer fine 02/24/23 Loli Louis DPM, Podiatry/Foot and Ankle Surgery [address] [facility] 300 [place], [place] [address]47 Assigned Musculoskeletal Provider 09/19/23 03/18/25 Jessica Butler MD [address] [place] [address]108 Assigned Surgical Provider 02/17/24 10/16/24 Ashwin Franklin MD [address] [place] [address]97 Dermatology 09/17/24 Valeria Sullivan PA-C Dermatology [address] [place] [address] 14345 Assigned Dermatology Provider 10/17/24 03/18/25 Jessica Butler MD [address] [place] [address] 48774 Assigned Dermatology Provider 03/19/25 documented as of this encounter
--- OUTSIDE RECORDS SUMMARY | 2025-04-06 23:38 | XMS_ITS | Encounter Summary ---
Author Organization [place] Address [address] [facility] [place] [address] Care Team Providers Care Mobile Security Specialist Name Role Phone Lacie Marks MD Primary Care Provider Grace Goodrich MD Unavailable [phone] Remi Camacho MD Unavailable [phone] Shane Pemberton MD Unavailable +[phone] Alexis Vargas MD Unavailable [phone] [facility] DPM Unavailable +[phone] Johnny Gauthier MD Unavailable + [phone] Alpa Max PA-C Unavailable +[phone] Ayana Fuller MD Unavailable [phone] No Ref-Primary, Physician Primary Care Provider Nanci Villalba MD Primary Care Provider Ashwin Franklin MD Unavailable [phone] Mgada Goode MD Unavailable +[phone] Ayana Fuller MD Unavailable +[phone] Ashwin Franklin MD Unavailable +[phone] Cecilio Velasco DPM Unavailable + [phone] Nanci Villalba MD Unavailable +[phone] Magda Goode MD Unavailable +[phone] Nanci Villalba MD Unavailable +[phone] Abdirizak Dowd MD Unavailable Abdirizak Dowd MD Unavailable +[phone] Abdirizak Dowd MD Unavailable +[phone] Jessica Butler MD Unavailable +[phone] Ayana Fuller MD Unavailable +[phone] Loli LouisM, Podiatry /Foot and Ankle Surgery Unavailable Jessica Butler MD Unavailable +[phone] Ashwin Franklin MD Unavailable +[phone] Valeria Sullivan PA-C Unavailable +[phone] Jessica Butler MD Unavailable +[phone] Encounter Details Date Type Department Care Team (Late st Contact Info) Description 04/29/2015 [facility] Medical Advice Dermatology 5th Floor, Clinic [address] [place] [address] 88 [place] [address] Grace Goodrich MD [facility] [place] [address] [place] [id number] Social History Tobacco Use Types Packs/Day Years Used Date Smoking Tobacco: Never Smokeless Tobacco: Never Alcohol Use Standard Drinks/Week Comments Yes 0 (1 standard drink = 0.6 oz pur e alcohol) Glasses Wine Comments No Sex and Gender Information Value Date Recorded Sex Assigned at Not on file Legal Sex Female 3:34 AM DOG BREEDER Gender Identity Not on file Sexual Orientation Not on file Occupation Industry Job Start Date Job End Date Unemployed Not on file Not on file Not on file documented as of this encounter Plan of Treatment Upcoming Encounters Date Type Department Care Team (Late st Contact Info) Description 04/20/2025 PRE VISIT [facility] Allergy [address] [phone] Ashwin Franklin MD [address] [place] [address] 275495 Previsit 04/20/2025 1:00 PM CDT Office Visit [facility] Allergy [address] [phone] Ashwin Franklin MD [address] [place] [address] 398245 05/20/2025 12:45 PM CDT Office Visit [facility] Women's [facility] [address] 3rd Floor,[address] [place] [facility] 88 [place] [phone] Ayana Fuller MD [address] [phone] 09/05/2025 9:45 AM DOG BREEDER Office Visit [facility] Dermatology [address] 3rd [place] [phone] Jessica Butler MD 420 [facility] 98 [place], [place] [address] documented as of this encounter Visit Diagnoses Not on filedocumented in this encounter Care Teams Mobile Security Specialist Relationship Specialty Start Date End Date Lacie Marks MD [address] [place], [place] [address] PCP - General secretary board of commissioners 11/01/14 03/19/19 No Ref-Primary, Physician PCP - General 03/20/19 05/31/19 Nanci Villalba MD [address] [place] [address] PCP - General Internal Medicine 06/01/19 Grace Goodrich MD [facility] [address] [place] [address] Resident Dermatology 03/22/15 06/04/17 Remi Camacho MD 420 [facility] 136 [place], [place] [address] Dermatology 08/28/16 Shane Pemberton MD [facility] 420 [facility] 391 [place], [place] [address] Resident Student in organized health care education/training program 05/13/17 02/16/18 Alexis Vargas MD [facility] [place], [place] [address] Dermatology 07/14/17 Cecilio Velasco DPM 909 [place], [place] [address] Podiatry 12/31/17 Johnny Gauthier MD [facility] [address] [address] Family Medicine - Sports Medicine 08/20/18 Alpa Max PA-C 420 [facility] 98 [place] [address] Physician Rn Triage Physician Rn Triage 08/28/18 Ayana Fuller MD [address] [place] [address] secretary board of commissioners 12/01/18 Ashwin Franklin MD [address] [place] [address] Assigned Pediatric Specialist Provider 05/19/20 08/27/20 Magda Goode MD [address] [place] [address] 61168 Assigned Musculoskeletal Provider 05/19/20 08/19/20 Ayana Fuller MD [address] [place] [address] Assigned OBGYN Provider 05/19/20 Ashwin Franklin MD [address] [place] [address] 37735 Assigned Surgical Provider 05/19/20 03/22/22 Cecilio Velasco DPM [address] [place] [address] 83706 Assigned Musculoskeletal Provider 08/20/20 09/30/20 Nanci Villalba MD [address] [place] [address]67 Assigned PCP 09/10/20 11/04/20 Magda Goode MD [address] [place] [address]15 Assigned Musculoskeletal Provider 10/01/20 01/03/23 Nanci Villalba MD [address] [place] [address] [place] [address] Assigned PCP 12/21/20 Abidrizak Dowd MD [address] [place] [address] Dermatology 08/09/21 Abdirizak Dowd MD [address] [place] [address] Dermatology 12/21/21 Abdirizak Dowd MD [address] [place] [address]03 Assigned Surgical Provider 03/23/22 02/16/24 Jessica Butler MD [address] [place] [address] Dermatology 02/21/23 Ayana Fuller MD [address] [place] [address] 300 [place] [address] secretary board of commissioners 02/24/23 Loli Louis DPM, Podiatry/Foot and Ankle Surgery [address] [address] Assigned Musculoskeletal Provider 09/19/23 03/18/25 Jessica Butler MD [address] [place] [address]34 Assigned Surgical Provider 02/17/24 10/16/24 Ashwin Franklin MD [address] [place] [address] Dermatology 09/17/24 Valeria Sullivan, PA-C Dermatology [address] [place] [address] Assigned Dermatology Provider 10/17/24 03/18/25 Jessica Butler MD [address] [place] [address] 98 [place] [address] Assigned Dermatology Provider 03/19/25 documented as of this encounter
--- OUTSIDE RECORDS SUMMARY | 2025-04-06 23:38 | XMS_ITS | Encounter Summary ---
Author Organization [place] Address [address] [place] [address] Care Team Providers Care Platform Operations Director Name Role Phone Remi Camacho MD Unavailable [phone] Alexis Vargas MD Unavailable +[phone] Cecilio Velasco DPM Unavailable [phone] Johnny Gauthier MD Unavailable Alpa Max PA-C Unavailable Ayana Fuller MD Unavailable [phone] Nanci Villalba MD Primary Care Provider Ashwin Franklin MD Unavailable [phone] Magda Goode MD Unavailable +[phone] Ayana Fuller MD Unavailable +[phone] Ashwin Franklin MD Unavailable [phone] Cecilio Velasco DPM Unavailable [phone] Nanci Villalba MD Unavailable [phone] Magda Goode MD Unavailable +[phone] Nanci Villalba MD Unavailable [phone] Abdirizak Dowd MD Unavailable +[phone] Abdirizak Dowd MD Unavailable +[phone] Abdirizak Dowd MD Unavailable +[phone] Jessica Butler MD Unavailable [phone] Ayana Fuller MD Unavailable [phone] Loli LouisM, Podiatry /Foot and Ankle Surgery Unavailable Jessica Butler MD Unavailable +[phone] Ashwin Franklin MD Unavailable +[phone] Valeria Sullivan PA-C Unavailable [phone] Jessica Butler MD Unavailable [phone] Encounter Details Date Type Department Care Team (Late st Contact Info) Description 10/15/2019 [facility] [place] [address] [facility] [place], [place] [phone] Nanci Villalba MD [address] [place] [address] [place], [place] [address] Social History Tobacco Use Types Packs/Day Years Used Date Smoking Tobacco: Never Smokeless Tobacco: Never Alcohol Use Standard Drinks/Week Comments No 0 (1 standard drink = 0.6 oz pur e alcohol) Glasses Wine PHQ-2 Answer Date Recorded PHQ-2 Score 0 05/31/2019 Comments No Sex and Gender Information Value Date Recorded Sex Assigned at Not on file Legal Sex Female 3:34 AM PRACTICE ADVISOR Gender Identity Not on file Sexual Orientation Not on file Occupation Industry Job Start Date Job End Date Unemployed Not on file Not on file Not on file documented as of this encounter Miscellaneous Notes * Telephone Encounter - Jossie Truong RN - 10/18/2019 8:59 AM CDT Miesha's last BP was at visit in Mar. She takes losartan 50 mg every day and amlodipine 10 mg daily. Jossie Truong RN [facility] documented in this encounter Plan of Treatment Upcoming Encounters Date Type Department Care Team (Late st Contact Info) Description 04/20/2025 PRE VISIT [facility] Allergy [address] [phone] Ashwin Franklin MD [address] [place] [address] 668645 Previsit 04/20/2025 1:00 PM CDT Office Visit [facility] Allergy [address] [phone] Ashwin Franklin MD [address] [place] [address] 05/20/2025 12:45 PM CDT Office Visit [facility] [place] [address] 3rd Floor,[address] [place] [facility] 88 [place] [phone] Ayana Fuller MD [address] [facility] 300 [place], [place] [address] 09/05/2025 9:45 AM PRACTICE ADVISOR Office Visit [facility] Dermatology Clinic [address] 3rd [place] [phone] Jessica Butler MD [address] [place] [address] 98 [place], [place] [address] documented as of this encounter Visit Diagnoses Not on filedocumented in this encounter Additional Health Concerns Assessment Noted Time PHQ-9 Depression Total Score: 2 08/02/19 20 1:35 PM PRACTICE ADVISOR documented as of this encounter Care Teams Platform Operations Director Relationship Specialty Start Date End Date Nanci Villalba MD [address] [place], [place] [address] PCP - General Internal Medicine 06/01/19 Remi Camacho MD 420 [facility] 136 [place], [place] [address]474 Dermatology 08/28/16 Alexis Vargas MD 2450 [place], [place] [address] Dermatology 07/14/17 Cecilio Velasco DPM 909 [place], [place] [address] Podiatry 12/31/17 Johnny Gauthier MD [address] [place], [place] [address] Family Medicine - Sports Medicine 08/20/18 Alpa Max PA-C 420 [facility] 98 [place], [place] [address] Physician Vegetable Washing Machine Operator Physician Vegetable Washing Machine Operator 08/28/18 Ayana Fuller MD [address] [facility] 300 [place], [place] 5[address] steamboat captain 12/01/18 Ashwin Franklin MD 909 [place], [place] 284245 Assigned Pediatric Specialist Provider 05/19/20 08/27/20 [place] [address] Assigned Musculoskeletal Provider 05/19/20 08/19/20 Ayana Fuller MD 606 [facility] 300 [place] [address] Assigned OBGYN Provider 05/19/20 Ashwin Franklin MD [address] [place] [address] 88522 Assigned Surgical Provider 05/19/20 03/22/22 Cecilio Velasco DPM [address] [place] [address] 77950 Assigned Musculoskeletal Provider 08/20/20 09/30/20 Nanci Villalba MD [address] [place] [address] 23989 Assigned PCP 09/10/20 11/04/20 Magda Goode MD [address] [place] [address]38 Assigned Musculoskeletal Provider 10/01/20 01/03/23 Nanci Villalba MD [address] [place] [address] Assigned PCP 12/21/20 Abdirizak Dowd MD [address] [place] [address] 27419 MD Dermatology 08/09/21 Abdirizak Dowd MD [address] [place] [address] 8[address]03 Dermatology 12/21/21 Abdirizak Dowd MD [address] [place] [address] 24419 Assigned Surgical Provider 03/23/22 02/16/24 Jessica Butler MD [address] [place] [address] Dermatology 02/21/23 Ayana Fuller MD [address] [place] [address] steamboat captain 02/24/23 Loli Louis DPM, Podiatry/Foot and Ankle Surgery [address] [address] Assigned Musculoskeletal Provider 09/19/23 03/18/25 Jessica Butler MD [address] [place] [address]2336 Assigned Surgical Provider 02/17/24 10/16/24 Ashwin Franklin MD [address] [place] [address]17 Dermatology 09/17/24 Valeria Sullivan PACassieC Dermatology [address] [place] [address] Assigned Dermatology Provider 10/17/24 03/18/25 Jessica Butler MD [address] [place] [address] 98 [place] [address] Assigned Dermatology Provider 03/19/25 documented as of this encounter
--- OUTSIDE RECORDS SUMMARY | 2025-04-06 23:38 | XMS_ITS | Encounter Summary ---
Author Organization [place] Address [address] [place] [address] Care Team Providers Care License Registration Examiner Name Role Phone No Ref-Primary, Physician Primary Care Provider Lacie Marks MD Primary Care Provider Coby Mcelroy MD Unavailable Grace Goodrich MD Unavailable [phone] Remi Camacho MD Unavailable [phone] Shane Pemberton MD Unavailable [phone] Alexis Vargas MD Unavailable +[phone] Cecilio Velasco DPM Unavailable [phone] Johnny Gauthier MD Unavailable +[phone] Alpa Max PA-C Unavailable Ayana Fuller MD Unavailable [phone] No Ref-Primary, Physician Primary Care Provider Nanci Villalba MD Primary Care Provider Ashwin Franklin MD Unavailable Magda Goode MD Unavailable + [phone] Ayana Fuller MD Unavailable [phone] Ashwin Franklin MD Unavailable [phone] Krista Cecilio Manny DPM Unavailable Nanci Villalba MD Unavailable [phone] Magda Goode MD Unavailable + [phone] Nanci Villalba MD Unavailable [phone] ScottAbdirizak MD Unavailable Scott, Abdirizak Turner MD Unavailable Nile, Abdirizak Turner MD Unavailable Jessica Butler MD Unavailable [phone] Ayana Fuller MD Unavailable [phone] Loli Louis DPM, Podiatry /Foot and Ankle Surgery Unavailable Jessica Butler MD Unavailable [phone] Ashwin Franklin MD Unavailable [phone] Valeria Sullivan PA-C Unavailable +[phone] Jessica Butler MD Unavailable [phone] Encounter Details Date Type Department Care Team (Late st Contact Info) Description 01/09/2012 [facility] Interventional Radiology [address] [place] [address] Magda Leach, RN Social History Tobacco Use Types Packs/Day Years Used Date Smoking Tobacco: Never Smokeless Tobacco: Never Alcohol Use Standard Drinks/Week Comments No 0 (1 standard drink = 0.6 oz pur e alcohol) Comments No Sex and Gender Information Value Date Recorded Sex Assigned at Not on file Legal Sex Female 3:34 AM CUSTOMER RESOURCE SPECIALIST Gender Identity Not on file Sexual Orientation Not on file documented as of this encounter Plan of Treatment Upcoming Encounters Date Type Department Care Team (Late st Contact Info) Description 04/20/2025 PRE VISIT [facility] Allergy [address] [phone] Ashwin Franklin MD [address] [place] [address] [phone] Previsit 04/20/2025 1:00 PM CDT Office Visit [facility] Allergy [address] [phone] Ashwin Franklin MD [address] [place] [address] [phone] 05/20/2025 12:45 PM CDT Office Visit [facility] Women's [facility] [address] 3rd Floor,[address] [place] [facility] 88 [place] [phone] Ayana Fuller MD [address] [phone] 09/05/2025 9:45 AM CUSTOMER RESOURCE SPECIALIST Office Visit [facility] Dermatology [address]rd [place] [phone] Jessica Butler MD [address] [place] [address] 98 [place], [place] [address] documented as of this encounter Visit Diagnoses Not on filedocumented in this encounter Care Teams License Registration Examiner Relationship Specialty Start Date End Date No Ref-Primary, Physician PCP - General 12/28/10 10/31/14 Lacie Marks MD [address] [place] [address] PCP - General employee benefits coordinator 11/01/14 03/19/19 No Ref-Primary, Physician PCP - General 03/20/19 05/31/19 Nanci Villalba MD [address] [place] [address] [place] [address] PCP - General Internal Medicine 06/01/19 Coby Mcelroy MD [address] [place] [address] 300 [place], [place] [address] Resident Dermatology 03/22/15 03/22/15 Grace Goodrich MD [address] [place], [place] [phone] Resident Dermatology 03/22/15 06/04/17 Remi Camacho MD 420 [facility] 136 [place], [place] [address] Dermatology 08/28/16 Shane Pemberton MD [facility] 420 [facility] 391 [place], [place] [address]85 Resident Student in organized health care education/training program 05/13/17 02/16/18 Alexis Vargas MD 2450 [place], [place] [address] Dermatology 07/14/17 Cecilio Velasco DPM 909 [place], [place] [address] Podiatry 12/31/17 Johnny Gauthier MD [address] [place], [place] 7[address] [place] [address] Family Medicine - Sports Medicine 08/20/18 Alpa Max PA-C [address] [place] [address] 98 [place] [address] Physician Multimedia Project Manager Physician Multimedia Project Manager 08/28/18 Ayana Fuller MD [address] [address] [facility] 300 [place] [address] employee benefits coordinator 12/01/18 Ashwin Franklin MD [address] [place] [address] Assigned Pediatric Specialist Provider 05/19/20 08/27/20 Magda Goode MD [address] [place] [address] 55[address] Assigned Musculoskeletal Provider 05/19/20 08/19/20 Ayana Fuller MD [address] [address] 505934 Assigned OBGYN Provider 05/19/20 Ashwin Franklin MD [address] [place] [address] 89944 Assigned Surgical Provider 05/19/20 03/22/22 Cecilio Velasco DPM [address] [place] [address] 552895 Assigned Musculoskeletal Provider 08/20/20 09/30/20 Nanci Villalba MD [address] [place] [address] 78[address] Assigned PCP 09/10/20 11/04/20 Magda Goode MD [address] [place] [address] 8[address]45 Assigned Musculoskeletal Provider 10/01/20 01/03/23 Nanci Villalba MD [address] [place] [address] Assigned PCP 12/21/20 Abdirizak Dowd MD [address] [place] [address] 643325 Dermatology 08/09/21 Abdirizak Dowd MD [address] [place] [address] 0[address]83 Dermatology 12/21/21 Abdirizak Dowd MD [address] [place] [address] 40355 Assigned Surgical Provider 03/23/22 02/16/24 Jessica Butler MD [address] [place] [address] 98 [place] [address] Dermatology 02/21/23 Ayana Fuller MD [address] [place] [address] 623454 employee benefits coordinator 02/24/23 Loli Louis DPM, Podiatry/Foot and Ankle Surgery [address] [address] Assigned Musculoskeletal Provider 09/19/23 03/18/25 Jessica Butler MD [address] [place] [address] 10752 Assigned Surgical Provider 02/17/24 10/16/24 Ashwin Franklin MD [address] [place] [address]97 Dermatology 09/17/24 Valeria Sullivan PACassieC Dermatology [address] [place] [address]21 Assigned Dermatology Provider 10/17/24 03/18/25 Jessica Butler MD [address] [place] [address]65 Assigned Dermatology Provider 03/19/25 documented as of this encounter
== END 2025-04-06 23:42 | disposition home or self-care (01) ==
PROVIDERS: Emergency Provider Family Medicine
DX: T78.3XXA Angioneurotic edema, initial encounter (principal); R03.0 Elevated blood-pressure reading, without diagnosis of hypertension
CPT/HCPCS: 99283; 99284; A9270

== ENCOUNTER 2025-04-27 04:48 | Emergency (ER) | payer OTHER, SELFPAY ==
--- OUTSIDE RECORDS SUMMARY | 2025-04-20 13:00 | XMS_ITS | Encounter Summary ---
Author Organization [facility] Address [address] [place] [address] Care Team Providers Care Cloth Opener Hand Name Role Phone Remi Camacho MD Unavailable [phone] Alexis Vargas MD Unavailable [phone] Cecilio Velasco DPM Unavailable [phone] Johnny Gauthier MD Unavailable [phone] Alpa Max PA-C Unavailable Ayana Fuller MD Unavailable [phone] Nanci Villalba MD Primary Care Provider Ayana Fuller MD Unavailable [phone] Nanci Villalba MD Unavailable [phone] Abdirizak Dowd MD Unavailable [phone] Abdirizak Dowd MD Unavailable [phone] Jessica Butler MD Unavailable [phone] Ayana Fuller MD Unavailable [phone] Ashwin Franklin MD Unavailable Jessica Butler MD Unavailable Reason for Visit * Reason Comments Allergy Consult Per pt, had lip/chin swelling (hx of facial edema previously), has photos. Unsure of cause. 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 You can always access your most recent office visit note with this allergy clinic via [facility], which contains all of your results from testing performed by Dr. Franklin along with the details of the discussed treatment plan. If you do not have access to Flavours, please discuss with a [facility] staff member. Additionally, if your provider is within [facility] or their EMR participates in the [employer] network, they can also access this information. For return appt on 05/31/25 please bring a small sample of some foods that you may believe to cause issues. Please stop taking any oral antihistamines 5 days prior to the 05/31 appt. Removal of Patch Tests on Day 3: Remove patches and tape from test area on Friday04/22/25 at anytime Using the purple surgical markers provided (or other permanent marker), draw a grid around the testarea so that the circular indentation is in the center of each square, as below. Try to be as neat as possible and keep the lines as straight as you can (you can use a ruler if you need to) Redraw the number that was underneath the tape above the grids, as shown below. Try to print clearly. Photograph the entire area then take close-up photos of any possible reactions. Examples of possible reactions are spots that look like these: TAKE PHOTOS ON Friday AND Friday, send them via Flavours Message to Dr. Franklin's team Return to clinic for evaluation as instructed/Send photos via Flav[facility] message and team will reach out to you if we need to schedule a follow up. After removing on Friday, you should continue to avoidscrubbing the area, exposing the area to UV light, using topical steroids, or scratching. REMINDER - THE PURPLE MARKER WILL STAIN CLOTHING, BEDDING, FURNITURE, ETC. WEAR A DARK COLORED SHIRT OR SOMETHING THAT YOU DON'T CARE IF IT GETS STAINED UP, UNTIL YOU CAN WASH IT FULLY AFTER THE SECOND SET OF PHOTOS ARE DONE. Who should I call with questions? [facility], [place]: [phone] For urgent needs outside of business hours call the [facility], [place] at [phone] and ask for thedermatology resident video production specialist If you develop any serious or adverse allergic reaction after office hours please seek immediate medical assistance at the nearest clinic or emergency room documented in this encounter Progress Notes * Ashwin Franklin MD - 04/20/2025 1:00 PM CDT [facility] Dermato-[facility]ology Note Office visit Encounter Date: Apr 20, 2025 CC: Allergy Consult (Per pt, had lip/chin swelling (hx of facial edema previously), has photos. Unsure of cause. ) HPI: (Apr 20, 2025) Ms. Cecilia Hammond is a(n) 59 year old female who presents today as new patient for allergy consultation - Self referred for drug allergy testing, OTC cetirizine, lip swelling. - 09/24/24 OV visit with Valeria HIGUERA (Derm) FROM [facility]: Ms. Cecilia Hammond is a(n) 59 year old female who presents today as a return patient for rash onthe eyelids and neck. Patient is otherwise feeling well, without additional skin concerns. - Rash worsened during cold weather - The skin feels itchy, hot, tight - Improved today - No new medications, illnesses, or products preceding the flare - She applied Aquaphor and Elidel with minimal improvement FROM A&P: # Facial dermatitis - Chronic, not at treatment goal - Discussed that I suspect this is atopic in nature. - Start Elidel 1% cream twice daily for maintenance. - Start hydrocortisone 2.5% ointment twice daily as needed for flares, up to 1 week. We discussed potential side effects of topical steroids including skin atrophy. - We discussed the importance of daily emollients. Options include Vanicream, CeraVe Cream, Cetaphil Cream, or Vaseline. Avoid hot water when bathing. Use non-scented soaps and detergents. Pat skin dry instead of vigorous rubbing. - 12/17/[address] Nanci Villalba (FM) FROM [facility] Hospital discharge follow-up/Headache ER visit 12/11/24 for [...] Previous hx of cluster migraines, dx at [facility] in her 20s Ocular migraine x 1 episode in this past year, saw eye doctor Post nasal drip Started yesterday, right side now left Sore throat, mild Cetirizine daily Some pressure over left side of face. Previous sinus infection.PI: - patient reports very swollen lips - moved from left right to bottom - reports that she went to the ER, was thought to be angioedema - was not on blood pressure medication - swelling started 9/10 - Otherwise feeling well in usual state of health Physical Exam: General: In no acute distress, well-developed, well-nourished Eyes: no conjunctivitis ENT: no signs of rhinitis Pulmonary: no wheezing or coughing Skin: Focused examination of the skin on test sites was performed = see test results below (05/14/21) Ms. Cecilia Hammond is a(n) 55 year old female who presents today as a return patient for allergyconsultation - Follow-up: in Derm-Allergy clinic prn, huay for PCP to refill pimecrolimus in future. Last seen virtually 09/19/2020 - patient was on Xolair before the COVID pandemic, but then stopped and never started with Dupixent. - Had Xolair for about 9 month. Skin: irritant dermatitis with hyperkeratosis on both index fingers and some nummular dermatitis onneck On face no signs for skin cancer, some Lentigenes and on the nose some gareth glands hyperplasias On back many, non suspicious melanocytic naevi and some upton angiomas Earlier History and Allergy exams: Last seen 09/29/2019 Additional comments and observations from review of the patient???s chart including the following: Patient reports stopping Xolair and did not start dupilumab. Atopic dermatitis well controlled withpimecrolimus a few times a week. She did not have delayed reactions to intradermal testing. Allergy Problem List: 1. Dyshidrotic eczema. Significantly improved on 09/13/16. 2. Dermatofibroma on lower right leg 3. 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 Lichen Simplex chronicus of the knee Earlier History and Allergy exams: Ms. Cecilia Hammond is a 55 year old female who presents for evaluation of metal sensitivy. She is scheduled to get a bilateral knee cap replacement early next year and wants to know if she is sensitive to the metals used. The implants contain titanium and chromium cobalt. 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 She has had previous prick testing five yearsago that was inconclusive. Dr. Leahy did patch testing which showed a sensitivity to PPD in hair color, dust mites, dogs, cats, oak trees and nickel. She also has a history of getting blisters a few days after steri stripes are applied. The reason she received all this previous allergy testing was that she was experiencing random facial swelling and could not find a cause. They determined it was likely a sensitivity to her pets. She receives Xolair injections once a month which has helped with the facial swelling as well as atopic dermatitis of the hands. It took her 4 months to start responding to the Xolair injections. She has tried allergy injections for dust mites, cats, and dogs, buther symptoms of dermatitis and facial swelling worsened. She is resistant to trying dupixent because of the possible side effects. No history of asthma or allergic rhinitis. 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 Report from January 2016 [facility] [place], [place]: A. Patient reports possible delayed reaction to several previous immunotherapy injections: rash and flushing over neck, face, and bilateral hands 2-3 days after receiving injections. Immunotherapy dose has been very dilute 1:1000 dilutions. Injections have since been discontinued after repeated doses, and patient is interested in restarting at this time with the initiation of prednisone. Unclear if immunotherapy injections are the cause of the rash, as patient has a longstanding history of chronic rash exacerbated by exposure to environmental allergens. Hx since 08/04/18: The patient comes in today for patch testing day 5. She takes Xolair monthly, and her last injection was on the of last month. The patient is otherwise feeling well overall. There are no other skin or allergy concerns at this time. Hx on 09/29/2019: Patient on Xolair every 4-6 weeks and still recurrent dermatitis in face (right eye). Last big episode beginning August and smaller ones recently. Patient clearly states that the swellings stay several days and heal with desquamation, It seems that Xolair does not really work very well in the moment and patient questions if she should proceed. Past Medical History: Patient Active Problem List [...] Fascitis plantar 03/10/2008 Uterine fibroids Varicose veins Allergies: Allergies Allergen Reactions Ciprofloxacin Hives Warm red patch above right samaritan for three days. Beta Adrenergic Blockers Other (See Comments) Contraindicated with allergy injections Cats Dogs Dust Mites Other Drug Allergy (See Comments) Amalgam Paraphenylenediamine Other (See Comments) Positive (+) skin patch test Tape [Adhesive Tape] Other (See Comments) STERI-STRIPS (Blisters) Metal [[place]] Rash Amalgam (mercury + silver) Penicillins Rash Medications: Current Outpatient Medications Medication Sig Dispense [...] No current facility-administered medications for this visit. Previous Labs, Allergy Tests, Dermatopathology, Imaging: N/a Referred By: Referred Self, No address on file Allergy Tests: Past Allergy Test Family History: Family History Problem Relation Age of Onset Hypertension Mother Skin Cancer Father Hypertension Father Thyroid Disease Father Anesthesia Reaction Father Hallucination with kidney stone removal Cerebrovascular Disease Father 89 Pulmonary fibrosis Sister Skin Cancer Sister Depression Sister Other - See Comments Sister Lipoidema, obesity Thyroid Disease Sister Myasthenia gravis Sister s/p thymectomy Depression Sister Anxiety Disorder Sister Thyroid Disease Sister Unknown/Adopted Sister Osteoporosis Maternal Grandmother Cerebrovascular Disease Maternal Grandfather 65 Thyroid Cancer Paternal Grandmother Heart Disease Paternal Grandfather 67 Family History Negative No family hx of Order for PATCH TESTS [x] Outpatient [] Inpatient: [facility]..../ Bed .... Skin Atopy (atopic dermatitis) [x] Yes [] No Rhinitis/Sinusitis: [] Yes [x] No Allergic Asthma: [] Yes [x] No Food Allergy: [] Yes [x] No Leg ulcers: [] Yes [x] No Hand eczema: [x] Yes [] No Leading hand: [x] R [] L [] Ambidextrous Reason for tests (suspected allergy): Ruling out relevant allergy to knee implants Known previous allergies: Nickel, cats, dogs, dust mites, oak tree Standardized panels [x] Standard panel (40 tests) [x] Preservatives & Antimicrobials (31 tests) [] Emulsifiers & Additives (25 tests) [] Perfumes/Flavours & Plants (25 tests) [] Hairdresser panel (12 tests) [] Rubber Chemicals (22 tests) [x] Plastics (26 tests) [] Colorants/Dyes/Food additives (20 tests) [x] Metals (implants/dental) (24 tests) [] Local anaesthetics/NSAIDs (13 tests) [x] Antibiotics & Antimycotics (14 tests) [] Corticosteroids (15 tests) [] Photopatch test (62 tests) [] others: ... [] Patient's own products: ... DO NOT test if chemical or biological identity is unknown! always ask from patient the product information and safety sheets (MSDS) [] Atopy screen prick test (Atopic predisposition): ... [] Patient needs consultation with Allergy team (changes of tests may apply) [x] Tests discussed with Allergy team (can have direct appointment for patch tests) RESULTS & EVALUATION of PATCH TESTS Patch test readings after [x] 2 days, [] 3 days [x] 4 days, [] 5 days, Applied patch tests with results (import here the list of patch tests): Order documented by: MILY NAIK LPN Order reviewed by: Angelica Rodríguez LPN Physician: Date/time of application:08-02-2019 Localization of application: back >> clear (no lesions or eczema) STANDARD Series No Substance 2 days 4 days remarks 1 Jv Mix [C] - - 2 Colophony - - 3 2-Mercaptobenzothiazole - - 4 Methylisothiazolinone - - 5 Carba Mix - - 6 Thiuram Mix [A] - - 7 Bisphenol A Epoxy Resin - - 8 P-Knra-Inubdihkxtk-Formaldehyde Resin - - 9 Mercapto Mix [A] - - 10 Black Rubber Mix- PPD [B] - - 11 Potassium Dichromate - (+) 2 or 3 papules in aligned 12 Balsam of [place] (Myroxylon Pereirae Resin) - - 13 Nickel Sulphate Hexahydrate - - 14 Mixed Dialkyl Thiourea - - 15 Paraben Mix [B] - - 16 Methyldibromo Glutaronitrile - - 17 Fragrance Mix - - 18 1-Hinyr-1-Nitropropane-1,3-Diol (Bronopol) - - 19 Lyral - - 20 Tixocortol-21- Pivalate - - 21 Diazolidiyl Urea (Germall II) - - 22 Methyl Methacrylate - - 23 [place] (II) Chloride Hexahydrate - - 24 Fragrance Mix II - - 25 Compositae Mix - - 26 Benzoyl Peroxide - - 27 Bacitracin - - 28 Formaldehyde - - 29 Methylchloroisothiazolinone / Methylisothiazolinone - - 30 Corticosteroid Mix - - 31 Sodium Lauryl Sulfate - - 32 Lanolin Alcohol - - 33 Turpentine - - 34 Cetylstearylalcohol - - 35 Chlorhexidine Dicluconate - - 36 Budenoside - - 37 Imidazolidinyl Urea - - 38 Ethyl-2 Cyanoacrylate - - 39 Quaternium 15 (Dowicil 200) - - 40 Decyl Glucoside - - METALS (Implants / Dental) No Substance 2 days 4 days remarks 41 Ammonium Heptamolybdate (IV) - - 42 Ammonium Tetrachloroplatinate - - 43 Indium (III) Chloride - - 44 Iridium (III) Chloride - - 45 Ferric Chloride - - 46 Manganese (II) Chloride - - 47 Niobium (V) Chloride - - 48 Palladium Chloride - - 49 Silver Nitrate - - 50 Gold Sodium Thiosulfate - - 51 Tantal - - 52 Tin (II) Chloride - - 53 Titanium (IV) Oxide - - 54 Titanium - - 55 Tungstic Acid, Sod Salt Dihydrat - - 56 Vanadium Pentoxide - - 57 Wolfram - - 58 Zinc Chloride - - 59 Zirconium (IV) Oxide - - 60 Ammoniated Murcury - - 61 Copper Sulfate Pentahydrate - - 62 Amalgam - + 63 Aluminum Hydroxide - - 64 [place] Tetrachloride - - PRESERVATIVES & ANTIMICROBIALS No Substance 2 days 4 days remarks 65 1,5-Dtdcfgecqulbjzowe-0-One, Sodium Salt - - 66 1,3,5-Ankur (2-Hydroxyethyl) - Hexahydrotriazine (Grotan BK) - - 67 8-Pshsjvcjtywkz-2-Nitro-1, 3-Propanediol - - 68 3, 4, 4' - Triclocarban - - 69 4 - Chloro - 3 - Cresol - - 70 4 - Chloro - 4 - Xylenol (PCMX) - - 71 7-Ethylbicyclooxazolidine (Safe N Clearan BP6951) - - 72 Benzalkonium Chloride - - 73 Benzyl Alcohol - - 74 Cetalkonium Chloride - - 75 Cetylpyrimidine Chloride - - 76 Chloroacetamide - - 77 DMDM Hydantoin - - 78 Glutaraldehyde NA NA 79 Triclosan - - 80 Glyoxal Trimeric Dihydrate - - 81 Iodopropynyl Butylcarbamate - - 82 Octylisothiazoline - - 83 Iodoform - - 84 (Nitrobutyl) Morpholine/(Ethylnitro-Trimethylene) Dimorpholine (Safe N Clearan P 1487) - (+) irritant 85 Phenoxyethanol - - 86 Phenyl Salicylate - - 87 Povidone Iodine - - 88 Sodium Benzoate - - 89 Sodium Disulfite - - 90 Sorbic Acid - - 91 Thimerosal - - Parabens 92 Emikn-N-Mdycuntwkwunoem - - 93 Atigm-H-Zadskkhkgnkpzfv - - 94 Dxhpph-D-Uydyghamrcbhfrk - - 95 Mjidkq-W-Jqwarhxyemjasha - - PLASTICS No Substance 2 days 4 days remarks Acrylates - - 96 2-Hydroxyethyl Methacrylate (NEPTALI) - - 97 1,4-Butandioldimethacrylate (BUDMA) - - 98 2-Ethylhexyl Acrylate - - 99 Qainfdvpd-R-Nnugheyspixcee - - 100 Diurethane-Dimethacrylate - - 101 Ethyleneglycoldimethacrylate (EGDMA) - - 102 Pentaerythritoltriacrylate (JANINA) - - 103 Triethylene Glycol Dimethacrylate (TEGDMA) - - Synthetic material/additives 104 T-Natc-Cxrqzwkpgvc - - 105 Tricresyl Phosphate - - 106 6-Ysnv-Ntqtzhwjqzehi - - 107 Bis (2-Ethylhexyl) Phthalate - - 108 Dibutylphthalate - - 109 Dimethylphthalate - - 110 Toluene-2,4-Diisocyanate - - 111 Diphenylmethane-4,4''-Diisocyanate - - EPOXY RESIN SYSTEMS Reactive Solvents - - 112 Cresyl Glycidyl Ether - - 113 Butyl Glycidyl Ether - - 114 Phenyl Glycidyl Ether - - 115 1,4-Butanediol Diglycidyl Ether - - 116 1,6-Hexanediole Diglycidyl Ether - - Hardener / Accelerator - - 117 Ethylenediamine Dihydrochloride - - 118 Triethylenetetramine - - 119 Diethylenetriamine - - 120 Isophorone Diamine (IPD) - - 121 N,M-Yqnuuaea-M-Toluidine - - ANTIBIOTICS & ANTIMYCOTICS No Substance 2 days 4 days remarks 122 Erythromycine - - 123 Framycetine Sulphate - - 124 Fusidic Acid Sodium Salt - - 125 Gentamicin Sulphate - - 126 Neomycine Sulphate - - 127 Oxytetracycline (+) - 128 Polymyxin B Sulphate - - 129 Tetracycline-HCL - - 130 Sulfanilamide - - 131 Metronidazole - - 132 Oxyquinoline Mix - - 133 Nitrofurazone - - 134 Nystatin - - 135 Clotrimazole - - [x] Allergic reaction diagnosed against: Metals: Amalgam + Interpretation/ remarks: Only reaction is to amalgam. Patient has some amalgam fillings but no oral problems. It might be relevant because the patient has over the molars amalgam fillings and over the mucous membranes slightwhitish striae. However, patient did not react to the commonly used metals in amalgam like silver, copper, tin, and zinc. Maybe it is a reaction to the mercury. [x] Patient information given [x] General information's to following compounds: amalgam + Atopy Screen (Placed 09/29/19) No Substance Readings (15 min) Evaluation POS Histamine 1mg/ml ++ NEG NaCl 0.9% - No Substance Readings (15 min) Evaluation 1 Alternaria alternata (tenuis) - 2 Cladosporium herbarum - 3 Aspergillus fumigatus - 4 Penicillium notatum - 5 Dermatophagoides pteronyssinus - 6 Dermatophagoides farinae - 7 Dog epithelium (canis spp) - 8 Cat hair (idna catus) - 9 Cockroach (Blatella americana & germanica) - 10 Grass mix midwest (Chelle, Orchard, Redtop, Larry) - 11 Antonio grass (sorghum halepense) - 12 [place] mix (common Cocklebur, Bennett???s quarters, rough redroot Pigweed, Dock/[place]) - 13 Mug wort (artemisia vulgare) - 14 Ragweed giant/short (ambrosia spp) - 15 Zambian Plantain (plantago lanceolata) - 16 Tree mix 1 (Pecan, Maple BHR, [place] RVW, cymraes Altus, black [place]) - 17 Red cedar (juniperus manda) - 18 Tree mix 2 (white Dawood, river/red Birch, black [place], common [place], cymraes Elm) - 19 Box elder/Maple mix (acer spp) - 20 Winnett shagbark (carya ovata) - - Conclusion: negative skin prick tests!! Intradermal Testing (Placed 09/29/19 ) No Substance Conc. Readings (15min) Evaluation 1 NaCl 0.9% - 2mm P, no E 2 Histamine (prick) 0.1mg / ml ++ 4 Standard Dust Mite - D. Farinae 1:10 + 8mmP&E 5 Standard Dust Mite - D. Pteronyssinus 1:10 - 6mmP&no E 10 Aspergillus fumigatus 1:10 - 6mmP&no E 11 Penicillium notatum 1:10 - 6mmP&no E Dog epithelium 1:10 - 2mm P, no E Conclusion: no clear indication for atopy. Slight immediate type reaction to D. Farinae. No delayedreactions to intradermal tests Atopy Screen (XXXX) not possible today (patient on antihistamines) No Substance Readings (15 min) Evaluation POS Histamine 1mg/ml - NEG NaCl 0.9% - No Substance Readings (15 min) Evaluation 1 Alternaria alternata (tenuis) - 2 Cladosporium herbarum - 3 Aspergillus fumigatus - 4 Penicillium notatum - 5 Dermatophagoides pteronyssinus - 6 Dermatophagoides farinae - 7 Dog epithelium (canis spp) - 8 Cat hair (dina catus) - 9 Cockroach (Blatella americana & germanica) - 10 Grass mix midwest (Chelle, Orchard, Redtop, Larry) - 11 Antonio grass (sorghum halepense) - 12 [place] mix (common Cocklebur, Bennett???s quarters, rough redroot Pigweed, Dock/[place]) - 13 Mug wort (artemisia vulgare) - 14 Ragweed giant/short (ambrosia spp) - 15 White birch (Betula papyrifera) - 16 Tree mix 1 (Pecan, Maple BHR, [place] RVW, cymraes Altus, black [place]) - 17 Red cedar (juniperus manda) - 18 Tree mix 2 (white Dawood, river/red Birch, black [place], common [place], cymraes Elm) - 19 Box elder/Maple mix (acer spp) - 20 Winnett shagbark (carya ovata) - Conclusion Intradermal Testing (XXXX) No Substance Conc. Reading (15min) immediate Papule [mm] / Erythema [mm] Reading (... days) delayed Papule [mm] / Erythema [mm] Remarks DF Standard Dust Mite - D. Farinae 1:10 - - DP Standard Dust Mite - D. Pteronyssinus 1:10 - - A Aspergillus fumigatus 1:10 - - P Penicillium notatum 1:10 - - Alternaria Alternata 1:10 - - Dog Epithelium 1:10 - - Conclusions: OTHER PRODUCTS # Substance Conc % solv 2 days 4 days remarks 1 The naked bee lip balm As is 2 Mongo Kiss unflavored lip balm As is Patients own products: ?? DO NOT test if chemical or biological identity is unknown! - always ask from patient the product information and safety sheets and consult with the physician - check neutral pH with pH indicator paper (do not test pH below 5 or over 8 or consult with physician) - leave-on cosmetics can be tested as is - rinse-off products have to be diluted with water, buffer, olive oil or paraffin (discuss with physician) ?? remember: - non-specific toxic/corrosive or biological reactions can occur - tests with patients own products are not standardized and test conditions are not optimized for patch tests. Whenever possible test with standardized test series and correlate use of product with the result of the patch tests - if not sure if compounds can be tested under occlusion in patch tests consider open application tests Unflavored mongol kiss eclipse Nacked echo ball Assessment & Plan: ==> Final Diagnosis: # Dyshidrotic eczema on index fingers now and nummular eczema on neck No signs for relevant contact sensitization (don't think that the amalgam allergy is responsible for that) Most likely intrinsic type of atopic dermatitis --> in intradermal tests just slight immediate type reaction to d. Farinae dust mite --> in prior patch tests with Dr. Leahy delayed reaction to house dust mites, dog and cat * chronic illness with exacerbation, progression, side effects from treatment # no signs for significant allergens to implant metals, acrylates in bone cement or disinfectants ==> for safety reasons, we propose avoiding implants containing Nickel. Otherwise we have no restrictions, particularly titanium implants should be safe. 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 ==> Treatment Plan: >> Patient will return to clinic at later date for repeat atopy screen and intradermal tests. - used regularly and constantly moisturizer (Cetaphil) - try instead of Elidel the Protopic oint 0.1% on hands and neck from Friday to Friday and on Weekends use Mometasone oint. Procedures Performed: patch tests Staff Involved: Provider, Staff, and Scribe Scribe Disclosure: I, Becky Otero, am serving as a scribe to document services personally performed by Ashwin Franklin MD based on data collection and the provider's statements to me. Staff Physician Comments: I was present with the scribe who participated in the documentation of the note. I have verified the history and personally performed the physical exam and medical decision making. I agree with the assessment and plan as documented in the note. I have reviewed and if necessary amended the note. Ashwin Franklin MD Professor Head of Dermato-Allergy Division Department of Dermatology [facility] Follow-up in Derm-Allergy clinic for allergy tests as planned I spent a total of 40 minutes with Cecilia Hammond. This time was spent counseling the patient and/or coordinating care, explaining the allergy tests, performing allergy tests and assessing the clinical relevance. documented in this encounter Nursing Notes * Samantha Juarez, RN - 04/20/2025 1:00 PM CDT Chief Complaint Patient presents with Allergy Consult Per pt, had lip/chin swelling (hx of facial edema previously), has photos. Unsure of cause. Samantha Juarez RN documented in this encounter Plan of Treatment Upcoming Encounters Date Type Department Care Team (Late st Contact Info) Description 05/24/2025 8:15 AM CDT Office Visit [facility] Women's [address] 3rd Floor,[address] [place] Professional Bldg [facility] [address] [place] [phone] Ayana Fuller MD [facility] [address] [facility] 300 [place] [address] 05/31/2025 9:30 AM CASE THERAPIST Office Visit [facility] Allergy [address] [phone] Ashwin Franklin MD [address] [place] [address] 09/05/2025 9:45 AM CASE THERAPIST Office Visit [facility] Dermatology Clinic [address] 3rd [place] [phone] Jessica Butler MD 420 [facility] 98 [place] [address] documented as of this encounter Procedures Procedure Name Priority Date/Time Associated Diagnosis Comments MA PATCH TESTS, EACH Routine 04/21/2025 11:10 AM CDT Dermatitis of lip Lip swelling Allergic dermatitis due to other chemical product documented in this encounter Visit Diagnoses Diagnosis Dermatitis of lip- Primary Lip swelling Diseases of lips Chronic idiopathic urticaria Idiopathic urticaria Atopy Other allergy, other than to medicinal agents Allergic dermatitis due to other chemical product documented in this encounter Additional Health Concerns Assessment Noted Time PHQ-9 Depression Total Score: 2 10/15/19 23 2:22 PM CDT documented as of this encounter Care Teams Cloth Opener Hand Relationship Specialty Start Date End Date Nanci Villalba MD [address] [facility] [place] [address] PCP - General Internal Medicine 06/01/19 Remi Camacho MD 420 [facility] 136 [place] [address] Dermatology 08/28/16 Alexis Vargas MD [address] [place] [address] Dermatology 07/14/17 Cecilio Velasco DPM 909 [place] [address] Podiatry 12/31/17 Johnny Gauthier MD [address] [place] [address] Family Medicine - Sports Medicine 08/20/18 Alpa Max PA-C 420 [facility] 98 [place], [place] [address] Physician Line Assembler Physician Line Assembler 08/28/18 Ayana Fuller MD 606 [facility] [address] [phone] die tripper 12/01/18 Ayana Fuller MD 606 [facility] [address] [phone] Assigned OBGYN Provider 05/19/20 Nanci Villalba MD [address] [place] [address] [id number] Assigned PCP 12/21/20 Abdirizak Dowd MD [address] [place] [address] 718365 Dermatology 08/09/21 Abdirizak Dowd MD [address] [place] [address] 348245 Dermatology 12/21/21 Jessica Butler MD [address] [address] Dermatology 02/21/23 Ayana Fuller MD [address] [facility] [address] [phone] die tripper 02/24/23 Ashwin Franklin MD [address] [place] [address] Dermatology 09/17/24 Jessica Butler MD [address] [place] [address] 98 [place] [address] Assigned Dermatology Provider 03/19/25 documented as of this encounter
[2025-04-27 04:57] VITALS: BP 167/98; PULSE 67; RESP 20; TEMP 37; O2SAT 97; BMI 34.8
--- NOTE | 2025-04-27 05:11 | ED.GENADULT ---
HPI - General Adult General Chief complaint: Unspecified Complaint, Adult Stated complaint: swollen tongue Time Seen by Provider: 04/27/25 05:11 History of Present Illness HPI narrative: Pt arrives for evaluation of tongue swelling . Patient states that she woke up around 2am for evaluation of left sided tongue swelling . She states that she thought she bit her tongue and went back to bed and then woke up around 4am and it was more swollen. Patient was seen 04/06/25 for lip swelling. Then 2 weeks ago she states she had chin swelling but her wastewater design engineer was unimpressed by. Patient states that she is currently taking Vitamin E and D, Calcium, Magnesium, and Zinc. No new foods or interactions. 59-year-old woman presenting to the emergency department with concern a swollen tongue. Tongue is better than it was about an hour and half ago. No difficulty breathing. Seen here in this emergency department with angioedema involving swelling limited to her lips approximately 20 days ago. Was treated with diphenhydramine and recommended to continue with cetirizine. History of episode also where her face was swelling and was on a long low dose steroid course. No cause identified. Facilities Plant Engineer suggested that if this happens again then she began keeping a journal. She does recall having a peanut butter multitude milk ball around the lip episode half a day before that happened and some peanuts? also prior to this but many many hours before Related Data Allergies Allergy/AdvReac Type Severity Reaction Status Date / Time Penicillins Allergy Intermediate Verified 04/27/25 04:57 Review of Systems Status of ROS: Reports: 6 or more systems reviewed and unremarkable except as noted in History and below PFSH [facility] Social History Do you use any of these nicotine containing products: None How often do you have a drink containing alcohol: never AUDIT-C Alcohol total score: 0 Non-prescribed substance use: denies use Exam Narrative: Exam Narrative: Pleasant. NAD. No stridor. Skin is warm dry without apparent rash. Neck is supple without lymphadenopathy. Lungs are clear. Heart in regular rate and rhythm. Notably and specifically moderately swollen left anterior half of her tongue. No indication of injury. Speech is slightly affected. Const: Vital Signs, click to edit/add: Vital Signs - 24 hr 04/27/25 04:57 Temperature 98.6 F Pulse Rate [Pulse Oximeter] 67 Respiratory Rate 20 Blood Pressure [Ri ght Upper Arm] 167/98 H Pulse Oximetry 97 Oxygen Delivery Me thod Room Air Documenting provider has reviewed patient's vital signs: yes Course Vital Signs Vital signs: Initial Vital Signs Temperature 98.6 F 04/27/25 04:57 Temperature Source Temporal Artery Scan 04/27/25 04:57 Pulse Rate 67 04/27/25 04:57 Pulse Rhythm Regular 04/27/25 04:57 Pulse Strength 3+ Normal 04/27/25 04:57 Respiratory Rate 20 04/27/25 04:57 Blood Pressure 167/98 H 04/27/25 04:57 Blood Pressure Mean 121 H 04/27/25 04:57 Blood Pressure Position Sitting 04/27/25 04:57 Pulse Oximetry 97 04/27/25 04:57 Oxygen Delivery Method Room Air 04/27/25 04:57 Vital Signs Temperature 98.6 F 04/27/25 04:57 Pulse Rate 67 04/27/25 04:57 Respiratory Rate 20 04/27/25 04:57 Blood Pressure 167/98 H 04/27/25 04:57 Pulse Oximetry 97 04/27/25 04:57 Oxygen Delivery Method Room Air 04/27/25 04:57 Temperature 98.6 F 04/27/25 04:57 Pulse Rate 67 04/27/25 04:57 Respiratory Rate 20 04/27/25 04:57 Blood Pressure 167/98 H 04/27/25 04:57 Pulse Oximetry 97 04/27/25 04:57 Oxygen Delivery Method Room Air 04/27/25 04:57 Medications Administered Medications: Discontinued Medications Generic Name Dose Route Start Last Admin Trade Name Carmita PRN Reason Stop Dose Admin Famotidine 20 mg 04/27/25 05:41 04/27/25 05:53 Famotidine 20 Mg Tablet PO 04/27/25 05:42 20 mg ONCE ONE Administration Prednisone 60 mg 04/27/25 05:25 04/27/25 05:29 Prednisone 20 Mg Tablet PO 04/27/25 05:26 60 mg ONCE ONE Administration Medical Decision Making MDM Narrative Medical decision making narrative: I am not sure this qualifies as typical angioedema in this case. This event appears to be stable to improving but would like to monitor further. Do not think is evidence of any infectious etiology no requires imaging her neck or naso oropharynx. Such a specifically localized swelling does make one wonder if there had been bite or a nip that may have triggered the localized swelling. Prudent to treat as allergic reaction, angioedema however. Dose of diphenhydramine already taken. I would add prednisone and famotidine here in the ER and monitor. No further events during time monitoring in the emergency department. Overall improved. Though some swelling still remains. I think safe for discharge. See patient discharge plan for further discussion I do not know if this swelling today represents true angioedema. As I said, will treat bluntly at this point with a continued, but brief course of prednisone. Can take diphenhydramine for breakthrough itch or rash should that occur. If having sensation of throat tightening or any indication of difficulty breathing, would dose again with diphenhydramine and present to the emergency department. Stay well-hydrated. As you struggled with heartburn with prednisone before, consider taking 20 mg of famotidine twice daily during the course of prednisone. Might be helpful to begin keeping that journal. Prescribing brief course of prednisone from [facility] Medical Records Medical records reviewed: Yes I reviewed the patient's medical records Discharge Plan Discharge Clinical Impression: Tongue swelling Patient Disposition: Home, Self-Care Condition: Improved Additional Instructions: I do not know if this swelling today represents true angioedema. As I said, will treat bluntly at this point with a continued, but brief course of prednisone. Can take diphenhydramine for breakthrough itch or rash should that occur. If having sensation of throat tightening or any indication of difficulty breathing, would dose again with diphenhydramine and present to the emergency department. Stay well-hydrated. As you struggled with heartburn with prednisone before, consider taking 20 mg of famotidine twice daily during the course of prednisone. Might be helpful to begin keeping that journal. Prescribing brief course of prednisone from [facility] Follow Up/Referrals: Provider,Not a Local [Primary Care Provider, Family Practice] Stand Alone Forms: [employer] Info Instructions
[2025-04-27] MEDS: FAMOTIDINE 20 MG TABLET PO (05:53)
--- OUTSIDE RECORDS SUMMARY | 2025-04-27 06:07 | XMS_ITS | Encounter Summary ---
Author Organization [facility] Address [address] [place] [address] Care Team Providers Care Dowel Inspector Name Role Phone Remi Camacho MD Unavailable [phone] Alexis Vargas MD Unavailable [phone] Cecilio Velasco DPM Unavailable [phone] Johnny Gauthier MD Unavailable [phone] Alpa Max PA-C Unavailable Ayana Fuller MD Unavailable [phone] Nanci Villalba MD Primary Care Provider Ayana Fuller MD Unavailable [phone] Ashwin Franklin MD Unavailable [phone] Magda Goode MD Unavailable [phone] Nanci Villalba MD Unavailable [phone] Abdirizak Dowd MD Unavailable [phone] Abdirizak Dowd MD Unavailable [phone] Abdirizak Dowd MD Unavailable [phone] Jessica Butler MD Unavailable [phone] Ayana Fuller MD Unavailable [phone] Loli LouisM, Podiatry /Foot and Ankle Surgery Unavailable Jessica Butler MD Unavailable [phone] Ashwin Franklin MD Unavailable [phone] Valeria Sullivan PA-C Unavailable [phone] Jessica Butler MD Unavailable [phone] Encounter Details Date Type Department Care Team (Late st Contact Info) Description 08/25/2021 MyC Medical Advice [address] [place] [address] Solange Stoddard, PT [facility] [address] [place] [address] Social History Tobacco Use Types [...] on file Legal Sex Female 3:34 AM COOK CHEF Gender Identity Not on file Sexual Orientation Not on file Occupation Industry Job Start Date Job End Date Unemployed Not on file Not on file Not on file COVID-19 Exposure Response Date Recorded In the last month, have you been in contact with someone who was confirmed or suspected to have Coronavirus / COVID-19? Unable to assess 08/09/2021 9:59 AM COOK CHEF documented as of this encounter Plan of Treatment Upcoming Encounters Date Type Department Care Team (Late st Contact Info) Description 05/24/2025 8:15 AM CDT Office Visit [facility] Women's [facility] [address]rd Floor,[address] [place] Professional Bldg [facility] 88 [place] [phone] Ayana Fuller MD [address] [facility] 300 [place], [place] [address] 05/31/2025 9:30 AM COOK CHEF Office Visit [facility] Allergy Clinic [address] [address] Ashwin Franklin MD [address] [place] [address] 586535 09/05/2025 9:45 AM COOK CHEF Office Visit [facility] Dermatology [facility] [place] [address] [place] [address] 3rd [place] [phone] Jessica Butler MD [address] [place] [address] 98 [place], [place] 560675 documented as of this encounter Visit Diagnoses Not on filedocumented in this encounter Additional Health Concerns Assessment Noted Time PHQ-9 Depression Total Score: 2 02/29/20 21 1:38 PM CDT documented as of this encounter Care Teams Dowel Inspector Relationship Specialty Start Date End Date Nanci Villalba MD [address] [place] [address] S [facility] [place], [place] [address] PCP - General Internal Medicine 06/01/19 Remi Camacho MD 420 [facility] 136 [place], [place] [address] Dermatology 08/28/16 Alexis Vargas MD 2450 [place] [address] Dermatology 07/14/17 Cecilio Velasco DPM 909 [place], [place] 18[address] Podiatry 12/31/17 Johnny Gauthier MD 25[address] [facility] [address] [place], [place] 9[address]684 Family Medicine - Sports Medicine 08/20/18 Alpa Max PA-C 420 [facility] 98 [place], [place] 104375 Physician Automation Technician Physician Automation Technician 08/28/18 Ayana Fuller MD [address] [facility] 300 [place], [place] 7065[address] customer services manager 12/01/18 Ayana Fuller MD [address] [place], [place] 8[address]884 Assigned OBGYN Provider 05/19/20 Ashwin Franklin MD 909 [place] [address] Assigned Surgical Provider 05/19/20 03/22/22 Magda Goode MD [address] [place] [address] Assigned Musculoskeletal Provider 10/01/20 01/03/23 Nanci Villalba MD [address] [place] [address] [place] [address] Assigned PCP 12/21/20 Abdirizak Dowd MD [address] [place] [address] 899815 Dermatology 08/09/21 Abdirizak Dowd MD [address] [place] [address] Dermatology 12/21/21 Abdirizak Dowd MD [address] [place] [address] 911455 Assigned Surgical Provider 03/23/22 02/16/24 Jessica Butler MD [address] [address] Dermatology 02/21/23 Ayana Fuller MD 606 [facility] 300 [place] [address] customer services manager 02/24/23 Loli Louis, DPM, Podiatry/Foot and Ankle Surgery [address] [place] [address] [address] Assigned Musculoskeletal Provider 09/19/23 03/18/25 Jessica Butler MD [address] [address] Assigned Surgical Provider 02/17/24 10/16/24 Ashwin Franklin MD [address] [place] [address] Dermatology 09/17/24 Valeria Sullivan PACassieC Dermatology [address] [place] [address] Assigned Dermatology Provider 10/17/24 03/18/25 Jessica Butler MD [address] [address] Assigned Dermatology Provider 03/19/25 documented as of this encounter
--- OUTSIDE RECORDS SUMMARY | 2025-04-27 06:07 | XMS_ITS | Encounter Summary ---
Author Organization [place] Address [address] [place] [address] Care Team Providers Care Powerhouse Attendant Name Role Phone Remi Camacho MD Unavailable Alexis Vargas MD Unavailable Cecilio VelascoM Unavailable [phone] Johnny Gauthier MD Unavailable Alpa Max PA-C Unavailable Ayana Fuller MD Unavailable [phone] Nanci Villalba MD Primary Care Provider Ayana Fuller MD Unavailable [phone] Nanci Villalba MD Unavailable [phone] Abdirizak Dowd MD Unavailable Abdirizak Dowd MD Unavailable [phone] Jessica Butler MD Unavailable Ayana Fuller MD Unavailable [phone] Loli Louis DPM, Podiatry /Foot and Ankle Surgery Unavailable Jesscia Butler MD Unavailable [phone] Ashwin Franklin MD Unavailable [phone] Valeria Sullivan PA-C Unavailable [phone] Jessica Butler MD Unavailable [phone] Encounter Details Date Type Department Care Team [...] in an abandoned building, in an overnight fdc, or couch-surfing.) Yes 06/08/2023 Are you worried [...] on file Legal Sex Female 3:34 AM PHOTOGRAPHER PORTRAIT Gender Identity Not on file Sexual Orientation Not on file Occupation Industry Job Start Date Job End Date Unemployed Not on file Not on file Not on file documented as of this encounter Plan of Treatment Upcoming Encounters Date Type Department Care Team (Late st Contact Info) Description 05/24/2025 8:15 AM CDT Office Visit [facility] [address] [place] [address] 3rd Floor,[address] [place] Professional Bldg [facility] 88 [place] [phone] Ayana Fuller MD [facility] 300 [place], [place] [address] 05/31/2025 9:30 AM PHOTOGRAPHER PORTRAIT Office Visit [facility] Allergy Clinic [address] [address] Ashwin Franklin MD [address] [place] [address] 686875 09/05/2025 9:45 AM PHOTOGRAPHER PORTRAIT Office Visit [facility] Dermatology Clinic [address]rd [place] [phone] Jessica Butler MD 420 [facility] 98 [place], [place] [address] documented as of this encounter Visit Diagnoses Not on filedocumented in this encounter Additional Health Concerns Assessment Noted Time PHQ-9 Depression Total Score: 2 10/15/19 23 2:22 PM CDT documented as of this encounter Care Teams Powerhouse Attendant Relationship Specialty Start Date End Date Nanci Villalba MD [address] [place] [address] [phone] PCP - General Internal Medicine 06/01/19 Remi Camacho MD 420 [facility] 136 [place], [place] [address] Dermatology 08/28/16 Alexis Vargas MD 2450 [place], [place] 3[address] Dermatology 07/14/17 Cecilio Velasco DPM 909 [place], [place] [address] Podiatry 12/31/17 Johnny Gauthier MD [facility] [address] [place], [place] [address] Family Medicine - Sports Medicine 08/20/18 Alpa Max PA-C 420 [facility] 98 [place], [place] [address] Physician Machine Folder Physician Machine Folder 08/28/18 Ayana Fuller MD [address] [facility] 300 [place], [place] [address] media liaison officer 12/01/18 Ayana Fuller MD [address] [facility] 300 [place] [address] Assigned OBGYN Provider 05/19/20 Nanci Villalba MD [address] [place] [address] A [place], [place] 479[address] Assigned PCP 12/21/20 Abdirizak Dowd MD [address] [place] [address] 236765 Dermatology 08/09/21 Abdirizak Dowd MD [address] [place] [address] Dermatology 12/21/21 Jessica Butler MD [address] [place] [address] Dermatology 02/21/23 Ayana Fuller MD [address] [place] [address] media liaison officer 02/24/23 Loli Louis DPJean, Podiatry/Foot and Ankle Surgery [address] [address] Assigned Musculoskeletal Provider 09/19/23 03/18/25 Jessica Butler MD [address] [address] Assigned Surgical Provider 02/17/24 10/16/24 Ashwin Franklin MD [address] [place] [address] 017465 Dermatology 09/17/24 Valeria Sullivan PACassieC Dermatology [address] [place] [address] Assigned Dermatology Provider 10/17/24 03/18/25 Jessica Butler MD [address] [place] [address] 250305 Assigned Dermatology Provider 03/19/25 documented as of this encounter
--- OUTSIDE RECORDS SUMMARY | 2025-04-27 06:07 | XMS_ITS | Encounter Summary ---
Author Organization [place] Address [address] [place] [address] Care Team Providers Care Hemp Fiber Taker Off Name Role Phone Remi Camacho MD Unavailable [phone] Alexis Vargas MD Unavailable +[phone] Cecilio Velasco DPM Unavailable +[phone] Johnny Gauthier MD Unavailable +[phone] Alpa Max PA-C Unavailable Ayana Fuller MD Unavailable +[phone] Nanci Villalba MD Primary Care Provider Ayana Fuller MD Unavailable +[phone] Ashwin Franklin MD Unavailable +[phone] aMgda Goode MD Unavailable +[phone] Nanci Villalba MD Unavailable +[phone] Abdirizak Dowd MD Unavailable +[phone] Abdirizak Dowd MD Unavailable +[phone] Abdirizak Dowd MD Unavailable +[phone] Jessica Butler MD Unavailable +[phone] Ayana Fuller MD Unavailable +[phone] Loli LouisM, Podiatry /Foot and Ankle Surgery Unavailable Jessica Butler MD Unavailable +[phone] Ashwin Franklin MD Unavailable +[phone] Valeria Sullivan PA-C Unavailable +[phone] Jessica Butler MD Unavailable +[phone] Encounter Details Date Type Department Care Team (Late st Contact Info) Description 12/12/2021 MyC Medical Advice M [facility] [address] [place] [address] Nanci Villalba MD [address] [place] [address] Social History Tobacco Use Types Packs/Day [...] on file 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 Sex Female 3:34 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 Gender Identity Not on file Sexual [...] Description 05/24/2025 8:15 AM CDT Office Visit [facility] [employer] [address] 3rd Floor,[address] [place] [facility] 88 [place] [phone] Ayana Fuller MD [address] [facility] 300 [place], [place] [address] 05/31/2025 9:30 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 Office Visit [facility] [address] [address] Ashwin Franklin MD [address] [place] [address] 786245 09/05/2025 9:45 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 Office Visit [facility] D[facility]atology Clinic [address] 3rd [place] [phone] Jessica Butler MD [address] [place] [address] 98 [place], [place] [address]45 documented as of this encounter Visit Diagnoses Not on filedocumented in this encounter Additional Health Concerns Assessment Noted Time PHQ-9 Depression Total Score: 2 02/29/20 21 1:38 PM CDT documented as of this encounter Care Teams Hemp Fiber Taker Off Relationship Specialty Start Date End Date Nanci Villalba MD [address] [place] [address] S [facility] [place], [place] 04[address]65 PCP - General Internal Medicine 06/01/19 Remi Camacho MD 420 [facility] 136 [place], [place] 9[address]24 Dermatology 08/28/16 Alexis Vagras MD 2450 [place] [address] Dermatology 07/14/17 Cecilio Velasco DPM 909 [place], [place] 0[address] Podiatry 12/31/17 Johnny Gauthier MD [address] [facility] [address] [place], [place] 207694 Family Medicine - Sports Medicine 08/20/18 Alpa Max PA-C 420 [facility] 98 [place], [place] [address]75 Physician Nursing Secretary Physician Nursing Secretary 08/28/18 Ayana Fuller MD [address] [facility] 300 [place], [place] [address]894 bandsaw operator 12/01/18 Ayana Fuller MD [address] [place] [address] [place], [place] 872314 Assigned OBGYN Provider 05/19/20 Ashwin Franklin MD 909 [place] [address] Assigned Surgical Provider 05/19/20 03/22/22 Magda Goode MD [address] [place] [address] Assigned Musculoskeletal Provider 10/01/20 01/03/23 Nanci Villalba MD [address] [place] [address] [place] [address] Assigned PCP 12/21/20 Abdirizak Dowd MD [address] [place] [address] 173675 Dermatology 08/09/21 Abdirizak Dowd MD [address] [place] [address] Dermatology 12/21/21 Abdirizak Dowd MD [address] [place] [address] 476275 Assigned Surgical Provider 03/23/22 02/16/24 Jessica Butler MD [address] [address] Dermatology 02/21/23 Ayana Fuller MD 606 [facility] 300 [place] [address] bandsaw operator 02/24/23 Loli Louis, DPM, Podiatry/Foot and Ankle Surgery [address] [place] [address] [address] Assigned Musculoskeletal Provider 09/19/23 03/18/25 Jessica Butler MD [address] [address] Assigned Surgical Provider 02/17/24 10/16/24 Ashwin Franklin MD [address] [place] [address] Dermatology 09/17/24 Valeria Sullivan PACassieC Dermatology [address] [place] [address] Assigned Dermatology Provider 10/17/24 03/18/25 Jessica Butler MD [address] [address] Assigned Dermatology Provider 03/19/25 documented as of this encounter
--- OUTSIDE RECORDS SUMMARY | 2025-04-27 06:07 | XMS_ITS | Encounter Summary ---
Author Organization [place] Address [address] [place] [address] Care Team Providers Care Front End Mechanic Name Role Phone Remi Camacho MD Unavailable Alexis Vargas MD Unavailable [phone] Cecilio Velasco DPM Unavailable [phone] Johnny Gauthier MD Unavailable +[phone] Alpa Max PA-C Unavailable Ayana Fuller MD Unavailable +[phone] Nanci Villalba MD Primary Care Provider Ashwin Franklin MD Unavailable +[phone] Magda Goode MD Unavailable +[phone] Ayana Fuller MD Unavailable +[phone] Ashwin Franklin MD Unavailable +[phone] Cecilio Velasco DPM Unavailable +[phone] Nanci Villalba MD Unavailable +[phone] Magda Goode MD Unavailable +[phone] Nanci Villalba MD Unavailable +[phone] Abdirizak Dowd MD Unavailable +[phone] Abdirizak Dowd MD Unavailable +[phone] Abdirizak Dowd MD Unavailable +[phone] Jessica Butler MD Unavailable +[phone] Aynaa Fuller MD Unavailable +[phone] Loli LouisM, Podiatry /Foot and Ankle Surgery Unavailable Jessica Butler MD Unavailable +[phone] Ashwin Franklin MD Unavailable +[phone] Valeria Sullivan PA-C Unavailable +[phone] Jessica Butler MD Unavailable +[phone] Encounter Details Date Type Department Care Team (Late st Contact Info) Description 11/02/2019 MyC Medical Advice [facility] [address] 3rd Floor,[address] [place] [facility] 88 [place] [address] Ayana Fuller MD [address] [place] [address] [place] [address] Social History Tobacco Use Types [...] file Legal Sex Female 3:34 AM TRANSFER PUMPER Gender Identity Not on file Sexual Orientation Not on file Occupation Industry Job Start Date Job End Date Unemployed Not on file Not on file Not on file documented as of this encounter Plan of Treatment Upcoming Encounters Date Type Department Care Team (Late st Contact Info) Description 05/24/2025 8:15 AM CDT Office Visit [facility] [address]rd Floor,[address] [place] [facility] 88 [place] [phone] Ayana Fuller MD [address] [facility] 300 [place], [place] [address] 05/31/2025 9:30 AM TRANSFER PUMPER Office Visit [facility] [place] [address] [place] [phone] Ashwin Franklin MD [address] [place] [address] 902845 09/05/2025 9:45 AM TRANSFER PUMPER Office Visit [facility] D[facility]ology Clinic [address] 3rd [place] [phone] Jessica Butler MD 420 [facility] 98 [place], [place] [address] documented as of this encounter Visit Diagnoses Not on filedocumented in this encounter Additional Health Concerns Assessment Noted Time PHQ-9 Depression Total Score: 2 08/02/19 20 1:35 PM TRANSFER PUMPER documented as of this encounter Care Teams Front End Mechanic Relationship Specialty Start Date End Date Nanci Villalba MD [address] [facility] [place] [address] PCP - General Internal Medicine 06/01/19 Remi Camacho MD 420 [facility] 136 [place], [place] 882984 Dermatology 08/28/16 Alexis Vargas MD 2450 [place] [address] Dermatology 07/14/17 Cecilio Velasco DPM 909 [place] [address] Podiatry 12/31/17 Johnny Gauthier MD [address] [place] [address] Family Medicine - Sports Medicine 08/20/18 Alpa Max PA-C [address] [place] [address] [facility] 98 [place], [place] 137835 Physician Crnp Physician Crnp 08/28/18 Ayana Fuller MD [address] 603284 business solutions analyst 12/01/18 Ashwin Franklin MD [address] [place] [address] 736375 Assigned Pediatric Specialist Provider 05/19/20 08/27/20 Magda Goode MD [address] [place] [address] Assigned Musculoskeletal Provider 05/19/20 08/19/20 Ayana Fuller MD [address] 516454 Assigned OBGYN Provider 05/19/20 Ashwin Franklin MD [address] [place] [address] Assigned Surgical Provider 05/19/20 03/22/22 Cecilio Velasco DPM [address] [place] [address] Assigned Musculoskeletal Provider 08/20/20 09/30/20 Nanci Villalba MD [address] [place] [address] Assigned PCP 09/10/20 11/04/20 Magda Goode MD [address] [place] [address] Assigned Musculoskeletal Provider 10/01/20 01/03/23 Nanci Villalba MD [address] [place] [address] Assigned PCP 12/21/20 Abdirizak Dowd MD [address] [place] [address] 052665 Dermatology 08/09/21 Abdirizak Dowd MD [address] [place] [address] 918115 Dermatology 12/21/21 Abdirizak Dowd MD [address] [place] [address] Assigned Surgical Provider 03/23/22 02/16/24 Jessica Butler MD [address] [place] [address] Dermatology 02/21/23 Ayana Fuller MD [address] [place] [place] [address] business solutions analyst 02/24/23 Loli Louis DPM, Podiatry/Foot and Ankle Surgery [address] [facility] 300 [place] [address] Assigned Musculoskeletal Provider 09/19/23 03/18/25 Jessica Butler MD 420 [facility] 98 [place] [address] Assigned Surgical Provider 02/17/24 10/16/24 Ashwin Franklin MD [address] [place] [address] Dermatology 09/17/24 Valeria Sullivan PA-C Dermatology [address] [place] [address] Assigned Dermatology Provider 10/17/24 03/18/25 Jessica Butler MD 420 [facility] 98 [place] [address] Assigned Dermatology Provider 03/19/25 documented as of this encounter
--- OUTSIDE RECORDS SUMMARY | 2025-04-27 06:07 | XMS_ITS | Encounter Summary ---
Author Organization [place] Address [address] [place] [address] Care Team Providers Care Program Director Group Work Name Role Phone Remi Camacho MD Unavailable Alexis Vargas MD Unavailable [phone] Cecilio Velasco DPM Unavailable [phone] Johnny Gauthier MD Unavailable +[phone] Alpa Max PA-C Unavailable [phone] Ayana Fuller MD Unavailable [phone] Nanci Villalba MD Primary Care Provider Ashwin Franklin MD Unavailable +[phone] Magda Goode MD Unavailable +[phone] Ayana Fuller MD Unavailable +[phone] Ashwin Franklin MD Unavailable [phone] Cecilio Velasco DPM Unavailable [phone] Nanci Villalba MD Unavailable [phone] Magda Goode MD Unavailable +[phone] Nanci Villalba MD Unavailable [phone] Abdirizak Dowd MD Unavailable +[phone] Abdirizak Dowd MD Unavailable +[phone] Abdirizak Dowd MD Unavailable +[phone] Jessica Butler MD Unavailable +[phone] Ayana Fuller MD Unavailable [phone] Loli LouisM, Podiatry /Foot and Ankle Surgery Unavailable Jessica Butler MD Unavailable +[phone] Ashwin Franklin MD Unavailable +[phone] Valeria Sullivan PA-C Unavailable +[phone] Jessica Butler MD Unavailable [phone] Encounter Details Date Type Department Care Team (Late st Contact Info) Description 11/02/2019 MyC Medical Advice [facility] [address] [address] Solange Stoddard, PT [facility] [address]01 [place] [address] Social History Tobacco Use Types Packs/Day Years Used Date Smoking Tobacco: Never Smokeless Tobacco: Never Alcohol Use Standard Drinks/Week Comments No 0 (1 standard drink = 0.6 oz pur e alcohol) Glasses Wine PHQ-2 Answer Date Recorded PHQ-2 Score 0 05/31/2019 Comments No Sex and Gender Information Value Date Recorded Sex Assigned at Not on file Legal Sex Female 3:34 AM DISK SHARPENER Gender Identity Not on file Sexual Orientation Not on file Occupation Industry Job Start Date Job End Date Unemployed Not on file Not on file Not on file documented as of this encounter Plan of Treatment Upcoming Encounters Date Type Department Care Team (Late st Contact Info) Description 05/24/2025 8:15 AM CDT Office Visit [facility] [place] [address]rd Floor,[address] [place] Professional [facility]ldg [facility] 88 [place] [phone] Ayana Fuller MD [address] [facility] 300 [place], [place] [address] 05/31/2025 9:30 AM DISK SHARPENER Office Visit [facility] Allergy Clinic [place] [address] [place] [phone] Ashwin Franklin MD 909 [place], [place] 3[address]25 09/05/2025 9:45 AM DISK SHARPENER Office Visit [facility] Dermatology [address]rd [place] [phone] Jessica Butler MD 420 [facility] 98 [place], [place] 833265 documented as of this encounter Visit Diagnoses Not on filedocumented in this encounter Additional Health Concerns Assessment Noted Time PHQ-9 Depression Total Score: 2 08/02/19 20 1:35 PM DISK SHARPENER documented as of this encounter Care Teams Program Director Group Work Relationship Specialty Start Date End Date Nanci Villalba MD [address] [place] [address] A [place], [place] [address] PCP - General Internal Medicine 06/01/19 Remi Camacho MD 420 [facility] 136 [place], [place] 47[address] Dermatology 08/28/16 Alexis Vargas MD 2450 [place] [address] Dermatology 07/14/17 Cecilio Velasco DPM 909 [place] [address] Podiatry 12/31/17 Johnny Gauthier MD [facility] [address] [place] [address] Family Medicine - Sports Medicine 08/20/18 Alpa Max PA-C [address] [place] [address] SE [facility] 98 [place], [place] 9[address] Physician Schedule Manager Physician Schedule Manager 08/28/18 Ayana Fuller MD [address] [place] [address] [place], [place] 756454 apprise counselor 12/01/18 Ashwin Franklin MD [address] [place] [address] 232535 Assigned Pediatric Specialist Provider 05/19/20 08/27/20 Magda Goode MD 9 [place] [address] Assigned Musculoskeletal Provider 05/19/20 08/19/20 Ayana Fuller MD [address] [place] [address] [place], [place] [address]884 Assigned OBGYN Provider 05/19/20 Ashwin Franklin MD [address] [place] [address] Assigned Surgical Provider 05/19/20 03/22/22 Cecilio Velasco DPM [address] [place] [address] Assigned Musculoskeletal Provider 08/20/20 09/30/20 Nanci Villalba MD [address] [place] [address] Assigned PCP 09/10/20 11/04/20 Magda Goode MD [address] [place] [address] Assigned Musculoskeletal Provider 10/01/20 01/03/23 Nanci Villalba MD [address] [place] [address] 550355 Assigned PCP 12/21/20 Abdirizak Dowd MD [address] [place] [address] 066225 Dermatology 08/09/21 Abdirizak Dowd MD [address] [place] [address] 205955 Dermatology 12/21/21 Abdirizak Dowd MD [address] [place] [address] Assigned Surgical Provider 03/23/22 02/16/24 Jessica Butler MD [address] [place] [address] 98 [place] [address] Dermatology 02/21/23 Ayana Fuller MD [address] [place] [address] apprise counselor 02/24/23 Loli Louis DPM, Podiatry/Foot and Ankle Surgery [address] [place] [facility] 300 [place] [address] Assigned Musculoskeletal Provider 09/19/23 03/18/25 Jessica Butler MD [address] [address] Assigned Surgical Provider 02/17/24 10/16/24 Ashwin Franklin MD [address] [place] [address] Dermatology 09/17/24 Valeria Sullivan, PA-C Dermatology [address] [place] [address] Assigned Dermatology Provider 10/17/24 03/18/25 Jessica Butler MD [address] [address] Assigned Dermatology Provider 03/19/25 documented as of this encounter
--- OUTSIDE RECORDS SUMMARY | 2025-04-27 06:07 | XMS_ITS | Encounter Summary ---
Author Organization [place] Address [address] [facility] [place] [address] Care Team Providers Care Maintenance Manager Name Role Phone Remi Camacho MD Unavailable [phone] Alexis Vargas MD Unavailable Cecilio VelascoM Unavailable [phone] Johnny Gauthier MD Unavailable +[phone] Alpa Max PA-C Unavailable [phone] Ayana Fuller MD Unavailable +[phone] Nanci Villalba MD Primary Care Provider Ayana Fuller MD Unavailable +[phone] Nanci Villalba MD Unavailable [phone] Abdirizak Dowd MD Unavailable Abdirizak Dowd MD Unavailable +[phone] Jsesica Butler MD Unavailable Ayana Fuller MD Unavailable [phone] Loli Louis DPM, Podiatry /Foot and Ankle Surgery Unavailable Jessica Butler MD Unavailable +[phone] Ashwin Franklin MD Unavailable +[phone] Valeria Sullivan PA-C Unavailable [phone] Jessica Butler MD Unavailable [phone] Encounter Details Date Type Department Care Team (Late st Contact Info) Description 07/04/2024 MyC Medical Advice [facility] [place] [address] [facility], [place] [address] Nanci Villalba MD [facility] [address] [facility] [place] [address] Social History Tobacco Use Types [...] in an overnight longterm, or couch-surfing.) Yes 04/27/2024 Are you worried [...] on file 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 Sex Female 3:34 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 Gender Identity Not on file Sexual Orientation Not on file Occupation Industry Job Start Date Job End Date Unemployed Not on file Not on file Not on file documented as of this encounter Plan of Treatment Upcoming Encounters Date Type Department Care Team (Late st Contact Info) Description 05/24/2025 8:15 AM CDT Office Visit [facility] Women's [address] 3rd Floor,[address] [place] [facility] 88 [place] [phone] Ayana Fuller MD [address] [place] [address] 300 [place], [place] [address]754 05/31/2025 9:30 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 Office Visit [facility] Allergy Clinic [address] [phone] Ashwin Franklin MD [address] [place] [address] 640925 09/05/2025 9:45 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 Office Visit [facility] Dermatology Clinic [address]rd [place] [address] Jessica Butler MD [address] [place] [address] 98 [place], [place] 527675 documented as of this encounter Visit Diagnoses Not on filedocumented in this encounter Additional Health Concerns Assessment Noted Time PHQ-9 Depression Total Score: 2 10/15/19 23 2:22 PM CDT documented as of this encounter Care Teams Maintenance Manager Relationship Specialty Start Date End Date Nanci Villalba MD 901 [facility] [place] [address] PCP - General Internal Medicine 06/01/19 Remi Camacho MD 420 [facility] 136 [place] [address] Dermatology 08/28/16 Alexis Vargas MD 2450 [place] [address] Dermatology 07/14/17 Cecilio Velasco DPM 909 [place] [address] Podiatry 12/31/17 Johnny Gauthier MD [address] [place] [address] Family Medicine - Sports Medicine 08/20/18 Alpa Max PA-C 420 [facility] 98 [place] [address] Physician Remote Inpatient Coder Physician Remote Inpatient Coder 08/28/18 Ayana Fuller MD [address] [facility] 300 [place], [place] [address] assurance engineer 12/01/18 Ayana Fuller MD 606 [facility] [address] [facility] 300 [place], [place] 392794 Assigned OBGYN Provider 05/19/20 Nanci Villalba MD [address] [place] [address] Assigned PCP 12/21/20 Abdirizak Dowd MD [address] [place] [address] Dermatology 08/09/21 Abdirizak Dowd MD [address] [place] [address] 901225 Dermatology 12/21/21 Jessica Butler MD [address] [place] [address] Dermatology 02/21/23 Ayana Fuller MD [address] 704674 assurance engineer 02/24/23 Loli Louis DPM, Podiatry/Foot and Ankle Surgery [address] [facility] 300 [place], [place] 138167 Assigned Musculoskeletal Provider 09/19/23 03/18/25 Jessica Butler MD [address] [address] Assigned Surgical Provider 02/17/24 10/16/24 Ashwin Franklin MD [address] [place] [address] Dermatology 09/17/24 Valeria Sullivan PA-C Dermatology [address] [place] [address] Assigned Dermatology Provider 10/17/24 03/18/25 Jessica Butler MD [address] [place] [address] Assigned Dermatology Provider 03/19/25 documented as of this encounter
--- OUTSIDE RECORDS SUMMARY | 2025-04-27 06:07 | XMS_ITS | Encounter Summary ---
Author Organization [place] Address [address] [facility] [place] [address] Care Team Providers Care Obgyn Hospitalist Physician Name Role Phone Remi Camacho MD Unavailable Alexis Vargas MD Unavailable [phone] Cecilio VelascoM Unavailable [phone] Johnny Gauthier MD Unavailable Alpa Max PA-C Unavailable Ayana Fuller MD Unavailable [phone] Nanci Villalba MD Primary Care Provider Ayana Fuller MD Unavailable [phone] Nanci Villalba MD Unavailable [phone] Abdirizak Dowd MD Unavailable Abdirizak Dowd MD Unavailable [phone] Jessica Butler MD Unavailable Ayana Fuller MD Unavailable [phone] Loli Louis DPM, Podiatry /Foot and Ankle Surgery Unavailable Jessica Butler MD Unavailable [phone] Ashwin Franklin MD Unavailable [phone] Valeria Sullivan PA-C Unavailable [phone] Jessica Butler MD Unavailable [phone] Encounter Details Date Type Department Care Team (Late st Contact Info) Description 09/22/2024 MyC Medical Advice [facility] [place] [id number] [facility] SE 3rd [place] [address] Jessica Butler MD 420 [facility] 98 [place] [address] Social History Tobacco Use Types [...] re latives? Twice a week 08/10/2024 Attends Mormonism Services Not on file 08/10 Active Member of Clubs or Organizations Not on f ile 08/10/2024 Attends Club or Organization Meetings Not on sb e 08/10/2024 Marital Status Not on file 08/10/2024 PHQ-2 Answer Date Recorded PHQ-2 Score 0 08/11/2024 [facility] [place] of Occupat ional Health - Occupational Stress [...] on file Legal Sex Female 3:34 AM RUBBING BED OPERATOR Gender Identity Not on file Sexual Orientation Not on file Occupation Industry Job Start Date Job End Date Unemployed Not on file Not on file Not on file documented as of this encounter Miscellaneous Notes * Telephone Encounter - Negin Guerra LPN - 09/22/2024 4:28 PM RUBBING BED OPERATOR Jessica Butler MD to [facility] Dermatology Adult Csc 09/20/24 8:18 AM Yes, she should be seen and then we can take over the Elidel prescription. Could see any provider, including PA to expedite appointment. ING BED OPERATOR documented in this encounter Plan of Treatment Upcoming Encounters Date Type Department Care Team (Late st Contact Info) Description 05/24/2025 8:15 AM CDT Office Visit [facility] [address] 3rd Floor,[address] [place] [facility]ld[facility] 88 [place] [phone] Ayana Fuller MD [address] [facility] 300 [place], [place] [phone] 05/31/2025 9:30 AM RUBBING BED OPERATOR Office Visit [facility] [address] [phone] Ashwin Franklin MD [address] [place] [address]655 09/05/2025 9:45 AM RUBBING BED OPERATOR Office Visit [facility] [address] [address] Jessica Butler MD 420 [facility] 98 [place], [place] 943785 documented as of this encounter Visit Diagnoses Not on filedocumented in this encounter Additional Health Concerns Assessment Noted Time PHQ-9 Depression Total Score: 2 10/15/19 23 2:22 PM CDT documented as of this encounter Care Teams Obgyn Hospitalist Physician Relationship Specialty Start Date End Date Nanci Villalba MD [address] [place] [address] [id number] PCP - General Internal Medicine 06/01/19 Remi Camacho MD [address] [place] [address] 136 [place], [place] [phone] Dermatology 08/28/16 Alexis Vargas MD [address] [place] [address] 410314 Dermatology 07/14/17 Cecilio Velasco DPM [address] [place] [address] 415085 Podiatry 12/31/17 Johnny Gauthier MD [facility] [place] [id number] [place], [place] [phone] Family Medicine - Sports Medicine 08/20/18 Alpa Max PA-C [address] [place] [address] [facility] 98 [place], [place] 418885 Physician Tower Foreman Physician Tower Foreman 08/28/18 Ayana Fuller MD [address] [place] [address] electrical assistant 12/01/18 Ayana Fuller MD [address] [place] [address] Assigned OBGYN Provider 05/19/20 Nanci Villalba MD [address] [place] [address] Assigned PCP 12/21/20 Abdirizak Dowd MD [address] [place] [address] 622385 Dermatology 08/09/21 Abdirizak Dowd MD [address] [place] [address] [place] [address] Dermatology 12/21/21 Jessica Butler MD 420 [facility] 98 [place] [address] Dermatology 02/21/23 Ayana Fuller MD [address] [facility] 300 [place] [address] electrical assistant 02/24/23 Loli Louis DPM, Podiatry/Foot and Ankle Surgery [address] [facility] [place] [facility] 300 [place] [address] Assigned Musculoskeletal Provider 09/19/23 03/18/25 Jessica Butler MD [address] [address] Assigned Surgical Provider 02/17/24 10/16/24 Ashwin Franklin MD 909 [place] [address] Dermatology 09/17/24 Valeria Sullivan PACassieC Dermatology [address] [place] [address] Assigned Dermatology Provider 10/17/24 03/18/25 Jessica Butler MD 420 [facility] 98 [place] [address] Assigned Dermatology Provider 03/19/25 documented as of this encounter
--- OUTSIDE RECORDS SUMMARY | 2025-04-27 06:07 | XMS_ITS | Encounter Summary ---
Author Organization [place] Address [address] [facility] [place] [address] Care Team Providers Care Block Handler Name Role Phone Remi Camacho MD Unavailable Alexis Vargas MD Unavailable Cecilio VelascoM Unavailable [phone] Johnny Gauthier MD Unavailable [phone] Alpa Max PA-C Unavailable Ayana Fuller MD Unavailable [phone] Nanci Villalba MD Primary Care Provider Ayana Fuller MD Unavailable [phone] Nanci Villalba MD Unavailable [phone] Abdirizak Dowd MD Unavailable Abdirizak Dowd MD Unavailable [phone] Jessica Butler MD Unavailable Ayana Fuller MD Unavailable [phone] Loli Louis DPM, Podiatry /Foot and Ankle Surgery Unavailable Jessica Butler MD Unavailable [phone] Ashwin Franklin MD Unavailable [phone] Valeria Sullivan PA-C Unavailable [phone] Jessica Butler MD Unavailable [phone] Encounter Details Date Type Department Care Team (Late st Contact Info) Description 08/26/2024 MyC Medical Advice [facility] [address] [place] [address] [place] [address] [place] [address] [place] [address] [place] [address] Social History Tobacco Use Types [...] re latives? Twice a week 08/10/2024 Attends Mormon Services Not on file 08/10 Active Member of Clubs or Organizations Not on f ile 08/10/2024 Attends Club or Organization Meetings Not on sb e 08/10/2024 Marital Status Not on file 08/10/2024 PHQ-2 Answer Date Recorded PHQ-2 Score 0 08/11/2024 [facility] [place] of Occupat ional Health - Occupational Stress [...] in an overnight longterm, or couch-surfing.) Yes 08/10/2024 Are you worried [...] on file Legal Sex Female 3:34 AM PATIENT BILLER Gender Identity Not on file Sexual Orientation Not on file Occupation Industry Job Start Date Job End Date Unemployed Not on file Not on file Not on file documented as of this encounter Plan of Treatment Upcoming Encounters Date Type Department Care Team (Late st Contact Info) Description 05/24/2025 8:15 AM CDT Office Visit [facility] [address] 3rd Floor,[address] [place] Professional Bldg [facility] 88 [place] [address] Ayana Fuller MD [address] [facility] 300 [place], [place] [address] 05/31/2025 9:30 AM PATIENT BILLER Office Visit [facility] [address] [phone] Ashwin Franklin MD [address] [place] [address] 861735 09/05/2025 9:45 AM PATIENT BILLER Office Visit [facility]ology [facility] [address] 3rd [place] [address] Jessica Butler MD 420 [facility] 98 [place], [place] 9[address] documented as of this encounter Visit Diagnoses Not on filedocumented in this encounter Additional Health Concerns Assessment Noted Time PHQ-9 Depression Total Score: 2 10/15/19 23 2:22 PM CDT documented as of this encounter Care Teams Block Handler Relationship Specialty Start Date End Date Nanci Villalba MD [address] [place] [address] [place] [address] PCP - General Internal Medicine 06/01/19 Remi Camacho MD [address] [place] [address] 136 [place], [place] 0[address]124 Dermatology 08/28/16 Alexis Vargas MD [address] [place] [address] 303614 Dermatology 07/14/17 Cecilio Velasco DPM [address] [place] [address] 878365 Podiatry 12/31/17 Johnny Gauthier MD [address] [place], [place] 9[address] Family Medicine - Sports Medicine 08/20/18 Alpa Max PA-C 420 [facility] 98 [place], [place] 102565 Physician Electrical Engineering Manager Physician Electrical Engineering Manager 08/28/18 Ayana Fuller MD [address] [facility] 300 [place] [address] vehicle technician 12/01/18 Ayana Fuller MD [address] [facility] 300 [place] [address] Assigned OBGYN Provider 05/19/20 Nanci Villalba MD [address] [facility] [place], [place] 35[address]65 Assigned PCP 12/21/20 Abdirizak Dowd MD [address] [facility] A [place], [place] 921325 Dermatology 08/09/21 Abdirizak Dowd MD [address] [facility] [place], [place] 7665[address] Dermatology 12/21/21 Jessica Butler MD 420 [facility] 98 [place] [address] Dermatology 02/21/23 Ayana Fuller MD [address] [place] [address] vehicle technician 02/24/23 Loli Louis DPM, Podiatry/Foot and Ankle Surgery [address] [facility] 300 [place] [address] Assigned Musculoskeletal Provider 09/19/23 03/18/25 Jessica Butler MD 420 [facility] 98 [place] [address] Assigned Surgical Provider 02/17/24 10/16/24 Ashwin Franklin MD 909 [place] [address] Dermatology 09/17/24 Valeria Sullivan, PACassieC Dermatology [address] [place] [address] [id number] Assigned Dermatology Provider 10/17/24 03/18/25 Jessica Butler MD 420 [facility] 98 [place] [address] Assigned Dermatology Provider 03/19/25 documented as of this encounter
--- OUTSIDE RECORDS SUMMARY | 2025-04-27 06:07 | XMS_ITS | Encounter Summary ---
Author Organization [place] Address [address] [facility] [place] [address] Care Team Providers Care Roofer Metal Name Role Phone Remi Camacho MD Unavailable Alexis Vargas MD Unavailable Cecilio VelascoM Unavailable [phone] Johnny Gauthier MD Unavailable Alpa Max PA-C Unavailable Ayana Fuller MD Unavailable [phone] Nanci Villalba MD Primary Care Provider Ayana Fullre MD Unavailable [phone] Nanci Villalba MD Unavailable [phone] Abdirizak Dowd MD Unavailable Abdirizak Dwod MD Unavailable [phone] Jessica Butler MD Unavailable Ayana Fuller MD Unavailable [phone] Loli Louis DPM, Podiatry /Foot and Ankle Surgery Unavailable Jessica Butler MD Unavailable [phone] Ashwin Franklin MD Unavailable [phone] Valeria Sullivan PA-C Unavailable [phone] Jessica Butler MD Unavailable [phone] Reason for Visit * Reason Onset Date Comments Medication Request 09/17/2024 pimecrolimus (ELIDEL) 1 % external cream [[id number]] (Order [id number]) Encounter Details Date Type Department Care Team (Late st Contact Info) Description 09/17/2024 Telephone [facility] [place] [phone] [facility] SE 3rd [place] [address] Jessica Butler MD 420 [facility] 98 [place] [address] Medication Request (pimecrolimus (ELIDEL) 1 % external cream [[id number]] (Order [id number])) Social History Tobacco Use Types Packs/Day Years [...] re latives? 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 She is wondering if [...] and her nurse to advise. Yue Cochran RNhot wire glass tube cutter Surgery PASTE MACHINE OPERATOR * Telephone Encounter - Teagan Wylie - [...] reports swelling of the eyes and discomfort. PASTE MACHINE OPERATOR * Telephone Encounter - Shawna Frederick - 09/17/2024 1:01 PM [facility] Phone Message May a detailed message be left on voicemail: yes Reason for Call: Medication Question or concern regarding medication Prescription Clarification Name of Medication: pimecrolimus (ELIDEL) 1 % external cream [[id number]] (Order [id number]) Prescribing Provider: pt thought this was previously prescribed by Dr. Franklin, wondering if Dr. Butler can fill them for her? Pharmacy: [facility] in [place] What on the order needs clarification? wondering if Dr. Butler can fill them for her? Action Taken: Message routed to: [facility] Derm Travel Screening: Not Applicable Date of Service: PASTE MACHINE OPERATOR documented in this encounter Plan of Treatment Upcoming Encounters Date Type Department Care Team (Late st Contact Info) Description 05/24/2025 8:15 AM CDT Office Visit [facility] [address] 3rd Floor,[address] [place] Professional Bldg [facility] 88 [place] [phone] Ayana Fuller MD [address] [facility] 300 [place], [place] [address]244 05/31/2025 9:30 AM SPUN PASTE MACHINE OPERATOR Office Visit [facility] [place] 909 [place] [phone] Ashwin Franklin MD [address] [place] [address] 518045 09/05/2025 9:45 AM SPUN PASTE MACHINE OPERATOR Office Visit [facility] [address] 3rd [place] [phone] Jessica Butler MD 420 [facility] 98 [place], [place] 190305 documented as of this encounter Visit Diagnoses Not on filedocumented in this encounter Additional Health Concerns Assessment Noted Time PHQ-9 Depression Total Score: 2 10/15/19 23 2:22 PM CDT documented as of this encounter Care Teams Roofer Metal Relationship Specialty Start Date End Date Nanci Villalba MD [address] [place] [address] A [place], [place] [address] PCP - General Internal Medicine 06/01/19 Remi Camacho MD 420 [facility] 136 [place], [place] [phone] Dermatology 08/28/16 Alexis Vargas MD 2450 [place], [place] 130624 Dermatology 07/14/17 Cecilio Velasco DPM 909 [facility] [place], [place] 87[address] Podiatry 12/31/17 Johnny Gauthier MD [address] [place], [place] [address] Family Medicine - Sports Medicine 08/20/18 Alpa Max PA-C 420 [facility] 98 [place], [place] 596425 Physician Teacher Of The Deaf/Hard Of Hearing Physician Teacher Of The Deaf/Hard Of Hearing 08/28/18 Ayana Fuller MD [address] [place] [address] [place], [place] [phone] sort supervisor 12/01/18 Ayana Fuller MD [address] [place] [address] [place] [address] Assigned OBGYN Provider 05/19/20 Nanci Villalba MD [address] [place], [place] [address] Assigned PCP 12/21/20 Abdirizak Dowd MD [address] [place], [place] [address] Dermatology 08/09/21 Abdirizak Dowd MD [address] [place], [place] 95[address]35 Dermatology 12/21/21 Jessica Butler MD 420 [facility] 98 [place] [address] Dermatology 02/21/23 Ayana Fuller MD [address] [facility] 300 [place] [address] sort supervisor 02/24/23 Loli Louis DPJean, Podiatry/Foot and Ankle Surgery [address] [facility] 300 [place] [address] Assigned Musculoskeletal Provider 09/19/23 03/18/25 Jessica Butler MD [address] [address] Assigned Surgical Provider 02/17/24 10/16/24 Ashwin Franklin MD 909 [place] [address] Dermatology 09/17/24 Valeria Sullivan, PA-C Dermatology [address] [place] [address] Assigned Dermatology Provider 10/17/24 03/18/25 Jessica Butler MD [address] [address] Assigned Dermatology Provider 03/19/25 documented as of this encounter
--- OUTSIDE RECORDS SUMMARY | 2025-04-27 06:07 | XMS_ITS | Encounter Summary ---
Author Organization [place] Address [address] [facility] [place] [address] Care Team Providers Care Powder Operator Name Role Phone Remi Camacho MD Unavailable Alexis Vargas MD Unavailable Ceiclio VelascoM Unavailable [phone] Johnny Gauthier MD Unavailable Alpa Max PA-C Unavailable Ayana Fuller MD Unavailable [phone] Nanci Villalba MD Primary Care Provider Ayana Fuller MD Unavailable [phone] Nanci Villalba MD Unavailable [phone] Abdirizak Dowd MD Unavailable Abdirizak Dowd MD Unavailable [phone] Jessica Butler MD Unavailable Ayana Fuller MD Unavailable [phone] Loli Louis DPM, Podiatry /Foot and Ankle Surgery Unavailable Jessica Butler MD Unavailable [phone] Ashwin Franklin MD Unavailable [phone] Valeria Sullivan PA-C Unavailable [phone] Jessica Butler MD Unavailable [phone] Encounter Details Date Type Department Care Team (Late st Contact Info) Description 05/16/2024 MyC Medical Advice [facility] [address] [place] [place] [address] [place] [address] [place] [address] Social History Tobacco Use Types [...] in an abandoned building, in an overnight intermediate, or couch-surfing.) Yes 04/27/2024 Are you worried [...] on file 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 Gender Identity Not on file Sexual Orientation Not on file Occupation Industry Job Start Date Job End Date Unemployed Not on file Not on file Not on file documented as of this encounter Plan of Treatment Upcoming Encounters Date Type Department Care Team (Late st Contact Info) Description 05/24/2025 8:15 AM CDT Office Visit [facility] Women's [address] 3rd [facility] [place] Professional Bldg [facility] 88 [place] [phone] Ayana Fuller MD [address] [place] [address] 002124 05/31/2025 9:30 AM FORK LIFT MECHANIC Office Visit [facility] Allergy Clinic [address] [address] Ashwin Franklin MD [address] [place] [address] 09/05/2025 9:45 AM FORK LIFT MECHANIC Office Visit [facility] Dermatology Clinic [address]rd [place] [address] Jessica Butler MD [address] [place] [address] 98 [place], [place] 7[address]25 documented as of this encounter Visit Diagnoses Not on filedocumented in this encounter Additional Health Concerns Assessment Noted Time PHQ-9 Depression Total Score: 2 10/15/19 23 2:22 PM CDT documented as of this encounter Care Teams Powder Operator Relationship Specialty Start Date End Date Nanci Villalba MD [address] [place] [address] [place] [address] PCP - General Internal Medicine 06/01/19 Remi Camacho MD 420 [facility] 136 [place] [address] Dermatology 08/28/16 Alexis Vargas MD 2450 [place] [address] Dermatology 07/14/17 Cecilio Velasco DPM 909 [place] [address] Podiatry 12/31/17 Johnny Gauthier MD [facility] [address] [place], [place] [address] Family Medicine - Sports Medicine 08/20/18 Alpa Max PA-C 420 [facility] 98 [place] [address] Physician Traffic Engineering Director Physician Traffic Engineering Director 08/28/18 Ayana Fuller MD 606 [facility] [address] [facility] 300 [place], [place] [address] industrial economics professor 12/01/18 Ayana Fuller MD 606 [facility] [address] [facility] 300 [place] [address] Assigned OBGYN Provider 05/19/20 Nanci Villalba MD [address] [place] [address] Assigned PCP 12/21/20 Abdirizak Dowd MD [address] [place] [address] Dermatology 08/09/21 Abdirizak Dowd MD [address] [place] [address] 886795 Dermatology 12/21/21 Jessica Butler MD [address] [place] [address] Dermatology 02/21/23 Ayana Fuller MD [address] 462944 industrial economics professor 02/24/23 Loli Louis DPM, Podiatry/Foot and Ankle Surgery [address] [facility] 300 [place], [place] [address] Assigned Musculoskeletal Provider 09/19/23 03/18/25 Jessica Butler MD [address] [address] Assigned Surgical Provider 02/17/24 10/16/24 Ashwin Franklin MD [address] [place] [address] Dermatology 09/17/24 Valeria Sullivan PA-C Dermatology [address] [place] [address] Assigned Dermatology Provider 10/17/24 03/18/25 Jessica Butler MD [address] [place] [address] Assigned Dermatology Provider 03/19/25 documented as of this encounter
--- OUTSIDE RECORDS SUMMARY | 2025-04-27 06:07 | XMS_ITS | Encounter Summary ---
Author Organization [place] Address [address] [facility] [address] Care Team Providers Care Sucker Machine Operator Name Role Phone Remi Camacho MD Unavailable Alexis Vargas MD Unavailable Cecilio VelascoM Unavailable [phone] Johnny Gauthier MD Unavailable Alpa Max PA-C Unavailable Ayana Fuller MD Unavailable +[phone] Nanci Villalba MD Primary Care Provider Ayana Fuller MD Unavailable +[phone] Nanci Villalba MD Unavailable + [phone] Abdirizak Dowd MD Unavailable Abdirizak Dowd MD Unavailable +[phone] Jessica Butler MD Unavailable Ayana Fuller MD Unavailable [phone] Loli Louis DPM, Podiatry /Foot and Ankle Surgery Unavailable Jessica Butler MD Unavailable [phone] Ashwin Franklin MD Unavailable +[phone] Valeria Sullivan PA-C Unavailable [phone] Jessica Butler MD Unavailable [phone] Encounter Details Date Type Department Care Team (Late st Contact Info) Description 05/27/2024 MyC Medical Advice [facility] [address] [place] [address] [place] [address] [place] [address] Social History Tobacco Use Types [...] in an overnight fpc, or couch-surfing.) Yes 04/27/2024 Are you worried [...] on file 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 Gender Identity Not on file Sexual Orientation Not on file Occupation Industry Job Start Date Job End Date Unemployed Not on file Not on file Not on file documented as of this encounter Plan of Treatment Upcoming Encounters Date Type Department Care Team (Late st Contact Info) Description 05/24/2025 8:15 AM CDT Office Visit [facility] Women's [address] 3rd [facility] [place] [facility] 88 [place] [phone] Ayana Fuller MD [address] [place] [address] 374014 05/31/2025 9:30 AM [employer] Office Visit [facility] Allergy Clinic [address] [address] Ashwin Franklin MD [address] [place] [address] 739695 09/05/2025 9:45 AM [employer] Office Visit [facility] Dermatology Clinic [address] 3rd [place] [address] Jessica Butler MD [address] [place] [address] 98 [place], [place] [phone] documented as of this encounter Visit Diagnoses Not on filedocumented in this encounter Additional Health Concerns Assessment Noted Time PHQ-9 Depression Total Score: 2 10/15/19 23 2:22 PM CDT documented as of this encounter Care Teams Sucker Machine Operator Relationship Specialty Start Date End Date Nanci Villalba MD [address] [place] [address] [place] [address] PCP - General Internal Medicine 06/01/19 Remi Camacho MD 420 [facility] 136 [place] [address] Dermatology 08/28/16 Alexis Vargas MD 2450 [place] [address] Dermatology 07/14/17 Cecilio Velasco DPM 909 [place] [address] Podiatry 12/31/17 Johnny Gauthier MD [facility] [address] [place], [place] 7224[address] Family Medicine - Sports Medicine 08/20/18 Alpa Max PA-C 420 [facility] 98 [place] [address] Physician Customer Leader Physician Customer Leader 08/28/18 Ayana Fuller MD [address] [facility] 300 [place], [place] [address]94 attending urologist 12/01/18 Ayana Fuller MD [address] [facility] 300 [place] [address] Assigned OBGYN Provider 05/19/20 Nanci Villalba MD [address] [place] [address] Assigned PCP 12/21/20 Abdirizak Dowd MD [address] [place] [address] Dermatology 08/09/21 Abdirizak Dowd MD [address] [place] [address] 021305 Dermatology 12/21/21 Jessica Butler MD [address] [place] [address] Dermatology 02/21/23 Ayana Fuller MD [address] 330854 attending urologist 02/24/23 Loli Louis DPM, Podiatry/Foot and Ankle Surgery [address] [facility] 300 [place], [place] 920087 Assigned Musculoskeletal Provider 09/19/23 03/18/25 Jessica Butler MD [address] [address] Assigned Surgical Provider 02/17/24 10/16/24 Ashwin Franklin MD [address] [place] [address] Dermatology 09/17/24 Valeria Sullivan PA-C Dermatology [address] [place] [address] Assigned Dermatology Provider 10/17/24 03/18/25 Jessica Butler MD [address] [place] [address] Assigned Dermatology Provider 03/19/25 documented as of this encounter
--- OUTSIDE RECORDS SUMMARY | 2025-04-27 06:07 | XMS_ITS | Encounter Summary ---
Author Organization [place] Address [address] [place] [address] Care Team Providers Care Career Development Consultant Name Role Phone Remi Camacho MD Unavailable Alexis Vargas MD Unavailable Cecilio VelascoM Unavailable [phone] Johnny Gauthier MD Unavailable [phone] Alpa Max PA-C Unavailable [phone] Ayana Fuller MD Unavailable [phone] Nanci Villalba MD Primary Care Provider Ayana Fuller MD Unavailable [phone] Nanci Villalba MD Unavailable + [phone] Abdirizak Dowd MD Unavailable Abdirizak Dowd MD Unavailable +[phone] Jessica Butler MD Unavailable Ayana Fuller MD Unavailable [phone] Loli Louis DPM, Podiatry /Foot and Ankle Surgery Unavailable Jessica Butler MD Unavailable +[phone] Ashwin Franklin MD Unavailable [phone] Valeria Sullivan PA-C Unavailable [phone] Jessica Butler MD Unavailable [phone] Encounter Details Date Type Department Care Team [...] in an abandoned building, in an overnight skilled nursing, or couch-surfing.) Yes 06/08/2023 Are you worried [...] file 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 Gender Identity Not on file Sexual Orientation Not on file Occupation Industry Job Start Date Job End Date Unemployed Not on file Not on file Not on file documented as of this encounter Plan of Treatment Upcoming Encounters Date Type Department Care Team (Late st Contact Info) Description 05/24/2025 8:15 AM CDT Office Visit [facility] Women's [facility] [address] [place] [address] 3rd Floor,[address] [place] [facility] 88 [place] [phone] Ayana Fuller MD [facility] 300 [place], [place] [address]594 05/31/2025 9:30 AM SALES PROFESSIONAL BILINGUAL Office Visit [facility] Allergy Clinic [address] [address] Ashwin Franklin MD [address] [place] [address] 298605 09/05/2025 9:45 AM SALES PROFESSIONAL BILINGUAL Office Visit [facility] Dermatology Clinic [address] 3rd [place] [phone] Jessica Butler MD 420 [facility] 98 [place], [place] 831835 documented as of this encounter Visit Diagnoses Not on filedocumented in this encounter Additional Health Concerns Assessment Noted Time PHQ-9 Depression Total Score: 2 10/15/19 23 2:22 PM CDT documented as of this encounter Care Teams Career Development Consultant Relationship Specialty Start Date End Date Nanci Villalba MD [address] [place] [address] [phone] PCP - General Internal Medicine 06/01/19 Remi Camacho MD 420 [facility] 136 [place], [place] [address] Dermatology 08/28/16 Alexis Vargas MD 2450 [place], [place] 134764 Dermatology 07/14/17 Cecilio Velasco DPM 909 [place], [place] 141245 Podiatry 12/31/17 Johnny Gauthier MD [facility] [address] [place], [place] [address] Family Medicine - Sports Medicine 08/20/18 Alpa Max PA-C 420 [facility] 98 [place], [place] 525[address] Physician Operator Ground Based Air Defence Physician Operator Ground Based Air Defence 08/28/18 Ayana Fuller MD [address] [facility] 300 [place], [place] [address]114 concreter 12/01/18 Ayana Fuller MD [address] [facility] 300 [place] [address] Assigned OBGYN Provider 05/19/20 Nanci Villalba MD [address] [place] [address] [place], [place] 227845 Assigned PCP 12/21/20 Abdirizak Dowd MD [address] [place] [address] 323945 Dermatology 08/09/21 Abdirizak Dowd MD [address] [place] [address] Dermatology 12/21/21 Jessica Butler MD [address] [place] [address] Dermatology 02/21/23 Ayana Fuller MD [address] [place] [address] 864324 concreter 02/24/23 Loli Louis DPJean, Podiatry/Foot and Ankle Surgery [address] [address] Assigned Musculoskeletal Provider 09/19/23 03/18/25 Jessica Butler MD [address] [address] Assigned Surgical Provider 02/17/24 10/16/24 Ashwin Franklin MD [address] [place] [address] 285185 Dermatology 09/17/24 Valeria Sullivan PACassieC Dermatology [address] [place] [address] Assigned Dermatology Provider 10/17/24 03/18/25 Jessica Butler MD [address] [place] [address] 761635 Assigned Dermatology Provider 03/19/25 documented as of this encounter
--- OUTSIDE RECORDS SUMMARY | 2025-04-27 06:07 | XMS_ITS | Encounter Summary ---
Author Organization [place] Address [address] [facility] [place] [address] Care Team Providers Care Emergency Room Orderly Name Role Phone Remi Camacho MD Unavailable [phone] Alexis Vargas MD Unavailable [phone] Cecilio Velasco DPM Unavailable [phone] Johnny Gauthier MD Unavailable [phone] Alpa Max PA-C Unavailable Ayana Fuller MD Unavailable [phone] Nanci Villalba MD Primary Care Provider Ayana Fuller MD Unavailable [phone] Ashwin Franklin MD Unavailable [phone] Magda Goode MD Unavailable [phone] Nanci Villalba MD Unavailable [phone] Abdirizak Dowd MD Unavailable [phone] Abdirizak Dowd MD Unavailable [phone] Abdirizak Dowd MD Unavailable [phone] Jessica Butler MD Unavailable [phone] Ayana Fuller MD Unavailable [phone] Loli LouisM, Podiatry /Foot and Ankle Surgery Unavailable Jessica Butler MD Unavailable [phone] Ashwin Franklin MD Unavailable +[phone] Valeria Sullivan PA-C Unavailable +[phone] Jessica Butler MD Unavailable [phone] Encounter Details Date Type Department Care Team (Late st Contact Info) Description 11/19/2021 [facility] Heart [address] [address] [place] Social History Tobacco Use Types Packs/Day Years [...] on file Legal Sex Female 3:34 AM BRICKMASON CONTRACTOR Gender Identity Not on file Sexual Orientation Not on file Occupation Industry Job Start Date Job End Date Unemployed Not on file Not on file Not on file documented as of this encounter Plan of Treatment Upcoming Encounters Date Type Department Care Team (Late st Contact Info) Description 05/24/2025 8:15 AM CDT Office Visit [facility] Women's [facility] [address] 3rd Floor,[address] [facility] 88 [place] [phone] Ayana Fuller MD [address] [facility] 300 [place], [place] 7364[address] 05/31/2025 9:30 AM BRICKMASON CONTRACTOR Office Visit [facility] Allergy [address] [phone] Ashwin Franklin MD [address] [place] [address] 613635 09/05/2025 9:45 AM BRICKMASON CONTRACTOR Office Visit [facility] Dermatology Clinic [address] 3rd [place] [address] Jessica Butler MD 420 [facility] 98 [place], [place] 547915 documented as of this encounter Visit Diagnoses Not on filedocumented in this encounter Additional Health Concerns Assessment Noted Time PHQ-9 Depression Total Score: 2 02/29/20 21 1:38 PM CDT documented as of this encounter Care Teams Emergency Room Orderly Relationship Specialty Start Date End Date Nanci Villalba MD 901 [address] [facility] [place] [address] PCP - General Internal Medicine 06/01/19 Remi Camacho MD 420 [facility] 136 [place], [place] 685204 Dermatology 08/28/16 Alexis Vargas MD [address] [place] [address] 009144 Dermatology 07/14/17 Cecilio Velasco DPM [address] [place] [address] 957025 Podiatry 12/31/17 Johnny Gauthier MD [address] [place], [place] 9722702 [place], [place] 998544 Family Medicine - Sports Medicine 08/20/18 Alpa Max PA-C [address] [place] [address] 98 [place], [place] 169735 Physician Replenishment Analyst Physician Replenishment Analyst 08/28/18 Ayana Fuller MD [address] [place] [address] 747764 clinical project assistant 12/01/18 Ayana Fuller MD [address] [place] [address] 636604 Assigned OBGYN Provider 05/19/20 Ashwin Franklin MD [address] [place] [address] [phone] Assigned Surgical Provider 05/19/20 03/22/22 Magda Goode MD [address] [place] [address] [phone] Assigned Musculoskeletal Provider 10/01/20 01/03/23 Nanci Villalba MD [address] [place] [address] 476905 Assigned PCP 12/21/20 Abdirizak Dowd MD [address] [place] [address] 521075 Dermatology 08/09/21 Abdirizak Dowd MD [address] [place] [address] Dermatology 12/21/21 Abdirizak Dowd MD [address] [place] [address] 473005 Assigned Surgical Provider 03/23/22 02/16/24 Jessica Butler MD [address] [place] [address] Dermatology 02/21/23 Ayana Fuller MD [address] [phone] clinical project assistant 02/24/23 Loli Louis DPM, Podiatry/Foot and Ankle Surgery [address] [facility] 300 [place], [place] 9[address]77 Assigned Musculoskeletal Provider 09/19/23 03/18/25 Jessica Butler MD [address] [place] [address] Assigned Surgical Provider 02/17/24 10/16/24 Ashwin Franklin MD [address] [place] [address] Dermatology 09/17/24 Valeria Sullivan PA-C Dermatology [address] [place] [address] Assigned Dermatology Provider 10/17/24 03/18/25 Jessica Butler MD [address] [place] [address] 250555 Assigned Dermatology Provider 03/19/25 documented as of this encounter
--- OUTSIDE RECORDS SUMMARY | 2025-04-27 06:07 | XMS_ITS | Encounter Summary ---
Author Organization [place] Address [address] [facility] [place] [address] Care Team Providers Care Scheme Technician Name Role Phone Remi Camacho MD Unavailable [phone] Alexis Vargas MD Unavailable [phone] Cecilio Velasco DPM Unavailable [phone] Johnny Gauthier MD Unavailable [phone] Alpa Max PA-C Unavailable Ayana Fuller MD Unavailable [phone] Nanci Villalba MD Primary Care Provider Ayana Fuller MD Unavailable +[phone] Ashwin Franklin MD Unavailable [phone] Magda Goode MD Unavailable +[phone] Nanci Villalba MD Unavailable [phone] Abdirizak Dowd MD Unavailable +[phone] Abdirizak Dowd MD Unavailable [phone] Abdirizak Dowd MD Unavailable [phone] Jessica Butler MD Unavailable [phone] Ayana Fuller MD Unavailable [phone] Loli LouisM, Podiatry /Foot and Ankle Surgery Unavailable Jessica Butler MD Unavailable [phone] Ashwin Franklin MD Unavailable +[phone] Valeria Sullivan PA-C Unavailable +[phone] Jessica Butler MD Unavailable [phone] Encounter Details Date Type Department Care Team (Late st Contact Info) Description 12/11/2021 [facility] Medical Advice [facility] Pharm D Project 7[address] [place] [address] Jennifer Richardson Social History Tobacco Use Types [...] on file Legal Sex 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 Gender Identity Not on file Sexual [...] CDT Office Visit [facility] [address] 3rd Floor,[address] [place] [facility] 88 [place] [phone] Ayana Fuller MD [address] [facility] 300 [place], [place] 8[address]134 05/31/2025 9:30 AM DREDGE OPERATOR Office Visit [facility] Allergy Clinic [place] [address] [place] [phone] Ashwin Franklin MD 909 [place], [place] 740835 09/05/2025 9:45 AM DREDGE OPERATOR Office Visit [facility] Dermatology Clinic [address] 3rd [place] [address] Jessica Butler MD 420 [facility] 98 [place], [place] 263285 documented as of this encounter Visit Diagnoses Not on filedocumented in this encounter Additional Health Concerns Assessment Noted Time PHQ-9 Depression Total Score: 2 02/29/20 21 1:38 PM CDT documented as of this encounter Care Teams Scheme Technician Relationship Specialty Start Date End Date Nanci Villalba MD [address] [place] [address] A [place], [place] 395125 PCP - General Internal Medicine 06/01/19 Remi Camacho MD 420 [facility] 136 [place], [place] 7[address] Dermatology 08/28/16 [place] [address] [place] [address] 759574 Dermatology 07/14/17 Cecilio Velasco DPM [address] [place] [address] 926695 Podiatry 12/31/17 Johnny Gauthier MD [facility]2 [place] 2619902 [place], [place] 561344 Family Medicine - Sports Medicine 08/20/18 Alpa Max PA-C [address] [place] [address] 98 [place], [place] [phone] Physician Glass Inspector Physician Glass Inspector 08/28/18 Ayana Fuller MD [address] [place] [address] human machine interface engineer 12/01/18 Ayana Fuller MD [address] [place] [address] [phone] Assigned OBGYN Provider 05/19/20 Ashwin Franklin MD [address] [place] [address] 228915 Assigned Surgical Provider 05/19/20 03/22/22 Magda Goode MD [address] [place] [address] 591565 Assigned Musculoskeletal Provider 3/7/21 6/9/23 Nacni Villalba MD [address] [place] [address] [place] [address] Assigned PCP 12/21/20 Abdirizak Dowd MD [address] [place] [address] 515335 Dermatology 08/09/21 Abdirizak Dowd MD [address] [place] [address] 460255 Dermatology 12/21/21 Abdirizak Dowd MD [address] [place] [address] [phone] Assigned Surgical Provider 03/23/22 02/16/24 Jessica Butler MD 420 [facility] 98 [place] [address] Dermatology 02/21/23 Ayana Fuller MD 606 24TH [facility] 300 [place] [address] human machine interface engineer 02/24/23 Loli Louis DPJean, Podiatry/Foot and Ankle Surgery [address] [facility] 300 [place] [address] Assigned Musculoskeletal Provider 09/19/23 03/18/25 Jessica Butler MD 420 [facility] 98 [place] [address] Assigned Surgical Provider 02/17/24 10/16/24 Ashwin Franklin MD [address] [place] [address] Dermatology 09/17/24 Valeria Sullivan PA-C Dermatology [address] [place] [address] Assigned Dermatology Provider 10/17/24 03/18/25 Jessica Butler MD [address] [place] [address] 98 [place] [address] Assigned Dermatology Provider 03/19/25 documented as of this encounter
--- OUTSIDE RECORDS SUMMARY | 2025-04-27 06:07 | XMS_ITS | Encounter Summary ---
Author Organization Theresa Address [address] [place] [address] Care Team Providers Care Power Tool Repairer Name Role Phone Remi Camacho MD Unavailable [phone] Alexis Vargas MD Unavailable [phone] Cecilio Velasco DPM Unavailable [phone] Johnny Gauthier MD Unavailable [phone] Alpa Max PA-C Unavailable Ayana Fuller MD Unavailable [phone] Nanci Villalba MD Primary Care Provider Ashwin Franklin MD Unavailable [phone] Magda Goode MD Unavailable [phone] Ayana Fuller MD Unavailable [phone] Ashwin Franklin MD Unavailable [phone] Cecilio Velasco DPM Unavailable [phone] Nanci Villalba MD Unavailable [phone] Magda Goode MD Unavailable [phone] Nanci Villalba MD Unavailable [phone] Abdirizak Dowd MD Unavailable +[phone] Abdirizak Dowd MD Unavailable +[phone] Abdirizak Dowd MD Unavailable +[phone] Jessica Butelr MD Unavailable +[phone] Ayana Fuller MD Unavailable +[phone] Loli LouisM, Podiatry /Foot and Ankle Surgery Unavailable Jessica Butler MD Unavailable +[phone] Ashwin Franklin MD Unavailable +[phone] Valeria Sullivan PA-C Unavailable +[phone] Jessica Butler MD Unavailable [phone] Encounter Details Date Type Department Care Team (Late st Contact Info) Description 11/02/2019 MyC Medical Advice [place] [address] [facility] [place] [place] [phone] Nanci Villalba MD [address] [place] [address] S [facility] A [place], [place] [phone] Social History Tobacco Use Types Packs/Day Years Used Date Smoking Tobacco: Never Smokeless Tobacco: Never Alcohol Use Standard Drinks/Week Comments No 0 (1 standard drink = 0.6 oz pur e alcohol) Glasses Wine PHQ-2 Answer Date Recorded PHQ-2 Score 0 05/31/2019 Comments No Sex and Gender Information Value Date Recorded Sex Assigned at Not on file Legal Sex Female 3:34 AM OFFICE NURSE PRACTITIONER Gender Identity Not on file Sexual Orientation Not on file Occupation Industry Job Start Date Job End Date Unemployed Not on file Not on file Not on file documented as of this encounter Plan of Treatment Upcoming Encounters Date Type Department Care Team (Late st Contact Info) Description 05/24/2025 8:15 AM CDT Office Visit [facility] [address]rd [address] [place] [facility] [address] [place] [phone] Ayana Fuller MD [address] [facility] 300 [place], [place] [address] 05/31/2025 9:30 AM OFFICE NURSE PRACTITIONER Office Visit [facility] [place] [address] [place] [phone] Ashwin Franklin MD 909 [place], [place] [address] 09/05/2025 9:45 AM OFFICE NURSE PRACTITIONER Office Visit [facility] [address] [place] [phone] Jessica Butler MD 420 [facility] 98 [place], [place] [address] documented as of this encounter Visit Diagnoses Not on filedocumented in this encounter Additional Health Concerns Assessment Noted Time PHQ-9 Depression Total Score: 2 08/02/19 20 1:35 PM OFFICE NURSE PRACTITIONER documented as of this encounter Care Teams Power Tool Repairer Relationship Specialty Start Date End Date Nanci Villalba MD [address] [place] [address] [place], [place] [address] PCP - General Internal Medicine 06/01/19 Remi Camacho MD 420 [facility] 136 [place], [place] [address] Dermatology 08/28/16 Alexis Vargas MD 2450 [place] [address] Dermatology 07/14/17 Cecilio Velasco DPM 909 [place] [address] Podiatry 12/31/17 Johnny Gauthier MD [facility] [address] [place] [address] Family Medicine - Sports Medicine 08/20/18 Alpa Max PA-C [address] [place] [address] [facility] 98 [place], [place] 4[address] Physician Logistics Operations Manager Physician Logistics Operations Manager 08/28/18 Ayana Fuller MD [address] [place] [address] [place], [place] [phone] psychologist personnel 12/01/18 Ashwin Franklin MD [address] [place] [address] 840015 Assigned Pediatric Specialist Provider 05/19/20 08/27/20 Magda Goode MD 9 [place] [address] Assigned Musculoskeletal Provider 05/19/20 08/19/20 Ayana Fuller MD [address] [place], [place] [address] Assigned OBGYN Provider 05/19/20 Ashwin Franklin MD [address] [place] [address] Assigned Surgical Provider 05/19/20 03/22/22 Cecilio Velasco DPM [address] [place] [address] Assigned Musculoskeletal Provider 08/20/20 09/30/20 Nanci Villalba MD [address] [place] [address] Assigned PCP 09/10/20 11/04/20 Magda Goode MD [address] [place] [address] Assigned Musculoskeletal Provider 10/01/20 01/03/23 Nanci Villalba MD [address] [place] [address] 586715 Assigned PCP 12/21/20 Abdirizak Dowd MD [address] [place] [address] 388635 Dermatology 08/09/21 Abdirizak Dowd MD [address] [place] [address] 469105 Dermatology 12/21/21 Abdirizak Dowd MD [address] [place] [address] Assigned Surgical Provider 03/23/22 02/16/24 Jessica Butler MD [address] [place] [address] 98 [place] [address] Dermatology 02/21/23 Ayana Fuller MD [address] [place] [address] psychologist personnel 02/24/23 Loli Louis DPM, Podiatry/Foot and Ankle Surgery [address] [facility] 300 [place] [address] Assigned Musculoskeletal Provider 09/19/23 03/18/25 Jessica Butler MD [address] [address] Assigned Surgical Provider 02/17/24 10/16/24 Ashwin Franklin MD [address] [place] [address] Dermatology 09/17/24 Valeria Sullivan, PA-C Dermatology [address] [place] [address] Assigned Dermatology Provider 10/17/24 03/18/25 Jessica Butler MD [address] [address] Assigned Dermatology Provider 03/19/25 documented as of this encounter
--- OUTSIDE RECORDS SUMMARY | 2025-04-27 06:08 | XMS_ITS | Encounter Summary ---
Author Organization Mobile Address [address] [facility] [place] [address] Care Team Providers Care Seismograph Recorder Name Role Phone Remi Camacho MD Unavailable Alexis Vargas MD Unavailable Cecilio VelascoM Unavailable [phone] Johnny Gauthier MD Unavailable Alpa Max PA-C Unavailable Ayana Fuller MD Unavailable [phone] Nanci Villalba MD Primary Care Provider Ayana Fuller MD Unavailable [phone] Nanci Villalba MD Unavailable [phone] Abdirizak Dowd MD Unavailable Abdirizak Dowd MD Unavailable [phone] Jessica Butler MD Unavailable Ayana Fuller MD Unavailable [phone] Loli Louis DPM, Podiatry /Foot and Ankle Surgery Unavailable Ashwin Franklin MD Unavailable [phone] Valeria Sullivan PA-C Unavailable [phone] Jessica Butler MD Unavailable [phone] Encounter Details Date Type Department Care Team (Late st Contact Info) Description 12/13/2024 Telephone [facility] Building [address] [facility], [address] [place], [place] [phone] Nanci Villalba MD [address] [place] [address] Social History Tobacco Use Types [...] re latives? 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 Called and requested records which are being faxed now. WAYNE Swan, RN 12/13/24, 10:50 AM * Telephone Encounter - Heidi Medellin RN - 12/13/2024 9:06 AM CDT Pt called to report she was seen at [facility] and [facility] on 12/11/2024. She was lifting something heavy [...] up this morning with headache in right congregational and feels pressure behind eyes. Does not have BP machine at home and is looking for one with a large cuff. Reports Dr. Villalba advised lifestyle changes at previous visit and is working on them. Unable to sync medical record through [employer] so pt will scan and send to My Chart. Held 40 min appt on 12/17/[address] Villalba wants to see pt today for 20 min appt. WAYNE Swan, ELLI 12/13/24, 9:31 AM documented in this encounter Plan of Treatment Upcoming Encounters Date Type Department Care Team (Late st Contact Info) Description 05/24/2025 8:15 AM CDT Office Visit [facility] [address] [place] [facility] 88 [place] [phone] Ayana Fuller MD [address] [place] [address] 05/31/2025 9:30 AM SIX PACK LOADER OPERATOR Office Visit [facility] [address] [phone] Ashwin Franklin MD [address] [place] [address] [phone] 09/05/2025 9:45 AM SIX PACK LOADER OPERATOR Office Visit [facility] [address] 3rd [place] [address] Jessica Butler MD 420 [facility] 98 [place], [place] [address] documented as of this encounter Visit Diagnoses Not on filedocumented in this encounter Additional Health Concerns Assessment Noted Time PHQ-9 Depression Total Score: 2 10/15/19 23 2:22 PM CDT documented as of this encounter Care Teams Seismograph Recorder Relationship Specialty Start Date End Date Nanci Villalba MD [address] [place] [address] [place], [place] [address] PCP - General Internal Medicine 06/01/19 Remi Camacho MD [address] [place] [address] 136 [place], [place] [address] Dermatology 08/28/16 Alexis Vargas MD [address] [place] [address] 069044 Dermatology 07/14/17 Cecilio Velasco DPM [address] [place] [address] 427115 Podiatry 12/31/17 Johnny Gauthier MD [place] [facility]2 [place] [phone] [place] [address] Family Medicine - Sports Medicine 08/20/18 Alpa Max PA-C 420 [facility] 98 [place], [place] [address] Physician Blueprint Developer Physician Blueprint Developer 08/28/18 Ayana Fuller MD [address] [address] nut chopper 12/01/18 Ayana Fuller MD [address] [address] Assigned OBGYN Provider 05/19/20 Nanci Villalba MD [address] [place] [address] 317755 Assigned PCP 12/21/20 Abdirizak Dowd MD [address] [place] [address]135 Dermatology 08/09/21 Abdirizak Dowd MD [address] [place] [address] [phone] Dermatology 12/21/21 Jessica Butler MD 420 [facility] 98 [place] [address] Dermatology 02/21/23 Ayana Fuller MD [address] [address] nut chopper 02/24/23 Loli Louis, DPM, Podiatry/Foot and Ankle Surgery [address] [address] Assigned Musculoskeletal Provider 09/19/23 03/18/25 Ashwin Franklin MD [address] [place] [address] Dermatology 09/17/24 Valeria Sullivan PAC[facility] Dermatology [address] [place] [address] Assigned Dermatology Provider 10/17/24 03/18/25 Jessica Butler MD [address] [place] [address] 98 [place] [address] Assigned Dermatology Provider 03/19/25 documented as of this encounter
--- OUTSIDE RECORDS SUMMARY | 2025-04-27 06:08 | XMS_ITS | Clinical Summary ---
Author Organization Coin Address [address] [place] [address] Care Team Providers Care Trimmer Loader Name Role Phone Remi Camacho MD Unavailable Alexis Vargas MD Unavailable [phone] Cecilio Velasco DPM Unavailable [phone] Johnny Gauthier MD Unavailable [phone] Alpa Max PA-C Unavailable Ayana Fuller MD Unavailable [phone] Nanci Villalba MD Primary Care Provider Ayana Fuller MD Unavailable [phone] Nanci Villalba MD Unavailable [phone] Abdirizak Dowd MD Unavailable [phone] Abdirizak Dowd MD Unavailable [phone] Jessiac Butler MD Unavailable [phone] Ayana Fuller MD Unavailable [phone] Ashwin Franklin MD Unavailable [phone] Jessica Butler MD [facility] Allergies Active Allergy Reactions Criticality Noted Date Comments Beta Adrenergic Blockers Other (See Comments) 11/24/2015 Contraindicated with allergy injections Cats 11/07/2015 Ciprofloxacin Hives Medium 02/14/2016 Warm red patch above right church for three days. Dogs 11/07/2015 Dust Mites [...] 05/31/2019 Overview (05/31/2019): 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 Fuller, cissp Eczema 05/31/2019 History of multiple allergies 05/31/2019 Overview (05/31/2019): Dogs, cats, dust mites, maple Allergy injections, follows with amusement ride inspector at [facility], no hx of asthma Menopause 05/31/2017 Esophageal reflux 04/28/2014 Resolved Problems Problem Noted Date Diagnosed Date Resolved Date Vaginal atrophy 12/27/2022 11/24/2023 Pelvic floor dysfunction 12/27/2022 Aftercare following surgery of the musculoskeletal system 04/17/2020 10/11/2020 Patellofemoral arthritis of left knee 02/23/2020 10/11/2020 Overview (02/23/2020): Added automatically from request for surgery [id number] Medial epicondylitis of elbow, left 12/17/2019 01/28/2020 [...] Encounters Date Type Department Care Team Description 04/26/2025 MyC Medical Advice [facility] [address] [phone] Ashwin Franklin MD 04/20/2025 1:00 PM CDT Office Visit [facility] [address] [phone] Ashwin Franklin MD Dermatitis of lip (Primary Dx); Lip swelling; Chronic idiopathic urticaria; Atopy; Allergic dermatitis due to other chemical product 04/20/2025 Travel 04/20/2025 PRE VISIT [facility] [address] [phone] Ashwin Franklin MD Previsit 04/19/2025 Travel 04/15/2025 MyC Medical Advice [facility] [address] [facility] [place] [address] Nanci Villalba MD 04/07/2025 Telephone [facility] [address]rd [address] [facility] [address] [phone] Ayana Fuller MD 04/06/2025 MyC Medical Advice [facility] D[facility] [address] 3rd [place] [phone] Hallie Hager 04/06/2025 MyC Medical Advice [facility] [address] [facility], [place] [address] Nanci Villalba MD 04/05/2025 Documentation Only [facility] [address] 4th [place] [address] Magda Goode MD Forms 02/28/2025 11:00 AM CDT Office Visit [facility] [address] 3rd [place] [phone] Jessica Butler MD Benign nevus without atypia (Primary Dx); Lichen sclerosus of female genitalia 02/28/2025 Telephone [facility] [address] 3rd [place] [address] Jessica Butler MD 02/27/2025 Travel 02/24/2025 MyC Medical Advice [facility] [address] [facility] [address] [phone] Ayana Fuller MD 02/21/2025 MyC Medical Advice [facility] [address] [place] [address] Nanci Villalba MD 02/15/2025 Care Coordination [facility] [place] [address] [facility] [address] 4th [place] [address] Magda Goode MD Medication Refill 02/08/2025 Medical Correspondence [facility] Information Management [address] [facility] [address] [place] [address] Scan, Non-Provider from Last 3 Months Immunizations Immunization Administration [...] re latives? Twice a week 08/10/2024 Attends Muslim Services Not on file 08/10 Active Member of Clubs or Organizations Not on f ile 08/10/2024 Attends Club or Organization Meetings Not on sb e 08/10/2024 Marital Status Not on file 08/10/2024 PHQ-2 Answer Date Recorded PHQ-2 Score 0 08/11/2024 [facility] - Occupational Stress [...] on file Legal Sex Female 3:34 AM BOWLING FLOOR MANAGER Gender Identity Not on file Sexual [...] Description 05/24/2025 8:15 AM CDT Office Visit [facility] [place] [address] [facility] [address] [place] [address] Ayana Fuller MD [address] [place], [place] [phone] 05/31/2025 9:30 AM BOWLING FLOOR MANAGER Office Visit [facility] [address] [phone] Ashwin Franklin MD [address] [place] [address] 09/05/2025 9:45 AM BOWLING FLOOR MANAGER Office Visit [facility] [address] 3rd [place] [address] Jessica Butler MD [address] [facility] 98 [place] [address] Health Maintenance Due Date Last Done Comments ANNUAL REVIEW OF HM ORDERS 1967 CT COLONOGRAPHY 1967 FIT 1967 FLEX SIG 1967 sDNA (Cologuard) 1967 SKIN CANCER SCREENING 09/26/2023 09/25/2022 COVID-19 VACCINE ( season) 2025 04/27/2024, 05/08/2023, 07/26/2022, Additional history exists INFLUENZA VACCINE (#1) 2025 , 05/08/2023, 06/07/2022, [...] the topic HIV SCREENING Addressed 06/09/2023 Overridden wit h the intention of not completing the topic PHQ-2 (once per calendar year) Completed 08/11/2024, 11/17/2023, 04/16/2023, Additional history exists PNEUMOCOCCAL VACCINE 50+ YEARS Completed 08/11/2024 HEPATITIS B VACCINE Discontinued HPV VACCINE (No Doses Required) Completed MENINGITIS VACCINE Aged Out No longer eligible based on patient's age to complete this topic Medical Devices Implanted Type Area Geotechnical Operating Engineer Device Identifier Shelf Expiration Date Model / Serial / Lot Bone Cement Radiopaque Simplex P Speedset 6192-1-001 Implanted:Qty: 1 on 04/13/2020 by Magda Goode MD at [facility] Cement, Bone Left: Knee [employer] 09/24/2020 6192-1-001 / / [id number] Genny Ii Resurfacing Patellar Component 32mm 7.5mm Thick Implanted:Qty: 1 on 04/13/2020 by Magda Goode MD at [facility] Left: Knee [employer] 01/11/2030 [id number] / / [id number] Journey [employer] Oxinium Trochlear Component, Medium, Left Implanted:Qty: 1 on 04/13/2020 by Magda Goode MD at [facility] Left: Knee [employer] 10/01/2029 [id number] / / [id number] Procedures Procedure Name Priority Date/Time Associated Diagnosis Comments CO PATCH TESTS, EACH Routine 04/21/2025 11:10 AM CDT Dermatitis of lip Lip swelling Allergic dermatitis due to other chemical product HPV AND GYNECOLOGIC CYTOLOGY PANEL Routine 11/16/2024 11:47 AM CDT Screening for malignant neoplasm of cervix MA SCREENING BILATERAL W/ EPI Routine 10/30/2024 11:39 AM CDT Visit for screening mammogram BASIC METABOLIC PANEL Routine 08/11/2024 10:49 AM BOWLING FLOOR MANAGER Elevated blood pressure reading without diagnosis of hypertension LIPID PROFILE Routine 08/11/2024 10:49 AM BOWLING FLOOR MANAGER Lipid screening COLONOSCOPY Routine 04/12/2019 6:40 AM [...] for high risk HPV DNA. METHODOLOGY: The Plastic[employer] system uses automated extraction, simultaneous amplification of [...] MD LAB - BLOOD ORDERABLES Final Result [facility] [address], Room [address] [phone], [facility]LE[facility]ULAR [facility]AGNOSTICS Molecular Diagnostics [address] [facility] [address], Room [address] [place] [phone], [facility] [[email or web address]] * MA Screening Bilateral w/ Epi (10/30/2024 [...] There is no radiographic evidence of malignancy. us Nanci Villalba MD IMG MAMMOGRAPHY ORDERAB LES Final Result * (ABNORMAL) Lipid Profile (08/11/2024 10:49 AM BOWLING FLOOR MANAGER) Cholesterol 223(H) <200 mg/dL 08/11/2024 3:17 PM BOWLING FLOOR MANAGER [facility] Triglycerides 87 <150 mg/dL 08/11/2024 3:17 PM BOWLING FLOOR MANAGER [facility] Direct Measure HDL 51 >=50 mg/dL 08/11/2024 3:17 PM BOWLING FLOOR MANAGER [facility] LDL Cholesterol Calculated 155(H) <100 mg/dL 08/11/2024 3:17 PM BOWLING FLOOR MANAGER [facility] Non HDL Cholesterol 172(H) <130 mg/dL 08/11/2024 3:17 PM BOWLING FLOOR MANAGER [facility] Patient Fasting > 8hrs? Yes 08/11/2024 3:17 PM BOWLING FLOOR MANAGER [facility] Blood BLOOD SPECIMEN / Unknown Venipuncture / Unknown 08/11/2024 10:49 AM BOWLING FLOOR MANAGER 08/11/2024 10:55 AM BOWLING FLOOR MANAGER Narrative [facility] - 08/11/2024 3:17 PM BOWLING FLOOR MANAGER Cholesterol Desirable: < 200 mg/dL Borderline High: [...] 219 mg/dL Very High: >= 220 mg/dL us Nanci Villalba MD LAB - BLOOD ORDERABLES Final Result [facility] [address] [facility], [address] [phone] * Basic metabolic panel (08/11/2024 10:49 AM BOWLING FLOOR MANAGER) Sodium 139 135 - 145 mmol/L 08/11/2024 3:17 PM BOWLING FLOOR MANAGER [facility] Potassium 4.9 3.4 - 5.3 mmol/L 08/11/2024 3:17 PM BOWLING FLOOR MANAGER [facility] Chloride 104 98 - 107 mmol/L 08/11/2024 3:17 PM BOWLING FLOOR MANAGER [facility] Carbon Dioxide (CO2) 27 22 - 29 mmol/L 08/11/2024 3:17 PM BOWLING FLOOR MANAGER [facility] Anion Gap 8 7 - 15 mmol/L 08/11/2024 3:17 PM BOWLING FLOOR MANAGER [facility] Urea Nitrogen 16.8 6.0 - 20.0 mg/dL 08/11/2024 3:17 PM BOWLING FLOOR MANAGER [facility] Creatinine 0.70 0.51 - 0.95 mg/dL 08/11/2024 3:17 PM BOWLING FLOOR MANAGER [facility] GFR Estimate >90 >60 mL/min/1.7 3m2 08/11/2024 3:17 PM BOWLING FLOOR MANAGER [facility] Comment:eGFR calculated usin 2020 CKD-EPI equation. Calcium 10.0 8.8 - 10.4 mg/dL 08/11/2024 3:17 PM BOWLING FLOOR MANAGER [facility] Comment:Reference intervals for this test were updated on 02/10/2024 to reflect our healthy population more accurately. There may be differences in the flagging of prior results with similar values performed with this method. Those prior results can be interpreted in the context of the updated reference intervals. Glucose 89 70 - 99 mg/dL 08/11/2024 3:17 PM BOWLING FLOOR MANAGER [facility] Patient Fasting > 8hrs? Yes 08/11/2024 3:17 PM BOWLING FLOOR MANAGER [facility] Blood BLOOD SPECIMEN / Unknown Venipuncture / Unknown 08/11/2024 10:49 AM BOWLING FLOOR MANAGER 08/11/2024 10:55 AM BOWLING FLOOR MANAGER us Nanci Villalba MD LAB - BLOOD ORDERABLES Final Result [facility] [address] [facility] Building, Room 3[address]580 [place] [address], [facility] [[email or web address]] * COLONOSCOPY (04/12/2019 6:40 AM CDT) [facility] [address] [place] [address] [phone] Endoscopy Department ___ Patient Name: Cecilia Hammond [...] by the physician, the nurse and the prototype technician in the pre-procedure area in the [...] bowel preparation was evaluated using the BBPS ([place] Bowel Preparation Scale) with scores of: Right [...] Out: RADIOLOGY RESULTS 04/12/2019 6:40 AM CDT us Ayana Fuller MD PROCEDURES Final R esult RADIOLOGY RESULTS from Last 3 Months or Most Recently Relevant to Health Maintenance Insurance [facility] [address] [address] [facility] CHO[facility] CHO[facility] Advance Directives For more information, please contact: [phone] Documents on File Type Date Recorded Patient Data Review Specialist Expl anation Advance Directives and Living Will 12/18/2023 Health Care Directiv e 11-20-2023 Healthcare Agents on File Name Relationship Healthcare Agent Relationshi p Communication Giorgio Rahman Spouse Health Care Agent Marlin Hammond Sister First Alternat e Health Care Agent Christiana Alvarez Sister Second Altern ate Health Care Agent Care Teams Trimmer Loader Relationship Specialty Start Date End Date Nanci Villalba MD [address] [place] [address] [phone] PCP - General Internal Medicine 06/01/19 Remi Camacho MD [address] [place] [address] 136 [place] [address] Dermatology 08/28/16 Alexis Vargas MD [address] [address] Dermatology 07/14/17 Cecilio Velasco DPM [address] [place] [address] [phone] Podiatry 12/31/17 Johnny Gauthier MD [address] [place], [place] [phone] Family Medicine - Sports Medicine 08/20/18 Alpa Max PA-C [address] [facility] 98 [place], [place] 84[address] Physician Waiter Physician Waiter 08/28/18 Ayana Fuller MD [address] [facility] 300 [place] [address] group art supervisor 12/01/18 Ayana Fuller MD [address] [facility] 300 [place] [address] Assigned OBGYN Provider 05/19/20 Nanci Villalba MD [address] [facility] [place] [address] Assigned PCP 12/21/20 Abdirizak Dowd MD [address] [facility] [place], [place] [phone] Dermatology 08/09/21 Abdirizak Dowd MD [address] [facility] [place], [place] 45[address] Dermatology 12/21/21 Jessica Butler MD 420 [facility] 98 [place] [address] Dermatology 02/21/23 Ayana Fuller MD [address] [place] [address] group art supervisor 02/24/23 Ashwin Franklin MD [address] [place] [address] Dermatology 09/17/24 Jessica Butler MD [address] [place] [address] 98 [place] [address] Assigned Dermatology Provider 03/19/25
--- OUTSIDE RECORDS SUMMARY | 2025-04-27 06:08 | XMS_ITS | Encounter Summary ---
Author Organization [place] Address [address] [facility] [place] [address] Care Team Providers Care Harbormaster Name Role Phone Remi Camacho MD Unavailable [phone] Alexis Vargas MD Unavailable Cecilio Velasco DPM Unavailable [phone] Johnny Gauthier MD Unavailable [phone] Alpa Max PA-C Unavailable Ayana Fuller MD Unavailable [phone] Nanci Villalba MD Primary Care Provider Ayana Fuller MD Unavailable [phone] Magda Goode MD Unavailable [phone] Nanci Villalba MD Unavailable [phone] Abdirizak Dowd MD Unavailable Abdirizak Dowd MD Unavailable [phone] Abdirizak Dowd MD Unavailable Jessica Butler MD Unavailable [phone] Ayana Fuller MD Unavailable [phone] Loli LouisM, Podiatry /Foot and Ankle Surgery Unavailable Jessica Butler MD Unavailable [phone] Ashwin Franklin MD Unavailable [phone] Valeria Sullivan PA-C Unavailable [phone] Jessica Butler MD Unavailable [phone] Encounter Details Date Type Department Care Team (Late st Contact Info) Description 01/02/2023 MyC Medical Advice [facility] [address] [facility] [address] [place] [address] [place] [address] [place] [address] Social History Tobacco Use Types [...] on file Legal Sex Female 3:34 AM 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 STRIP 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 Gender Identity Not on file Sexual Orientation [...] Description 05/24/2025 8:15 AM CDT Office Visit [facility] [address] 3rd Floor,[address] [facility] [address] [place] [phone] Ayana Fuller MD [facility] [address] [place], [place] [address] 05/31/2025 9:30 AM WEATHER STRIP INSTALLER Office Visit [facility] All[facility] Clinic [address] [address] Ashwin Franklin MD [address] [place] [address] 848665 09/05/2025 9:45 AM WEATHER STRIP INSTALLER Office Visit [facility] Dermatology Clinic [address] [place] [phone] Jessica Butler MD [address] [place] [address] 98 [place], [place] 5386[address] documented as of this encounter Visit Diagnoses Not on filedocumented in this encounter Additional Health Concerns Assessment Noted Time PHQ-9 Depression Total Score: 2 10/15/19 23 2:22 PM CDT documented as of this encounter Care Teams Harbormaster Relationship Specialty Start Date End Date Nanci Villalba MD [address] [place] [address] PCP - General Internal Medicine 06/01/19 Remi Camacho MD [address] [facility] 136 [place] [address] Dermatology 08/28/16 Alexis Vargas MD [address] [place] [address] Dermatology 07/14/17 Cecilio Velasco DPM [address] [place] [address] Podiatry 12/31/17 Johnny Gauthier MD [address] [place] [address] [address] [place] [address] Family Medicine - Sports Medicine 08/20/18 Alpa Max PA-C [address] [facility] 98 [place] [address] Physician Edge Gluer Physician Edge Gluer 08/28/18 Ayana Fuller MD [address] [place] [address] 040244 trust officer 12/01/18 Ayana Fuller MD [address] [place] [address] Assigned OBGYN Provider 05/19/20 Magda Goode MD [address] [place] [address] Assigned Musculoskeletal Provider 10/01/20 01/03/23 Nanci Villalba MD [address] [place] [address] Assigned PCP 12/21/20 Abdirizak Dowd MD [address] [place] [address] Dermatology 08/09/21 Abdirizak Dowd MD [address] [place] [address] Dermatology 12/21/21 Abdirizak Dowd MD [address] [place] [address] [phone] Assigned Surgical Provider 03/23/22 02/16/24 Jessica Butler MD [address] [place] [address] Dermatology 02/21/23 Ayana Fuller MD [address] [place] [address] [phone] trust officer 02/24/23 Loli Louis DPJean, Podiatry/Foot and Ankle Surgery [address] [address] Assigned Musculoskeletal Provider 09/19/23 03/18/25 Jessica Butler MD [address] [place] [address] Assigned Surgical Provider 02/17/24 10/16/24 Ashwin Franklin MD [address] [place] [address] Dermatology 09/17/24 Valeria Sullivan PA-C Dermatology [address] [place] [address] Assigned Dermatology Provider 10/17/24 03/18/25 Jessica Butler MD [address] [place] [address] Assigned Dermatology Provider 03/19/25 documented as of this encounter
--- OUTSIDE RECORDS SUMMARY | 2025-04-27 06:08 | XMS_ITS | Encounter Summary ---
Author Organization [place] Address [address] [place] [address] Care Team Providers Care Floor Finisher Name Role Phone Remi Camacho MD Unavailable [phone] Alexis Vargas MD Unavailable +[phone] Cecilio Velasco DPM Unavailable [phone] Johnny Gauthier MD Unavailable [phone] Alpa Max PA-C Unavailable Ayana Fuller MD Unavailable +[phone] Nanci Villalba MD Primary Care Provider Ashwin Franklin MD Unavailable [phone] Magda Goode MD Unavailable +[phone] Ayana Fuller MD Unavailable +[phone] Ashwin Franklin MD Unavailable +[phone] Cecilio Velasco DPM Unavailable +[phone] Nanci Villalba MD Unavailable +[phone] Magda Goode MD Unavailable +[phone] Nanci Villalba MD Unavailable +[phone] Abdirizak Dowd MD Unavailable +[phone] Abdirizak Dowd MD Unavailable +[phone] Abdirizak Dowd MD Unavailable +[phone] Jessica Butler MD Unavailable +[phone] Ayana Fuller MD Unavailable +[phone] Loli LouisM, Podiatry /Foot and Ankle Surgery Unavailable Jessica Butler MD Unavailable +[phone] Ashwin Franklin MD Unavailable +[phone] Valeria Sullivan PA-C Unavailable +[phone] Jessica Butler MD Unavailable +[phone] Encounter Details Date Type Department Care Team (Late st Contact Info) Description 01/18/2020 [facility] Medical Advice [facility] Women's [facility] [address] 3rd Floor,[address] [place] [facility] 88 [place] [address] Ayana Fuller MD [address] [facility] [address] [place] [address] Social History Tobacco Use Types Packs/Day Years Used Date Smoking Tobacco: Never Smokeless Tobacco: Never Alcohol Use Standard Drinks/Week Comments No 0 (1 standard drink = 0.6 oz pur e alcohol) Glasses Wine PHQ-2 Answer Date Recorded PHQ-2 Score 0 05/31/2019 Comments No Sex and Gender Information Value Date Recorded Sex Assigned at Not on file Legal Sex Female 3:34 AM LINE CONSTRUCTION SUPERINTENDENT Gender Identity Not on file Sexual Orientation [...] Description 05/24/2025 8:15 AM CDT Office Visit [facility] [address] [place] [facility] 88 [place] [phone] Ayana Fuller MD [address] [facility] [address] [place], [place] [address] 05/31/2025 9:30 AM LINE CONSTRUCTION SUPERINTENDENT Office Visit [facility] [place] [address] [place] [address] Ashwin Franklin MD [address] [place] [address] 507385 09/05/2025 9:45 AM LINE CONSTRUCTION SUPERINTENDENT Office Visit [facility] Dermatology [facility] 909 [facility] 3rd [place] [phone] Jessica Butler MD 420 [facility] 98 [place], [place] [address] documented as of this encounter Visit Diagnoses Not on filedocumented in this encounter Additional Health Concerns Assessment Noted Time PHQ-9 Depression Total Score: 2 08/02/19 20 1:35 PM LINE CONSTRUCTION SUPERINTENDENT documented as of this encounter Care Teams Floor Finisher Relationship Specialty Start Date End Date Nanci Villalba MD [address] [place] [address] [place], [place] [address] PCP - General Internal Medicine 06/01/19 Remi Camacho MD 420 [facility] 136 [place] [address] Dermatology 08/28/16 Alexis Vargas MD 2450 [place] [address] Dermatology 07/14/17 Cecilio Velasco DPM 909 [place] [address] Podiatry 12/31/17 Johnny Gauthier MD [facility] [address] [place] [address] Family Medicine - Sports Medicine 08/20/18 Alpa Max PA-C 420 [facility] 98 [place], [place] [address] Physician Industrial Sociologist Physician Industrial Sociologist 08/28/18 Ayana Fuller MD [address] [place] [address] [place], [place] [address] director federal 12/01/18 Ashwin Franklin MD 909 [place] [address] Assigned Pediatric Specialist Provider 05/19/20 08/27/20 Magda Goode MD 909 [place] [address] Assigned Musculoskeletal Provider 05/19/20 08/19/20 Ayana Fuller MD [address] [facility] 300 [place] [address] Assigned OBGYN Provider 05/19/20 Ashwin Franklin MD [address] [place] [address] Assigned Surgical Provider 05/19/20 03/22/22 Cecilio Velasco DPM [address] [place] [address] Assigned Musculoskeletal Provider 08/20/20 09/30/20 Nanci Villalba MD [address] [place] [address] Assigned PCP 09/10/20 11/04/20 Magda Goode MD [address] [place] [address] Assigned Musculoskeletal Provider 10/01/20 01/03/23 Nanci Villalba MD [address] [place] [address] 453705 Assigned PCP 12/21/20 Abdirizak Dowd MD [address] [place] [address] 322535 Dermatology 08/09/21 Abdirizak Dowd MD [address] [place] [address] Dermatology 12/21/21 Abdirizak Dowd MD [address] [place] [address] Assigned Surgical Provider 03/23/22 02/16/24 Jessica Butler MD [address] [place] [address] Dermatology 02/21/23 Ayana Fuller MD [address] [facility] 300 [place] [address] director federal 02/24/23 Loli Louis DPM, Podiatry/Foot and Ankle Surgery [address] [facility] 300 [place] [address] Assigned Musculoskeletal Provider 09/19/23 03/18/25 Jessica Butler MD [address] [place] [address] Assigned Surgical Provider 02/17/24 10/16/24 Ashwin Franklin MD 909 [place] [address] Dermatology 09/17/24 Valeria Sullivan, PA-C Dermatology [address] [place] [address] Assigned Dermatology Provider 10/17/24 03/18/25 Jessica Butler MD [address] [address] Assigned Dermatology Provider 03/19/25 documented as of this encounter
--- OUTSIDE RECORDS SUMMARY | 2025-04-27 06:08 | XMS_ITS | Encounter Summary ---
Author Organization [place] Address [address] [place] [address] Care Team Providers Care Cable Weaver Name Role Phone Remi Camacho MD Unavailable [phone] Alexis Vargas MD Unavailable Cecilio Velasco DPM Unavailable [phone] Johnny Gauthier MD Unavailable [phone] Alpa Max PA-C Unavailable Ayana Fuller MD Unavailable [phone] Nanci Villalba MD Primary Care Provider Ayana Fuller MD Unavailable [phone] Nanci Villalba MD Unavailable [phone] Abdirizak Dowd MD Unavailable [phone] Abdirizak Dowd MD Unavailable [phone] Jessica Butler MD Unavailable [phone] Ayana Fuller MD Unavailable +[phone] Ashwin Franklin MD Unavailable [phone] Jessica Butler MD Unavailable Encounter Details Date Type Department Care Team (Latest Contact Info) Description 04/20/2025 Travel Social History Tobacco Use Types Packs/Day [...] re latives? Twice a week 08/10/2024 Attends Orthodoxy Services Not on file 08/10 Active Member of Clubs or Organizations Not on f ile 08/10/2024 Attends Club or Organization Meetings Not on sb e 08/10/2024 Marital Status Not on file 08/10/2024 PHQ-2 Answer Date Recorded PHQ-2 Score 0 08/11/2024 [facility] - [...] in an overnight alf, or couch-surfing.) Yes 08/10/2024 Are you worried [...] on file Legal Sex Female 3:34 AM BALLOON SANDER Gender Identity Not on file Sexual Orientation Not on file Occupation Industry Job Start Date Job End Date Unemployed Not on file Not on file Not on file documented as of this encounter Plan of Treatment Upcoming Encounters Date Type Department Care Team (Late st Contact Info) Description 05/24/2025 8:15 AM CDT Office Visit [facility] Women[facility] Clinic [address] 3rd Floor,[address] [place] [facility] 88 [place] [phone] Ayana Fuller MD [address] [address] [facility] 300 [place], [place] [address] 05/31/2025 9:30 AM BALLOON SANDER Office Visit [facility] All[facility] Clinic [address] [address] Ashwin Franklin MD [address] [place] [address] 202785 09/05/2025 9:45 AM BALLOON SANDER Office Visit [facility] Dermatology Clinic [address] 3rd [place] [phone] Jessica Butler MD 420 [facility] [place] 98 [place], [place] [address] documented as of this encounter Visit Diagnoses Not on filedocumented in this encounter Additional Health Concerns Assessment Noted Time PHQ-9 Depression Total Score: 2 10/15/19 23 2:22 PM CDT documented as of this encounter Care Teams Cable Weaver Relationship Specialty Start Date End Date Nanci Villalba MD [address] [place] [address] [place], [place] [address] PCP - General Internal Medicine 06/01/19 Remi Camacho MD 420 [facility] 136 [place], [place] 6[address] Dermatology 08/28/16 Alexis Vargas MD [address] [place] [address] 775254 Dermatology 07/14/17 Cecilio Velasco DPM [address] [place] [address] 784575 Podiatry 12/31/17 Johnny Gauthier MD [address] [place] [address] [address] [place] [address] Family Medicine - Sports Medicine 08/20/18 Alpa Max PA-C 420 [facility] 98 [place], [place] [address] Physician Coordinator Of Placement Physician Coordinator Of Placement 08/28/18 Ayana Fuller MD [address] [facility] 300 [place] [address] base draw operator 12/01/18 Ayana uFller MD [address] [facility] 300 [place] [address] Assigned OBGYN Provider 05/19/20 Nanci Villalba MD [address] [place] [address] Assigned PCP 12/21/20 Abdirizak Dowd MD [address] [place] [address] 293745 Dermatology 08/09/21 Abdirizak Dowd MD [address] [place] [address] 663095 Dermatology 12/21/21 Jessica Butler MD [address] [address] Dermatology 02/21/23 Ayana Fuller MD [address] [facility] [address] [address] base draw operator 02/24/23 Ashwin Franklin MD [address] [place] [address] 478235 Dermatology 09/17/24 Jessica Butler MD 420 [facility] [place] 98 [place] [address] Assigned Dermatology Provider 03/19/25 documented as of this encounter
--- OUTSIDE RECORDS SUMMARY | 2025-04-27 06:08 | XMS_ITS | Encounter Summary ---
Author Organization [place] Address [address] [facility] [facility] [place] [address] Care Team Providers Care Ion Implant Machine Operator Name Role Phone Remi Camacho MD Unavailable [phone] Alexis Vargas MD Unavailable Cecilio Velasco DPM Unavailable [phone] Johnny Gauthier MD Unavailable [phone] Alpa Max PA-C Unavailable Ayana Fuller MD Unavailable [phone] Nanci Villalba MD Primary Care Provider Ayana Fuller MD Unavailable [phone] Magda Goode MD Unavailable [phone] Nanci Villalba MD Unavailable [phone] Abdirizak Dowd MD Unavailable Abdirizak Dowd MD Unavailable [phone] Abdirizak Dowd MD Unavailable Jessica Butler MD Unavailable Ayana Fuller MD Unavailable [phone] Loli LouisM, Podiatry /Foot and Ankle Surgery Unavailable Jessica Butler MD Unavailable [phone] Ashwin Franklin MD Unavailable [phone] Valeria Sullivan PA-C Unavailable +[phone] Jessica Butler MD Unavailable [phone] Encounter Details Date Type Department Care Team (Late st Contact Info) Description 10/21/2022 MyC Medical Advice [address] [place] [address] Nanci Villalba MD [address] [place] [address] Social History Tobacco Use Types Packs/Day [...] on file Legal Sex Female 3:34 AM INK JET OPERATOR Gender Identity Not on file Sexual [...] Description 05/24/2025 8:15 AM CDT Office Visit [facility] Women's [address]rd Floor,[address] [place] Professional Bldg [facility] 88 [place] [phone] Ayana Fuller MD [address] [facility] 300 [place], [place] [address] 05/31/2025 9:30 AM INK JET OPERATOR Office Visit [facility] Allergy Clinic [address] [address] Ashwin Franklin MD [address] [place] [address]395 09/05/2025 9:45 AM INK JET OPERATOR Office Visit [facility] Dermatology Clinic [address] 3rd [place] [phone] Jessica Butler MD [address] [place] [address] 98 [place], [place] [address] documented as of this encounter Visit Diagnoses Not on filedocumented in this encounter Additional Health Concerns Assessment Noted Time PHQ-9 Depression Total Score: 2 10/15/19 23 2:22 PM CDT documented as of this encounter Care Teams Ion Implant Machine Operator Relationship Specialty Start Date End Date Nanci Villalba MD [address] [place] [address] PCP - General Internal Medicine 06/01/19 Remi Camacho MD 420 [facility] 136 [place] [address] Dermatology 08/28/16 Alexis Vargas MD 2450 [place] [address] Dermatology 07/14/17 Cecilio Velasco DPM [address] [place] [address] Podiatry 12/31/17 Johnny Gauthier MD [address] [place], [place] [address] [place] [address] Family Medicine - Sports Medicine 08/20/18 Alpa Max PA-C 420 [facility] 98 [place] [address] Physician Housing Coordinator Physician Housing Coordinator 08/28/18 Ayana Fuller MD [address] [place] [address] 965524 systems management consultant 12/01/18 Ayana Fuller MD [address] [place] [address] 504904 Assigned OBGYN Provider 05/19/20 Magda Goode MD [address] [place] [address] Assigned Musculoskeletal Provider 10/01/20 01/03/23 Nanci Villalba MD [address] [place] [address] Assigned PCP 12/21/20 Abdirizak Dowd MD [address] [place] [address] Dermatology 08/09/21 Abdirizak Dowd MD [address] [place] [address] Dermatology 12/21/21 Abdirizak Dowd MD [address] [place] [address] 446995 Assigned Surgical Provider 03/23/22 02/16/24 Jessica Butler MD [address] [place] [address] Dermatology 02/21/23 Ayana Fuller MD [address] [place] [address] 066174 systems management consultant 02/24/23 Loli Louis DPJean, Podiatry/Foot and Ankle Surgery [address] [facility] 300 [place] [address] Assigned Musculoskeletal Provider 09/19/23 03/18/25 Jessica Butler MD [address] [place] [address] Assigned Surgical Provider 02/17/24 10/16/24 Ashwin Franklin MD [address] [place] [address] Dermatology 09/17/24 Valeria Sullivan PA-C Dermatology [address] [place] [address] Assigned Dermatology Provider 10/17/24 03/18/25 Jessica Butler MD [address] [place] [address] Assigned Dermatology Provider 03/19/25 documented as of this encounter
--- OUTSIDE RECORDS SUMMARY | 2025-04-27 06:08 | XMS_ITS | Encounter Summary ---
Author Organization [place] Address [address] [facility] [place] [address] Care Team Providers Care Needle Polisher Name Role Phone Remi Camacho MD Unavailable Alexis Vargas MD Unavailable Cecilio Velasco DPM Unavailable [phone] Johnny Gauthier MD Unavailable +[phone] Alpa Max PA-C Unavailable Ayana Fuller MD Unavailable [phone] Nanci Villalba MD Primary Care Provider Ayana Fuller MD Unavailable +[phone] Nanci Villalba MD Unavailable [phone] Abdirizak Dowd MD Unavailable +[phone] Abdirizak Dowd MD Unavailable +[phone] Jessica Butler MD Unavailable [phone] Ayana Fuller MD Unavailable +[phone] Ashwin Franklin MD Unavailable [phone] Jessica Butler MD Unavailable Encounter Details Date Type Department Care Team (Late st Contact Info) Description 04/06/2025 MyC Medical Advice [facility] Dermatology Clinic [address] 3rd [place] [address] Al[place] Hallie Social History Tobacco [...] re latives? Twice a week 08/10/2024 Attends [employer] Services Not on file 08/10 Active Member of Clubs or Organizations Not on f ile 08/10/2024 Attends Club or Organization Meetings Not on sb e 08/10/2024 Marital Status Not on file 08/10/2024 PHQ-2 Answer Date Recorded PHQ-2 Score 0 08/11/[address] [facility] [place] - Occupational Stress [...] on file Legal Sex Female 3:34 AM SAND DIGGER Gender Identity Not on file Sexual Orientation Not on file Occupation Industry Job Start Date Job End Date Unemployed Not on file Not on file Not on file documented as of this encounter Plan of Treatment Upcoming Encounters Date Type Department Care Team (Late st Contact Info) Description 05/24/2025 8:15 AM CDT Office Visit [facility] Women's Clinic [place] [address] 3rd Floor,[address] [place] Professional [facility]ld[facility] 88 [place] [phone] Ayana Fuller MD [address] [facility] 300 [place], [place] [address] 05/31/2025 9:30 AM SAND DIGGER Office Visit [facility] Allergy Clinic [address] [phone] Ashwin Franklin MD [address] [place] [address] 09/05/2025 9:45 AM SAND DIGGER Office Visit [facility] Dermatology Clinic [place] 909 [facility] 3rd [place] [phone] Jessica Butler MD 420 [facility] 98 [place] [address] documented as of this encounter Visit Diagnoses Not on filedocumented in this encounter Additional Health Concerns Assessment Noted Time PHQ-9 Depression Total Score: 2 10/15/19 23 2:22 PM CDT documented as of this encounter Care Teams Needle Polisher Relationship Specialty Start Date End Date Nanci Villalba MD [address] [place] [address] [place] [address] PCP - General Internal Medicine 06/01/19 Remi Camacho MD 420 [facility] 136 [place] [address] Dermatology 08/28/16 Alexis Vargas MD [address] [place] [address] Dermatology 07/14/17 Cecilio Velasco DPM 9 [place], [place] [address] Podiatry 12/31/17 Johnny Gauthier MD [facility] [place] [id number] [place], [place] [address]134 Family Medicine - Sports Medicine 08/20/18 Alpa Max PA-C 420 [facility] 98 [place], [place] [address] Physician Security Researcher Physician Security Researcher 08/28/18 Ayana Fuller MD [address] [facility] [address] [address] spacer type bar and segment 12/01/18 Ayana Fuller MD [address] [facility] [address] [address] Assigned OBGYN Provider 05/19/20 Nanci Villalba MD [address] [place] [address] 882375 Assigned PCP 12/21/20 Abdirizak Dowd MD [address] [place] [address] 366485 Dermatology 08/09/21 Abdirizak Dowd MD [address] [place] [address] 157075 Dermatology 12/21/21 Jessica Butler MD [address] [place] [address] 98 [place] [address] Dermatology 02/21/23 Ayana Fuller MD [address] 522674 spacer type bar and segment 02/24/23 Ashwin Franklin MD [address] [place] [address] Dermatology 09/17/24 Jessica Butler MD [address] [place] [address] 98 [place] [address] Assigned Dermatology Provider 03/19/25 documented as of this encounter
--- OUTSIDE RECORDS SUMMARY | 2025-04-27 06:08 | XMS_ITS | Encounter Summary ---
Author Organization [place] Address [address] [facility] [place] [address] Care Team Providers Care Airborne Electronics Analyst Name Role Phone Remi Camacho MD Unavailable Alexis Vargas MD Unavailable [phone] Cecilio Velasco DPM Unavailable [phone] Johnny Gauthier MD Unavailable [phone] Alpa Max PA-C Unavailable Ayana Fuller MD Unavailable [phone] Nanci Villalba MD Primary Care Provider Ayana Fuller MD Unavailable [phone] Magda Goode MD Unavailable [phone] Nanci Villalba MD Unavailable [phone] Abdirizak Dowd MD Unavailable Abdirizak Dowd MD Unavailable [phone] Abdirizak Dowd MD Unavailable Jessica Butler MD Unavailable Ayana Fuller MD Unavailable [phone] Loli LouisM, Podiatry /Foot and Ankle Surgery Unavailable Jessica Butler MD Unavailable [phone] Ashwin Franklin MD Unavailable [phone] Valeria Sullivan PA-C Unavailable [phone] Jessica Butler MD Unavailable [phone] Encounter Details Date Type Department Care Team (Late st Contact Info) Description 06/08/2022 MyC Medical Advice [address] [place] [address] Nanci Villalba MD [address] [place] [address] Social History Tobacco Use Types Packs/Day [...] on file Legal Sex Female 3:34 AM DIRECTOR BANKING Gender Identity Not on file Sexual Orientation Not on file Occupation Industry Job Start Date Job End Date Unemployed Not on file Not on file Not on file COVID-19 Exposure Response Date Recorded In the last 10 days, have yo u been in contact with someone who was confirmed or suspected to have Coronavirus/COVID-19? No / Unsure 06/07/2022 1:31 PM DIRECTOR BANKING documented as of this encounter Plan of Treatment Upcoming Encounters Date Type Department Care Team (Late st Contact Info) Description 05/24/2025 8:15 AM CDT Office Visit [facility] Women's [address] 3rd Floor,[address] [place] Professional [facility] 88 [place] [phone] Ayana Fuller MD [address] [facility] 300 [place], [place] [id number] 05/31/2025 9:30 AM DIRECTOR BANKING Office Visit [facility] All[facility] [address] [address] Ashwin Franklin MD [address] [place] [address] 947305 09/05/2025 9:45 AM DIRECTOR BANKING Office Visit [facility] Dermatology Clinic [address] 3rd [place] [phone] Jessica Butler MD [address] [place] [address] 98 [place], [place] [address] documented as of this encounter Visit Diagnoses Not on filedocumented in this encounter Additional Health Concerns Assessment Noted Time PHQ-9 Depression Total Score: 2 02/29/20 21 1:38 PM CDT documented as of this encounter Care Teams Airborne Electronics Analyst Relationship Specialty Start Date End Date Nanci Villalba MD [address] [place] [address] PCP - General Internal Medicine 06/01/19 Remi Camacho MD 420 [facility] 136 [place] [address] Dermatology 08/28/16 Alexis Vargas MD 2450 [place] [address] Dermatology 07/14/17 Cecilio Velasco DPM [address] [place] [address] Podiatry 12/31/17 Johnny Gauthier MD [address] [place], [place] [address] [place] [address] Family Medicine - Sports Medicine 08/20/18 Alpa Max PA-C 420 [facility] 98 [place] [address] Physician Principal Mechanical Engineer Physician Principal Mechanical Engineer 08/28/18 Ayana Fuller MD [address] [place] [address] 207144 residential appliance repair technician 12/01/18 Ayana Fuller MD [address] [place] [address] 562784 Assigned OBGYN Provider 05/19/20 Magda Goode MD [address] [place] [address] Assigned Musculoskeletal Provider 10/01/20 01/03/23 Nanci Villalba MD [address] [place] [address] Assigned PCP 12/21/20 Abdirizak Dowd MD [address] [place] [address] Dermatology 08/09/21 Abdirizak Dowd MD [address] [place] [address] Dermatology 12/21/21 Abdirizak Dowd MD [address] [place] [address] 461515 Assigned Surgical Provider 03/23/22 02/16/24 Jessica Butler MD [address] [place] [address] Dermatology 02/21/23 Ayana Fuller MD [address] [place] [address] 762904 residential appliance repair technician 02/24/23 Loli Louis DPM, Podiatry/Foot and Ankle Surgery [address] [facility] 300 [place] [address] Assigned Musculoskeletal Provider 09/19/23 03/18/25 Jessica Butler MD [address] [place] [address] Assigned Surgical Provider 02/17/24 10/16/24 Ashwin Franklin MD [address] [place] [address] Dermatology 09/17/24 Valeria Sullivan PA-C Dermatology [address] [place] [address] Assigned Dermatology Provider 10/17/24 03/18/25 Jessica Butler MD [address] [place] [address] Assigned Dermatology Provider 03/19/25 documented as of this encounter
--- OUTSIDE RECORDS SUMMARY | 2025-04-27 06:08 | XMS_ITS | Encounter Summary ---
Author Organization [place] Address [address] [facility] [place] [address] Care Team Providers Care Webbing Inspector Name Role Phone Remi Camacho MD Unavailable Alexis Vargas MD Unavailable [phone] Cecilio Velasco DPM Unavailable [phone] Johnny Gauthier MD Unavailable [phone] Alpa Max PA-C Unavailable Ayana Fuller MD Unavailable [phone] Nanci Villalba MD Primary Care Provider Ayana Fuller MD Unavailable [phone] Nanci Villalba MD Unavailable [phone] Abdirizak Dowd MD Unavailable [phone] Abdirizak Dowd MD Unavailable Abdirizak Dowd MD Unavailable [phone] Jessica Butler MD Unavailable Ayana Fuller MD Unavailable [phone] Loli Louis DPM, Podiatry /Foot and Ankle Surgery Unavailable Jessica Butler MD Unavailable [phone] Ashwin Franklin MD Unavailable [phone] BertronValeria Jaylan MOTTA Unavailable [phone] Jessica Butler MD Unavailable [phone] Encounter Details Date Type Department Care Team (Late st Contact Info) Description 01/24/2023 MyC Medical Advice [facility] Women's [address] 3rd Floor,[address] [place] [facility] 88 [place] [address] Rocío Martinez RN Social History [...] file Legal Sex Female 3:34 AM ENVELOPE PATTERNMAKER Gender Identity Not on file Sexual Orientation [...] Description 05/24/2025 8:15 AM CDT Office Visit [facility] Women's [facility] [address] 3rd Floor,[address] [place] [facility] 88 [place] [phone] Ayana Fuller MD [address] [place] 300 [place], [place] [address] 05/31/2025 9:30 AM ENVELOPE PATTERNMAKER Office Visit [facility]ergy [facility] [place] [address] [place] [phone] Ashwin Franklin MD [address] [place] [address] 877825 09/05/2025 9:45 AM ENVELOPE PATTERNMAKER Office Visit [facility] Dermatology Clinic [place] [address] [place] [address] 3rd [place] [phone] Jessica Butler MD 420 [facility] 98 [place], [place] 6[address] documented as of this encounter Visit Diagnoses Not on filedocumented in this encounter Additional Health Concerns Assessment Noted Time PHQ-9 Depression Total Score: 2 10/15/19 23 2:22 PM CDT documented as of this encounter Care Teams Webbing Inspector Relationship Specialty Start Date End Date Nanci Villalba MD [address] [facility] [place] [address] PCP - General Internal Medicine 06/01/19 Remi Camacho MD 420 [facility] 136 [place] [address] Dermatology 08/28/16 Alexis Vargas MD [address] [place] [address] Dermatology 07/14/17 Cecilio Velasco, SHELL 909 [place] [address] Podiatry 12/31/17 Johnny Gauthier MD [address] [place] [address] Family Medicine - Sports Medicine 08/20/18 Alpa Max PA-C [address] [facility] 98 [place], [place] 120[address] Physician Licensed Plumber Physician Licensed Plumber 08/28/18 Ayana Fuller MD [address] [place] [address] [place], [place] [phone] coating mixer tender 12/01/18 Ayana Fuller MD [address] [place] [address] [place], [place] [phone] Assigned OBGYN Provider 05/19/20 Nanci Villalba MD [address] [place], [place] [address] Assigned PCP 12/21/20 Abdirizak Dowd MD [address] [place] [address] [place] [address] Dermatology 08/09/21 Abdirizak Dowd MD [address] [place] [address] Dermatology 12/21/21 Abdirizak Dowd MD [address] [place] [address] Assigned Surgical Provider 03/23/22 02/16/24 Jessica Butler MD [address] [place] [address] Dermatology 02/21/23 Ayana Fuller MD [address] [place] [address] coating mixer tender 02/24/23 Loli Louis DPM, Podiatry/Foot and Ankle Surgery [address] [address] Assigned Musculoskeletal Provider 09/19/23 03/18/25 Jessica Butler MD [address] [place] [address] Assigned Surgical Provider 02/17/24 10/16/24 Ashwin Franklin MD [address] [place] [address] Dermatology 09/17/24 Valeria Sullivan PACassieC Dermatology [address] [place] [address] Assigned Dermatology Provider 10/17/24 03/18/25 Jessica Butler MD [address] [place] [address] 98 [place] [address] Assigned Dermatology Provider 03/19/25 documented as of this encounter
--- OUTSIDE RECORDS SUMMARY | 2025-04-27 06:08 | XMS_ITS | Encounter Summary ---
Author Organization [place] Address [address] [facility] [place] [address] Care Team Providers Care Revenue Coordinator Name Role Phone Remi Camacho MD Unavailable Alexis Vargas MD Unavailable Cecilio VelascoM Unavailable [phone] Johnny Gauthier MD Unavailable Alpa Max PA-C Unavailable Ayana Fuller MD Unavailable [phone] Nanci Villalba MD Primary Care Provider Ayana Fuller MD Unavailable [phone] Nanci Villalba MD Unavailable [phone] Abdirizak Dowd MD Unavailable Abdirizak Dowd MD Unavailable [phone] Jessica Butler MD Unavailable Ayana Fuller MD Unavailable [phone] Loli Louis DPM, Podiatry /Foot and Ankle Surgery Unavailable Ashwin Franklin MD Unavailable Valeria Sullivan PA-C Unavailable [phone] Jessica Butler MD Unavailable [phone] Encounter Details Date Type Department Care Team (Late st Contact Info) Description 12/13/2024 MyC Medical Advice Physicians [facility] Building [address] [facility], [address] [place], [place] [phone] Nanci Villalba MD [address] [facility] [place] [address] Social History Tobacco Use Types [...] re latives? Twice a week 08/10/2024 Attends Confucianism Services Not on file 08/10 Active Member of Clubs or Organizations Not on f ile 08/10/2024 Attends Club or Organization Meetings Not on sb e 08/10/2024 Marital Status Not on file 08/10/2024 PHQ-2 Answer Date Recorded PHQ-2 Score 0 08/11/2024 [facility] of Occupat ional Health - [...] on file Legal Sex Female 3:34 AM MANAGER TAX Gender Identity Not on file Sexual Orientation [...] CDT Office Visit [facility] Women's [facility] [address] 3rd Floor,[address] [place] Professional [facility]ldg [facility] 88 [place] [phone] Ayana Fuller MD [address] [facility] 300 [place] [address] 05/31/2025 9:30 AM MANAGER TAX Office Visit [facility] Allergy Clinic [address] [phone] Ashwin Franklin MD 909 [place], [place] [address] 09/05/2025 9:45 AM MANAGER TAX Office Visit [facility] Dermatology [address] 3rd [place] [phone] Jessica Butler MD 420 [facility] 98 [place], [place] 94[address] documented as of this encounter Visit Diagnoses Not on filedocumented in this encounter Additional Health Concerns Assessment Noted Time PHQ-9 Depression Total Score: 2 10/15/19 23 2:22 PM CDT documented as of this encounter Care Teams Revenue Coordinator Relationship Specialty Start Date End Date Nanci Villalba MD [address] [place] [address] A [place], [place] [address]395 PCP - General Internal Medicine 06/01/19 Remi Camacho MD 420 [facility] 136 [place], [place] 258554 Dermatology 08/28/16 Alexis Vargas MD 2450 [place], [place] [address] Dermatology 07/14/17 Cecilio Velasco DPM 909 [facility] [place] [place] [address] Podiatry 12/31/17 Johnny Gauthier MD [address] [place], [place] [address] Family Medicine - Sports Medicine 08/20/18 Alpa Max PA-C 420 [facility] 98 [place], [place] 3547[address] Physician Poker Prop Player Physician Poker Prop Player 08/28/18 Ayana Fuller MD [address] [place] [address] [place], [place] 7[address] glass presser 12/01/18 Ayana Fuller MD [address] [place] [address] [place], [place] 6879[address] Assigned OBGYN Provider 05/19/20 Nanci Villalba MD [address] [place], [place] 8[address] Assigned PCP 12/21/20 Abdirizak Dowd MD [address] [place], [place] 05[address] Dermatology 08/09/21 Abdirizak Dowd MD [address] [place], [place] [address] Dermatology 12/21/21 Jessica Butler MD 420 [facility] 98 [place] [address] Dermatology 02/21/23 Ayana Fuller MD [address] [facility] 300 [place] [address] glass presser 02/24/23 Loli Louis DPM, Podiatry/Foot and Ankle Surgery [address] [facility] 300 [place] [address] Assigned Musculoskeletal Provider 09/19/23 03/18/25 Ashwin Franklin MD [address] [place] [address] Dermatology 09/17/24 Valeria Sullivan, PA-C Dermatology [address] [place] [address] Assigned Dermatology Provider 10/17/24 03/18/25 Jessica Butler MD [address] [address] Assigned Dermatology Provider 03/19/25 documented as of this encounter
--- OUTSIDE RECORDS SUMMARY | 2025-04-27 06:08 | XMS_ITS | Encounter Summary ---
Author Organization [place] Address [address]50 [facility] [place] [address] Care Team Providers Care Matching Machine Operator Name Role Phone Remi Camacho MD Unavailable Alexis Vargas MD Unavailable Cecilio VelascoM Unavailable [phone] Johnny Gauthier MD Unavailable [phone] Alpa Max PA-C Unavailable Ayana Fuller MD Unavailable [phone] Nanci Villalba MD Primary Care Provider Ayana Fuller MD Unavailable [phone] Nanci Villalba MD Unavailable [phone] Abdirizak Dowd MD Unavailable Abdirizak Dowd MD Unavailable [phone] Jessica Butler MD Unavailable Ayana Fuller MD Unavailable [phone] Loli Louis DPM, Podiatry /Foot and Ankle Surgery Unavailable Ashwin Franklin MD Unavailable Valeria Sullivan PA-C Unavailable [phone] Jessica Butler MD Unavailable [phone] Encounter Details Date Type Department Care Team (Late st Contact Info) Description 01/04/2025 MyC Medical Advice Physicians [facility] Building [address] [facility], [address] [place], [place] [phone] Nanci Villalba MD [address] [facility] [place] [address] Social History Tobacco Use Types [...] re latives? Twice a week 08/10/2024 Attends Congregation Services Not on file 08/10 Active Member of Clubs or Organizations Not on f ile 08/10/2024 Attends Club or Organization Meetings Not on sb e 08/10/2024 Marital Status Not on file 08/10/2024 PHQ-2 Answer Date Recorded PHQ-2 Score 0 08/11/2024 [facility] of Occupat ional Health - Occupational [...] on file Legal Sex Female 3:34 AM CONDUIT WORKER Gender Identity Not on file Sexual Orientation Not on file Occupation Industry Job Start Date Job End Date Unemployed Not on file Not on file Not on file documented as of this encounter Plan of Treatment Upcoming Encounters Date Type Department Care Team (Late st Contact Info) Description 05/24/2025 8:15 AM CDT Office Visit [facility] Women's [place] [address] 3rd Floor,[address] [place] [facility] [employer] 88 [place] [address] Ayana Fuller MD [address] [place] [address] [place] [address] 05/31/2025 9:30 AM CONDUIT WORKER Office Visit [facility] Allergy Clinic [address] [phone] Ashwin Franklin MD [address] [place] [address] 683275 09/05/2025 9:45 AM CONDUIT WORKER Office Visit [facility] Dermatology Clinic [address] 3rd [place] [phone] Jessica Butler MD 420 [facility] 98 [place], [place] [address] documented as of this encounter Visit Diagnoses Not on filedocumented in this encounter Additional Health Concerns Assessment Noted Time PHQ-9 Depression Total Score: 2 10/15/19 23 2:22 PM CDT documented as of this encounter Care Teams Matching Machine Operator Relationship Specialty Start Date End Date Nanci Villalba MD [address] [place] [address] A [place], [place] 9[address]25 PCP - General Internal Medicine 06/01/19 Remi Camacho MD 420 [facility] 136 [place], [place] 896984 Dermatology 08/28/16 Alexis Vargas MD [address] [place] [address] Dermatology 07/14/17 Cecilio Velasco DPM [address] [place] [address] Podiatry 12/31/17 Johnny Gauthier MD [address] [place] [address] Family Medicine - Sports Medicine 08/20/18 Alpa Max PA-C 420 [facility] 98 [place] [address] Physician Technical Support Engineer Physician Technical Support Engineer 08/28/18 Ayana Fuller MD [address] [place] [place], [place] [address] wood caulker 12/01/18 Ayana Fuller MD [address] [place] [address] [place], [place] 6[address] Assigned OBGYN Provider 05/19/20 Nanci Villalba MD [address] [place], [place] 27[address] Assigned PCP 12/21/20 Abdirizak Dowd MD [address] [place], [place] 24[address] Dermatology 08/09/21 Abdirizak Dowd MD [address] [place] [address] Dermatology 12/21/21 Jessica Butler MD [address] [place] [address] [employer] 98 [place] [address] Dermatology 02/21/23 Ayana Fuller MD [address] [place] [address] [place] [address] wood caulker 02/24/23 Loli Louis DPM, Podiatry/Foot and Ankle Surgery [address] [place] [address] Assigned Musculoskeletal Provider 09/19/23 03/18/25 Ashwin Franklin MD [address] [place] [address] Dermatology 09/17/24 Valeria Sullivan, PACassieC Dermatology [address] [address] Assigned Dermatology Provider 10/17/24 03/18/25 Jessica Butler MD [address] [place] [address] 98 [place] [address] Assigned Dermatology Provider 03/19/25 documented as of this encounter
--- OUTSIDE RECORDS SUMMARY | 2025-04-27 06:08 | XMS_ITS | Encounter Summary ---
Author Organization [place] Address [address] [facility] [place] [address] Care Team Providers Care Treasury Management Sales Consultant Name Role Phone Remi Camacho MD Unavailable Alexis Vargas MD Unavailable [phone] Cecilio Velasco DPM Unavailable [phone] Johnny Gauthier MD Unavailable [phone] Alpa Max PA-C Unavailable Ayana Fuller MD Unavailable [phone] Nanci Villalba MD Primary Care Provider Ayana Fuller MD Unavailable [phone] Nanci Villalba MD Unavailable [phone] Abdirizak Dowd MD Unavailable [phone] Abdirizak Dowd MD Unavailable [phone] Jessica Butler MD Unavailable [phone] Ayana Fuller MD Unavailable [phone] Ashwin Franklin MD Unavailable [phone] Jessica Butler MD Unavailable Encounter Details Date Type Department Care Team (Late st Contact Info) Description 04/06/2025 MyC Medical Advice M [facility] Building [address] [place], [place] [address] Nanci Villalba MD [address] [place], [place] [address] Social History Tobacco Use Types Packs/Day Years [...] Answer Date Recorded PHQ-2 Score 0 08/11/2024 [facility] [place] of Occupat ional Health - Occupational Stress [...] on file Legal Sex Female 3:34 AM CHEMISTRY INTERN Gender Identity Not on file Sexual Orientation Not on file Occupation Industry Job Start Date Job End Date Unemployed Not on file Not on file Not on file documented as of this encounter Plan of Treatment Upcoming Encounters Date Type Department Care Team (Late st Contact Info) Description 05/24/2025 8:15 AM CDT Office Visit [facility] [place] [address] 3rd Floor,[address] [place] [facility]ld[facility] 88 [place] [address] Ayana Fuller MD [address] [place] [address] [place], [place] [address]04 05/31/2025 9:30 AM CHEMISTRY INTERN Office Visit [facility] Allergy [facility] [place] 909 [place] [phone] Ashwin Franklin MD 909 [place], [place] [address]95 09/05/2025 9:45 AM CHEMISTRY INTERN Office Visit [facility] Dermatology Clinic [address] 3rd [place] [phone] Jessica Butler MD 420 [facility] 98 [place], [place] 5[address] documented as of this encounter Visit Diagnoses Not on filedocumented in this encounter Additional Health Concerns Assessment Noted Time PHQ-9 Depression Total Score: 2 10/15/19 23 2:22 PM CDT documented as of this encounter Care Teams Treasury Management Sales Consultant Relationship Specialty Start Date End Date Nanci Villalba MD [address] [place] [address] S [facility] [place], [place] [address] PCP - General Internal Medicine 06/01/19 Remi Camacho MD 420 [facility] 136 [place], [place] [address] Dermatology 08/28/16 Alexis Vargas MD [address] [place] [address] Dermatology 07/14/17 Cecilio Velasco DPM [address] [place] [address] 561775 Podiatry 12/31/17 Johnny Gauthier MD [address] 02 [place] [address] Family Medicine - Sports Medicine 08/20/18 Alpa Max PA-C 420 [facility] 98 [place] [address] Physician Telegraph Plant Maintainer Physician Telegraph Plant Maintainer 08/28/18 Ayana Fuller MD [address] 525634 scalping machine operator 12/01/18 Ayana Fuller MD 606 [facility] [address] [phone] Assigned OBGYN Provider 05/19/20 Nanci Villalba MD [address] [place] [address] 512105 Assigned PCP 12/21/20 Abdirizak Dowd MD [address] [place] [address] 790475 Dermatology 08/09/21 Abdirizak Dowd MD [address] [place] [address] 424575 Dermatology 12/21/21 Jessica Butler MD 420 [facility] 98 [place] [address] Dermatology 02/21/23 Ayana Fuller MD [address] 639354 scalping machine operator 02/24/23 Ashwin Franklin MD [address] [place] [address] Dermatology 09/17/24 Jessica Butler MD [address] [place] [address] 98 [place] [address] Assigned Dermatology Provider 03/19/25 documented as of this encounter
--- OUTSIDE RECORDS SUMMARY | 2025-04-27 06:08 | XMS_ITS | Encounter Summary ---
Author Organization [place] Address [address] [place] [address] Care Team Providers Care Audio Visual Arts Director Name Role Phone Remi Camacho MD Unavailable Alexis Vargas MD Unavailable [phone] Cecilio Velasco DPM Unavailable [phone] Johnny Gauthier MD Unavailable [phone] Alpa Max PA-C Unavailable Ayana Fuller MD Unavailable [phone] Nanci Villalba MD Primary Care Provider Ayana Fuller MD Unavailable [phone] Nanci Villalba MD Unavailable [phone] Abdirizak Dowd MD Unavailable +[phone] Abdirizak Dowd MD Unavailable [phone] Jessica Butler MD Unavailable [phone] Ayana Fuller MD Unavailable +[phone] Ashwin Franklin MD Unavailable [phone] Jessica Butler MD Unavailable Encounter Details Date Type Department Care Team (Late st Contact Info) Description 04/26/2025 MyC Medical Advice [facility] Allergy Clinic [address] [address] Ashwin Franklin MD [address] [place] [address] Social History Tobacco Use Types Packs/Day [...] re latives? Twice a week 08/10/2024 Attends [employer] Services Not on file 08/10 Active Member of Clubs or Organizations Not on f ile 08/10/2024 Attends Club or Organization Meetings Not on sb e 08/10/2024 Marital Status Not on file 08/10/2024 PHQ-2 Answer Date Recorded PHQ-2 Score 0 08/11/2024 [facility] [place] of Occupat ional Health - Occupational Stress [...] in an abandoned building, in an overnight usp, or couch-surfing.) Yes 08/10/2024 Are you worried [...] on file Legal Sex Female 3:34 AM AIR COMPRESSOR OPERATOR Gender Identity Not on file Sexual Orientation Not on file Occupation Industry Job Start Date Job End Date Unemployed Not on file Not on file Not on file documented as of this encounter Plan of Treatment Upcoming Encounters Date Type Department Care Team (Late st Contact Info) Description 05/24/2025 8:15 AM CDT Office Visit [facility] Women's [facility] [address] 3rd Floor,[address] [place] [employer] [facility] 88 [place] [phone] Ayana Fuller MD [address] [facility] 300 [place], [place] [address] 05/31/2025 9:30 AM AIR COMPRESSOR OPERATOR Office Visit [facility] All[facility] Clinic [place] 909 [place] [phone] Ashwin Franklin MD 909 [place] [address] 09/05/2025 9:45 AM AIR COMPRESSOR OPERATOR Office Visit [facility] Dermatology Clinic [place] [address] [facility] [address] 3rd [place] [phone] Jessica Butler MD 420 [facility] 98 [place] [address] documented as of this encounter Visit Diagnoses Not on filedocumented in this encounter Additional Health Concerns Assessment Noted Time PHQ-9 Depression Total Score: 2 10/15/19 23 2:22 PM CDT documented as of this encounter Care Teams Audio Visual Arts Director Relationship Specialty Start Date End Date Nanci Villalba MD [address] [place] [address] [place] [address] PCP - General Internal Medicine 06/01/19 Remi Camacho MD 420 [facility] 136 [place] [address] Dermatology 08/28/16 Alexis Vargas MD [address] [place] [address] Dermatology 07/14/17 Cecilio Velasco DPM 909 [place] [address] Podiatry 12/31/17 Johnny Gauthier MD [address] 02 [place] [address] Family Medicine - Sports Medicine 08/20/18 Alpa Max PA-C 420 [facility] 98 [place], [place] [address] Physician Sanitation Laborer Physician Sanitation Laborer 08/28/18 Ayana Fuller MD [address] [place] [address] [id number] marketing information manager 12/01/18 Ayana Fuller MD [address] [place] [address] [phone] Assigned OBGYN Provider 05/19/20 Nanci Villalba MD [address] [place] [address] [phone] Assigned PCP 12/21/20 Abdirizak Dowd MD [address] [place] [address] 863685 Dermatology 08/09/21 Abdirizak Dowd MD [address] [place] [address] 467465 Dermatology 12/21/21 Jessica Butler MD [address] [address] Dermatology 02/21/23 Ayana Fuller MD [address] [place] [address] [phone] marketing information manager 02/24/23 Ashwin Franklin MD [address] [place] [address] Dermatology 09/17/24 Jessica Butler MD [address] [place] [address] 98 [place] [address] Assigned Dermatology Provider 03/19/25 documented as of this encounter
--- OUTSIDE RECORDS SUMMARY | 2025-04-27 06:08 | XMS_ITS | Encounter Summary ---
Author Organization [place] Address [address] [facility] [address] Care Team Providers Care Dispute Coordinator Name Role Phone Remi Camacho MD Unavailable Alexis Vargas MD Unavailable Cecilio Velasco DPM Unavailable [phone] Johnny Gauthier MD Unavailable [phone] Alpa Max PA-C Unavailable Ayana Fuller MD Unavailable [phone] Nanci Villalba MD Primary Care Provider Ayana Fuller MD Unavailable [phone] Nanci Villalba MD Unavailable [phone] Abdirizak Dowd MD Unavailable [phone] Abdirizak Dowd MD Unavailable [phone] Jessica Butler MD Unavailable [phone] Ayana Fuller MD Unavailable [phone] Ashwin Franklin MD Unavailable [phone] Jessica Butler MD Unavailable Reason for Visit * Reason Comments Forms Encounter Details Date Type Department Care Team (Late st Contact Info) Description 04/05/2025 Documentation Only [facility] [address] 4th [place] [address] Magda Goode MD [address] [place] [address] Forms Social History Tobacco Use Types [...] Answer Date Recorded PHQ-2 Score 0 08/11/2024 [facility] [place] of Occupat ional Health - Occupational Stress [...] in an abandoned building, in an overnight care home, or couch-surfing.) Yes 08/10/2024 Are you [...] on file Legal Sex Female 3:34 AM GENERAL CAR YARD SUPERVISOR Gender Identity Not on file Sexual [...] Description 05/24/2025 8:15 AM CDT Office Visit [facility] [address] 3rd Floor,[address] [place] [facility]ldg [facility] 88 [place] [phone] Ayana Fuller MD [address] [facility] 300 [place], [place] [address] 05/31/2025 9:30 AM GENERAL CAR YARD SUPERVISOR Office Visit [facility] All[facility] Clinic [address] [phone] Ashwin Franklin MD [address] [place] [address] 491685 09/05/2025 9:45 AM GENERAL CAR YARD SUPERVISOR Office Visit [facility] Dermatology Clinic [address] 3rd [place] [phone] Jessica Butler MD 420 [facility] 98 [place], [place] [address] documented as of this encounter Visit Diagnoses Not on filedocumented in this encounter Additional Health Concerns Assessment Noted Time PHQ-9 Depression Total Score: 2 10/15/19 23 2:22 PM CDT documented as of this encounter Care Teams Dispute Coordinator Relationship Specialty Start Date End Date Nanci Villalba MD [address] [place] [address] [place], [place] [address] PCP - General Internal Medicine 06/01/19 Remi Camacho MD 420 [facility] 136 [place] [address] Dermatology 08/28/16 Alexis Vargas MD 2450 [place] [address] Dermatology 07/14/17 Cecilio Velasco DPM 909 [place] [address] Podiatry 12/31/17 Johnny Gauthier MD [address] [facility] [address] [place] [address] Family Medicine - Sports Medicine 08/20/18 Alpa Max PA-C 420 [facility] 98 [place] [address] Physician Network Planner Physician Network Planner 08/28/18 Ayana Fuller MD [address] [facility] 300 [place] [address] assistant tennis coach 12/01/18 Ayana [place] MD [address] [facility] 300 [place], [place] 85[address] Assigned OBGYN Provider 05/19/20 Nanci Villalba MD [address] [place] [address] [place], [place] 9[address] Assigned PCP 12/21/20 Abdirizak Dowd MD [address] [place] [address] [place], [place] 65[address] Dermatology 08/09/21 Abdirizak Dowd MD [address] [place] [address] 233065 Dermatology 12/21/21 Jessica Butler MD 420 [facility] 98 [place], [place] 8260[address] Dermatology 02/21/23 Ayana Fuller MD [address] [facility] 300 [place] [address] assistant tennis coach 02/24/23 Ashwin Franklin MD [address] [place] [address] Dermatology 09/17/24 Jessica Butler MD 420 [facility] 98 [place] [address] Assigned Dermatology Provider 03/19/25 documented as of this encounter
--- OUTSIDE RECORDS SUMMARY | 2025-04-27 06:08 | XMS_ITS | Encounter Summary ---
Author Organization [place] Address [address] [facility] [place] [address] Care Team Providers Care Voip Network Engineer Name Role Phone Remi Camacho MD Unavailable Alexis Vargas MD Unavailable Cecilio Velasco DPM Unavailable [phone] Johnny Gauthier MD Unavailable [phone] Alpa Max PA-C Unavailable Ayana Fuller MD Unavailable [phone] Nanci Villalba MD Primary Care Provider Ayana Fuller MD Unavailable [phone] Nanci Villalba MD Unavailable [phone] Abdirizak Dowd MD Unavailable [phone] Abdirizak Dowd MD Unavailable [phone] Jessica Butler MD Unavailable [phone] Ayana Fuller MD Unavailable +[phone] Ashwin Franklin MD Unavailable Jessica Butler MD Unavailable [phone] Reason for Visit * Reason Onset Date Comments Previsit 04/20/2025 Encounter Details Date Type Department Care Team (Late st Contact Info) Description 04/20/2025 PRE VISIT [facility] Allergy Clinic [address] [address] Ashwin Franklin MD [address] [place] [address] [phone] Previsit Social History Tobacco Use Types Packs/Day Years [...] re latives? 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 Gender Identity Not on file Sexual Orientation Not on file Occupation Industry Job Start Date Job End Date Unemployed Not on file Not on file Not on file documented as of this encounter Miscellaneous Notes * Telephone Encounter - Zoraida Caceres - 01/26/2025 7:58 AM CDT FUTURE VISIT INFORMATION FUTURE VISIT INFORMATION: Date: 04/20/25 Time: Location: [facility] REFERRAL INFORMATION: Referring provider: self Reason for visit/diagnosis: drug allergy testing- OTC citrizine- lower lip swelling RECORDS REQUESTED FROM: Clinic name Comments Records Status [facility] 12/17/24 - OV, Deejay Epic [facility] [place] 09/24/24 - OV, Laurie Epic documented in this encounter Plan of Treatment Upcoming Encounters Date Type Department Care Team (Late st Contact Info) Description 05/24/2025 8:15 AM CDT Office Visit [facility] Women's [facility] [address] 3rd Floor,[address] [place] Professional [facility]ldg [facility] 88 [place] [phone] Ayana Fuller MD [address] [facility] 300 [place], [place] [address] 05/31/2025 9:30 AM DISTILLING DEPARTMENT SUPERVISOR Office Visit [facility] [place] [address] [place] [address] Ashwin Franklin MD 909 [place], [place] 88[address] 09/05/2025 9:45 AM DISTILLING DEPARTMENT SUPERVISOR Office Visit [facility] Dermatology Clinic [place] 909 [facility] 3rd [place] [phone] Jessica Butler MD 420 [facility] 98 [place], [place] 5724[address] documented as of this encounter Visit Diagnoses Not on filedocumented in this encounter Additional Health Concerns Assessment Noted Time PHQ-9 Depression Total Score: 2 10/15/19 23 2:22 PM CDT documented as of this encounter Care Teams Voip Network Engineer Relationship Specialty Start Date End Date Nanci Villalba MD [address] [facility] [address] PCP - General Internal Medicine 06/01/19 Remi Camacho MD 420 [facility] 136 [place] [address] Dermatology 08/28/16 Alexis Vargas MD 2450 [place] [address] Dermatology 07/14/17 Cecilio Velasco DPM 909 [place] [address] Podiatry 12/31/17 Johnny Gauthier MD [facility] [address] [place] [address] Family Medicine - Sports Medicine 08/20/18 Alpa Max PA-C [address] [place] [address] [facility] 98 [place] [address] Physician Deburring Technician Physician Deburring Technician 08/28/18 Ayana Fuller MD [address] [address] asparagus cutter 12/01/18 Ayana Fuller MD 606 [facility] 300 [place] [address] Assigned OBGYN Provider 05/19/20 Nanci Villalba MD [address] [place] [address] Assigned PCP 12/21/20 Abdirizak Dowd MD [address] [place] [address] 758005 Dermatology 08/09/21 Abdirizak Dowd MD [address] [place] [address] 210675 Dermatology 12/21/21 Jessica Butler MD [address] [place] [address] Dermatology 02/21/23 Ayana Fuller MD [address] [facility] 300 [place], [place] 7[address] asparagus cutter 02/24/23 Ashwin Franklin MD [address] [place] [address] 080415 Dermatology 09/17/24 Jessica Butler MD [address] [place] [address] 858265 Assigned Dermatology Provider 03/19/25 documented as of this encounter
--- OUTSIDE RECORDS SUMMARY | 2025-04-27 06:08 | XMS_ITS | Encounter Summary ---
Author Organization [place] Address [address] [facility] [place] [address] Care Team Providers Care Lens Molding Equipment Operator Name Role Phone Remi Camacho MD Unavailable Alexis Vargas MD Unavailable Cecilio Velasco DPM Unavailable [phone] Johnny Gauthier MD Unavailable [phone] Alpa Mxa PA-C Unavailable Ayana Fuller MD Unavailable [phone] Nanci Villalba MD Primary Care Provider Ayana Fuller MD Unavailable [phone] Magda Goode MD Unavailable [phone] Nanci Villalba MD Unavailable [phone] Abdirizak Dowd MD Unavailable Abdirizak Dowd MD Unavailable [phone] Abdirizak Dowd MD Unavailable Jessica Butler MD Unavailable Ayana Fuller MD Unavailable [phone] Loli LouisM, Podiatry /Foot and Ankle Surgery Unavailable Jessica Butler MD Unavailable [phone] Ashwin Franklin MD Unavailable [phone] Valeria Sullivan PA-C Unavailable [phone] Jessica Butler MD Unavailable [phone] Encounter Details Date Type Department Care Team (Late st Contact Info) Description 04/09/2022 MyC Medical Advice [address] [place] [address] Nanci Villalba MD [address] [place] [address] Social History Tobacco Use Types Packs/Day [...] on file 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 Gender Identity Not on file Sexual Orientation [...] Description 05/24/2025 8:15 AM CDT Office Visit [facility] Women's [address] 3rd Floor,[address] [facility] Professional [facility] 88 [place] [phone] Ayana Fuller MD [address] [facility] 300 [place], [place] 37[address] 05/31/2025 9:30 AM ESCORT BLIND Office Visit [facility] Allergy Clinic [address] [phone] Ashwin Franklin MD [address] [place] [address] 538395 09/05/2025 9:45 AM ESCORT BLIND Office Visit [facility] Dermatology Clinic [address] 3rd [place] [phone] Jessica Butler MD [address] [place] [address] 98 [place], [place] 9[address] documented as of this encounter Visit Diagnoses Not on filedocumented in this encounter Additional Health Concerns Assessment Noted Time PHQ-9 Depression Total Score: 2 02/29/20 21 1:38 PM CDT documented as of this encounter Care Teams Lens Molding Equipment Operator Relationship Specialty Start Date End Date Nanci Villalba MD [address] [place] [address] PCP - General Internal Medicine 06/01/19 Remi Camacho MD 420 [facility] 136 [place] [address] Dermatology 08/28/16 Alexis Vargas MD 2450 [place] [address] Dermatology 07/14/17 Cecilio Velasco DPM [address] [place] [address] Podiatry 12/31/17 Johnny Gauthier MD [address] [place], [place] 9[address]302 [place] [address] Family Medicine - Sports Medicine 08/20/18 Alpa Max PA-C 420 [facility] 98 [place] [address] Physician Medication Coordinator Physician Medication Coordinator 08/28/18 Ayana Fuller MD [address] [place] [address] 395304 employment and claims aide 12/01/18 Ayana Fuller MD [address] [place] [address] 606074 Assigned OBGYN Provider 05/19/20 Magda Goode MD [address] [place] [address] Assigned Musculoskeletal Provider 10/01/20 01/03/23 Nanci Villalba MD [address] [place] [address] Assigned PCP 12/21/20 Abdirizak Dowd MD [address] [place] [address] Dermatology 08/09/21 Abdirizak Dowd MD [address] [place] [address] Dermatology 12/21/21 Abdirizak Dowd MD [address] [place] [address] 157395 Assigned Surgical Provider 03/23/22 02/16/24 Jessica Butler MD [address] [place] [address] Dermatology 02/21/23 Ayana Fuller MD [address] [place] [address] 815974 employment and claims aide 02/24/23 Loli Louis DPJean, Podiatry/Foot and Ankle Surgery [address] [place] [facility] 300 [place] [address] Assigned Musculoskeletal Provider 09/19/23 03/18/25 Jessica Butler MD [address] [place] [address] Assigned Surgical Provider 02/17/24 10/16/24 Ashwin Franklin MD [address] [place] [address] Dermatology 09/17/24 Valeria Sullivan PA-C Dermatology [address] [place] [address] Assigned Dermatology Provider 10/17/24 03/18/25 Jessica Butler MD [address] [place] [address] Assigned Dermatology Provider 03/19/25 documented as of this encounter
--- OUTSIDE RECORDS SUMMARY | 2025-04-27 06:08 | XMS_ITS | Encounter Summary ---
Author Organization [place] Address [address] [facility] [address] Care Team Providers Care Television Audio Engineer Name Role Phone Remi Camacho MD Unavailable Alexis Vargas MD Unavailable [phone] Cecilio VelascoM Unavailable [phone] Johnny Gauthier MD Unavailable [phone] Alpa Max PA-C Unavailable Ayana Fuller MD Unavailable [phone] Nanci Villalba MD Primary Care Provider Ayana Fuller MD Unavailable [phone] Nanci Villalba MD Unavailable [phone] Abdirizak Dowd MD Unavailable Abdirizak Dowd MD Unavailable [phone] Jessica Butler MD Unavailable [phone] Ayana Fuller MD Unavailable [phone] Loli Louis DPM, Podiatry /Foot and Ankle Surgery Unavailable Ashwin Franklin MD Unavailable [phone] Valeria Sullivan PA-C Unavailable [phone] Jessica Butler MD Unavailable [phone] Encounter Details Date Type Department Care Team (Late st Contact Info) Description 02/21/2025 MyC Medical Advice [facility] Building [address] [facility], [address] [place], [place] [phone] Nanci Villalba MD [address] [facility] [place] [address] Social History Tobacco Use Types [...] re latives? 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 Gender Identity Not on file Sexual Orientation Not on file Occupation Industry Job Start Date Job End Date Unemployed Not on file Not on file Not on file documented as of this encounter Plan of Treatment Upcoming Encounters Date Type Department Care Team (Late st Contact Info) Description 05/24/2025 8:15 AM CDT Office Visit [facility] Women's [place] [address] 3rd Floor,[address] [place] Professional Bldg [facility] 88 [place] [address] Ayana Fuller MD [address] [place] [address] [place] [address] 05/31/2025 9:30 AM VENDING MACHINE REFILLER Office Visit [facility] [address] [phone] Ashwin Franklin MD [address] [place] [address] 390115 09/05/2025 9:45 AM VENDING MACHINE REFILLER Office Visit [facility] Dermatology Clinic [address] 3rd [place] [phone] Jessica Butler MD 420 [facility] 98 [place], [place] 5[address] documented as of this encounter Visit Diagnoses Not on filedocumented in this encounter Additional Health Concerns Assessment Noted Time PHQ-9 Depression Total Score: 2 10/15/19 23 2:22 PM CDT documented as of this encounter Care Teams Television Audio Engineer Relationship Specialty Start Date End Date Nanci Villalba MD [address] [place] [address] A [place], [place] 97[address] PCP - General Internal Medicine 06/01/19 Remi Camacho MD 420 [facility] 136 [place], [place] 6[address] Dermatology 08/28/16 Alexis Vargas MD [address] [place] [address] Dermatology 07/14/17 Cecilio Velasco DPM [address] [place] [address] Podiatry 12/31/17 Johnny Gauthier MD [address] [place] [address] Family Medicine - Sports Medicine 08/20/18 Alpa Max PA-C 420 [facility] 98 [place] [address] Physician Avionics Engineer Physician Avionics Engineer 08/28/18 Ayana Fuller MD [address] [place] [address] [place], [place] 70[address] charter driver 12/01/18 Ayana Fuller MD [address] [place] [address] [place], [place] 5[address] Assigned OBGYN Provider 05/19/20 Nanci Villalba MD [address] [place], [place] [address] Assigned PCP 12/21/20 Abdirizak Dowd MD [address] [place], [place] [address] Dermatology 08/09/21 Abdirizak Dowd MD [address] [place] [address] Dermatology 12/21/21 Jessica Butler MD [address] [place] [address] [facility] 98 [place] [address] Dermatology 02/21/23 Ayana Fuller MD [address] [place] [address] [place] [address] charter driver 02/24/23 Loli Louis DPM, Podiatry/Foot and Ankle Surgery [address] [place] 300 [place] [address] Assigned Musculoskeletal Provider 09/19/23 03/18/25 Ashwin Franklin MD [address] [place] [address] Dermatology 09/17/24 Valeria Sullivan, PACassieC Dermatology [address] [place] [address] Assigned Dermatology Provider 10/17/24 03/18/25 Jessica Butler MD [address] [place] [address] 98 [place] [address] Assigned Dermatology Provider 03/19/25 documented as of this encounter
--- OUTSIDE RECORDS SUMMARY | 2025-04-27 06:08 | XMS_ITS | Encounter Summary ---
Author Organization [facility] Address [address] [place] [address] Care Team Providers Care Book Author Name Role Phone Remi Camacho MD Unavailable +[phone] Alexis Vargas MD Unavailable +[phone] Cecilio Velasco DPM Unavailable +[phone] Johnny Gauthier MD Unavailable +[phone] Alpa Max PA-C Unavailable Ayana Fuller MD Unavailable +[phone] Nanci Villalba MD Primary Care Provider Ashwin Franklin MD Unavailable +[phone] Magda Goode MD Unavailable +[phone] Ayana Fuller MD Unavailable +[phone] Ashwin Franklin MD Unavailable +[phone] Cecilio Velasco DPM Unavailable +[phone] Nanci Villalba MD Unavailable +[phone] Magda Goode MD Unavailable + [phone] Nanci Villalba MD Unavailable +[phone] Abdirizak Dowd MD Unavailable +[phone] Abdirizak Dowd MD Unavailable +[phone] Abdirizak Dowd MD Unavailable +[phone] Jessica Butler MD Unavailable +[phone] Ayana Fuller MD Unavailable +[phone] Loli LouisM, Podiatry /Foot and Ankle Surgery Unavailable Jessica Butler MD Unavailable +[phone] Ashwin Franklin MD Unavailable +[phone] Valeria Sullivan PA-C Unavailable +[phone] Jessica Butler MD Unavailable [phone] Reason for Visit * Reason Onset Date Comments *-*INCOMING RECORDS*-* 12/17/2019 Encounter Details Date Type Department Care Team (Late st Contact Info) Description 12/17/2019 PRE VISIT [facility] [address] [place] [phone] Cecilio Velasco DPM 909 [place] [address] *-*INCOMING RECORDS*-* Social History Tobacco [...] on file 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 Gender Identity Not on file Sexual Orientation [...] Description 05/24/2025 8:15 AM CDT Office Visit [facility] [address] 3rd Floor,[address] [place] [facility] 88 [place] [phone] Ayana Fuller MD [address] [facility] 300 [place], [place] [address] 05/31/2025 9:30 AM JUICE 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 Office Visit [facility] [place] [address] [place] [phone] Ashwin Franklin MD [address] [place] [address] 698465 09/05/2025 9:45 AM JUICE 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 Office Visit [facility] Dermatology [facility] [place] [address] [place] [address] 3rd [place] [phone] Jessica Butler MD 420 [facility] 98 [place], [place] 0[address]65 documented as of this encounter Visit Diagnoses Not on filedocumented in this encounter Additional Health Concerns Assessment Noted Time PHQ-9 Depression Total Score: 2 08/02/19 20 1:35 PM JUICE 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 documented as of this encounter Care Teams Book Author Relationship Specialty Start Date End Date Nanci Villalba MD [address] [place] [address] A [place], [place] 47[address] PCP - General Internal Medicine 06/01/19 Remi Camacho MD 420 [facility] 136 [place], [place] 752844 Dermatology 08/28/16 Alexis Vargas MD 2450 [place] [address] Dermatology 07/14/17 Cecilio Velasco DPM [address] [place] [address] Podiatry 12/31/17 Johnny Gauthier MD [facility] [place] 7901002 [place], [place] 291554 Family Medicine - Sports Medicine 08/20/18 Mansoor, Alpa Dan PA-C [address] [place] [address] 98 [place], [place] 170805 Physician Supreme Court Judge Physician Supreme Court Judge 08/28/18 Ayana Fuller MD [address] [facility] [address] [phone] nuclear radiation engineer 12/01/18 Ashwin Franklin MD [address] [place] [address] 227755 Assigned Pediatric Specialist Provider 05/19/20 08/27/20 Magda Goode MD 9 [place], [place] 051265 Assigned Musculoskeletal Provider 05/19/20 08/19/20 Ayana Fuller MD [address] [facility] 300 [place], [place] 553554 Assigned OBGYN Provider 05/19/20 Ashwin Franklin MD [address] [place] [address] Assigned Surgical Provider 05/19/20 03/22/22 Cecilio Velasco DPM [address] [place] [address] Assigned Musculoskeletal Provider 08/20/20 09/30/20 Nanci Villalba MD [address] [place] [address] Assigned PCP 09/10/20 11/04/20 Magda Goode MD [address] [place] [address] Assigned Musculoskeletal Provider 10/01/20 01/03/23 Nanci Villalba MD [address] [place] [address] Assigned PCP 12/21/20 Abdirizak Dowd MD [address] [place] [address] Dermatology 08/09/21 Abdirizak Dowd MD [address] [place] [address] Dermatology 12/21/21 Abdirizak Dowd MD [address] [place] [address] Assigned Surgical Provider 03/23/22 02/16/24 Jessica Butler MD 420 [facility] 98 [place] [address] Dermatology 02/21/23 Ayana Fuller MD [address] [facility] 300 [place] [address] nuclear radiation engineer 02/24/23 Loli Louis DPJean, Podiatry/Foot and Ankle Surgery [address] [facility] 300 [place] [address] Assigned Musculoskeletal Provider 09/19/23 03/18/25 Jessica Butler MD [address] [address] Assigned Surgical Provider 02/17/24 10/16/24 Ashwin Franklin MD 909 [place] [address] Dermatology 09/17/24 Valeria Sullivan, PA-C Dermatology [address] [place] [address] Assigned Dermatology Provider 10/17/24 03/18/25 Jessica Butler MD [address] [address] Assigned Dermatology Provider 03/19/25 documented as of this encounter
--- OUTSIDE RECORDS SUMMARY | 2025-04-27 06:09 | XMS_ITS | Encounter Summary ---
Author Organization [place] Address [address] [facility] [place] [address] Care Team Providers Care Traffic Observer Name Role Phone Remi Camacho MD Unavailable Alexis Vargas MD Unavailable Cecilio Velasco DPM Unavailable [phone] Johnny Gauthier MD Unavailable +[phone] Alpa Max PA-C Unavailable Ayana Fuller MD Unavailable [phone] Nanci Villalba MD Primary Care Provider Ayana Fuller MD Unavailable +[phone] Nanci Villalba MD Unavailable +[phone] Abdirizak Dowd MD Unavailable +[phone] Abdirizak Dowd MD Unavailable +[phone] Jessica Butler MD Unavailable [phone] Ayana Fuller MD Unavailable +[phone] Ashwin Franklin MD Unavailable [phone] Jessica Butler MD Unavailable Encounter Details Date Type Department Care Team (Late st Contact Info) Description 04/07/[address] [facility] [address] 3rd Floor,[address] [place] [facility] 88 [place] [address] Ayana Fuller MD [address] [place] [address] [place] [address] Social History Tobacco Use Types [...] re latives? 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 [address] 3rd Floor,[address] [place] [facility] 88 [place] [phone] Ayana Fuller MD [address] [facility] 300 [place], [place] 6[address] 05/31/2025 9:30 AM ELECTRIC FAN ASSEMBLER Office Visit [facility] Allergy Clinic [address] [address] Ashwin Franklin MD [address] [place] [address] 848375 09/05/2025 9:45 AM ELECTRIC FAN ASSEMBLER Office Visit [facility] Dermatology Clinic [address] 3rd [place] [phone] Jessica Butler MD 420 [facility] 98 [place], [place] [phone] documented as of this encounter Visit Diagnoses Not on filedocumented in this encounter Additional Health Concerns Assessment Noted Time PHQ-9 Depression Total Score: 2 10/15/19 23 2:22 PM CDT documented as of this encounter Care Teams Traffic Observer Relationship Specialty Start Date End Date Nanci Villalba MD [address] [place] [address] A [place], [place] [address] PCP - General Internal Medicine 06/01/19 Remi Camacho MD [address] [place] [address] 136 [place] [address] Dermatology 08/28/16 Alexis Vargas MD [address] [place] [address] Dermatology 07/14/17 Cecilio Velasco DPM [address] [place] [address] Podiatry 12/31/17 Johnny Gauthier MD [address] [facility] R[address] [place] [address] Family Medicine - Sports Medicine 08/20/18 Alpa Max PA-C 420 [facility] 98 [place] [address] Physician Property Preservation Specialist Physician Property Preservation Specialist 08/28/18 Ayana Fuller MD [address] [facility] 300 [place] [address] kapok and cotton machine operator 12/01/18 Ayana Fuller MD [address] [place] [address] [place] [address] Assigned OBGYN Provider 05/19/20 Nanci Villalba MD [address] [facility] A [place] [address] Assigned PCP 12/21/20 Abdirizak Dowd MD [address] [facility] A [place], [place] 6434[address] Dermatology 08/09/21 Abdirizak Dowd MD [address] [place] [address] A [place], [place] 78[address] Dermatology 12/21/21 Jessica Butler MD 420 [facility] 98 [place] [address] Dermatology 02/21/23 Ayana Fuller MD [address] [place] [address] [place], [place] [address] kapok and cotton machine operator 02/24/23 Ashwin Franklin MD 909 [place], [place] [phone] Dermatology 09/17/24 Jessica Butler MD 420 [facility] 98 [place], [place] 782964[address] Assigned Dermatology Provider 03/19/25 documented as of this encounter
--- OUTSIDE RECORDS SUMMARY | 2025-04-27 06:09 | XMS_ITS | Encounter Summary ---
Author Organization [facility] Address [address] [facility] [place] [address] Care Team Providers Care Cardiac Technologist Name Role Phone Remi Camacho MD Unavailable Alexis Vargas MD Unavailable Cecilio Velasco DPM Unavailable [phone] Johnny Gauthier MD Unavailable [phone] Alpa Max PA-C Unavailable [phone] Ayana Fuller MD Unavailable [phone] Nanci Villalba MD Primary Care Provider Ayana Fuller MD Unavailable [phone] Nanci Villalba MD Unavailable [phone] Abdirizak Dowd MD Unavailable +[phone] Abdirizak Dowd MD Unavailable +[phone] Jessica Butler MD Unavailable [phone] Ayana Fuller MD Unavailable +[phone] Ashwin Franklin MD Unavailable [phone] Jessica Butler MD Unavailable Encounter Details Date Type Department Care Team (Late st Contact Info) Description 04/15/2025 MyC Medical Advice [facility] [address] [place], [place] [address] Nanci Villalba MD [address] [place], [place] [address] Social History Tobacco Use Types Packs/Day Years [...] re latives? Twice a week 08/10/2024 Attends Confucianist Services Not on file 08/10 Active Member of Clubs or Organizations Not on f ile 08/10/2024 Attends Club or Organization Meetings Not on sb e 08/10/2024 Marital Status Not on file 08/10/2024 PHQ-2 Answer Date Recorded PHQ-2 Score 0 08/11/2024 [facility] [place] of Occupat ional Health - Occupational Stress [...] on file Legal Sex Female 3:34 AM GLAZIER ARTIST Gender Identity Not on file Sexual Orientation Not on file Occupation Industry Job Start Date Job End Date Unemployed Not on file Not on file Not on file documented as of this encounter Plan of Treatment Upcoming Encounters Date Type Department Care Team (Late st Contact Info) Description 05/24/2025 8:15 AM CDT Office Visit [facility] [place] [address] 3rd Floor,[address] [place] [facility] 88 [place] [address] Ayana Fuller MD [address] [place] [address] [place], [place] 6[address]64 05/31/2025 9:30 AM GLAZIER ARTIST Office Visit [facility] Allergy [facility] [place] 909 [place] [phone] Ashwin Franklin MD 909 [place], [place] 344005 09/05/2025 9:45 AM GLAZIER ARTIST Office Visit [facility] Dermatology Clinic [address] 3rd [place] [phone] Jessica Butler MD 420 [facility] 98 [place], [place] 0[address] documented as of this encounter Visit Diagnoses Not on filedocumented in this encounter Additional Health Concerns Assessment Noted Time PHQ-9 Depression Total Score: 2 10/15/19 23 2:22 PM CDT documented as of this encounter Care Teams Cardiac Technologist Relationship Specialty Start Date End Date Nanci Villalba MD [address] [place] [address] S [facility] A [place], [place] [address] PCP - General Internal Medicine 06/01/19 Remi Camacho MD 420 [facility] 136 [place], [place] 7[address] Dermatology 08/28/16 Alexis Vargas MD [address] [place] [address] Dermatology 07/14/17 Cecilio Velasco DPM [address] [place] [address] 271705 Podiatry 12/31/17 Johnny Gauthier MD [address] 02 [place] [address] Family Medicine - Sports Medicine 08/20/18 Alpa Max PA-C 420 [facility] 98 [place] [address] Physician Manager Medical Physician Manager Medical 08/28/18 Ayana Fuller MD [address] 041764 it quality assurance analyst 12/01/18 Ayana Fuller MD 606 [facility] [address] [phone] Assigned OBGYN Provider 05/19/20 Nanci Villalba MD [address] [place] [address] 481065 Assigned PCP 12/21/20 Abdirizak Dowd MD [address] [place] [address] 319005 Dermatology 08/09/21 Abdirizka Dowd MD [address] [place] [address] 176325 Dermatology 12/21/21 Jessica Butler MD 420 [facility] 98 [place] [address] Dermatology 02/21/23 Ayana Fuller MD [address] 578314 it quality assurance analyst 02/24/23 Ashwin Franklin MD [address] [place] [address] Dermatology 09/17/24 Jessica Butler MD [address] [place] [address] 98 [place] [address] Assigned Dermatology Provider 03/19/25 documented as of this encounter
--- OUTSIDE RECORDS SUMMARY | 2025-04-27 06:09 | XMS_ITS | Encounter Summary ---
Author Organization [place] Address 2450 [facility] [address] Care Team Providers Care Electronic Sensing Equipment Assembler Name Role Phone Lacie Marks MD Primary Care Provider Grace Goodrich MD Unavailable [phone] Remi Camacho MD Unavailable [phone] Shane Pemberton MD Unavailable +[phone] Alexis Vargas MD Unavailable [phone] [facility] Hospital[facility]drigue[facility] DPM Unavailable +[phone] Johnny Gauthier MD Unavailable + [phone] Alpa Max PA-C Unavailable Ayana Fuller MD Unavailable [phone] No Ref-Primary, Physician Primary Care Provider Nanci Villalba MD Primary Care Provider Ashwin Franklin MD Unavailable [phone] Magda Goode MD Unavailable +[phone] Ayana Fuller MD Unavailable +[phone] Ashwin Franklin MD Unavailable [phone] Cecilio Velasco DPM Unavailable + [phone] Nanci Villalba MD Unavailable +[phone] Magda Goode MD Unavailable +[phone] Nanci Villalba MD Unavailable +[phone] Abdirizak Dowd MD Unavailable Abdirizak Dowd MD Unavailable +[phone] Abdirizak Dowd MD Unavailable +[phone] Jessica Butler MD Unavailable +[phone] Ayana Fuller MD Unavailable [phone] Loli LouisM, Podiatry /Foot and Ankle Surgery Unavailable eJssica Butler MD Unavailable +[phone] Ashwin Franklin MD Unavailable +[phone] Valeria Sullivan PA-C Unavailable [phone] Jessica Butler MD Unavailable [phone] Encounter Details Date Type Department Care Team (Late st Contact Info) Description 05/17/2015 [facility] Dermatology 5th Floor, Clinic [address] [place] [address] 88 [place] [address] Grace Goodrich MD [facility] [address] [facility] [address] [place] [id number] Social History Tobacco Use Types Packs/Day Years Used Date Smoking Tobacco: Never Smokeless Tobacco: Never Alcohol Use Standard Drinks/Week Comments Yes 0 (1 standard drink = 0.6 oz pur e alcohol) Glasses Wine Comments No Sex and Gender Information Value Date Recorded Sex Assigned at Not on file Legal Sex Female 3:34 AM TUBING MACHINE OPERATOR Gender Identity Not on file Sexual Orientation Not on file Occupation Industry Job Start Date Job End Date Unemployed Not on file Not on file Not on file documented as of this encounter Plan of Treatment Upcoming Encounters Date Type Department Care Team (Late st Contact Info) Description 05/24/2025 8:15 AM CDT Office Visit [facility] [address] 3rd Floor,[address] [place] [facility] 88 [place] [phone] Ayana Fuller MD [address] [facility] 300 [place], [place] [address] 05/31/2025 9:30 AM TUBING MACHINE OPERATOR Office Visit [facility] [address] [phone] Ashwin Franklin MD [address] [place] [address] 690675 09/05/2025 9:45 AM TUBING MACHINE OPERATOR Office Visit [facility] [place] [address] [place] [address] 3rd [place] [phone] Jessica Butler MD [address] [place] [address] 98 [place], [place] [address]175 documented as of this encounter Visit Diagnoses Not on filedocumented in this encounter Care Teams Electronic Sensing Equipment Assembler Relationship Specialty Start Date End Date Lacie Marks MD [address] [facility] 300 [place], [place] [address] PCP - General fisher scallop 11/01/14 03/19/19 No Ref-Primary, Physician PCP - General 03/20/19 05/31/19 Nanci Villalba MD [address] [place] [address] [place] [address] PCP - General Internal Medicine 06/01/19 Grace Goodrich MD [facility] [place] [address] [place] [address] Resident Dermatology 03/22/15 06/04/17 Remi Camacho MD 420 [facility] 136 [place], [place] [address] Dermatology 08/28/16 Shane Pemberton MD [facility] 420 [facility] 391 [place], [place] [phone] Resident Student in organized health care education/training program 05/13/17 02/16/18 Alexis Vargas MD 2450 [place], [place] 0[address]014 Dermatology 07/14/17 Cecilio Velasco DPM 909 [place] [address] Podiatry 12/31/17 Johnny Gauthier MD [address] [place], [place] 173684 Family Medicine - Sports Medicine 08/20/18 Alpa Max PA-C 420 [facility] 98 [place], [place] [address] Physician Marketing Database Consultant Physician Marketing Database Consultant 08/28/18 Ayana Fuller MD [address] [place] [address] [place] 300 [place], [place] [phone] MD fisher scallop 12/01/18 Ashwin Franklin MD [address] [place] [address] Assigned Pediatric Specialist Provider 05/19/20 08/27/20 Mgada Goode MD [address] [place] [address] Assigned Musculoskeletal Provider 05/19/20 08/19/20 Ayana Fuller MD [address] [place] [address] 880894 Assigned OBGYN Provider 05/19/20 Ashwin Franklin MD [address] [place] [address] 794865 Assigned Surgical Provider 05/19/20 03/22/22 Cecilio Velasco DPM [address] [place] [address] 374195 Assigned Musculoskeletal Provider 08/20/20 09/30/20 Nanci Villalba MD [address] [place] [address] 644715 Assigned PCP 09/10/20 11/04/20 Magda Goode MD [address] [place] [address] [phone] Assigned Musculoskeletal Provider 10/01/20 01/03/23 Nanci Villalba MD [address] [place] [address] 630575 Assigned PCP 12/21/20 Abdirizak Dowd MD [address] [place] [address] 099675 Dermatology 08/09/21 Abdirizak Dowd MD [address] [place] [address] Dermatology 12/21/21 Abdirizak Dowd MD [address] [place] [address] 975805 Assigned Surgical Provider 03/23/22 02/16/24 Jessica Butler MD [address] [place] [address] Dermatology 02/21/23 Ayana Fuller MD [address] [phone] fisher scallop 02/24/23 Loli Louis DPJean, Podiatry/Foot and Ankle Surgery [address] [facility] 300 [place], [place] 410517 Assigned Musculoskeletal Provider 09/19/23 03/18/25 Jessica Butler MD [address] [place] [address] Assigned Surgical Provider 02/17/24 10/16/24 Ashwin Franklin MD [address] [place] [address] Dermatology 09/17/24 Valeria Sullivan PA-C Dermatology [address] [place] [address] [phone] Assigned Dermatology Provider 10/17/24 03/18/25 Jessica Butler MD [address] [place] [address] 98 [place], [place] 644775 Assigned Dermatology Provider 03/19/25 documented as of this encounter
--- OUTSIDE RECORDS SUMMARY | 2025-04-27 06:09 | XMS_ITS | Encounter Summary ---
Author Organization [place] Address [address] [place] [address] Care Team Providers Care Plasma Cutting Machine Operator Name Role Phone Remi Camacho MD Unavailable +[phone] Alexis Vargas MD Unavailable +[phone] Cecilio Velasco DPM Unavailable +[phone] Johnny Gauthier MD Unavailable +[phone] Alpa Max PA-C Unavailable Ayana Fuller MD Unavailable +[phone] Nanci Villalba MD Primary Care Provider Ashwin Franklin MD Unavailable +[phone] Magda Goode MD Unavailable +[phone] Ayana Fuller MD Unavailable +[phone] Ashwin Franklin MD Unavailable +[phone] Cecilio Velasco DPM Unavailable +[phone] Nanci Villalba MD Unavailable +[phone] Magda Goode MD Unavailable +[phone] Nanci Villalba MD Unavailable +[phone] Abdirizak Dowd MD Unavailable +[phone] Abdirizak Dowd MD Unavailable +[phone] Abdirizak Dowd MD Unavailable +[phone] Jessica Butler MD Unavailable +[phone] Ayana Fuller MD Unavailable +[phone] Loli LouisM, Podiatry /Foot and Ankle Surgery Unavailable Jessica Butler MD Unavailable +[phone] Ashwin Franklin MD Unavailable +[phone] Valeria Sullivan PA-C Unavailable +[phone] Jessica Butler MD Unavailable +[phone] Encounter Details Date Type Department Care Team (Late st Contact Info) Description 05/16/2020 MyC Medical Advice [facility] Rehabilitation Services [facility] [address] [place] [address] [address] [place] [address] [place], PT [address] [place], [place] [address] Social History Tobacco Use Types Packs/Day Years Used Date Smoking Tobacco: Never Smokeless Tobacco: Never Alcohol Use Standard Drinks/Week Comments No 0 (1 standard drink = 0.6 oz pur e alcohol) Glasses Wine PHQ-2 Answer Date Recorded PHQ-2 Score 0 05/31/2019 Comments No Sex and Gender Information Value Date Recorded Sex Assigned at Not on file Legal Sex Female 3:34 AM TALENT DEVELOPMENT COORDINATOR Gender Identity Not on file Sexual [...] CDT Office Visit [facility] [address] 3rd Floor,[address] [place] [facility] 88 [place] [phone] Ayana Fuller MD [address] [facility] 300 [place], [place] [address] 05/31/2025 9:30 AM TALENT DEVELOPMENT COORDINATOR Office Visit [facility] Allergy Clinic [place] [address] [place] [address] Ashwin Franklin MD 909 [place], [place] [address] 09/05/2025 9:45 AM TALENT DEVELOPMENT COORDINATOR Office Visit [facility] Dermatology Clinic [place] 909 [facility] 3rd [place] [phone] Jessica Butler MD 420 [facility] 98 [place], [place] 1237[address] documented as of this encounter Visit Diagnoses Not on filedocumented in this encounter Additional Health Concerns Assessment Noted Time PHQ-9 Depression Total Score: 2 08/02/19 20 1:35 PM TALENT DEVELOPMENT COORDINATOR documented as of this encounter Care Teams Plasma Cutting Machine Operator Relationship Specialty Start Date End Date Nanci Villalba MD [address] [facility] [place] [address] PCP - General Internal Medicine 06/01/19 Remi Camacho MD 420 [facility] 136 [place] [address] Dermatology 08/28/16 Alexis Vargas MD [address] [place] [address] Dermatology 07/14/17 Cecilio Velasco DPM [address] [place] [address] Podiatry 12/31/17 Johnny Gauthier MD [address] [place], [place] [address] [place] [address] Family Medicine - Sports Medicine 08/20/18 Alpa Max PA-C [address] [place] [address] 98 [place], [place] [address]115 Physician Direct Entry Midwife Physician Direct Entry Midwife 08/28/18 Ayana Fuller MD [address] [place] [address] 913404 assembler billiard table 12/01/18 Ashwin Franklin MD [address] [place] [address]398 Assigned Pediatric Specialist Provider 05/19/20 08/27/20 Magda Goode MD [address] [place] [address] Assigned Musculoskeletal Provider 05/19/20 08/19/20 Ayana Fuller MD [address] [place] [address] 549094 Assigned OBGYN Provider 05/19/20 Ashwin Franklin MD [address] [place] [address] Assigned Surgical Provider 05/19/20 03/22/22 Cecilio Velasco DPM [address] [place] [address] Assigned Musculoskeletal Provider 08/20/20 09/30/20 Nanci Villalba MD [address] [place] [address] Assigned PCP 09/10/20 11/04/20 Magda Goode MD [address] [place] [address] 279[address] Assigned Musculoskeletal Provider 10/01/20 01/03/23 Nanci Villalba MD [address] [place] [address] Assigned PCP 12/21/20 Abdirizak Dowd MD [address] [place] [address] Dermatology 08/09/21 Abdirizak Dowd MD [address] [place] [address] Dermatology 12/21/21 Abdirizak Dowd MD [address] [place] [address] 46066 Assigned Surgical Provider 03/23/22 02/16/24 Jessica Butler MD [address] [place] [address] Dermatology 02/21/23 Ayana Fuller MD [address] [facility] 300 [place] [address] assembler billiard table 02/24/23 Loli Louis DPM, Podiatry/Foot and Ankle Surgery [address] [facility] 300 [place] [address] Assigned Musculoskeletal Provider 09/19/23 03/18/25 Jessica Butler MD [address] [place] [address]306 Assigned Surgical Provider 02/17/24 10/16/24 Ashwin Franklin MD [address] [place] [address] Dermatology 09/17/24 Valeria Sullivan PAC[facility] Dermatology [address] [place] [address] Assigned Dermatology Provider 10/17/24 03/18/25 Jessica Butler MD [address] [place] [address] Assigned Dermatology Provider 03/19/25 documented as of this encounter
--- OUTSIDE RECORDS SUMMARY | 2025-04-27 06:09 | XMS_ITS | Encounter Summary ---
Author Organization [place] Address [address] [facility] [place] [address] Care Team Providers Care Tool And Die Machinist Name Role Phone Lacie Marks MD Primary Care Provider Grace Goodrich MD Unavailable [phone] Remi Camacho MD Unavailable [phone] Shane Pemberton MD Unavailable +[phone] Alexis Vargas MD Unavailable [phone] [facility] DPM Unavailable [phone] Johnny Gauthier MD Unavailable + [phone] Alpa Max PA-C Unavailable Ayana Fuller MD Unavailable + [phone] No Ref-Primary, Physician Primary Care Provider Nanci Villalba MD Primary Care Provider Ashwin Franklin MD Unavailable +[phone] Magda Goode MD Unavailable +[phone] Ayana Fuller MD Unavailable Ashwin Franklin MD Unavailable +[phone] Cecilio Velasco DPM Unavailable + [phone] Nanci Villalba MD Unavailable +[phone] Magda Goode MD Unavailable +[phone] Nanci Villalba MD Unavailable +[phone] Abdirizak Dowd MD Unavailable +[phone] Abdirizak Dowd MD Unavailable +[phone] Abdirizak Dowd MD Unavailable +[phone] Jessica Butler MD Unavailable +[phone] Ayana Fuller MD Unavailable +[phone] Loli LouisM, Podiatry /Foot and Ankle Surgery Unavailable Jessica Butler MD Unavailable +[phone] Ashwin Franklin MD Unavailable +[phone] Valeria Sullivan PA-C Unavailable +[phone] Jessica Butler MD Unavailable [phone] Reason for Visit * Reason Onset Date Comments Orders 04/13/2015 Encounter Details Date Type Department Care Team (Late st Contact Info) Description 04/13/2015 [facility] Medical Advice [facility] [address] 3rd Floor,[address] [place] [facility] 88 [place] [address] Lacie Marks MD [address] [place] [address] [place] [address] Orders Social History Tobacco Use Types Packs/Day Years Used Date Smoking Tobacco: Never Smokeless Tobacco: Never Alcohol Use Standard Drinks/Week Comments Yes 0 (1 standard drink = 0.6 oz pur e alcohol) Glasses Wine Comments No Sex and Gender Information Value Date Recorded Sex Assigned at Not on file Legal Sex Female 3:34 AM BOX SEALING MACHINE OPERATOR Gender Identity Not on file [...] 05/24/2025 8:15 AM CDT Office Visit [facility] Women's [address] [place] [facility] 88 [place] [phone] Ayana Fuller MD [address] [address] [facility] 300 [place], [place] [address] 05/31/2025 9:30 AM BOX SEALING MACHINE OPERATOR Office [facility] All[facility] [address] [address] Ashwin Franklin MD [address] [place] [address] [phone] 09/05/2025 9:45 AM BOX SEALING MACHINE OPERATOR Office [facility] Dermatology Clinic [address] 3rd [place] [phone] Jessica Butler MD 420 [facility] 98 [place], [place] [phone] documented as of this encounter Results * Anti thyroglobulin antibody (04/21/2015 3:04 PM CDT) Thyroglobulin Antibody <20 <40 IU/mL [facility] Blood specimen (specimen) 04/21/2015 3:04 PM CDT 04/21/2015 3:05 PM CDT Lacie Marks MD LAB - BLOOD ORDERABLES Final Result Performing Organization Address City/[facility]/ZIP Co de Phone Number [address] [address] * Thyroid peroxidase antibody (04/21/2015 3:04 PM CDT) Thyroid Peroxidase Antibody <10 <35 IU/mL [facility] Blood specimen (specimen) 04/21/2015 3:04 PM CDT 04/21/2015 3:05 PM CDT Lacie Marks MD LAB - BLOOD ORDERABLES Final Result Performing Organization Address [facility] Co de Phone Number [address] [address] * T3 reverse (04/21/2015 3:04 PM CDT) T3, Reverse ng/dL 18.5 [facility] Comment: Reference range: 9.0 to 27.0 Unit: ng/dL (Note) INTERPRETIVE INFORMATION: Triiodothyronine, Reverse - LC-MS/MS Test developed and characteristics determined by [facility]. See Compliance Statement B: [facility]/CS Performed by [facility], [address] [place] [id number] [email or web address], Hipolito Ferguson MD, Lab. Director Blood specimen (specimen) 04/21/2015 3:04 PM CDT 04/21/2015 3:05 PM CDT Lacie Marks MD LAB - BLOOD ORDERABLES Final Result Performing Organization Address [facility] Co de Phone Number [facility] [address] [place] [address] * T3 Free (04/21/2015 3:04 PM CDT) Free T3 2.3 2.3 - 4.2 pg/mL [facility] Blood specimen (specimen) 04/21/2015 3:04 PM CDT 04/21/2015 3:05 PM CDT Lacie Marks MD LAB - BLOOD ORDERABLES Final Result Performing Organization Address City/[facility]/ZIP Co de Phone Number [facility] [address] [place] [address] * TSH (04/21/2015 3:04 PM CDT) TSH 1.25 0.40 - 4.00 mU/L [facility] Blood specimen (specimen) 04/21/2015 3:04 PM CDT 04/21/2015 3:05 PM CDT Lacie Marks MD LAB - BLOOD ORDERABLES Final Result Performing Organization Address City/[facility] Co de Phone Number [facility] * Thyroxine, Free (04/21/2015 3:04 PM CDT) T4 Free 0.98 0.76 - 1.46 ng/dL [facility] Blood specimen (specimen) 04/21/2015 3:04 PM CDT 04/21/2015 3:05 PM CDT Lacie Marks MD LAB - BLOOD ORDERABLES Final Result Performing Organization Address City/[facility] Co de Phone Number [facility] documented in this encounter Visit Diagnoses Diagnosis Fatigue- Primary Other malaise and fatigue Weight gain Abnormal weight gain Eczema Contact dermatitis and other eczema, due to unspecified cause documented in this encounter Care Teams Tool And Die Machinist Relationship Specialty Start Date End Date Lacie Makrs MD [address] [facility] 300 [place] [address] PCP - General studio assistant 11/01/14 03/19/19 No Ref-Primary, Physician PCP - General 03/20/19 05/31/19 Nanci Villalba MD [address] [place] [address] PCP - General Internal Medicine 06/01/19 Grace Goodrich MD [facility] [place] [place] [address] [place] [address] [place] [address] Resident Dermatology 03/22/15 06/04/17 Remi Camacho MD 420 [facility] 136 [place] [address] Dermatology 08/28/16 Shane Pemberton MD [facility] 420 [facility] 391 [place], [place] 8[address] Resident Student in organized health care education/training program 05/13/17 02/16/18 Alexis Vargas MD 2450 [place], [place] 237984 Dermatology 07/14/17 Cecilio Velasco DPM 909 [place], [place] [address] Podiatry 12/31/17 Johnny Gauthier MD [facility] [place] 1538102 [place], [place] 8[address] Family Medicine - Sports Medicine 08/20/18 Alpa Max PA-C [address] [facility] [address] [place] [address] Physician Career Consultant Physician Career Consultant 08/28/18 Ayana Fuller MD [address] [place] [address] studio assistant 12/01/18 Ashwin Franklin MD [address] [place] [address] 21269 Assigned Pediatric Specialist Provider 05/19/20 08/27/20 Magda Goode MD [address] [place] [address] 33470 Assigned Musculoskeletal Provider 05/19/20 08/19/20 Ayana Fuller MD [address] [place] [address] 8[address] Assigned OBGYN Provider 05/19/20 Ashwin Franklin MD [address] [place] [address] Assigned Surgical Provider 05/19/20 03/22/22 Cecilio Velasco DPM [address] [place] [address] 68687 Assigned Musculoskeletal Provider 08/20/20 09/30/20 Nanci Villalba MD [address] [place] [address] 14047 Assigned PCP 09/10/20 11/04/20 Magda Goode MD [address] [place] [address] 14781 Assigned Musculoskeletal Provider 10/01/20 01/03/23 Nanci Villalba MD [address] [place] [address] [place] [address] Assigned PCP 12/21/20 Abdirizak Dowd MD [address] [place] [address] Dermatology 08/09/21 Abdirizak Dowd MD [address] [place] [address] Dermatology 12/21/21 Abdirizak Dowd MD [address] [place] [address] 56050 Assigned Surgical Provider 03/23/22 02/16/24 Jessica Butler MD [address] [place] [address] Dermatology 02/21/23 Ayana Fuller MD [address] [place] [address] 300 [place] [address] studio assistant 02/24/23 Loli Louis DPM, Podiatry/Foot and Ankle Surgery [address] [place] [address] [address] Assigned Musculoskeletal Provider 09/19/23 03/18/25 Jessica Butler MD [address] [place] [address] 27801 Assigned Surgical Provider 02/17/24 10/16/24 Ashwin Franklin MD [address] [place] [address] 42472 Dermatology 09/17/24 Valeria Sullivan, PA-C Dermatology [address] [place] [address] 28587 Assigned Dermatology Provider 10/17/24 03/18/25 Jessica Butler MD [address] [place] [address] 98 [place] [address] Assigned Dermatology Provider 03/19/25 documented as of this encounter
--- OUTSIDE RECORDS SUMMARY | 2025-04-27 06:09 | XMS_ITS | Encounter Summary ---
Author Organization [place] Address [address] [facility] [place] [address] Care Team Providers Care Mat Gauger Name Role Phone Lacie Marks MD Primary Care Provider Grace Goodrich MD Unavailable [phone] Remi Camacho MD Unavailable [phone] Shane Pemberton MD Unavailable +[phone] Alexis Vargas MD Unavailable [phone] [facility] Institute[facility]ecilio rodriguez DPM Unavailable +[phone] Johnny Gauthier MD Unavailable + [phone] Alpa Max PA-C Unavailable Ayana Fuller MD Unavailable + [phone] No Ref-Primary, Physician Primary Care Provider Nanci Villalba MD Primary Care Provider Ashwin Franklin MD Unavailable [phone] Magda Goode MD Unavailable +[phone] Ayana Fuller MD Unavailable +[phone] Ashwin Franklin MD Unavailable +[phone] Cecilio Velasco DPM Unavailable + [phone] Nanci Villalba MD Unavailable +[phone] Magda Goode MD Unavailable +[phone] Nanci Villalba MD Unavailable +[phone] Abdirizak Dowd MD Unavailable Abdirizak Dowd MD Unavailable +[phone] Abdirizak Dowd MD Unavailable +[phone] Jessica Butler MD Unavailable +[phone] Ayana Fuller MD Unavailable +[phone] Loli LouisM, Podiatry /Foot and Ankle Surgery Unavailable Jessica Butler MD Unavailable +[phone] Ashwin Franklin MD Unavailable +[phone] Valeria Sullivan PA-C Unavailable +[phone] Jessica Butler MD Unavailable [phone] Encounter Details Date Type Department Care Team (Late st Contact Info) Description 04/29/2015 [facility] Medical Advice Dermatology 5th Floor, Clinic [address] [place] [address] 88 [place] [address] Grace Goodrich MD [facility] [address] [facility] [address] [place] [id number] Social History Tobacco Use Types Packs/Day Years Used Date Smoking Tobacco: Never Smokeless Tobacco: Never Alcohol Use Standard Drinks/Week Comments Yes 0 (1 standard drink = 0.6 oz pur e alcohol) Glasses Wine Comments No Sex and Gender Information Value Date Recorded Sex Assigned at Not on file Legal Sex Female 3:34 AM CHEESE PANCAKE ROLLER Gender Identity Not on file Sexual Orientation Not on file Occupation Industry Job Start Date Job End Date Unemployed Not on file Not on file Not on file documented as of this encounter Plan of Treatment Upcoming Encounters Date Type Department Care Team (Late st Contact Info) Description 05/24/2025 8:15 AM CDT Office Visit [facility] [address] 3rd Floor,[address] [place] [facility] 88 [place] [phone] Ayana Fuller MD [address] [facility] 300 [place], [place] [address] 05/31/2025 9:30 AM CHEESE PANCAKE ROLLER Office Visit [facility] Allergy Clinic [address] [phone] Ashwin Franklin MD [address] [place] [address] 987715 09/05/2025 9:45 AM CHEESE PANCAKE ROLLER Office Visit [facility] Dermatology Clinic [place] [address] [place] [address] 3rd [place] [phone] Jessica Butler MD [address] [place] [address] 98 [place], [place] 482105 documented as of this encounter Visit Diagnoses Not on filedocumented in this encounter Care Teams Mat Gauger Relationship Specialty Start Date End Date Lacie Marks MD [address] [facility] 300 [place], [place] [address] PCP - General lead pharmacy technician 11/01/14 03/19/19 No Ref-Primary, Physician PCP - General 03/20/19 05/31/19 Nanci Villalba MD [address] [place] [address] [place] [address] PCP - General Internal Medicine 06/01/19 Grace Goodrich MD [facility] [place] [address] [place] [address] Resident Dermatology 03/22/15 06/04/17 Remi Camacho MD 420 [facility] 136 [place], [place] 8[address] Dermatology 08/28/16 Shane Pemberton MD [facility] 420 [facility] 391 [place], [place] [phone] Resident Student in organized health care education/training program 05/13/17 02/16/18 Alexis Vargas MD 2450 [place], [place] 353074 Dermatology 07/14/17 Cecilio Velasco DPM 909 [place] [address] Podiatry 12/31/17 Johnny Gauthier MD [address] [place], [place] 003704 Family Medicine - Sports Medicine 08/20/18 Alpa Max PA-C 420 [facility] 98 [place], [place] [address] Physician Lens Hardener Physician Lens Hardener 08/28/18 Ayana Fuller MD [address] [place] [address] [place] [address] [place], [place] [phone] MD lead pharmacy technician 12/01/18 Ashwin Franklin MD [address] [place] [address] 35523 Assigned Pediatric Specialist Provider 05/19/20 08/27/20 Magda Goode MD [address] [place] [address] 62343 Assigned Musculoskeletal Provider 05/19/20 08/19/20 Ayana Fuller MD [address] [place] [address] 846984 Assigned OBGYN Provider 05/19/20 Ashwin Franklin MD [address] [place] [address] 668315 Assigned Surgical Provider 05/19/20 03/22/22 Cecilio Velasco DPM [address] [place] [address] 311185 Assigned Musculoskeletal Provider 08/20/20 09/30/20 Nanci Villalba MD [address] [place] [address] 098085 Assigned PCP 09/10/20 11/04/20 Magda Goode MD [address] [place] [address] 309505 Assigned Musculoskeletal Provider 10/01/20 01/03/23 Nanci Villalba MD [address] [place] [address] 179035 Assigned PCP 12/21/20 Abdirizak Dowd MD [address] [place] [address] 164165 Dermatology 08/09/21 Abdirizak Dowd MD [address] [place] [address] 7[address] Dermatology 12/21/21 Abdirizak Dowd MD [address] [place] [address] 781935 Assigned Surgical Provider 03/23/22 02/16/24 Jessica Butler MD [address] [place] [address] Dermatology 02/21/23 Ayana Fuller MD [address] 065444 lead pharmacy technician 02/24/23 Loli Louis DPJean, Podiatry/Foot and Ankle Surgery [address] [address] [facility] 300 [place], [place] 9[address]707 Assigned Musculoskeletal Provider 09/19/23 03/18/25 Jessica Butler MD [address] [place] [place] [address] 14390 Assigned Surgical Provider 02/17/24 10/16/24 Ashwin Franklin MD [address] [place] [address] 134[address] Dermatology 09/17/24 Valeria Sullivan PA-C Dermatology [address] [place] [address] [phone] Assigned Dermatology Provider 10/17/24 03/18/25 Jessica Butler MD [address] [place] [address] 98 [place], [place] 357725 Assigned Dermatology Provider 03/19/25 documented as of this encounter
--- OUTSIDE RECORDS SUMMARY | 2025-04-27 06:09 | XMS_ITS | Encounter Summary ---
Author Organization [place] Address [address] [facility] [place] [address] Care Team Providers Care Capacitor Inspector Name Role Phone Lacie Marks MD Primary Care Provider Remi Camacho MD Unavailable [phone] Alexis Vargas MD Unavailable [phone] Cecilio Velasco DPM Unavailable +[phone] Johnny Gauthier MD Unavailable [phone] Alpa Max PA-C Unavailable Aayna Fuller MD Unavailable + [phone] No Ref-Primary, Physician Primary Care Provider Nanci Villalba MD Primary Care Provider Ashwin Franklin MD Unavailable +[phone] Magda Goode MD Unavailable +[phone] Ayana Fuller MD Unavailable +[phone] Ashwin Franklin MD Unavailable +[phone] Cecilio Velasco DPM Unavailable +[phone] Nanci Villalba MD Unavailable +[phone] Magda Goode MD Unavailable +[phone] Nanci Villalba MD Unavailable +[phone] Abdirizak Dowd MD Unavailable +[phone] Abdirizak Dowd MD Unavailable +[phone] Abdirizak Dowd MD Unavailable +[phone] Jessica Butler MD Unavailable +[phone] Ayana Fuller MD Unavailable +[phone] Loli Louis DPM, Podiatry /Foot and Ankle Surgery Unavailable Jessica Butler MD Unavailable +[phone] Ashwin Franklin MD Unavailable +[phone] Valeria Sullivan PA-C Unavailable +[phone] Jessica Butler MD Unavailable +[phone] Encounter Details Date Type Department Care Team (Late st Contact Info) Description 01/01/[address] [facility] [address] [place] [phone] Rehana Sykes, RN Social History Tobacco Use Types Packs/Day Years Used Date Smoking Tobacco: Never Smokeless Tobacco: Never Alcohol Use Standard Drinks/Week Comments No 0 (1 standard drink = 0.6 oz pur e alcohol) Glasses Wine PHQ-2 Answer Date Recorded PHQ-2 Score 0 08/04/2018 Comments No Sex and Gender Information Value Date Recorded Sex Assigned at Not on file Legal Sex Female 3:34 AM SPOT FACER Gender Identity Not on file Sexual Orientation Not on file Occupation Industry Job Start Date Job End Date Unemployed Not on file Not on file Not on file documented as of this encounter Plan of Treatment Upcoming Encounters Date Type Department Care Team (Late st Contact Info) Description 05/24/2025 8:15 AM CDT Office Visit [facility] [place] [address] 3rd Floor,[address] [place] [facility] 88 [place] [phone] Ayana Fuller MD [address] [facility] 300 [place], [place] [address] 05/31/2025 9:30 AM SPOT FACER Office Visit [facility] [place] 9[address] [place] [address] Ashwin Franklin MD [address] [place] [address] 8849[address] 09/05/2025 9:45 AM SPOT FACER Office Visit [facility] Dermatology [facility] [address] [place] [address] 3rd [place] [phone] Jessica Butler MD 420 [facility] 98 [place], [place] [phone] documented as of this encounter Visit Diagnoses Not on filedocumented in this encounter Care Teams Capacitor Inspector Relationship Specialty Start Date End Date Lacie Marks MD [address] [facility] 300 [place], [place] 37[address] PCP - General public transit bus driver 11/01/14 03/19/19 No Ref-Primary, Physician PCP - General 03/20/19 05/31/19 Nanci Villalba MD [address] [facility] A [place], [place] [address] PCP - General Internal Medicine 06/01/19 Remi Camacho MD 420 [facility] 136 [place], [place] [address] Dermatology 08/28/16 Alexis Vargas MD 2450 [place] [address] Dermatology 07/14/17 Cecilio Velasco DPM 909 [place] [address] Podiatry 12/31/17 Johnny Gauthier MD [facility] [address] [place] [address] Family Medicine - Sports Medicine 08/20/18 Alpa Max PA-C 420 [facility] 98 [place], [place] 5[address]85 Physician Shop Welder Physician Shop Welder 08/28/18 Ayana Fuller MD [address] [facility] 300 [place], [place] 243414 public transit bus driver 12/01/18 Ashwin Franklin MD 909 [place], [place] 733015 Assigned Pediatric Specialist Provider 05/19/20 08/27/20 Magda Goode MD 909 [place] [address] Assigned Musculoskeletal Provider 05/19/20 08/19/20 Ayana Fuller MD [address] [place] 300 [place] [address] Assigned OBGYN Provider 05/19/20 Ashwin Franklin MD [address] [place] [address] Assigned Surgical Provider 05/19/20 03/22/22 Cecilio Velasco DPM [address] [place] [address] Assigned Musculoskeletal Provider 08/20/20 09/30/20 Nanci Villalba MD [address] [place] [address] Assigned PCP 09/10/20 11/04/20 Magda Goode MD [address] [place] [address] Assigned Musculoskeletal Provider 10/01/20 01/03/23 Nanci Villalba MD [address] [place] [address] Assigned PCP 12/21/20 Abdirizak Dowd MD [address] [place] [address] 422215 Dermatology 08/09/21 Abdirizak Dowd MD [address] [place] [address] 385935 Dermatology 12/21/21 Abdirizak Dowd MD [address] [place] [address] Assigned Surgical Provider 03/23/22 02/16/24 Jessica Butler MD [address] [place] [address] [place] [address] Dermatology 02/21/23 Ayana Fuller MD [address] [facility] 300 [place] [address] public transit bus driver 02/24/23 Loli Louis DPM, Podiatry/Foot and Ankle Surgery [address] [facility] [facility] 300 [place] [address] Assigned Musculoskeletal Provider 09/19/23 03/18/25 Jessica Butler MD [address] [address] Assigned Surgical Provider 02/17/24 10/16/24 Ashwin Franklin MD 909 [place] [address] Dermatology 09/17/24 Valeria Sullivan, PA-C Dermatology [address] [place] [address] Assigned Dermatology Provider 10/17/24 03/18/25 Jessica Butler MD [address] [address] Assigned Dermatology Provider 03/19/25 documented as of this encounter
--- OUTSIDE RECORDS SUMMARY | 2025-04-27 06:09 | XMS_ITS | Encounter Summary ---
Author Organization [place] Address [address] [facility] [place] [address] Care Team Providers Care Chain Mender Name Role Phone Remi Camacho MD Unavailable [phone] Alexis Vargas MD Unavailable Cecilio Velasco DPM Unavailable [phone] Johnny Gauthier MD Unavailable +[phone] Alpa Max PA-C Unavailable Ayana Fuller MD Unavailable [phone] Nanci Villalba MD Primary Care Provider Ayana Fuller MD Unavailable +[phone] Nanci Villalba MD Unavailable +[phone] Abdirizak Dowd MD Unavailable [phone] Abdirizak Dowd MD Unavailable Abdirizak Dowd MD Unavailable +[phone] Jessica Butler MD Unavailable Ayana Fuller MD Unavailable Loli Louis DPM, Podiatry /Foot and Ankle Surgery Unavailable Jessica Butler MD Unavailable +[phone] Ashwin Franklin MD Unavailable +[phone] Valeria Sullivan PA-C Unavailable +[phone] Jessica Butler MD Unavailable [phone] Encounter Details Date Type Department Care Team (Late st Contact Info) Description 05/07/2023 MyC Medical Advice [facility] [address]th [place] [address] Valeria Lopez, RN Social History [...] on file Legal Sex Female 3:34 AM HEEL BUILDER MACHINE Gender Identity Not on file Sexual Orientation [...] [facility] [address] 3rd Floor,[address] [place] [facility] 88 [place] [phone] Ayana Fuller MD [address] [facility] 300 [place], [place] [address] 05/31/2025 9:30 AM HEEL BUILDER MACHINE Office Visit [facility] [place] [address] [place] [phone] Ashwin Franklin MD 909 [place], [place] [address] 09/05/2025 9:45 AM HEEL BUILDER MACHINE Office Visit [facility] [place] [address] [place] [address] 3rd [place] [address] Jessica Butler MD 420 [facility] 98 [place], [place] 9945[address] documented as of this encounter Visit Diagnoses Not on filedocumented in this encounter Additional Health Concerns Assessment Noted Time PHQ-9 Depression Total Score: 2 10/15/19 23 2:22 PM CDT documented as of this encounter Care Teams Chain Mender Relationship Specialty Start Date End Date Nanci Villalba MD [address] [place] [address] A [place], [place] 9[address] PCP - General Internal Medicine 06/01/19 Remi Camacho MD 420 [facility] 136 [place], [place] [address] Dermatology 2/1/17 Alexis Vargas MD 2450 [place] [address] Dermatology 07/14/17 Cecilio Velasco DPM 909 [place], [place] 139[address] Podiatry 12/31/17 Johnny Gauthier MD [address] [place], [place] 9[address] Family Medicine - Sports Medicine 08/20/18 Alpa Max PA-C 420 [facility] 98 [place], [place] 8[address] Physician Senior Policy Associate Physician Senior Policy Associate 08/28/18 Ayana Fuller MD [address] [facility] [address] [place], [place] [phone] counter stitcher 12/01/18 Ayana Fuller MD [address] [facility] 300 [place], [place] [phone] Assigned OBGYN Provider 05/19/20 Nanci Villalba MD [address] [place], [place] [address] Assigned PCP 12/21/20 Abdirizak Dowd MD [address] [facility] A [place], [place] [address] Dermatology 08/09/21 Abdirizak Dowd MD [address] [place] [address] Dermatology 12/21/21 Abdirizak Dowd MD [address] [place] [address] Assigned Surgical Provider 03/23/22 02/16/24 Jsesica Butler MD [address] [place] [address] Dermatology 02/21/23 Ayana Fuller MD [address] [place] [address] counter stitcher 02/24/23 Loli Louis DPJean, Podiatry/Foot and Ankle Surgery [address] [address] Assigned Musculoskeletal Provider 09/19/23 03/18/25 Jessica Butler MD [address] [place] [address] Assigned Surgical Provider 02/17/24 10/16/24 Ashwin Franklin MD 909 [place] [address] Dermatology 09/17/24 Valeria Sullivan, PA-C Dermatology [address] [place] [address] Assigned Dermatology Provider 10/17/24 03/18/25 Jessica Butler MD [address] [place] [address] 98 [place] [address] Assigned Dermatology Provider 03/19/25 documented as of this encounter
--- OUTSIDE RECORDS SUMMARY | 2025-04-27 06:09 | XMS_ITS | Encounter Summary ---
Author Organization [place] Address [address] [facility] [place] [address] Care Team Providers Care Well Driller Name Role Phone Lacie Marks MD Primary Care Provider Coby Mcelroy MD Unavailable Grace Goodrich MD Unavailable [phone] Remi Camacho MD Unavailable +[phone] Shane Pemberton MD Unavailable +[phone] Alexis Vargas MD Unavailable +[phone] Cecilio Velasco DPM Unavailable +[phone] Johnny Gauthier MD Unavailable +[phone] Alpa Max PA-C Unavailable Ayana Fuller MD Unavailable [phone] No Ref-Primary, Physician Primary Care Provider Nanci Villalba MD Primary Care Provider Ashwin Franklin MD Unavailable +[phone] Magda Goode MD Unavailable + [phone] Ayana Fuller MD Unavailable [phone] Ashwin Franklin MD Unavailable +[phone] Cecilio Velasco DPM Unavailable + [phone] Nanci Villalba MD Unavailable +[phone] Magda Goode MD Unavailable + Nanci Villalba MD Unavailable +[phone] Abdirizak Dowd MD Unavailable Abdirizak Dowd MD Unavailable +[phone] Abdirizak Dowd MD Unavailable +[phone] Jessica Butler MD Unavailable [phone] Ayana Fuller MD Unavailable +[phone] Loli LouisM, Podiatry /Foot and Ankle Surgery Unavailable Jessica Butler MD Unavailable +[phone] Ashwin Franklin MD Unavailable +[phone] Valeria Sullivan PA-C Unavailable +[phone] Jessica Butler MD Unavailable +[phone] Encounter Details Date Type Department Care Team (Late st Contact Info) Description 12/16/2014 MyC Medical Advice [facility] [address] [place] [facility] 88 [place] [address] Lacie Marks MD [address] [place] [address] [place] [address] Social History Tobacco Use Types Packs/Day Years Used Date Smoking Tobacco: Never Smokeless Tobacco: Never Alcohol Use Standard Drinks/Week Comments Yes 0 (1 standard drink = 0.6 oz pur e alcohol) Glasses Wine Comments No Sex and Gender Information Value Date Recorded Sex Assigned at Not on file Legal Sex Female 3:34 AM PET STORE MERCHANDISER Gender Identity Not on file Sexual Orientation [...] [address] 3rd Floor,[address] [place] [facility] 88 [place] [phone] Ayana Fuller MD [address] [facility] 300 [place], [place] [phone] 05/31/2025 9:30 AM PET STORE MERCHANDISER Office Visit [facility] [place] [address] [place] [phone] Ashwin Franklin MD [address] [place] [address] 698815 09/05/2025 9:45 AM PET STORE MERCHANDISER Office Visit [facility] D[facility]atology Clinic [address] 3rd [place] [phone] Jessica Butler MD [address] [place] [address] 98 [place], [place] 8[address] documented as of this encounter Visit Diagnoses Not on filedocumented in this encounter Care Teams Well Driller Relationship Specialty Start Date End Date Lacie Marks MD [address] [facility] 300 [place], [place] [phone] PCP - General gold marker 11/01/14 03/19/19 No Ref-Primary, Physician PCP - General 03/20/19 05/31/19 Nanci Villalba MD [address] [place] [address] PCP - General Internal Medicine 06/01/19 Coby Mcelroy MD 606 [address] [facility] 300 [place] [address] Resident Dermatology 03/22/15 03/22/15 Grace Goodrich MD [facility] [address] [place] [address] Resident Dermatology 03/22/15 06/04/17 Remi Camacho MD 420 [facility] 136 [place] [address] Dermatology 08/28/16 Shane Pemberton MD [facility] 420 [facility] 391 [place] [address] Resident Student in organized health care education/training program 05/13/17 02/16/18 Alexis Vargas MD 2450 [place] [address] Dermatology 07/14/17 Cecilio Velasco DPM 909 [place] [address] Podiatry 12/31/17 Johnny Gauthier MD [facility] [place] 2434602 [place] [address] Family Medicine - Sports Medicine 08/20/18 Alpa Max PA-C [address] [place] [address] 98 [place] [address] Physician Air Quality Technician Physician Air Quality Technician 08/28/18 Ayana Fuller MD [address] [place] [address] gold marker 12/01/18 Ashwin Franklin MD [address] [place] [address] Assigned Pediatric Specialist Provider 05/19/20 08/27/20 Magda Goode MD [address] [place] [address] Assigned Musculoskeletal Provider 05/19/20 08/19/20 Ayana Fuller MD [address] [place] [address] Assigned OBGYN Provider 05/19/20 Ashwin Franklin MD [address] [place] [address] Assigned Surgical Provider 05/19/20 03/22/22 Cecilio Velasco DPM [address] [place] [address] Assigned Musculoskeletal Provider 08/20/20 09/30/20 Nanci Villalba MD [address] [place] [address] Assigned PCP 09/10/20 11/04/20 Magda Goode MD [address] [place] [address] Assigned Musculoskeletal Provider 10/01/20 01/03/23 Nanci Villalba MD [address] [place] [address] [place] [address] Assigned PCP 12/21/20 Abdirizak Dowd MD [address] [place] [address] Dermatology 08/09/21 Abdirizak Dowd MD [address] [place] [address] Dermatology 12/21/21 Abdirizak Dowd MD [address] [place] [address] Assigned Surgical Provider 03/23/22 02/16/24 Jessica Butler MD [address] [place] [address] Dermatology 02/21/23 Ayana Fuller MD [address] [place] [address] 300 [place] [address] gold marker 02/24/23 Loli Louis DPM, Podiatry/Foot and Ankle Surgery [address] [place] [address] [address] Assigned Musculoskeletal Provider 09/19/23 03/18/25 Jessica Butler MD [address] [place] [address] Assigned Surgical Provider 02/17/24 10/16/24 Ashwin Franklin MD [address] [place] [address] Dermatology 09/17/24 Valeria Sullivan PA-C Dermatology [address] [place] [address] Assigned Dermatology Provider 10/17/24 03/18/25 Jessica Butler MD [address] [place] [address] Assigned Dermatology Provider 03/19/25 documented as of this encounter
--- OUTSIDE RECORDS SUMMARY | 2025-04-27 06:09 | XMS_ITS | Encounter Summary ---
Author Organization [place] Address [address] [place] [address] Care Team Providers Care Airport Maintenance Laborer Name Role Phone Remi Camacho MD Unavailable +[phone] Alexis Vargas MD Unavailable +[phone] Cecilio Velasco DPM Unavailable [phone] Johnny Gauthier MD Unavailable +[phone] Alpa Max PA-C Unavailable +[phone] Ayana Fuller MD Unavailable [phone] Nanci Villalba MD Primary Care Provider Ashwin Franklin MD Unavailable +[phone] Magda Goode MD Unavailable +[phone] Ayana Fuller MD Unavailable +[phone] Ashwin Franklin MD Unavailable [phone] Cecilio Velasco DPM Unavailable +[phone] Nanci Villalba MD Unavailable +[phone] Magda Goode MD Unavailable +[phone] Nanci Villalba MD Unavailable +[phone] Abdirizak Dowd MD Unavailable +[phone] Abdirizak Dowd MD Unavailable +[phone] Abdirizak Dowd MD Unavailable +[phone] Jessica Butler MD Unavailable +[phone] Ayana Fuller MD Unavailable +[phone] Loli LouisM, Podiatry /Foot and Ankle Surgery Unavailable Jessica Butler MD Unavailable +[phone] Ashwin Franklin MD Unavailable +[phone] Valeria Sullivan PA-C Unavailable +[phone] Jessica Butler MD Unavailable [phone] Encounter Details Date Type Department Care Team (Late st Contact Info) Description 04/28/2020 [facility] [address] [address] Maurisio Fisher MD [address] [place] [address] Social History Tobacco Use Types Packs/Day Years Used Date Smoking Tobacco: Never Smokeless Tobacco: Never Alcohol Use Standard Drinks/Week Comments No 0 (1 standard drink = 0.6 oz pur e alcohol) Glasses Wine PHQ-2 Answer Date Recorded PHQ-2 Score 0 05/31/2019 Comments No Sex and Gender Information Value Date Recorded Sex Assigned at Not on file Legal Sex Female 3:34 AM CHIEF LOCK TENDER OPERATOR Gender Identity Not on file Sexual [...] Description 05/24/2025 8:15 AM CDT Office Visit [facility] [address]rd Floor,[address] [place] Professional [facility]ld[facility] 88 [place] [phone] Ayana Fuller MD [address] [facility] 300 [place], [place] [address] 05/31/2025 9:30 AM CHIEF LOCK TENDER OPERATOR Office Visit [facility] Allergy [address] [address] Ashwin Franklin MD [address] [place] [address] [phone] 09/05/2025 9:45 AM CHIEF LOCK TENDER OPERATOR Office Visit [facility] D[facility] [place] [address] [place] [address] 3rd [place] [phone] Jessica Butler MD 420 [facility] 98 [place], [place] 2[address] documented as of this encounter Visit Diagnoses Not on filedocumented in this encounter Additional Health Concerns Assessment Noted Time PHQ-9 Depression Total Score: 2 08/02/19 20 1:35 PM CHIEF LOCK TENDER OPERATOR documented as of this encounter Care Teams Airport Maintenance Laborer Relationship Specialty Start Date End Date Nanci Villalba MD [address] [place] [address] [place] [address] PCP - General Internal Medicine 06/01/19 Remi Camacho MD 420 [facility] 136 [place] [address] Dermatology 08/28/16 Alexis Vargas MD [address] [place] [place] [address] Dermatology 07/14/17 Cecilio Velasco DPM [address] [place] [address] Podiatry 12/31/17 Johnny Gauthier MD [address] [place], [place] [address]502 [place] [address] Family Medicine - Sports Medicine 08/20/18 Alpa Max PA-C [address] [place] [address] 98 [place], [place] [address] Physician Automotive Service Director Physician Automotive Service Director 08/28/18 Ayana Fuller MD [address] [place] [address] 189874 commercial management accountant 12/01/18 Ashwin Franklin MD [address] [place] [address] 875705 Assigned Pediatric Specialist Provider 05/19/20 08/27/20 Magda Goode MD [address] [place] [address] Assigned Musculoskeletal Provider 05/19/20 08/19/20 Ayana Fuller MD [address] [place] [address] 003424 Assigned OBGYN Provider 05/19/20 Ashwin Franklin MD [address] [place] [address] Assigned Surgical Provider 05/19/20 03/22/22 Cecilio Velasco DPM [address] [place] [address] Assigned Musculoskeletal Provider 08/20/20 09/30/20 Nanci Villalba MD [address] [place] [address] Assigned PCP 09/10/20 11/04/20 Magda Goode MD [address] [place] [address] Assigned Musculoskeletal Provider 10/01/20 01/03/23 Nanci Villalba MD [address] [place] [address] Assigned PCP 12/21/20 Abdirizak Dowd MD [address] [place] [address] Dermatology 08/09/21 Abdirizak Dowd MD [address] [place] [address] Dermatology 12/21/21 Abdirizak Dowd MD [address] [place] [address]608 Assigned Surgical Provider 03/23/22 02/16/24 Jessica Butler MD [address] [place] [address] Dermatology 02/21/23 Ayana Fuller MD [address] [facility] 300 [place] [address] commercial management accountant 02/24/23 Loli Louis DPM, Podiatry/Foot and Ankle Surgery [address] [place] [facility] 300 [place] [address] Assigned Musculoskeletal Provider 09/19/23 03/18/25 Jessica Butler MD [address] [place] [address] Assigned Surgical Provider 02/17/24 10/16/24 Ashwin Franklin MD [address] [place] [address] Dermatology 09/17/24 Valeria Sullivan, PA-C Dermatology [address] [place] [address] Assigned Dermatology Provider 10/17/24 03/18/25 Jessica Butler MD [address] [place] [address] Assigned Dermatology Provider 03/19/25 documented as of this encounter
--- OUTSIDE RECORDS SUMMARY | 2025-04-27 06:09 | XMS_ITS | Encounter Summary ---
Author Organization [place] Address [address] [facility] [place] [address] Care Team Providers Care Checker/Stocker Name Role Phone Lacie Marks MD Primary Care Provider Grace Goodrich MD Unavailable [phone] Remi Camacho MD Unavailable +[phone] Shane Pemberton MD Unavailable +[phone] Alexis Vargas MD Unavailable +[phone] [facility] DPM Unavailable +[phone] Johnny Gauthier MD Unavailable + [phone] Alpa Max PA-C Unavailable Ayana Fuller MD Unavailable + [phone] No Ref-Primary, Physician Primary Care Provider Nanci Villalba MD Primary Care Provider Ashwin Franklin MD Unavailable [phone] Magda Goode MD Unavailable +[phone] Ayana Fuller MD Unavailable +[phone] Ashwin Franklin MD Unavailable +[phone] Cecilio Velasco DPM Unavailable + [phone] Nanci Villalba MD Unavailable +[phone] Magda Goode MD Unavailable +[phone] Nanci Villalba MD Unavailable +[phone] Abdirizak Dowd MD Unavailable +[phone] Abdirizak Dowd MD Unavailable +[phone] Abdirizak Dowd MD Unavailable +[phone] Jessica Butler MD Unavailable +[phone] Ayana Fuller MD Unavailable +[phone] Loli LouisM, Podiatry /Foot and Ankle Surgery Unavailable Jessica Butler MD Unavailable +[phone] Ashwin Franklin MD Unavailable +[phone] Valeria Sullivan PA-C Unavailable +[phone] Jessica Butler MD Unavailable [phone] Encounter Details Date Type Department Care Team (Late st Contact Info) Description 04/14/2015 [facility] [place] [facility] Women's [address] 3rd Floor,[address] [facility] [address] [place] [phone] Marivel Wiggisn, RN Social History Tobacco Use Types Packs/Day Years Used Date Smoking Tobacco: Never Smokeless Tobacco: Never Alcohol Use Standard Drinks/Week Comments Yes 0 (1 standard drink = 0.6 oz pur e alcohol) Glasses Wine Comments No Sex and Gender Information Value Date Recorded Sex Assigned at Not on file Legal Sex Female 3:34 AM FOLLOW UP REP Gender Identity Not on file Sexual Orientation Not on file Occupation Industry Job Start Date Job End Date Unemployed Not on file Not on file Not on file documented as of this encounter Plan of Treatment Upcoming Encounters Date Type Department Care Team (Late st Contact Info) Description 05/24/2025 8:15 AM CDT Office Visit [facility] Women's [facility] [address] 3rd Floor,[address] [place] 88 [place] [phone] Ayana Fuller MD [address] [facility] 300 [place], [place] [address] 05/31/2025 9:30 AM FOLLOW UP REP Office Visit [facility] Allergy [facility] 909 [place] [address] Ashwin Franklin MD [address] [place] [address] 691555 09/05/2025 9:45 AM FOLLOW UP REP Office Visit [facility] [facility] 3rd [place] [phone] Jessica Butler MD 420 [facility] 98 [place], [place] [address] documented as of this encounter Visit Diagnoses Not on filedocumented in this encounter Care Teams Checker/Stocker Relationship Specialty Start Date End Date Lacie Marks MD [address] [facility] 300 [place], [place] 3[address] PCP - General retail department reset 11/01/14 03/19/19 No Ref-Primary, Physician PCP - General 03/20/19 05/31/19 Nanci Villalba MD 901 [facility] [place] [address] PCP - General Internal Medicine 06/01/19 Grace Goodrich MD [facility] [address] [place] [address] Resident Dermatology 03/22/15 06/04/17 Remi Camacho MD 420 [facility] 136 [place] [address] Dermatology 08/28/16 Shane Pemberton MD [facility] 420 [facility] 391 [place], [place] [address] Resident Student in organized health care education/training program 05/13/17 02/16/18 Alexis Vargas MD 2450 [place], [place] 8[address] Dermatology 07/14/17 Cecilio Velasco DPM [address] [place] [address] 993725 Podiatry 12/31/17 Johnny Gauthier MD [address] [place], [place] [address] [place] [address] Family Medicine - Sports Medicine 08/20/18 Alpa Max PA-C 420 [facility] 98 [place], [place] 74[address] Physician Felt Finishing Supervisor Physician Felt Finishing Supervisor 08/28/18 Ayana Fuller MD [address] [place] [address] 300 [place], [place] 5[address] retail department reset 12/01/18 Ashwin Franklin MD [address] [place] [address] Assigned Pediatric Specialist Provider 05/19/20 08/27/20 Magda Goode MD [address] [place] [address] 54368 Assigned Musculoskeletal Provider 05/19/20 08/19/20 Ayana Fuller MD [address] [place] [address] Assigned OBGYN Provider 05/19/20 Ashwin Franklin MD [address] [place] [address] 07398 Assigned Surgical Provider 05/19/20 03/22/22 Cecilio Velasco DPM [address] [place] [address] 16593 Assigned Musculoskeletal Provider 08/20/20 09/30/20 Nanci Villalba MD [address] [place] [address] 078815 Assigned PCP 09/10/20 11/04/20 Magda Goode MD [address] [place] [address] 37695 Assigned Musculoskeletal Provider 10/01/20 01/03/23 Nanci Villalba MD [address] [place] [address] 89457 Assigned PCP 12/21/20 Abdirizak Dowd MD [address] [place] [address] 711685 Dermatology 08/09/21 Abdirizak Dowd MD [address] [place] [address] 27003 Dermatology 12/21/21 Abdirizak Dowd MD [address] [place] [address] 95044 Assigned Surgical Provider 03/23/22 02/16/24 Jessica Butler MD [address] [place] [address] Dermatology 02/21/23 Ayana Fuller MD [address] [place] [address] retail department reset 02/24/23 Loli Louis DPM, Podiatry/Foot and Ankle Surgery [address] [facility] 300 [place] [address] Assigned Musculoskeletal Provider 09/19/23 03/18/25 Jessica Butler MD [address] [place] [address] Assigned Surgical Provider 02/17/24 10/16/24 Ashwin Franklin MD [address] [place] [address] 38518 Dermatology 09/17/24 Valeria Sullivan PA-C Dermatology [address] [place] [address] Assigned Dermatology Provider 10/17/24 03/18/25 Jessica Butler MD [address] [place] [address] 98 [place] [address] Assigned Dermatology Provider 03/19/25 documented as of this encounter
--- OUTSIDE RECORDS SUMMARY | 2025-04-27 06:09 | XMS_ITS | Encounter Summary ---
Author Organization [place] Address [address] [facility] [place] [address] Care Team Providers Care Health And Wellness Coordinator Name Role Phone Remi Camacho MD Unavailable [phone] Alexis Vargas MD Unavailable Cecilio Velasco DPM Unavailable [phone] Johnny Gauthier MD Unavailable +[phone] Alpa Max PA-C Unavailable Ayana Fuller MD Unavailable [phone] Nanci Villalba MD Primary Care Provider Ayana Fuller MD Unavailable +[phone] Nanci Villalba MD Unavailable [phone] Abdirizak Dowd MD Unavailable +[phone] Abdirizak Dowd MD Unavailable +[phone] Jessica Butler MD Unavailable [phone] Ayana Fuller MD Unavailable +[phone] Ashwin Franklin MD Unavailable [phone] Jessica Butler MD Unavailable Encounter Details Date Type Department Care Team (Latest Contact Info) Description 04/19/2025 Travel Social History Tobacco Use Types Packs/Day [...] re latives? Twice a week 08/10/2024 Attends Sabianism Services Not on file 08/10 Active Member of Clubs or Organizations Not on f ile 08/10/2024 Attends Club or Organization Meetings Not on sb e 08/10/2024 Marital Status Not on file 08/10/2024 PHQ-2 Answer Date Recorded PHQ-2 Score 0 08/11/2024 [facility] - Occupational [...] file Legal Sex Female 3:34 AM CHIEF PILOT Gender Identity Not on file Sexual Orientation Not on file Occupation Industry Job Start Date Job End Date Unemployed Not on file Not on file Not on file documented as of this encounter Plan of Treatment Upcoming Encounters Date Type Department Care Team (Late st Contact Info) Description 05/24/2025 8:15 AM CDT Office Visit [facility] Women[facility] Clinic [address] 3rd Floor,[address] [place] [facility]ld[facility] 88 [place] [phone] Ayana Fuller MD [address] [facility] 300 [place], [place] [address] 05/31/2025 9:30 AM CHIEF PILOT Office Visit [facility] Allergy Clinic [address] [address] Ashwin Franklin MD [address] [place] [address] 185745 09/05/2025 9:45 AM CHIEF PILOT Office Visit [facility] Dermatology Clinic [address] 3rd [place] [phone] Jessica Butler MD 420 [facility] 98 [place], [place] [address] documented as of this encounter Visit Diagnoses Not on filedocumented in this encounter Additional Health Concerns Assessment Noted Time PHQ-9 Depression Total Score: 2 10/15/19 23 2:22 PM CDT documented as of this encounter Care Teams Health And Wellness Coordinator Relationship Specialty Start Date End Date Nanci Villalba MD [address] [place] [address] A [place], [place] 77[address] PCP - General Internal Medicine 06/01/19 Remi Camacho MD 420 [facility] 136 [place], [place] 4[address] Dermatology 08/28/16 Alexis Vargas MD [address] [place] [address] 292524 Dermatology 07/14/17 Cecilio Velasco DPM [address] [place] [address] 944315 Podiatry 12/31/17 Johnny Gauthier MD [address] [place] [address] R102 [place] [address] Family Medicine - Sports Medicine 08/20/18 Alpa Max PA-C 420 [facility] 98 [place], [place] [address] Physician Coach Tour Driver Physician Coach Tour Driver 08/28/18 Ayana Fuller MD [address] [facility] 300 [place] [address] hauling contractor 12/01/18 Ayana Fuller MD [address] [facility] 300 [place] [address] Assigned OBGYN Provider 05/19/20 Nanci Villalba MD [address] [place] [address] Assigned PCP 12/21/20 Abdirizak Dowd MD [address] [place] [address] 339145 Dermatology 08/09/21 Abdirizak Dowd MD [address] [place] [address] 611505 Dermatology 12/21/21 Jessica Butler MD [address] [address] Dermatology 02/21/23 Ayana Fuller MD 606 [facility] [address] [address] hauling contractor 02/24/23 Ashwin Franklin MD [address] [place] [address] 355335 Dermatology 09/17/24 Jessica Butler MD 420 [facility] 98 [place] [address] Assigned Dermatology Provider 03/19/25 documented as of this encounter
--- OUTSIDE RECORDS SUMMARY | 2025-04-27 06:09 | XMS_ITS | Encounter Summary ---
Author Organization [place] Address [address] [facility] [place] [address] Care Team Providers Care Commercial Portfolio Manager Name Role Phone Remi Camacho MD Unavailable [phone] Alexis Vargas MD Unavailable Cecilio Velasco DPM Unavailable [phone] Johnny Gauthier MD Unavailable Alpa Max PA-C Unavailable Ayana Fuller MD Unavailable [phone] Nanci Villalba MD Primary Care Provider Ayana Fuller MD Unavailable +[phone] Nanci Villalba MD Unavailable +[phone] Abdirizak Dowd MD Unavailable [phone] Abdirizak Dodw MD Unavailable Abdirizak Dowd MD Unavailable +[phone] Jessica Butler MD Unavailable Ayana Fuller MD Unavailable Loli Louis DPM, Podiatry /Foot and Ankle Surgery Unavailable Jessica Butler MD Unavailable +[phone] Ashwin Franklin MD Unavailable [phone] Valeria Sullivan PA-C Unavailable +[phone] Jessica Butler MD Unavailable [phone] Encounter Details Date Type Department Care Team (Late st Contact Info) Description 09/10/2023 MyC Medical Advice [facility] [address] [place] [address] Valeria Lopez, RN Social History [...] in an overnight residential, or couch-surfing.) Yes 06/08/2023 Are you worried [...] on file Legal Sex Female 3:34 AM WIRE FRAME LAMPSHADE MAKER Gender Identity Not on file Sexual Orientation Not on file Occupation Industry Job Start Date Job End Date Unemployed Not on file Not on file Not on file documented as of this encounter Plan of Treatment Upcoming Encounters Date Type Department Care Team (Late st Contact Info) Description 05/24/2025 8:15 AM CDT Office Visit [facility] Women's [facility] [address] [place] [address] 3rd Floor,[address] [place] Professional [facility]ldg [facility] 88 [place] [phone] Ayana Fuller MD [address] [place] [address] 300 [place], [place] 5[address] 05/31/2025 9:30 AM WIRE FRAME LAMPSHADE MAKER Office Visit [facility] [address] [phone] Ashwin Franklin MD [address] [place] [address] 361165 09/05/2025 9:45 AM WIRE FRAME LAMPSHADE MAKER Office Visit [facility] Dermatology Clinic [address] [place] [address] Jessica Butler MD [address] [place] [address] 98 [place], [place] [address] documented as of this encounter Visit Diagnoses Not on filedocumented in this encounter Additional Health Concerns Assessment Noted Time PHQ-9 Depression Total Score: 2 10/15/19 23 2:22 PM CDT documented as of this encounter Care Teams Commercial Portfolio Manager Relationship Specialty Start Date End Date Nanci Villalba MD 901 [facility] S [facility] [place] [address] PCP - General Internal Medicine 06/01/19 Remi Camacho MD 420 [facility] 136 [place], [place] [phone] Dermatology 08/28/16 Alexis Vargas MD 2450 [place] [address] Dermatology 07/14/17 Cecilio Velasco DPM 909 [place], [place] [phone] Podiatry 12/31/17 Johnny Gauthier MD [address] [place] [address] Family Medicine - Sports Medicine 08/20/18 Alpa Max PA-C 420 [facility] 98 [place], [place] [phone] Physician Manager Investment Banking Physician Manager Investment Banking 08/28/18 Ayana Fuller MD [address] [facility] 300 [place] [address] composition instructor 12/01/18 Ayana Fuller MD [address] [facility] 300 [place] [address] Assigned OBGYN Provider 05/19/20 Nanci Villalba MD [address] [place] [address] [place] [address] Assigned PCP 12/21/20 Abdirizak Dowd MD [address] [place] [address] Dermatology 08/09/21 Abdirizak Dowd MD [address] [place] [address] 996795 Dermatology 12/21/21 Abdirizak Dowd MD [address] [place] [address] 153525 Assigned Surgical Provider 03/23/22 02/16/24 Jessica Butler MD 420 [facility] 98 [place] [address] Dermatology 02/21/23 Ayana Fuller MD 606 [address] 300 [place], [place] 8[address] composition instructor 02/24/23 Loli Louis DPM, Podiatry/Foot and Ankle Surgery [address] [address] Assigned Musculoskeletal Provider 09/19/23 03/18/25 Jessica Butler MD 420 [facility] 98 [place] [address] Assigned Surgical Provider 02/17/24 10/16/24 Ashwin Franklin MD 909 [place] [address] Dermatology 09/17/24 Valeria Sullivan PA-C Dermatology [address] [place] [address] Assigned Dermatology Provider 10/17/24 03/18/25 Jessica Butler MD 420 [facility] 98 [place] [address] Assigned Dermatology Provider 03/19/25 documented as of this encounter
--- OUTSIDE RECORDS SUMMARY | 2025-04-27 06:09 | XMS_ITS | Encounter Summary ---
Author Organization [place] Address [address] [facility] [place] [address] Care Team Providers Care Beading Sawyer Name Role Phone Remi Camacho MD Unavailable [phone] Alexis Vargas MD Unavailable [phone] Cecilio Velasco DPM Unavailable [phone] Johnny Gauthier MD Unavailable [phone] Alpa Max PA-C Unavailable Ayana Fuller MD Unavailable +[phone] Nanci Villalba MD Primary Care Provider Ayana Fuller MD Unavailable +[phone] Ashwin Franklin MD Unavailable [phone] Magda Goode MD Unavailable +[phone] Nanci Villalba MD Unavailable [phone] Abdirizak Dowd MD Unavailable +[phone] Abdirizak Dowd MD Unavailable [phone] Abdirizak Dowd MD Unavailable [phone] Jessica Butler MD Unavailable +[phone] Ayana Fuller MD Unavailable +[phone] Loli LouisM, Podiatry /Foot and Ankle Surgery Unavailable Jessica Butler MD Unavailable +[phone] Ashwin Franklin MD Unavailable +[phone] Valeria Sullivan PA-C Unavailable +[phone] Jessica Butler MD Unavailable [phone] Encounter Details Date Type Department Care Team (Late st Contact Info) Description 05/04/2021 [facility] [place] [facility] [address] [address] Magda Goode MD [address] [place] [address] Social History Tobacco Use Types Packs/Day [...] on file Legal Sex Female 3:34 AM RECREATION WORKER Gender Identity Not on file Sexual [...] Description 05/24/2025 8:15 AM CDT Office Visit [facility] [address] Floor[address] [place] Professional Bldg [facility] 88 [place] [phone] Ayana Fuller MD [address] [facility] 300 [place], [place] [address] 05/31/2025 9:30 AM RECREATION WORKER Office Visit [facility] Allergy Clinic [address] [phone] Ashwin Franklin MD [address] [place] [address] 829865 09/05/2025 9:45 AM RECREATION WORKER Office Visit [facility] Dermatology Clinic [address]rd [place] [phone] Jessica Butler MD [address] [place] [address] 98 [place], [place] [phone] documented as of this encounter Visit Diagnoses Not on filedocumented in this encounter Additional Health Concerns Assessment Noted Time PHQ-9 Depression Total Score: 2 02/29/20 21 1:38 PM CDT documented as of this encounter Care Teams Beading Sawyer Relationship Specialty Start Date End Date Nanci Villalba MD [address] [place] [address] S [facility] [place], [place] [address] PCP - General Internal Medicine 06/01/19 Remi Camacho MD 420 [facility] 136 [place], [place] [address] Dermatology 08/28/16 Alexis Vargas MD 2450 [place] [address] Dermatology 07/14/17 Cecilio Velasco DPM 909 [place], [place] [address] Podiatry 12/31/17 Johnny Gauthier MD 2512 S [facility] [address] [place], [place] [address] Family Medicine - Sports Medicine 08/20/18 Alpa Max PA-C 420 [facility] 98 [place], [place] [address] Physician Wound Care Center Consultant Physician Wound Care Center Consultant 08/28/18 Ayana Fuller MD [address] [facility] 300 [place] [address] key worker 12/01/18 Ayana Fuller MD [address] [place] 300 [place], [place] [address] Assigned OBGYN Provider 05/19/20 Ashwin Franklin MD 909 [place], [place] 7[address] Assigned Surgical Provider 05/19/20 03/22/22 Magda Goode MD [address] [place] [address] Assigned Musculoskeletal Provider 10/01/20 01/03/23 Nanci Villalba MD [address] [place] [address] [place] [address] Assigned PCP 12/21/20 Abdirziak Dowd MD [address] [place] [address] 253045 Dermatology 08/09/21 Abdirizak Dowd MD [address] [place] [address] Dermatology 12/21/21 Abdirizak Dowd MD [address] [place] [address] 893745 Assigned Surgical Provider 03/23/22 02/16/24 Jessica Butler MD [address] [address] Dermatology 02/21/23 Ayana Fuller MD 606 24[facility] 300 [place] [address] key worker 02/24/23 Loli Louis, DPM, Podiatry/Foot and Ankle Surgery [address] [place] [address] [place] [address] Assigned Musculoskeletal Provider 09/19/23 03/18/25 Jessica Butler MD [address] [address] Assigned Surgical Provider 02/17/24 10/16/24 Ashwin Franklin MD [address] [place] [address] Dermatology 09/17/24 Valeria Sullivan PA-C Dermatology [address] [place] [address] Assigned Dermatology Provider 10/17/24 03/18/25 Jessica Butler MD [address] [address] Assigned Dermatology Provider 03/19/25 documented as of this encounter
--- OUTSIDE RECORDS SUMMARY | 2025-04-27 06:09 | XMS_ITS | Encounter Summary ---
Author Organization [place] Address [address] [place] [address] Care Team Providers Care Orthopaedic Technologist Name Role Phone Remi Camacho MD Unavailable Alexis Vargas MD Unavailable [phone] Cecilio Velasco DPM Unavailable [phone] Johnny Gauthier MD Unavailable +[phone] Alpa Max PA-C Unavailable Ayana Fuller MD Unavailable +[phone] Nanci Villalba MD Primary Care Provider Ashwin Franklin MD Unavailable +[phone] Magda Goode MD Unavailable +[phone] Ayana Fuller MD Unavailable +[phone] Ashwin Franklin MD Unavailable +[phone] Cecilio Velasco DPM Unavailable +[phone] Nanci Villalba MD Unavailable +[phone] Magda Goode MD Unavailable +[phone] Nanci Villalba MD Unavailable +[phone] Abdirizak Dowd MD Unavailable +[phone] Abdirizak Dowd MD Unavailable +[phone] Abdirizak Dowd MD Unavailable +[phone] Jessica Butler MD Unavailable +[phone] Ayana Fuller MD Unavailable +[phone] Loli LouisM, Podiatry /Foot and Ankle Surgery Unavailable Jessica Butler MD Unavailable +[phone] Ashwin Franklin MD Unavailable +[phone] Valeria Sullivan PA-C Unavailable +[phone] Jessica Butler MD Unavailable +[phone] Encounter Details Date Type Department Care Team (Late st Contact Info) Description 05/16/2020 [facility] [address] [address] Magda Goode MD [address] [place] [address] Social History Tobacco Use Types Packs/Day Years Used Date Smoking Tobacco: Never Smokeless Tobacco: Never Alcohol Use Standard Drinks/Week Comments No 0 (1 standard drink = 0.6 oz pur e alcohol) Glasses Wine PHQ-2 Answer Date Recorded PHQ-2 Score 0 05/31/2019 Comments No Sex and Gender Information Value Date Recorded Sex Assigned at Not on file Legal Sex Female 3:34 AM BUSINESS ARCHITECT Gender Identity Not on file Sexual Orientation [...] Description 05/24/2025 8:15 AM CDT Office Visit [facility] [address] 3rd Floor,[address] [place] [facility] 88 [place] [phone] Ayana Fuller MD [address] [facility] 300 [place], [place] [address] 05/31/2025 9:30 AM BUSINESS ARCHITECT Office Visit [facility] [place] [address] [place] [address] Ashwin Franklin MD [address] [place], [place] 3[address] 09/05/2025 9:45 AM BUSINESS ARCHITECT Office Visit [facility] [place] [address] [place] [address] 3rd [place] [phone] Jessica Butler MD 420 [facility] 98 [place], [place] 0[address]135 documented as of this encounter Visit Diagnoses Not on filedocumented in this encounter Additional Health Concerns Assessment Noted Time PHQ-9 Depression Total Score: 2 08/02/19 20 1:35 PM BUSINESS ARCHITECT documented as of this encounter Care Teams Orthopaedic Technologist Relationship Specialty Start Date End Date Nanci Villalba MD [address] [place] [address] PCP - General Internal Medicine 06/01/19 Remi Camacho MD 420 [facility] 136 [place] [address] Dermatology 08/28/16 Alexis Vargas MD [facility], [facility]–[address] [place] [address] Dermatology 07/14/17 Cecilio Velasco DPM [address] [place] [address] Podiatry 12/31/17 Johnny Gauthier MD [address] [place] [address] Family Medicine - Sports Medicine 08/20/18 Alpa Max PA-C [address] [place] [address] 98 [place] [address] Physician Scallop Cutter Physician Scallop Cutter 08/28/18 Ayana Fuller MD [address] [place] [address] 868104 accounting manager controller 12/01/18 Ashwin Franklin MD [address] [place] [address] 787895 Assigned Pediatric Specialist Provider 05/19/20 08/27/20 Magda Goode MD [address] [place] [address]559 Assigned Musculoskeletal Provider 05/19/20 08/19/20 Ayana Fuller MD [address] [place] [address] 480884 Assigned OBGYN Provider 05/19/20 Ashwin Franklin MD [address] [place] [address] Assigned Surgical Provider 05/19/20 03/22/22 Cecilio Velasco DPM [address] [place] [address] Assigned Musculoskeletal Provider 08/20/20 09/30/20 Nanci Villalba MD [address] [place] [address] Assigned PCP 09/10/20 11/04/20 Magda Goode MD [address] [place] [address] Assigned Musculoskeletal Provider 10/01/20 01/03/23 Nanci Villalba MD [address] [place] [address] Assigned PCP 12/21/20 Abdirizak Dowd MD [address] [place] [address] Dermatology 08/09/21 Abdirizak Dowd MD [address] [place] [address] Dermatology 12/21/21 Abdirizak Dowd MD [address] [place] [address] Assigned Surgical Provider 03/23/22 02/16/24 Jessica Butler MD [address] [place] [address] Dermatology 02/21/23 Ayana Fuller MD [address] [facility] 300 [place] [address] accounting manager controller 02/24/23 Loli Louis DPM, Podiatry/Foot and Ankle Surgery [address] [facility] 300 [place] [address] Assigned Musculoskeletal Provider 09/19/23 03/18/25 Jessica Butler MD [address] [place] [address] Assigned Surgical Provider 02/17/24 10/16/24 Ashwin Franklin MD [address] [place] [address] Dermatology 09/17/24 Valeria Sullivan, PACassieC Dermatology [address] [place] [address] Assigned Dermatology Provider 10/17/24 03/18/25 Jessica Butler MD [address] [place] [address] Assigned Dermatology Provider 03/19/25 documented as of this encounter
--- OUTSIDE RECORDS SUMMARY | 2025-04-27 06:09 | XMS_ITS | Encounter Summary ---
Author Organization [place] Address [address] [place] [address] Care Team Providers Care Boat Detailer Name Role Phone No Ref-Primary, Physician Primary Care Provider Lacie Marks MD Primary Care Provider Coby Mcelroy MD Unavailable Grace Goodrich MD Unavailable [phone] Remi Camacho MD Unavailable [phone] Shane Pemberton MD Unavailable +[phone] Alexis Vargas MD Unavailable +[phone] Cecilio Velasco DPM Unavailable +[phone] Johnny Gauthier MD Unavailable +[phone] Alpa Max PA-C Unavailable Ayana Fuller MD Unavailable [phone] No Ref-Primary, Physician Primary Care Provider Nanci Villalba MD Primary Care Provider Ashwin Franklin MD Unavailable Magda Goode MD Unavailable + [phone] Ayana Fuller MD Unavailable +[phone] Ashwin Franklin MD Unavailable [phone] Krista Cecilio Manny DPM Unavailable Nanci Villalba MD Unavailable [phone] Magda Goode MD Unavailable + [phone] Nanci Villalba MD Unavailable [phone] Abdirizak Dowd MD Unavailable Abdirizak Dowd MD Unavailable Nile, Abdirizak Turner MD Unavailable Jessica Butler MD Unavailable [phone] Ayana Fuller MD Unavailable [phone] Loli Louis DPM, Podiatry /Foot and Ankle Surgery Unavailable Jessica Butler MD Unavailable +[phone] Ashwin Franklin MD Unavailable +[phone] Valeria Sullivan PA-C Unavailable +[phone] Jessica Butler MD Unavailable [phone] Encounter Details Date Type Department Care Team (Late st Contact Info) Description 05/30/2014 MyC Medical Advice [facility] [address] [place], [place] [address]e S 3rd Floor,[address] [facility] [address] [address] Clara Ponce, RN Social History Tobacco Use Types Packs/Day Years Used Date Smoking Tobacco: Never Smokeless Tobacco: Never Alcohol Use Standard Drinks/Week Comments Yes 0 (1 standard drink = 0.6 oz pur e alcohol) Glasses Wine Comments No Sex and Gender Information Value Date Recorded Sex Assigned at Not on file Legal Sex Female 3:34 AM INSIDE SALES ACCOUNT REPRESENTATIVE Gender Identity Not on file Sexual Orientation Not on file documented as of this encounter Plan of Treatment Upcoming Encounters Date Type Department Care Team (Late st Contact Info) Description 05/24/2025 8:15 AM CDT Office Visit [facility] [address] 3rd Floor,[address] [place] [facility] 88 [place] [phone] Ayana Fuller MD [address] [facility] 300 [place], [place] [address] 05/31/2025 9:30 AM INSIDE SALES ACCOUNT REPRESENTATIVE Office Visit [facility] All[facility] [address] [address] Ashwin Franklin MD [address] [place] [address] 008725 09/05/2025 9:45 AM INSIDE SALES ACCOUNT REPRESENTATIVE Office Visit [facility] [place] 9[address] [facility] 3rd [place] [phone] Jessica Butler MD 420 [facility] 98 [place], [place] [phone] documented as of this encounter Visit Diagnoses Not on filedocumented in this encounter Care Teams Boat Detailer Relationship Specialty Start Date End Date No Ref-Primary, Physician PCP - General 12/28/10 10/31/14 Lacie Marks MD [address] [facility] 300 [place], [place] 2[address] PCP - General switch coupler 11/01/14 03/19/19 No Ref-Primary, Physician PCP - General 03/20/19 05/31/19 Nanci Villalba MD [address] [place] [address] 086675 PCP - General Internal Medicine 06/01/19 Coby Mcelroy MD [address] [place] [address] 300 [place], [place] 610414 Resident Dermatology 03/22/15 03/22/15 Grace Goodrich MD [facility] [place] [place] [address] [place] [address] [address] [place], [place] [phone] Resident Dermatology 03/22/15 06/04/17 Remi Camacho MD 420 [facility] 136 [place] [address] Dermatology 08/28/16 Shane Pemberton MD [facility] 420 [facility] 391 [place], [place] 3930[address] Resident Student in organized health care education/training program 05/13/17 02/16/18 Alexis Vargas MD 2450 [place], [place] 225294 Dermatology 07/14/17 Cecilio Velasco DPM 909 [place], [place] 676555 Podiatry 12/31/17 Johnny Gauthier MD [facility] [place] 6968802 [place], [place] 939614 Family Medicine - Sports Medicine 08/20/18 Alpa Max PA-C 420 [facility] [address] [place] [address] Physician Radiology Transcriptionist Physician Radiology Transcriptionist 08/28/18 Ayana Fuller MD [address] [place] [address] switch coupler 12/01/18 Ashwin Franklin MD [address] [place] [address]180 Assigned Pediatric Specialist Provider 05/19/20 08/27/20 Magda Goode MD [address] [place] [address] 15118 Assigned Musculoskeletal Provider 05/19/20 08/19/20 Ayana Fuller MD [address] [place] [address] Assigned OBGYN Provider 05/19/20 Ashwin Franklin MD [address] [place] [address] 52781 Assigned Surgical Provider 05/19/20 03/22/22 Cecilio Velasco DPM [address] [place] [address] 94000 Assigned Musculoskeletal Provider 08/20/20 09/30/20 Nanci Villalba MD [address] [place] [address] 33598 Assigned PCP 09/10/20 11/04/20 Magda Goode MD [address] [place] [address]58[address] Assigned Musculoskeletal Provider 10/01/20 01/03/23 Nanci Villalba MD [address] [place] [address] [place] [address] Assigned PCP 12/21/20 Abdirizak Dowd MD [address] [place] [address] Dermatology 08/09/21 Abdirizak Dowd MD [address] [place] [address] Dermatology 12/21/21 Abdirizak Dowd MD [address] [place] [address] 63158 Assigned Surgical Provider 03/23/22 02/16/24 Jessica Butler MD [address] [place] [address] Dermatology 02/21/23 Ayana Fuller MD [address] [place] [address] 300 [place] [address] switch coupler 02/24/23 Loli Louis DPM, Podiatry/Foot and Ankle Surgery [address] [address] Assigned Musculoskeletal Provider 09/19/23 03/18/25 Jessica Butler MD [address] [place] [address] 66179 Assigned Surgical Provider 02/17/24 10/16/24 Ashwin Franklin MD [address] [place] [address] 29790 Dermatology 09/17/24 Valeria Sullivan, PA-C Dermatology [address] [place] [address]289 Assigned Dermatology Provider 10/17/24 03/18/25 Jessica Butler MD [address] [place] [address] 98 [place] [address] Assigned Dermatology Provider 03/19/25 documented as of this encounter
--- OUTSIDE RECORDS SUMMARY | 2025-04-27 06:09 | XMS_ITS | Encounter Summary ---
Author Organization [place] Address [address] [facility] [place] [place] [address] Care Team Providers Care Bookkeeping Clerk Name Role Phone Remi Camacho MD Unavailable [phone] Alexis Vargas MD Unavailable [phone] Cecilio VelascoM Unavailable [phone] Johnny Gauthier MD Unavailable +[phone] Alpa Max PA-C Unavailable Ayana Fuller MD Unavailable [phone] Nanci Villalba MD Primary Care Provider Ayana Fuller MD Unavailable [phone] Ashwin Franklin MD Unavailable [phone] Cecilio VelascoM Unavailable [phone] Nanci Villalba MD Unavailable +[phone] Magda Goode MD Unavailable +[phone] Nanci Villalba MD Unavailable +[phone] Abdirizak Dowd MD Unavailable Abdirizak Dowd MD Unavailable +[phone] Abdirizak Dowd MD Unavailable +[phone] Jessica Butler MD Unavailable +[phone] Ayana Fuller MD Unavailable [phone] Loli Louis DPM, Podiatry /Foot and Ankle Surgery Unavailable Jessica Butler MD Unavailable +[phone] Ashwin Franklin MD Unavailable +[phone] Valeria Sullivan PA-C Unavailable +[phone] Jessica Butler MD Unavailable [phone] Encounter Details Date Type Department Care Team (Late st Contact Info) Description 09/14/2020 MyC Medical Advice [facility] [address] 4th [place] [phone] Isabel Pedraza ATC Social History Tobacco Use [...] on file Legal Sex Female 3:34 AM SCALLOP SHUCKER Gender Identity Not on file Sexual Orientation Not on file Occupation Industry Job Start Date Job End Date Unemployed Not on file Not on file Not on file documented as of this encounter Plan of Treatment Upcoming Encounters Date Type Department Care Team (Late st Contact Info) Description 05/24/2025 8:15 AM CDT Office Visit [facility] [address] 3rd Floor,[address] [place] [facility] 88 [place] [phone] Ayana Fuller MD [address] [place] 300 [place] [address] 05/31/2025 9:30 AM SCALLOP SHUCKER Office Visit [facility] All[facility] Clinic [address] [phone] Ashwin Franklin MD [address] [place] [address] 040735 09/05/2025 9:45 AM SCALLOP SHUCKER Office Visit [facility] Dermatology Clinic [address] 3rd [place] [phone] Jessica Butler MD 420 [facility] 98 [place], [place] [phone] documented as of this encounter Visit Diagnoses Not on filedocumented in this encounter Additional Health Concerns Assessment Noted Time PHQ-9 Depression Total Score: 2 08/02/19 20 1:35 PM SCALLOP SHUCKER documented as of this encounter Care Teams Bookkeeping Clerk Relationship Specialty Start Date End Date Nanci Villalba MD [address] [place] [address] [phone] PCP - General Internal Medicine 06/01/19 Remi Camacho MD [address] [place] [address] 136 [place] [address] Dermatology 08/28/16 Alexis Vargas MD [address] [place] [address] Dermatology 07/14/17 Cecilio Velasco DPM [address] [place] [address] 439635 Podiatry 12/31/17 Johnny Gauthier MD [address] [place] [address] Family Medicine - Sports Medicine 08/20/18 Alpa Max PA-C [address] [place] [address] 98 [place] [address] Physician Press Manager Physician Press Manager 08/28/18 Ayana Fuller MD [address] [facility] [address] [facility] 300 [place] [address] circuit designer 12/01/18 Ayana Fuller MD [address] [address] Assigned OBGYN Provider 05/19/20 Ashwin Franklin MD [address] [place] [address]64 Assigned Surgical Provider 05/19/20 03/22/22 Cecilio Velasco DPM [address] [place] [address] Assigned Musculoskeletal Provider 08/20/20 09/30/20 Nanci Villalba MD [address] [place] [address] Assigned PCP 09/10/20 11/04/20 Magda Goode MD [address] [place] [address] Assigned Musculoskeletal Provider 10/01/20 01/03/23 Nanci Villalba MD [address] [place] [address] Assigned PCP 12/21/20 Abdirizak Dowd MD [address] [place] [address] Dermatology 08/09/21 Abdirizak Dowd MD [address] [place] [address] Dermatology 12/21/21 Abdirizak Dowd MD [address] [place] [address] 500365 Assigned Surgical Provider 03/23/22 02/16/24 Jessica Butler MD [address] [place] [address] Dermatology 02/21/23 Ayana Fuller MD [address] [place] [address] 860814 circuit designer 02/24/23 Loli Louis DPJean, Podiatry/Foot and Ankle Surgery [address] [address] Assigned Musculoskeletal Provider 09/19/23 03/18/25 Jessica Butler MD [address] [place] [address]62 Assigned Surgical Provider 02/17/24 10/16/24 Ashwin Franklin MD [address] [place] [address] Dermatology 09/17/24 Valeria Sullivan PA-C Dermatology [address] [place] [address] Assigned Dermatology Provider 10/17/24 03/18/25 Jessica Butler MD [address] [place] [address]662 Assigned Dermatology Provider 03/19/25 documented as of this encounter
--- OUTSIDE RECORDS SUMMARY | 2025-04-27 06:09 | XMS_ITS | Encounter Summary ---
Author Organization [place] Address [address] [place] [address] Care Team Providers Care Cruise Consultant Name Role Phone Remi Camacho MD Unavailable Alexis Vargas MD Unavailable [phone] Cecilio Velasco DPM Unavailable [phone] Johnny Gauthier MD Unavailable [phone] Alpa Max PA-C Unavailable Ayana Fuller MD Unavailable [phone] Nanci Villalba MD Primary Care Provider Ashwin Franklin MD Unavailable +[phone] Magda Goode MD Unavailable [phone] Ayana Fuller MD Unavailable [phone] Ashwin Franklin MD Unavailable [phone] Cecilio Velasco DPM Unavailable [phone] Nanci Villalba MD Unavailable [phone] Magda Goode MD Unavailable +[phone] Nanci Villalba MD Unavailable +[phone] Abdirizak Dowd MD Unavailable +[phone] Abdirizak Dowd MD Unavailable +[phone] Abdirizak Dowd MD Unavailable +[phone] Jessica Butler MD Unavailable +[phone] Ayana Fuller MD Unavailable +[phone] Loli LouisM, Podiatry /Foot and Ankle Surgery Unavailable Jessica Butler MD Unavailable +[phone] Ashwin Franklin MD Unavailable +[phone] Valeria Sullivan PA-C Unavailable +[phone] Jessica Butler MD Unavailable [phone] Encounter Details Date Type Department Care Team (Late st Contact Info) Description 07/05/[address] [facility] [address] [place] [address] [address] [place] [address] [place], PT [address] [place], [place] [address] Social History Tobacco Use Types Packs/Day Years Used Date Smoking Tobacco: Never Smokeless Tobacco: Never Alcohol Use Standard Drinks/Week Comments No 0 (1 standard drink = 0.6 oz pur e alcohol) Glasses Wine PHQ-2 Answer Date Recorded PHQ-2 Score 0 05/31/2019 Comments No Sex and Gender Information Value Date Recorded Sex Assigned at Not on file Legal Sex Female 3:34 AM GLOVE PRESSER Gender Identity Not on file Sexual Orientation Not on file Occupation Industry Job Start Date Job End Date Unemployed Not on file Not on file Not on file COVID-19 Exposure Response Date Recorded In the last month, have you been in contact with someone who was confirmed or suspected to have Coronavirus / COVID-19? No / Unsure 06/12/2020 9:04 AM GLOVE PRESSER documented as of this encounter Plan of Treatment Upcoming Encounters Date Type Department Care Team (Late st Contact Info) Description 05/24/2025 8:15 AM CDT Office Visit [facility] [address] 3rd Floor,[address] [place] [facility] 88 [place] [phone] Ayana Fuller MD [address] [facility] 300 [place], [place] [address] 05/31/2025 9:30 AM GLOVE PRESSER Office Visit [facility] [address] [place] [address] Ashwin Franklin MD 909 [place], [place] [address] 09/05/2025 9:45 AM GLOVE PRESSER Office Visit [facility] [address] [place] [address] 3rd [place] [phone] Jessica Butler MD 420 [facility] 98 [place], [place] 3[address] documented as of this encounter Visit Diagnoses Not on filedocumented in this encounter Additional Health Concerns Assessment Noted Time PHQ-9 Depression Total Score: 2 08/02/19 20 1:35 PM GLOVE PRESSER documented as of this encounter Care Teams Cruise Consultant Relationship Specialty Start Date End Date Nanci Villalba MD [address] [place] [address] PCP - General Internal Medicine 06/01/19 Remi Camacho MD 420 [facility] 136 [place] [address] Dermatology 08/28/16 Alexis Vargas MD [facility] [place] [address] Dermatology 07/14/17 Cecilio Velasco DPM [address] [place] [address] Podiatry 12/31/17 Johnny Gauthier MD [address] [place] [address]31 Family Medicine - Sports Medicine 08/20/18 Alpa Max PA-C [address] [place] [address] 98 [place] [address] Physician Content Creation Manager Physician Content Creation Manager 08/28/18 Ayana Fuller MD [address] [place] [address] 913644 language teacher 12/01/18 Ashwin Franklin MD [address] [place] [address] 518905 Assigned Pediatric Specialist Provider 05/19/20 08/27/20 Magda Goode MD [address] [place] [address] Assigned Musculoskeletal Provider 05/19/20 08/19/20 Ayana Fuller MD [address] [place] [address] 234914 Assigned OBGYN Provider 05/19/20 Ashwin Franklin MD [address] [place] [address] 88203 Assigned Surgical Provider 05/19/20 03/22/22 Cecilio Velasco DPM [address] [place] [address] 61769 Assigned Musculoskeletal Provider 08/20/20 09/30/20 Nanci Villalba MD [address] [place] [address]13 Assigned PCP 09/10/20 11/04/20 Magda Goode MD [address] [place] [address] Assigned Musculoskeletal Provider 10/01/20 01/03/23 Nanci Villalba MD [address] [place] [address] 33285 Assigned PCP 12/21/20 Abdirizak Dowd MD [address] [place] [address] Dermatology 08/09/21 Abdirizak Dowd MD [address] [place] [address] Dermatology 12/21/21 Abdirizak Dowd MD [address] [place] [address] 65206 Assigned Surgical Provider 03/23/22 02/16/24 Jessica Butler MD [address] [place] [address] Dermatology 02/21/23 Ayana Fuller MD [address] [facility] 300 [place] [address] language teacher 02/24/23 Loli Louis DPM, Podiatry/Foot and Ankle Surgery [address] [facility] 300 [place] [address] Assigned Musculoskeletal Provider 09/19/23 03/18/25 Jessica Butler MD [address] [place] [address]61 Assigned Surgical Provider 02/17/24 10/16/24 Ashwin Franklin MD [address] [place] [address] Dermatology 09/17/24 Valeria Sullivan, PACassieC Dermatology [address] [place] [address] Assigned Dermatology Provider 10/17/24 03/18/25 Jessica Butler MD [address] [place] [address] Assigned Dermatology Provider 03/19/25 documented as of this encounter
--- OUTSIDE RECORDS SUMMARY | 2025-04-27 06:09 | XMS_ITS | Encounter Summary ---
Author Organization [place] Address [address] [place] [address] Care Team Providers Care Fluid Pump Operator Name Role Phone Reim Camacho MD Unavailable [phone] Alexis Vargas MD Unavailable [phone] Cecilio VelascoM Unavailable [phone] Johnny Gauthier MD Unavailable +[phone] Alpa Max PA-C Unavailable Ayana Fuller MD Unavailable +[phone] Nanci Villalba MD Primary Care Provider Ayana Fuller MD Unavailable + [phone] Ashwin Franklin MD Unavailable +[phone] Cecilio VelascoM Unavailable +[phone] aNnci Villalba MD Unavailable +[phone] Magda Goode MD Unavailable +[phone] Nanci Villalba MD Unavailable +[phone] Abdirizak Dowd MD Unavailable +[phone] Abdirizak Dowd MD Unavailable +[phone] Abdirizak Dowd MD Unavailable +[phone] Jessica Butler MD Unavailable +[phone] Ayana Fuller MD Unavailable +[phone] Loli Louis DPM, Podiatry /Foot and Ankle Surgery Unavailable Jessica Butler MD Unavailable +[phone] Ashwin Franklin MD Unavailable +[phone] Valeria Sullivan PA-C Unavailable +[phone] Jessica Butler MD Unavailable +[phone] Encounter Details Date Type Department Care Team (Late st Contact Info) Description 09/07/2020 MyC Medical Advice [facility] Dermatology Clinic [address] 3rd [place] [address] Victoria De La Cruz, [facility] [address] [place] [address] Social History Tobacco Use Types Packs/Day Years Used Date Smoking Tobacco: Never Smokeless Tobacco: Never Alcohol Use Standard Drinks/Week Comments No 0 (1 standard drink = 0.6 oz pur e alcohol) Glasses Wine PHQ-2 Answer Date Recorded PHQ-2 Score 0 05/31/2019 Comments No Sex and Gender Information Value Date Recorded Sex Assigned at Not on file Legal Sex Female 3:34 AM LENS BLANK GAUGER Gender Identity Not on file Sexual Orientation Not on file Occupation Industry Job Start Date Job End Date Unemployed Not on file Not on file Not on file documented as of this encounter Plan of Treatment Upcoming Encounters Date Type Department Care Team (Late st Contact Info) Description 05/24/2025 8:15 AM CDT Office Visit [facility] Women's [facility] [address] [place] [facility] 88 [place] [address] Ayana Fuller MD 606 [address] [facility] 300 [place], [place] 2[address] 05/31/2025 9:30 AM LENS BLANK GAUGER Office Visit [facility] Allergy Clinic [address] [phone] Ashwin Franklin MD [address] [place] [address] 738565 09/05/2025 9:45 AM LENS BLANK GAUGER Office Visit [facility] Dermatology Clinic [address] 3rd [place] [address] Jessica Butler MD 420 [facility] 98 [place], [place] 447335 documented as of this encounter Visit Diagnoses Not on filedocumented in this encounter Additional Health Concerns Assessment Noted Time PHQ-9 Depression Total Score: 2 08/02/19 20 1:35 PM LENS BLANK GAUGER documented as of this encounter Care Teams Fluid Pump Operator Relationship Specialty Start Date End Date Nanci Villalba MD [address] [place] [address] [place] [address] PCP - General Internal Medicine 06/01/19 Remi Camacho MD [address] [place] [address] 136 [place] [address] Dermatology 08/28/16 Alexis Vargas MD [address] [place] [address] 943484 Dermatology 07/14/17 Cecilio Velasco DPM [address] [place] [address] 393545 Podiatry 12/31/17 Johnny Gauthier MD [facility] [address] [place], [place] 7[address] Family Medicine - Sports Medicine 08/20/18 Alpa Max PA-C [address] [place] [address] 98 [place], [place] 6[address]65 Physician Actuarial Manager Physician Actuarial Manager 08/28/18 Ayana Fuller MD [address] [place] [address] learning operations specialist 12/01/18 Ayana Fuller MD [address] [place] [address] Assigned OBGYN Provider 05/19/20 Ashwin Franklin MD [address] [place] [address] Assigned Surgical Provider 05/19/20 03/22/22 Cecilio Velasco DPM [address] [place] [address] [id number] Assigned Musculoskeletal Provider 08/20/20 09/30/20 Nanci Vlilalba MD [address] [place] [address] [id number] Assigned PCP 09/10/20 11/04/20 Magda Goode MD [address] [place] [address] 70723455 Assigned Musculoskeletal Provider 10/01/20 01/03/23 Nanci Villalba MD [address] [place] [address] [place] [address] Assigned PCP 12/21/20 Abdirizak Dowd MD [address] [place] [address] Dermatology 08/09/21 Abdirizak Dowd MD [address] [place] [address] Dermatology 12/21/21 Abdirizak Dowd MD [address] [place] [address] 8[address]9 Assigned Surgical Provider 03/23/22 02/16/24 Jessica Butler MD [address] [address] Dermatology 02/21/23 Ayana Fuller MD [address] [place] [address] 300 [place] [address] learning operations specialist 02/24/23 Loli Louis DPM, Podiatry/Foot and Ankle Surgery 86104 [facility] 300 [place] [address] Assigned Musculoskeletal Provider 09/19/23 03/18/25 Jessica Butler MD [address] [address] Assigned Surgical Provider 02/17/24 10/16/24 Ashwin Franklin MD [address] [place] [address] Dermatology 09/17/24 Valeria Sullivan PA-C Dermatology [address] [place] [address] [id number] Assigned Dermatology Provider 10/17/24 03/18/25 Jessica Butler MD [address] [place] [address] 98 [place], [place] 212165 Assigned Dermatology Provider 03/19/25 documented as of this encounter
--- OUTSIDE RECORDS SUMMARY | 2025-04-27 06:09 | XMS_ITS | Encounter Summary ---
Author Organization [place] Address [address] [place] [address] Care Team Providers Care Industrial Millwright Name Role Phone Remi Camacho MD Unavailable [phone] Alexis Vargas MD Unavailable +[phone] Cecilio Velasco DPM Unavailable +[phone] Johnny Gauthier MD Unavailable +[phone] Alpa Max PA-C Unavailable Ayana Fuller MD Unavailable +[phone] Nanci Villalba MD Primary Care Provider Ayana Fuller MD Unavailable [phone] Ashwin Franklin MD Unavailable +[phone] Nanci Villalba MD Unavailable +[phone] Magda Goode MD Unavailable +[phone] Nanci Villalba MD Unavailable +[phone] Abdirizak Dowd MD Unavailable +[phone] Abdirizak Dowd MD Unavailable +[phone] Abdirizak Dowd MD Unavailable +[phone] Jessica Butler MD Unavailable +[phone] Ayana Fuller MD Unavailable +[phone] Loli LouisM, Podiatry /Foot and Ankle Surgery Unavailable Jessica Butler MD Unavailable +[phone] Ashwin Franklin MD Unavailable +[phone] Valeria Sullivan PA-C Unavailable +[phone] Jessica Butler MD Unavailable [phone] Encounter Details Date Type Department Care Team (Late st Contact Info) Description 10/11/2020 MyC Medical Advice [facility] [address] 4[address] [place] [address] Magda Goode MD [address] [place] [address] Social History Tobacco Use Types Packs/Day Years Used Date Smoking Tobacco: Never Smokeless Tobacco: Never Alcohol Use Standard Drinks/Week Comments No 0 (1 standard drink = 0.6 oz pur e alcohol) Glasses Wine PHQ-2 Answer Date Recorded PHQ-2 Score 0 09/19/2020 Comments No Sex and Gender Information Value Date Recorded Sex Assigned at Not on file Legal Sex Female 3:34 AM PETROL TANKER DRIVER Gender Identity Not on file Sexual Orientation Not on file Occupation Industry Job Start Date Job End Date Unemployed Not on file Not on file Not on file COVID-19 Exposure Response Date Recorded In the last month, have you been in contact with someone who was confirmed or suspected to have Coronavirus / COVID-19? No / Unsure 10/03/2020 4:40 PM PETROL TANKER DRIVER documented as of this encounter Plan of Treatment Upcoming Encounters Date Type Department Care Team (Late Contact Info) Description 05/24/2025 8:15 AM CDT Office Visit [facility] [address] 3rd Floor,[address] [place] [facility] 88 [place] [phone] Ayana Fuller MD 606 24[address] [facility] 300 [place], [place] [address] 05/31/2025 9:30 AM PETROL TANKER DRIVER Office Visit [facility] [address] [phone] Ashwin Franklin MD [address] [place] [address] 028435 09/05/2025 9:45 AM PETROL TANKER DRIVER Office Visit [facility] [address] 3rd [place] [phone] Jessica Butler MD 420 [facility] 98 [place], [place] 10[address] documented as of this encounter Visit Diagnoses Not on filedocumented in this encounter Additional Health Concerns Assessment Noted Time PHQ-9 Depression Total Score: 2 08/02/19 20 1:35 PM PETROL TANKER DRIVER documented as of this encounter Care Teams Industrial Millwright Relationship Specialty Start Date End Date Nanci Villalba MD [address] [place] [address] A [place], [place] [address]285 PCP - General Internal Medicine 06/01/19 Remi Camacho MD 420 [facility] 136 [place] [address] Dermatology 08/28/16 Alexis Vargas MD [facility] [place] [address] Dermatology 07/14/17 Cecilio Velasco DPM 909 [place] [address] Podiatry 12/31/17 Johnny Gauthier MD Formerly named [facility] [place] [address] Family Medicine - Sports Medicine 08/20/18 Alpa Max PA-C [address] [place] [address] [facility] 98 [place] [address] Physician Stem Sizer Physician Stem Sizer 08/28/18 Ayana Fuller MD [address] [place] [address] 300 [place], [place] 0[address] meeting planner 12/01/18 Ayana Fuller MD [address] [place] [address] 300 [place], [place] 430014 Assigned OBGYN Provider 05/19/20 Ashwin Franklin MD [address] [place] [address] Assigned Surgical Provider 05/19/20 03/22/22 Nanci Villalba MD [address] [place] [address] Assigned PCP 09/10/20 11/04/20 Magda Goode MD [address] [place] [address] 7[address] Assigned Musculoskeletal Provider 10/01/20 01/03/23 Nanci Villalba MD [address] [place] [address] Assigned PCP 12/21/20 Abdirizak Dowd MD [address] [place] [address] Dermatology 08/09/21 Abdirizak Dowd MD [address] [place] [address] Dermatology 12/21/21 Abdirizak Dowd MD [address] [place] [address] 768475 Assigned Surgical Provider 03/23/22 02/16/24 Jessica Butler MD [address] [place] [address] Dermatology 02/21/23 Ayana Fuller MD [address] [place] [address] meeting planner 02/24/23 Loli Louis DPM, Podiatry/Foot and Ankle Surgery 10636 [facility] 300 [place] [address] Assigned Musculoskeletal Provider 09/19/23 03/18/25 Jessica Butler MD [address] [place] [address]682 Assigned Surgical Provider 02/17/24 10/16/24 Ashwin Franklin MD [address] [place] [address] Dermatology 09/17/24 Valeria Sullivan PA-C Dermatology [address] [place] [address]24 Assigned Dermatology Provider 10/17/24 03/18/25 Jessica Butler MD [address] [place] [address] Assigned Dermatology Provider 03/19/25 documented as of this encounter
--- OUTSIDE RECORDS SUMMARY | 2025-04-27 06:09 | XMS_ITS | Encounter Summary ---
Author Organization [place] Address [address] [facility] [place] [address] Care Team Providers Care Financial Health Counselor Name Role Phone Lacie Marks MD Primary Care Provider Remi Camacho MD Unavailable [phone] Alexis Vargas MD Unavailable [phone] Cecilio Velasco DPM Unavailable +[phone] Johnny Gauthier MD Unavailable [phone] Alpa Max PA-C Unavailable Ayana Fuller MD Unavailable + [phone] No Ref-Primary, Physician Primary Care Provider Nanci Villalba MD Primary Care Provider Ashwin Franklin MD Unavailable +[phone] Magda Goode MD Unavailable +[phone] Ayana Fuller MD Unavailable +[phone] Ashwin Franklin MD Unavailable +[phone] Cecilio Velasco DPM Unavailable Nanci Villalba MD Unavailable +[phone] Magda Goode MD Unavailable + [phone] Nanci Villalba MD Unavailable +[phone] Abdirizak Dowd MD Unavailable Abdirizak Dowd MD Unavailable +[phone] Abdirizak Dowd MD Unavailable +[phone] Jessica Butler MD Unavailable +[phone] Ayana Fuller MD Unavailable +[phone] Loli Louis DPM, Podiatry /Foot and Ankle Surgery Unavailable Jessica Butler MD Unavailable +[phone] Ashwin Franklin MD Unavailable +[phone] Valeria Sullivan PA-C Unavailable +[phone] Jessica Butler MD Unavailable [phone] Encounter Details Date Type Department Care Team (Late st Contact Info) Description 10/21/2018 MyC Medical Advice [address] [address] Solange Stoddard, PT [place] [phone] [place] [address] Social History Tobacco Use Types Packs/Day Years Used Date Smoking Tobacco: Never Smokeless Tobacco: Never Alcohol Use Standard Drinks/Week Comments No 0 (1 standard drink = 0.6 oz pur e alcohol) Glasses Wine PHQ-2 Answer Date Recorded PHQ-2 Score 0 08/04/2018 Comments No Sex and Gender Information Value Date Recorded Sex Assigned at Not on file Legal Sex Female 3:34 AM FEDERAL JUDGE Gender Identity Not on file Sexual Orientation Not on file Occupation Industry Job Start Date Job End Date Unemployed Not on file Not on file Not on file documented as of this encounter Plan of Treatment Upcoming Encounters Date Type Department Care Team (Late st Contact Info) Description 05/24/2025 8:15 AM CDT Office Visit [facility] Women's [facility] [address] 3rd Floor,[address] [place] [facility] 88 [place] [phone] Ayana Fuller MD [address] [facility] 300 [place], [place] [address] 05/31/2025 9:30 AM FEDERAL JUDGE Office Visit [facility] Allergy [facility] 909 [place] [address] Ashwin Franklin MD 909 [place], [place] 776535 09/05/2025 9:45 AM FEDERAL JUDGE Office Visit [facility] Dermatology Clinic [place] 909 [facility] 3rd [place] [phone] Jessica Butler MD 420 [facility] 98 [place], [place] 863925 documented as of this encounter Visit Diagnoses Not on filedocumented in this encounter Care Teams Financial Health Counselor Relationship Specialty Start Date End Date Lacie Marks MD [address] [facility] 300 [place], [place] [address] PCP - General polysomnograph tech 11/01/14 03/19/19 No Ref-Primary, Physician PCP - General 03/20/19 05/31/19 Nanci Villalba MD [address] [place] [address] PCP - General Internal Medicine 06/01/19 Remi Camacho MD 420 [facility] 136 [place] [address] Dermatology 08/28/16 [place] [address] [place] [address] Dermatology 07/14/17 Cecilio Velasco DPM [address] [place] [address] Podiatry 12/31/17 Johnny Gauthier MD [address] [place], [place] 2610502 [place] [address] Family Medicine - Sports Medicine 08/20/18 Alpa Max PA-C [address] [place] [address] 98 [place] [address] Physician Staff Counselor Physician Staff Counselor 08/28/18 Ayana Fuller MD [address] [address] 257064 polysomnograph tech 12/01/18 Ashwin Franklin MD [address] [place] [address]29 Assigned Pediatric Specialist Provider 05/19/20 08/27/20 Magda Goode MD [address] [place] [address]48 Assigned Musculoskeletal Provider 05/19/20 08/19/20 Ayana Fuller MD [address] [address] Assigned OBGYN Provider 05/19/20 Ashwin Franklin MD [address] [place] [address] Assigned Surgical Provider 05/19/20 03/22/22 Cecilio Velasco DPM [address] [place] [address]227 Assigned Musculoskeletal Provider 08/20/20 09/30/20 Nanci Villalba MD [address] [place] [address] Assigned PCP 09/10/20 11/04/20 Magda Goode MD [address] [place] [address] Assigned Musculoskeletal Provider 10/01/20 01/03/23 Nanci Villalba MD [address] [place] [address] Assigned PCP 12/21/20 Abdirizak Dowd MD [address] [place] [address] 937005 Dermatology 08/09/21 Abdirizak Dowd MD [address] [place] [address] 410855 Dermatology 12/21/21 Abdirizak Dowd MD [address] [place] [address] 159085 Assigned Surgical Provider 03/23/22 02/16/24 Jessica Butler MD [address] [address] Dermatology 02/21/23 Ayana Fuller MD 606 [address] [facility] 300 [place] [address] polysomnograph tech 02/24/23 Loli Louis DPM, Podiatry/Foot and Ankle Surgery 38[address] [facility] 300 [place] [address] Assigned Musculoskeletal Provider 09/19/23 03/18/25 Jessica Butler MD [address] [address] Assigned Surgical Provider 02/17/24 10/16/24 Ashwin Franklin MD 909 [place] [address] Dermatology 09/17/24 Valeria Sullivan PA-C Dermatology [address] [place] [address] Assigned Dermatology Provider 10/17/24 03/18/25 Jessica Butler MD [address] [address] Assigned Dermatology Provider 03/19/25 documented as of this encounter
--- OUTSIDE RECORDS SUMMARY | 2025-04-27 06:10 | XMS_ITS | Encounter Summary ---
Author Organization [place] Address 2450 [facility] [place] [address] Care Team Providers Care Fleet Operations Manager Name Role Phone No Ref-Primary, Physician Primary Care Provider Lacie Marks MD Primary Care Provider Coby Mcelroy MD Unavailable Grace Goodrich MD Unavailable [phone] Remi Camacho MD Unavailable [phone] Shane Pemberton MD Unavailable +[phone] Alexis Vargas MD Unavailable +[phone] Cecilio Velasco DPM Unavailable [phone] Johnny Gauthier MD Unavailable +[phone] Alpa Max PA-C Unavailable [phone] Ayana Fuller MD Unavailable [phone] No Ref-Primary, Physician Primary Care Provider Nanci Villalba MD Primary Care Provider Ashwin Franklin MD Unavailable [phone] Magda Goode MD Unavailable + [phone] Ayana Fuller MD Unavailable +[phone] Ashwin Franklin MD Unavailable [phone] Krista Cecilio Manny DPM Unavailable Nanci Villalba MD Unavailable [phone] Magda Goode MD Unavailable + [phone] Nanci Villalba MD Unavailable [phone] ScottAbdirizak MD Unavailable Scott, Abdirizak Turner MD Unavailable Nile, Abdirizak Turner MD Unavailable Jessica Butler MD Unavailable +[phone] Ayana Fuller MD Unavailable [phone] Loli Louis DPM, Podiatry /Foot and Ankle Surgery Unavailable Jessica Butler MD Unavailable +[phone] Ashwin Franklin MD Unavailable [phone] Valeria Sullivan PA-C Unavailable +[phone] Jessica Butler MD Unavailable [phone] Encounter Details Date Type Department Care Team (Late st Contact Info) Description [facility] [address] [place] [address] Magda Leach, RN Social History Tobacco Use Types Packs/Day Years Used Date Smoking Tobacco: Never Smokeless Tobacco: Never Alcohol Use Standard Drinks/Week Comments No 0 (1 standard drink = 0.6 oz pur e alcohol) Comments No Sex and Gender Information Value Date Recorded Sex Assigned at Not on file Legal Sex Female 3:34 AM STAFFING SPECIALIST Gender Identity Not on file Sexual Orientation Not on file documented as of this encounter Plan of Treatment Upcoming Encounters Date Type Department Care Team (Late st Contact Info) Description 05/24/2025 8:15 AM CDT Office Visit [facility] Women's [facility] [address] 3rd Floor,[address] [place] [facility] 88 [place] [phone] Ayana Fuller MD [address] [facility] 300 [place], [place] 271014 05/31/2025 9:30 AM STAFFING SPECIALIST Office Visit [facility] Allergy [address] [address] Ashiwn Franklin MD [address] [place] [address] 904915 09/05/2025 9:45 AM STAFFING SPECIALIST Office Visit [facility] Dermatology Clinic [address] 3rd [place] [phone] Jessica Butler MD 420 [facility] 98 [place], [place] [phone] documented as of this encounter Visit Diagnoses Not on filedocumented in this encounter Care Teams Fleet Operations Manager Relationship Specialty Start Date End Date No Ref-Primary, Physician PCP - General 12/28/10 10/31/14 Lacie Marks MD [address] [address] PCP - General news specialist 11/01/14 03/19/19 No Ref-Primary, Physician PCP - General 03/20/19 05/31/19 Nanci Villalba MD [address] [place] [address] PCP - General Internal Medicine 06/01/19 Coby Mcelroy MD [address] [place] [address] 300 [place], [place] 35[address]74 Resident Dermatology 03/22/15 03/22/15 Grace Goodrich MD [facility] [place] [place] [phone] [place] [address] [place] [phone] Resident Dermatology 03/22/15 06/04/17 Remi Camacho MD 420 [facility] 136 [place] [address] Dermatology 08/28/16 Shane Pemberton MD [facility] 420 [facility] 391 [place], [place] 517[address] Resident Student in organized health care education/training program 05/13/17 02/16/18 [place] [address] [place] [address] 004574 Dermatology 07/14/17 Cecilio Velasco DPM 909 [place], [place] 514085 Podiatry 12/31/17 Johnny Gauthier MD [address] [place] [phone] [place] [address] Family Medicine - Sports Medicine 08/20/18 Alpa Max PA-C 420 [facility] 98 [place], [place] [phone] Physician Medical Claims Representative Physician Medical Claims Representative 08/28/18 Ayana Fuller MD [address] [place] [address] 646184 news specialist 12/01/18 Ashwin Franklin MD [address] [place] [address] 428225 Assigned Pediatric Specialist Provider 05/19/20 08/27/20 Magda Goode MD [address] [place] [address] [phone] Assigned Musculoskeletal Provider 05/19/20 08/19/20 Ayana Fuller MD [address] [place] [address] 886724 Assigned OBGYN Provider 05/19/20 Ashwin Franklin MD [address] [place] [address] 716875 Assigned Surgical Provider 05/19/20 03/22/22 Cecilio Velasco DPM [address] [place] [address] 025825 Assigned Musculoskeletal Provider 08/20/20 09/30/20 Nanci Villalba MD [address] [place] [address] 434315 Assigned PCP 09/10/20 11/04/20 Magda Goode MD [address] [place] [address] [phone] Assigned Musculoskeletal Provider 10/01/20 01/03/23 Nanci Villalba MD [address] [place] [address] [place] [address] Assigned PCP 12/21/20 Abdirizak Dowd MD [address] [place] [address] Dermatology 08/09/21 Abdirizak Dowd MD [address] [place] [address] Dermatology 12/21/21 Abdirizak Dowd MD [address] [place] [address] Assigned Surgical Provider 03/23/22 02/16/24 Jessica Butler MD [address] [address] Dermatology 02/21/23 Ayana Fuller MD 606 24[facility] 300 [place] [address] news specialist 02/24/23 Loli Louis DPM, Podiatry/Foot and Ankle Surgery [address] [facility] 300 [place] [address] Assigned Musculoskeletal Provider 09/19/23 03/18/25 Jessica Butler MD 420 [facility] 98 [place] [address] Assigned Surgical Provider 02/17/24 10/16/24 Ashwin Franklin MD [address] [place] [address] Dermatology 09/17/24 Valeria Sullivan [facility] D[facility] [address] [place] [address] Assigned Dermatology Provider 10/17/24 03/18/25 Jessica Butler MD [address] [place] [address] Assigned Dermatology Provider 03/19/25 documented as of this encounter
--- OUTSIDE RECORDS SUMMARY | 2025-04-27 06:10 | XMS_ITS | Encounter Summary ---
Author Organization [facility] Address [address] [place] [address] Care Team Providers Care Director Emergency Services Name Role Phone Remi Camacho MD Unavailable +[phone] Alexis Vargas MD Unavailable +[phone] Cecilio Velasco DPM Unavailable [phone] Johnny Gauthier MD Unavailable +[phone] Alpa Max PA-C Unavailable +[phone] Ayana Fuller MD Unavailable +[phone] Nanci Villalba MD Primary Care Provider Ashwin Franklin MD Unavailable +[phone] Magda Goode MD Unavailable +[phone] Ayana Fuller MD Unavailable +[phone] Ashwin Franklin MD Unavailable +[phone] Cecilio Velasco DPM Unavailable +[phone] Nanci Villalba MD Unavailable +[phone] Magda Goode MD Unavailable +[phone] Nanci Villalba MD Unavailable +[phone] Abdirizak Dowd MD Unavailable +[phone] Abdirizak Dowd MD Unavailable +[phone] Abdirizak Dowd MD Unavailable +[phone] Jessica Butler MD Unavailable +[phone] Ayana Fuller MD Unavailable +[phone] Loli LouisM, Podiatry /Foot and Ankle Surgery Unavailable Jessica Butler MD Unavailable +[phone] Ashwin Franklin MD Unavailable +[phone] Valeria Sullivan PA-C Unavailable +[phone] Jessica Butler MD Unavailable [phone] Encounter Details Date Type Department Care Team (Late st Contact Info) Description 10/15/2019 MyC Medical Advice [facility] [place] [address] [place], [place] [phone] Nanci Villalba MD [address] [place] [address] [place], [place] [address] Social History Tobacco Use Types Packs/Day Years Used Date Smoking Tobacco: Never Smokeless Tobacco: Never Alcohol Use Standard Drinks/Week Comments No 0 (1 standard drink = 0.6 oz pur e alcohol) Glasses Wine PHQ-2 Answer Date Recorded PHQ-2 Score 0 05/31/2019 Comments No Sex and Gender Information Value Date Recorded Sex Assigned at Not on file Legal Sex Female 3:34 AM DIE REAMER Gender Identity Not on file Sexual Orientation [...] amlodipine 10 mg daily. Jossie Truong RN [facility] documented in this encounter Plan of Treatment Upcoming Encounters Date Type Department Care Team (Late st Contact Info) Description 05/24/2025 8:15 AM CDT Office Visit [facility] Women's [place] [address] Floor,[address] [place] [facility] 88 [place] [phone] Ayana Fuller MD [address] [facility] 300 [place], [place] [address] 05/31/2025 9:30 AM DIE REAMER Office Visit [facility] Allergy Clinic [address] [phone] Ashwin Franklin MD [address] [place] [address] 731435 09/05/2025 9:45 AM DIE REAMER Office Visit [facility] Dermatology Clinic [address] [phone] Jessica Butler MD 420 [facility] 98 [place], [place] [phone] documented as of this encounter Visit Diagnoses Not on filedocumented in this encounter Additional Health Concerns Assessment Noted Time PHQ-9 Depression Total Score: 2 08/02/19 20 1:35 PM DIE REAMER documented as of this encounter Care Teams Director Emergency Services Relationship Specialty Start Date End Date Nanci Villalba MD [address] [place] [address] [place] [address] PCP - General Internal Medicine 06/01/19 Remi Camacho MD 420 [facility] 136 [place] [address] Dermatology 08/28/16 [place] [address] [place] [address] Dermatology 07/14/17 Cecilio Velasco DPM [address] [place] [address] Podiatry 12/31/17 Johnny Gauthier MD [address] [place] [address] Family Medicine - Sports Medicine 08/20/18 Alpa Max PA-C [address] [place] [address] 98 [place] [address] Physician Wet Char Conveyor Tender Physician Wet Char Conveyor Tender 08/28/18 Ayana Fuller MD [address] [address] [address] financial management consultant 12/01/18 Ashwin Franklin MD 9 [place], [place] [address] Assigned Pediatric Specialist Provider 05/19/20 08/27/20 Magda Goode MD [address] [place] [address] 818445 Assigned Musculoskeletal Provider 05/19/20 08/19/20 Ayana Fuller MD [address] [address] Assigned OBGYN Provider 05/19/20 Ashwin Franklin MD [address] [place] [address] Assigned Surgical Provider 05/19/20 03/22/22 Cecilio Velasco DPM [address] [place] [address] Assigned Musculoskeletal Provider 08/20/20 09/30/20 Nanci Villalba MD [address] [place] [address] Assigned PCP 09/10/20 11/04/20 Magda Goode MD [address] [place] [address] Assigned Musculoskeletal Provider 10/01/20 01/03/23 Nanci Villalba MD [address] [place] [address] Assigned PCP 12/21/20 Abdirizak Dowd MD [address] [place] [address] Dermatology 08/09/21 Abdirizak Dowd MD [address] [place] [address] Dermatology 12/21/21 Abdirizak Dowd MD [address] [place] [address] 46347 Assigned Surgical Provider 03/23/22 02/16/24 Jessica Butler MD 420 [facility] 98 [place] [address] Dermatology 02/21/23 Ayana Fuller MD [address] [facility] 300 [place] [address] financial management consultant 02/24/23 Loli Louis DPM, Podiatry/Foot and Ankle Surgery [address] [facility] 300 [place] [address] Assigned Musculoskeletal Provider 09/19/23 03/18/25 Jessica Butler MD [address] [address] Assigned Surgical Provider 02/17/24 10/16/24 Ashwin Franklin MD [address] [place] [address] Dermatology 09/17/24 Valeria Sullivan, PA-C Dermatology [address] [place] [address] Assigned Dermatology Provider 10/17/24 03/18/25 Jessica Butler MD [address] [address] Assigned Dermatology Provider 03/19/25 documented as of this encounter
--- OUTSIDE RECORDS SUMMARY | 2025-04-27 06:10 | XMS_ITS | Encounter Summary ---
Author Organization [facility] Address [address] [facility] [place] [address] Care Team Providers Care Compensation Specialist Name Role Phone Lacie Marks MD Primary Care Provider Grace Goodrich MD Unavailable [phone] Remi Camacho MD Unavailable [phone] Shnae Pemberton MD Unavailable +[phone] Alexis Vargas MD Unavailable +[phone] [facility] DPM Unavailable +[phone] Johnny Gauthier MD Unavailable + [phone] Alpa Max PA-C Unavailable Ayana Fuller MD Unavailable + [phone] No Ref-Primary, Physician Primary Care Provider Nanci Villalba MD Primary Care Provider Ashwin Franklin MD Unavailable [phone] Magda Goode MD Unavailable +[phone] Ayana Fuller MD Unavailable Ashwin Franklin MD Unavailable +[phone] Cecilio Velasco DPM Unavailable + [phone] Nanci Villalba MD Unavailable +[phone] Magda Goode MD Unavailable +[phone] Nanci Villalba MD Unavailable +[phone] Abdirizak Dowd MD Unavailable +[phone] Abdirizak Dowd MD Unavailable +[phone] Abdirizak Dowd MD Unavailable +[phone] Jessica Butler MD Unavailable +[phone] Ayana Fuller MD Unavailable +[phone] Loli LouisM, Podiatry /Foot and Ankle Surgery Unavailable Jessica Butler MD Unavailable [phone] Ashwin Franklin MD Unavailable +[phone] Valeria Sullivan PA-C Unavailable +[phone] Jessica Butler MD Unavailable [phone] Encounter Details Date Type Department Care Team (Late st Contact Info) Description 11/20/2016 MyC Medical Advice [facility] Women[facility] [place] [address] [place] [facility] 88 [place] [address] Ayana Fuller MD [address] [place] [address] [place] [address] Social History Tobacco Use Types Packs/Day Years Used Date Smoking Tobacco: Never Smokeless Tobacco: Never Alcohol Use Standard Drinks/Week Comments No 0 (1 standard drink = 0.6 oz pur e alcohol) Glasses Wine Comments No Sex and Gender Information Value Date Recorded Sex Assigned at Not on file Legal Sex Female 3:34 AM ASSOCIATE PROFESSOR OF MUSIC Gender Identity Not on file Sexual Orientation Not on file Occupation Industry Job Start Date Job End Date Unemployed Not on file Not on file Not on file documented as of this encounter Plan of Treatment Upcoming Encounters Date Type Department Care Team (Late st Contact Info) Description 05/24/2025 8:15 AM CDT Office Visit [facility] [address] [place] [facility] 88 [place] [phone] Ayana Fuller MD [address] [facility] 300 [place] [address] 05/31/2025 9:30 AM ASSOCIATE PROFESSOR OF MUSIC Office Visit [facility] Allergy Clinic [address] [phone] Ashwin Franklin MD [address] [place] [address] 09/05/2025 9:45 AM ASSOCIATE PROFESSOR OF MUSIC Office Visit [facility] Dermatology Clinic [address] [place] [address] Jessica Butler MD [address] [place] [address] 98 [place], [place] 57[address] documented as of this encounter Visit Diagnoses Not on filedocumented in this encounter Care Teams Compensation Specialist Relationship Specialty Start Date End Date Lacie Marks MD [address] [facility] 300 [place] [address] PCP - General programming internship 11/01/14 03/19/19 No Ref-Primary, Physician PCP - General 03/20/19 05/31/19 Nanci Villalba MD 901 [facility] S [facility] [place] [address] PCP - General Internal Medicine 06/01/[address] [facility] DER[facility] [address] [place], [place] [phone] Resident Dermatology 03/22/15 06/04/17 Remi Camacho MD 420 [facility] 136 [place] [address] Dermatology 08/28/16 Shane Pemberton MD [facility] 420 [facility] 391 [place] [address] Resident Student in organized health care education/training program 05/13/17 02/16/18 Alexis Vargas MD 2450 [place], [place] 23[address] Dermatology 07/14/17 Cecilio Velasco DPM 909 [place] [address] Podiatry 12/31/17 Johnny Gautiher MD [facility] [address] [place], [place] [address] Family Medicine - Sports Medicine 08/20/18 Alpa Max PA-C 420 [facility] 98 [place] [address] Physician Spiral Tube Winder Helper Physician Spiral Tube Winder Helper 08/28/18 Ayana Fuller MD [address] [place] [address] 300 [place] [address] programming internship 12/01/18 Ashwin Franklin MD [address] [place] [address]84 Assigned Pediatric Specialist Provider 05/19/20 08/27/20 Magda Goode MD [address] [place] [address] Assigned Musculoskeletal Provider 05/19/20 08/19/20 Ayana Fuller MD [address] [place] [address] Assigned OBGYN Provider 05/19/20 Ashwin Franklin MD [address] [place] [address]29 Assigned Surgical Provider 05/19/20 03/22/22 Cecilio Velasco DPM [address] [place] [address]003 Assigned Musculoskeletal Provider 08/20/20 09/30/20 Nanci Villalba MD [address] [place] [address] Assigned PCP 09/10/20 11/04/20 Magda Goode MD [address] [place] [address] Assigned Musculoskeletal Provider 10/01/20 01/03/23 Nanci Villalba MD [address] [place] [address] Assigned PCP 12/21/20 Abdirizak Dowd MD [address] [place] [address] Dermatology 08/09/21 Abdirizak Dowd MD [address] [place] [address] Dermatology 12/21/21 Abdirizak Dowd MD [address] [place] [address]64 Assigned Surgical Provider 03/23/22 02/16/24 Jessica Butler MD [address] [place] [address] Dermatology 02/21/23 Ayana Fuller MD [address] 569[address] programming internship 02/24/23 Loli Louis DPM, Podiatry/Foot and Ankle Surgery [address] [facility] 300 [place], [place] [address] Assigned Musculoskeletal Provider 09/19/23 03/18/25 Jessica Butler MD [address] [place] [address] Assigned Surgical Provider 02/17/24 10/16/24 Ashwin Franklin MD [address] [place] [address] Dermatology 09/17/24 Valeria Sullivan PA-C Dermatology [address] [place] [address] Assigned Dermatology Provider 10/17/24 03/18/25 Jessica Butler MD [address] [place] [address] Assigned Dermatology Provider 03/19/25 documented as of this encounter
--- OUTSIDE RECORDS SUMMARY | 2025-04-27 06:10 | XMS_ITS | Encounter Summary ---
Author Organization [facility] Address [address] [place] [address] Care Team Providers Care Typesetting Supervisor Name Role Phone Remi Camacho MD Unavailable Alexis Vargas MD Unavailable [phone] Cecilio Velasco DPM Unavailable [phone] Johnny Gauthier MD Unavailable +[phone] Alpa Max PA-C Unavailable +[phone] Ayana Fuller MD Unavailable [phone] Nanci Villalba MD Primary Care Provider Ashwin Franklin MD Unavailable [phone] Magda Goode MD Unavailable +[phone] Ayana Fuller MD Unavailable +[phone] Ashwin Franklin MD Unavailable +[phone] Cecilio Velasco DPM Unavailable [phone] Nanci Villalba MD Unavailable +[phone] Magda Goode MD Unavailable +[phone] Nanci Villalba MD Unavailable +[phone] Abdirizak Dowd MD Unavailable +[phone] Abdirizak Dowd MD Unavailable +[phone] Abdirizak Dowd MD Unavailable +[phone] Jessica Butler MD Unavailable +[phone] Ayana Fuller MD Unavailable +[phone] Loli LouisM, Podiatry /Foot and Ankle Surgery Unavailable Jessica Butler MD Unavailable +[phone] Ashwin Franklin MD Unavailable +[phone] Valeria Sullivan PA-C Unavailable +[phone] Jessica Butler MD Unavailable [phone] Encounter Details Date Type Department Care Team (Late st Contact Info) Description 11/02/2019 [facility]C Medical [facility]ice [facility] [address] [place] [phone] Ashwin Franklin MD [address] [place] [address] Social History Tobacco Use Types Packs/Day Years Used Date Smoking Tobacco: Never Smokeless Tobacco: Never Alcohol Use Standard Drinks/Week Comments No 0 (1 standard drink = 0.6 oz pur e alcohol) Glasses Wine PHQ-2 Answer Date Recorded PHQ-2 Score 0 05/31/2019 Comments No Sex and Gender Information Value Date Recorded Sex Assigned at Not on file Legal Sex Female 3:34 AM MEDICAL BILLER CODER Gender Identity Not on file Sexual Orientation [...] fears of her immune system becoming weakend. Court Worker informed Cecilia that providers are not asking [...] 05/24/2025 8:15 AM CDT Office Visit [facility] Women's [address] 3rd Floor,[address] [place] [facility] 88 [place] [phone] Ayana Fuller MD [address] [place] [address] 300 [place] [address] 05/31/2025 9:30 AM MEDICAL BILLER CODER Office Visit [facility] Allergy Clinic [address] [phone] Ashwin Franklin MD [address] [place] [address] 859715 09/05/2025 9:45 AM MEDICAL BILLER CODER Office Visit [facility] Dermatology Clinic [address]rd [place] [phone] Jessica Butler MD [address] [place] [address] 98 [place], [place] [address] documented as of this encounter Visit Diagnoses Not on filedocumented in this encounter Additional Health Concerns Assessment Noted Time PHQ-9 Depression Total Score: 2 08/02/19 20 1:35 PM MEDICAL BILLER CODER documented as of this encounter Care Teams Typesetting Supervisor Relationship Specialty Start Date End Date Nanci Villalba MD [address] [place], [place] [phone] PCP - General Internal Medicine 06/01/19 Remi Camacho MD 420 [facility] 136 [place] [address] Dermatology 08/28/16 Alexis Vargas MD 2450 [place] [address] Dermatology 07/14/17 Cecilio Velasco DPM [address] [place] [address] 688385 Podiatry 12/31/17 Johnny Gauthier MD [facility] [address] [place] [address] Family Medicine - Sports Medicine 08/20/18 Alpa Max PA-C 420 [facility] 98 [place], [place] [address] Physician Physiotherapist'S Assistant Physician Physiotherapist'S Assistant 08/28/18 Ayana Fuller MD [address] [place] [address] 300 [place], [place] [address] studio musician 12/01/18 Ashwin Franklin MD [address] [place] [address] 772635 Assigned Pediatric Specialist Provider 05/19/20 08/27/20 Magda Goode MD 909 [place] [address] Assigned Musculoskeletal Provider 05/19/20 08/19/20 Ayana Fuller MD [address] [address] Assigned OBGYN Provider 05/19/20 Ashwin Franklin MD [address] [place] [address] Assigned Surgical Provider 05/19/20 03/22/22 Cecilio Velasco DPM [address] [place] [address] Assigned Musculoskeletal Provider 08/20/20 09/30/20 Nanci Villalba MD [address] [place] [address] Assigned PCP 09/10/20 11/04/20 Magda Goode MD [address] [place] [address] Assigned Musculoskeletal Provider 10/01/20 01/03/23 Nanci Villalba MD [address] [place] [address] Assigned PCP 12/21/20 Abdirizak Dowd MD [address] [place] [address] MD Dermatology 08/09/21 Abdirizak Dowd MD [address] [place] [address] Dermatology 12/21/21 Abdirizak Dowd MD [address] [place] [address]64 Assigned Surgical Provider 03/23/22 02/16/24 Jessica Butler MD [address] [place] [address] Dermatology 02/21/23 Ayana Fuller MD [address] [place] [address] 300 [place] [address] studio musician 02/24/23 Loli Louis DPJean, Podiatry/Foot and Ankle Surgery [address] [facility] 300 [place] [address] Assigned Musculoskeletal Provider 09/19/23 03/18/25 Jessica Butler MD [address] [place] [address] Assigned Surgical Provider 02/17/24 10/16/24 Ashwin Franklin MD [address] [place] [address] Dermatology 09/17/24 Valeria Sullivan PA-C Dermatology [address] [place] [address] Assigned Dermatology Provider 10/17/24 03/18/25 Jessica Butler MD [address] [place] [address] 98 [place] [address] Assigned Dermatology Provider 03/19/25 documented as of this encounter
--- OUTSIDE RECORDS SUMMARY | 2025-04-27 06:10 | XMS_ITS | Encounter Summary ---
Author Organization [place] Address [address] [facility] [place] [address] Care Team Providers Care Ship Painter Helper Name Role Phone Lacie Marks MD Primary Care Provider Grace Goodrich MD Unavailable [phone] Remi Camacho MD Unavailable [phone] Shane Pemberton MD Unavailable +[phone] Alexis Vargas MD Unavailable [phone] [facility] DPM Unavailable +[phone] Johnny Gauthier MD Unavailable + [phone] Alpa Max PA-C Unavailable +[phone] Ayana Fuller MD Unavailable + [phone] No Ref-Primary, Physician Primary Care Provider Nanci Villalba MD Primary Care Provider Ashwin Franklin MD Unavailable +[phone] Magda Goode MD Unavailable +[phone] Ayana Fulelr MD Unavailable Ashwin Franklin MD Unavailable +[phone] Cecilio Velasco DPM Unavailable + [phone] Nanci Villalba MD Unavailable +[phone] Magda Goode MD Unavailable +[phone] Nanci Villalba MD Unavailable +[phone] Abdirizak Dowd MD Unavailable +[phone] Abdirizak Dowd MD Unavailable +[phone] Abdirizak Dowd MD Unavailable +[phone] Jessica Butler MD Unavailable +[phone] Ayana Fuller MD Unavailable +[phone] Loli LouisM, Podiatry /Foot and Ankle Surgery Unavailable Jessica Butler MD Unavailable +[phone] Ashwin Franklin MD Unavailable +[phone] Valeria Sullivan PA-C Unavailable +[phone] Jessica Butler MD Unavailable +[phone] Encounter Details Date Type Department Care Team (Late st Contact Info) Description 02/25/2016 [facility] Medical Advice [facility] Women's [place] [address]rd [address] [place] [facility] [address] [place] [address] Ayana Fuller MD [address] [place] [address] Social History Tobacco Use Types Packs/Day Years Used Date Smoking Tobacco: Never Smokeless Tobacco: Never Alcohol Use Standard Drinks/Week Comments No 0 (1 standard drink = 0.6 oz pur e alcohol) Glasses Wine Comments No Sex and Gender Information Value Date Recorded Sex Assigned at Not on file Legal Sex Female 3:34 AM SOLE BUFFER Gender Identity Not on file Sexual Orientation Not on file Occupation Industry Job Start Date Job End Date Unemployed Not on file Not on file Not on file documented as of this encounter Plan of Treatment Upcoming Encounters Date Type Department Care Team (Late st Contact Info) Description 05/24/2025 8:15 AM CDT Office Visit [facility] Women's [facility] [address] 3rd Floor,[address] [place] [facility] [address] [place] [phone] Ayana Fuller MD [address] [facility] 300 [place] [address] 05/31/2025 9:30 AM SOLE BUFFER Office Visit [facility] Allergy Clinic [address] [phone] Ashwin Franklin MD [address] [place] [address] 6[address]95 09/05/2025 9:45 AM SOLE BUFFER Office Visit [facility] Dermatology Clinic [address] [place] [address] Jessica Butler MD [address] [place] [address] 98 [place], [place] 37[address]85 documented as of this encounter Visit Diagnoses Not on filedocumented in this encounter Care Teams Ship Painter Helper Relationship Specialty Start Date End Date Lacie Marks MD [address] [facility] 300 [place] [address] PCP - General stereotyper helper 11/01/14 03/19/19 No Ref-Primary, Physician PCP - General 03/20/19 05/31/19 Nanci Villalba MD 901 [facility] S [facility] [place] [address] PCP - General Internal Medicine 06/01/[address] [facility] DERMATOLOG[facility] [address] [place], [place] [phone] Resident Dermatology 03/22/15 06/04/17 Remi Camacho MD 420 [facility] 136 [place] [address] Dermatology 08/28/16 Shane Pemberton MD [facility] 420 [facility] 391 [place] [address] Resident Student in organized health care education/training program 05/13/17 02/16/18 Alexis Vargas MD 2450 [place], [place] 2740[address] Dermatology 07/14/17 Cecilio Velasco DPM 909 [place] [address] Podiatry 12/31/17 Johnny Gauthier MD [facility] [address] [place], [place] [phone] Family Medicine - Sports Medicine 08/20/18 Alpa Max PA-C 420 [facility] 98 [place] [address] Physician Tool Designer Physician Tool Designer 08/28/18 Ayana Fuller MD [address] [place] [address] 300 [place] [address] stereotyper helper 12/01/18 Ashwin Franklin MD [address] [place] [address] Assigned Pediatric Specialist Provider 05/19/20 08/27/20 Magda Goode MD [address] [place] [address] Assigned Musculoskeletal Provider 05/19/20 08/19/20 Ayana Fuller MD [address] [place] [address] Assigned OBGYN Provider 05/19/20 Ashwin Franklin MD [address] [place] [address] Assigned Surgical Provider 05/19/20 03/22/22 Cecilio Velasco DPM [address] [place] [address] Assigned Musculoskeletal Provider 08/20/20 09/30/20 Nanci Villalba MD [address] [place] [address] Assigned PCP 09/10/20 11/04/20 Magda Goode MD [address] [place] [address] Assigned Musculoskeletal Provider 10/01/20 01/03/23 Nanci Villalba MD [address] [place] [address] Assigned PCP 12/21/20 Abdirizak Dowd MD [address] [place] [address] Dermatology 08/09/21 Abdirizak Dowd MD [address] [place] [address] Dermatology 12/21/21 Abdirizak Dowd MD [address] [place] [address] 12167 Assigned Surgical Provider 03/23/22 02/16/24 Jessica Butler MD [address] [place] [address] Dermatology 02/21/23 Ayana Fuller MD [address] 720[address] stereotyper helper 02/24/23 Loli Louis DPM, Podiatry/Foot and Ankle Surgery [address] [facility] 300 [place], [place] 624817 Assigned Musculoskeletal Provider 09/19/23 03/18/25 Jessica Butler MD [address] [place] [address] Assigned Surgical Provider 02/17/24 10/16/24 Ashwin Franklin MD [address] [place] [address] Dermatology 09/17/24 Valeria Sullivan PA-C Dermatology [address] [place] [address] Assigned Dermatology Provider 10/17/24 03/18/25 Jessica Butler MD [address] [place] [address] Assigned Dermatology Provider 03/19/25 documented as of this encounter
--- OUTSIDE RECORDS SUMMARY | 2025-04-27 06:10 | XMS_ITS | Encounter Summary ---
Author Organization [place] Address [address] [facility] [address] Care Team Providers Care R D Intern Name Role Phone Lacie Marks MD Primary Care Provider Grace Goodrich MD Unavailable [phone] Remi Camacho MD Unavailable [phone] Shane Pemberton MD Unavailable [phone] Alexis Vargas MD Unavailable [phone] [facility] DPM Unavailable +[phone] Johnny Gauthier MD Unavailable + [phone] Alpa Max PA-C Unavailable Ayana Fuller MD Unavailable + [phone] No Ref-Primary, Physician Primary Care Provider Nanci Villalba MD Primary Care Provider Ashwin Franklin MD Unavailable +[phone] Magda Goode MD Unavailable +[phone] Ayana Fuller MD Unavailable Ashwin Franklin MD Unavailable +[phone] Cecilio Velasco DPM Unavailable + [phone] Nanci Villalba MD Unavailable +[phone] Magda Goode MD Unavailable +[phone] Nanci Villalba MD Unavailable +[phone] Abdirizak Dowd MD Unavailable Abdirizak Dowd MD Unavailable +[phone] Abdirizak Dowd MD Unavailable +[phone] Jessica Butler MD Unavailable +[phone] Ayana Fuller MD Unavailable +[phone] Loli LouisM, Podiatry /Foot and Ankle Surgery Unavailable Jessica Butler MD Unavailable +[phone] Ashwin Franklin MD Unavailable +[phone] Valeria Sullivan PA-C Unavailable +[phone] Jessica Butler MD Unavailable [phone] Encounter Details Date Type Department Care Team (Late st Contact Info) Description 04/28/2015 [facility] Medical Advice [facility] Women's [place] [address] [place] [facility] 88 [place] [address] Lacie Marks MD [address] [place] [address] Social History Tobacco Use Types Packs/Day Years Used Date Smoking Tobacco: Never Smokeless Tobacco: Never Alcohol Use Standard Drinks/Week Comments Yes 0 (1 standard drink = 0.6 oz pur e alcohol) Glasses Wine Comments No Sex and Gender Information Value Date Recorded Sex Assigned at Not on file Legal Sex Female 3:34 AM STOCK LAYER Gender Identity Not on file Sexual Orientation Not on file Occupation Industry Job Start Date Job End Date Unemployed Not on file Not on file Not on file documented as of this encounter Plan of Treatment Upcoming Encounters Date Type Department Care Team (Late st Contact Info) Description 05/24/2025 8:15 AM CDT Office Visit [facility] Women's [facility] [address] [place] [facility] 88 [place] [phone] Ayana Fuller MD [address] [facility] 300 [place] [address] 05/31/2025 9:30 AM STOCK LAYER Office Visit [facility] Allergy Clinic [address] [phone] Ashwin Franklin MD [address] [place] [address] 223235 09/05/2025 9:45 AM STOCK LAYER Office Visit [facility] Dermatology Clinic [address] [place] [address] Jessica Butler MD [address] [place] [address] 98 [place], [place] [address] documented as of this encounter Visit Diagnoses Not on filedocumented in this encounter Care Teams R D Intern Relationship Specialty Start Date End Date Lacie Marks MD [address] [facility] 300 [place] [address] PCP - General material mixer 11/01/14 03/19/19 No Ref-Primary, Physician PCP - General 03/20/19 05/31/19 Nanci Villalba MD 901 [facility] [place] [address] PCP - General Internal Medicine 06/01/19 Grace Goodrich MD [facility] DERMATOLOGY [address] [place], [place] [phone] Resident Dermatology 03/22/15 06/04/17 Remi Camacho MD 420 [facility] 136 [place] [address] Dermatology 08/28/16 Shane Pemberton MD [facility] 420 [facility] 391 [place] [address] Resident Student in organized health care education/training program 05/13/17 02/16/18 Alexis Vargas MD 2450 [place], [place] 557[address] Dermatology 07/14/17 Cecilio Velasco DPM 909 [place] [address] Podiatry 12/31/17 Johnny Gauthier MD [facility] [address] [place], [place] [phone] Family Medicine - Sports Medicine 08/20/18 Alpa Max PA-C 420 [facility] 98 [place] [address] Physician Prosthetic Lab Technician Physician Prosthetic Lab Technician 08/28/18 Ayana Fuller MD [address] [place] [address] 300 [place] [address] material mixer 12/01/18 Ashwin Franklin MD [address] [place] [address]87 Assigned Pediatric Specialist Provider 05/19/20 08/27/20 Magda Goode MD [address] [place] [address] 6[address] Assigned Musculoskeletal Provider 05/19/20 08/19/20 Ayana Fuller MD [address] [place] [address] Assigned OBGYN Provider 05/19/20 Ashwin Franklin MD [address] [place] [address] 34532 Assigned Surgical Provider 05/19/20 03/22/22 Cecilio Velasco DPM [address] [place] [address] 71117 Assigned Musculoskeletal Provider 08/20/20 09/30/20 Nanci Villalba MD [address] [place] [address] Assigned PCP 09/10/20 11/04/20 Magda Goode MD [address] [place] [address] 05521 Assigned Musculoskeletal Provider 10/01/20 01/03/23 Nanci Villalba MD [address] [place] [address] Assigned PCP 12/21/20 Abdirizak Dowd MD [address] [place] [address] Dermatology 08/09/21 Abdirizak Dowd MD [address] [place] [address]2689 Dermatology 12/21/21 Abdirizak Dowd MD [address] [place] [address] 86619 Assigned Surgical Provider 03/23/22 02/16/24 Jessica Butler MD [address] [place] [address] Dermatology 02/21/23 Ayana Fuller MD [address] 121644 material mixer 02/24/23 Loli Louis DPM, Podiatry/Foot and Ankle Surgery [address] [facility] 300 [place], [place] 6[address] Assigned Musculoskeletal Provider 09/19/23 03/18/25 Jessica Butler MD [address] [place] [address] Assigned Surgical Provider 02/17/24 10/16/24 Ashwin Franklin MD [address] [place] [address] Dermatology 09/17/24 Valeria Sullivan PA-C Dermatology [address] [place] [address] Assigned Dermatology Provider 10/17/24 03/18/25 Jessica Butler MD [address] [place] [address] Assigned Dermatology Provider 03/19/25 documented as of this encounter
--- OUTSIDE RECORDS SUMMARY | 2025-04-27 06:10 | XMS_ITS | Encounter Summary ---
Author Organization [place] Address [address] [place] [address] Care Team Providers Care Supervisor Irrigation Name Role Phone Remi Camacho MD Unavailable +[phone] Alexis Vargas MD Unavailable +[phone] Cecilio Velasco DPM Unavailable +[phone] Johnny Gauthier MD Unavailable +[phone] Alpa Max PA-C Unavailable [phone] Ayana Fuller MD Unavailable +[phone] Nanci Villalba MD Primary Care Provider Ashwin Franklin MD Unavailable +[phone] Magda Goode MD Unavailable +[phone] Ayana Fuller MD Unavailable +[phone] Ashwin Franklin MD Unavailable +[phone] Cecilio Velasco DPM Unavailable +[phone] Nanci Villalba MD Unavailable +[phone] Magda Goode MD Unavailable +[phone] Nanci Villalba MD Unavailable +[phone] Abdirizak Dowd MD Unavailable +[phone] Abdirizak Dowd MD Unavailable +[phone] Abdirizak Dowd MD Unavailable +[phone] Jessica Btuler MD Unavailable +[phone] Ayana Fuller MD Unavailable +[phone] Loli LouisM, Podiatry /Foot and Ankle Surgery Unavailable Jessica Butler MD Unavailable +[phone] Ashwin Franklin MD Unavailable +[phone] Valeria Sullivan PA-C Unavailable +[phone] Jessica Butler MD Unavailable +[phone] Encounter Details Date Type Department Care Team (Late st Contact Info) Description 08/03/2019 [facility] Medical Advice [facility] [address] [address] Solange Stoddard, PT [facility] [address] [place] [address] Social History Tobacco Use Types Packs/Day Years Used Date Smoking Tobacco: Never Smokeless Tobacco: Never Alcohol Use Standard Drinks/Week Comments No 0 (1 standard drink = 0.6 oz pur e alcohol) Glasses Wine PHQ-2 Answer Date Recorded PHQ-2 Score 0 05/31/2019 Comments No Sex and Gender Information Value Date Recorded Sex Assigned at Not on file Legal Sex Female 3:34 AM SHIP FITTER Gender Identity Not on file Sexual Orientation Not on file Occupation Industry Job Start Date Job End Date Unemployed Not on file Not on file Not on file documented as of this encounter Plan of Treatment Upcoming Encounters Date Type Department Care Team (Late st Contact Info) Description 05/24/2025 8:15 AM CDT Office Visit [facility] [place] [address]rd [address] [place] [facility] 88 [place] [phone] Ayana Fuller MD [address] [facility] 300 [place], [place] [address] 05/31/2025 9:30 AM SHIP FITTER Office Visit [facility] Allergy Clinic [place] [address] [place] [phone] Ashwin Franklin MD 909 [place], [place] [address] 09/05/2025 9:45 AM SHIP FITTER Office Visit [facility] Dermatology [address]rd [place] [phone] Jessica Butler MD 420 [facility] 98 [place], [place] 2[address] documented as of this encounter Visit Diagnoses Not on filedocumented in this encounter Additional Health Concerns Assessment Noted Time PHQ-9 Depression Total Score: 2 08/02/19 20 1:35 PM SHIP FITTER documented as of this encounter Care Teams Supervisor Irrigation Relationship Specialty Start Date End Date Nanci Villalba MD [address] [place] [address] [place], [place] 48[address] PCP - General Internal Medicine 06/01/19 Remi Camacho MD 420 [facility] 136 [place], [place] [address] Dermatology 08/28/16 Alexis Vargas MD 2450 [place] [address] Dermatology 07/14/17 Cecilio Velasco DPM 909 [place] [address] Podiatry 12/31/17 Johnny Gauthier MD [facility] [address] [place] [address] Family Medicine - Sports Medicine 08/20/18 Alpa Max PA-C [address] [place] [address] [facility] 98 [place], [place] [address] Physician Room Maid Physician Room Maid 08/28/18 Ayana Fuller MD [address] [place] [place], [place] 3[address] core sucker 12/01/18 Ashwin Franklin MD [address] [place] [address] 650205 Assigned Pediatric Specialist Provider 05/19/20 08/27/20 Magda Goode MD 9 [place] [address] Assigned Musculoskeletal Provider 05/19/20 08/19/20 Ayana Fuller MD [address] [place] [address] [place], [place] [address] Assigned OBGYN Provider 05/19/20 Ashwin Franklin MD [address] [place] [address]373 Assigned Surgical Provider 05/19/20 03/22/22 Cecilio Velasco DPM [address] [place] [address] Assigned Musculoskeletal Provider 08/20/20 09/30/20 Nanci Villalba MD [address] [place] [address] 13861 Assigned PCP 09/10/20 11/04/20 Magda Goode MD [address] [place] [address]55 Assigned Musculoskeletal Provider 10/01/20 01/03/23 Nanci Villalba MD [address] [place] [address] 565555 Assigned PCP 12/21/20 Abdirizak Dowd MD [address] [place] [address] 320445 Dermatology 08/09/21 Abdirizak Dowd MD [address] [place] [address] 866165 Dermatology 12/21/21 Abdirizak Dowd MD [address] [place] [address] 39354 Assigned Surgical Provider 03/23/22 02/16/24 Jessica Butler MD [address] [place] [address] 98 [place] [address] Dermatology 02/21/23 Ayana Fuller MD [address] [place] [address] core sucker 02/24/23 Loli Louis DPM, Podiatry/Foot and Ankle Surgery [address] [facility] 300 [place] [address] Assigned Musculoskeletal Provider 09/19/23 03/18/25 Jessica Butler MD [address] [address] Assigned Surgical Provider 02/17/24 10/16/24 Ashwin Franklin MD [address] [place] [address] Dermatology 09/17/24 Valeria Sullivan, PA-C Dermatology [address] [place] [address] Assigned Dermatology Provider 10/17/24 03/18/25 Jessica Butler MD [address] [address] Assigned Dermatology Provider 03/19/25 documented as of this encounter
--- OUTSIDE RECORDS SUMMARY | 2025-04-27 06:10 | XMS_ITS | Encounter Summary ---
Author Organization [place] Address [address] [facility] [place] [address] Care Team Providers Care Gang Head Saw Operator Name Role Phone Lacie Marks MD Primary Care Provider Grace Goodrich MD Unavailable [phone] Remi Camacho MD Unavailable +[phone] Shane Pemberton MD Unavailable +[phone] Alexis Vargas MD Unavailable +[phone] [facility] DPM Unavailable +[phone] Johnny Gauthier MD Unavailable + [phone] Alpa Max PA-C Unavailable Ayana Fuller MD Unavailable + [phone] No Ref-Primary, Physician Primary Care Provider Nanci Villalba MD Primary Care Provider Ashwin Franklin MD Unavailable +[phone] Magda Goode MD Unavailable +[phone] Ayana Fuller MD Unavailable +[phone] Ashwin Franklin MD Unavailable +[phone] Cecilio Velasco DPM Unavailable + [phone] Nanci Villalba MD Unavailable +[phone] Magda Goode MD Unavailable +[phone] Nanci Villalba MD Unavailable +[phone] Abdirizak Dowd MD Unavailable +[phone] Abdirizak Dowd MD Unavailable +[phone] Nile, Abdirizak Turner MD Unavailable +[phone] Jessica Butler MD Unavailable +[phone] Ayana Fuller MD Unavailable +[phone] Loli LouisM, Podiatry /Foot and Ankle Surgery Unavailable Jessica Butler MD Unavailable +[phone] Ashwin Franklin MD Unavailable +[phone] Valeria Sullivan PA-C Unavailable +[phone] Jessica Butler MD Unavailable +[phone] Encounter Details Date Type Department Care Team (Late Contact Info) Description 05/29/2015 MyC Medical Advice Initial Department [facility] Social History Tobacco Use Types Packs/Day Years Used Date Smoking Tobacco: Never Smokeless Tobacco: Never Alcohol Use Standard Drinks/Week Comments Yes 0 (1 standard drink = 0.6 oz pur e alcohol) Glasses Wine Comments No Sex and Gender Information Value Date Recorded Sex Assigned at Not on file Legal Sex Female 3:34 AM DECOMMISSIONING WELL SITE MANAGER Gender Identity Not on file Sexual Orientation Not on file Occupation Industry Job Start Date Job End Date Unemployed Not on file Not on file Not on file documented as of this encounter Plan of Treatment Upcoming Encounters Date Type Department Care Team (Late Contact Info) Description 05/24/2025 8:15 AM CDT Office Visit [facility] [place] [address]rd Floor,[address] [place] [facility] [address] [place] [phone] Ayana Fuller MD [address] [facility] 300 [place], [place] [address] 05/31/2025 9:30 AM DECOMMISSIONING WELL SITE MANAGER Office Visit [facility] [address] [phone] Ashwin Franklin MD [address] [place] [address] [phone] 09/05/2025 9:45 AM DECOMMISSIONING WELL SITE MANAGER Office Visit [facility] [address] [place] [phone] Jessica Butler MD 420 [facility] 98 [place], [place] [address] documented as of this encounter Visit Diagnoses Not on filedocumented in this encounter Care Teams Gang Head Saw Operator Relationship Specialty Start Date End Date Lacie Marks MD [address] [facility] 300 [place], [place] [address] PCP - General line builder 11/01/14 03/19/19 No Ref-Primary, Physician PCP - General 03/20/19 05/31/19 Nanci Villalba MD [address] [place] [address] [place], [place] 74[address] PCP - General Internal Medicine 06/01/19 Grace Goodrich MD [facility] [place] [address] [place] [address] Resident Dermatology 03/22/15 06/04/17 Remi Camacho MD 420 [facility] 136 [place], [place] 26[address] Dermatology 08/28/16 Shane Pemberton MD [facility] 420 [facility] 391 [place], [place] 5[address] Resident Student in organized health care education/training program 05/13/17 02/16/18 Alexis Vargas MD 2450 [place], [place] 567084 Dermatology 07/14/17 Cecilio Velasco DPM [address] [place] [address] 917815 Podiatry 12/31/17 Johnny Gauthier MD [facility] [address] [place], [place] [address] Family Medicine - Sports Medicine 08/20/18 Alpa Max PA-C 420 [facility] 98 [place], [place] 227[address] Physician Director Of Sports Medicine Physician Director Of Sports Medicine 08/28/18 Ayana Fuller MD 606 [facility] 300 [place], [place] [phone] line builder 12/01/18 Ashwin Franklin MD [address] [place] [address] 822465 Assigned Pediatric Specialist Provider 05/19/20 08/27/20 Magda Goode MD [address] [place] [address] Assigned Musculoskeletal Provider 05/19/20 08/19/20 Ayana Fuller MD [address] [address] Assigned OBGYN Provider 05/19/20 Ashwin Franklin MD [address] [place] [address] 024185 Assigned Surgical Provider 05/19/20 03/22/22 Cecilio Velasco DPM [address] [place] [address] 18[address] Assigned Musculoskeletal Provider 08/20/20 09/30/20 Nanci Villalba MD [address] [place] [address] 026075 Assigned PCP 09/10/20 11/04/20 Magda Goode MD [address] [place] [address] Assigned Musculoskeletal Provider 10/01/20 01/03/23 Nanci Villalba MD [address] [place] [address] 520[address] Assigned PCP 12/21/20 Abdirizak Dowd MD [address] [place] [address] Dermatology 08/09/21 Abdirizak Dowd MD [address] [place] [address] Dermatology 12/21/21 Abdirizak Dowd MD [address] [place] [address] Assigned Surgical Provider 03/23/22 02/16/24 Jessica Butler MD [address] [address] Dermatology 02/21/23 Ayana Fuller MD 606 [facility] 300 [place] [address] line builder 02/24/23 Loli Louis DPM, Podiatry/Foot and Ankle Surgery [address] [facility] 300 [place] [address] Assigned Musculoskeletal Provider 09/19/23 03/18/25 Jessica Butler MD [address] [place] [address] Assigned Surgical Provider 02/17/24 10/16/24 Ashwin Franklin MD [address] [place] [address] Dermatology 09/17/24 Valeria Sullivan, PA-C Dermatology [address] [place] [address] Assigned Dermatology Provider 10/17/24 03/18/25 Jessica Butler MD [address] [place] [address] Assigned Dermatology Provider 03/19/25 documented as of this encounter
--- OUTSIDE RECORDS SUMMARY | 2025-04-27 06:10 | XMS_ITS | Encounter Summary ---
Author Organization [place] Address [address] [facility] [address] [facility] [place] [address] Care Team Providers Care Credit Relationship Manager Name Role Phone Lacie Marks MD Primary Care Provider Grace Goodrich MD Unavailable [phone] Remi Camacho MD Unavailable [phone] Shane Pemberton MD Unavailable +[phone] Alexis Vargas MD Unavailable [phone] [facility] DPM Unavailable [phone] Johnny Gauthier MD Unavailable + [phone] Alpa Max PA-C Unavailable Ayana Fuller MD Unavailable + [phone] No Ref-Primary, Physician Primary Care Provider Nanci Villalba MD Primary Care Provider Ashwin Franklin MD Unavailable [phone] Magda Goode MD Unavailable [phone] Ayana Fuller MD Unavailable [phone] Ashwin Franklin MD Unavailable +[phone] Cecilio Velasco DPM Unavailable + [phone] Nanci Villalba MD Unavailable +[phone] Magda Goode MD Unavailable +[phone] Nanci Villalba MD Unavailable +[phone] Abdirizak Dowd MD Unavailable Abdirizak Dowd MD Unavailable +[phone] Abdirizak Dowd MD Unavailable +[phone] Jessica Butler MD Unavailable +[phone] Ayana Fuller MD Unavailable +[phone] Loli LouisM, Podiatry /Foot and Ankle Surgery Unavailable Jessica Butler MD Unavailable [phone] Ashwin Franklin MD Unavailable [phone] Valeria Sullivan PA-C Unavailable [phone] Jessica Butler MD Unavailable [phone] Encounter Details Date Type Department Care Team (Late st Contact Info) Description 04/29/2015 [facility] Dermatology 5th Floor, Clinic [address] [place] [address] 88 [place] [phone] Grace Goodrich MD [facility] [place] [address] [facility] [address] [place] [phone] Social History Tobacco Use Types Packs/Day Years Used Date Smoking Tobacco: Never Smokeless Tobacco: Never Alcohol Use Standard Drinks/Week Comments Yes 0 (1 standard drink = 0.6 oz pur e alcohol) Glasses Wine Comments No Sex and Gender Information Value Date Recorded Sex Assigned at Not on file Legal Sex Female 3:34 AM PARALEGAL INTERNSHIP Gender Identity Not on file Sexual Orientation Not on file Occupation Industry Job Start Date Job End Date Unemployed Not on file Not on file Not on file documented as of this encounter Plan of Treatment Upcoming Encounters Date Type Department Care Team (Late st Contact Info) Description 05/24/2025 8:15 AM CDT Office Visit [facility] [address] 3[address] [place] [facility] 88 [place] [phone] Ayana Fuller MD [address] [facility] 300 [place], [place] [address] 05/31/2025 9:30 AM PARALEGAL INTERNSHIP Office Visit [facility] [address] [phone] Ashwin Franklin MD [address] [place] [address] 068635 09/05/2025 9:45 AM PARALEGAL INTERNSHIP Office Visit [facility] [place] [address] [place] [address] 3rd [place] [phone] Jessica Butler MD [address] [place] [address] 98 [place], [place] 9[address] documented as of this encounter Visit Diagnoses Not on filedocumented in this encounter Care Teams Credit Relationship Manager Relationship Specialty Start Date End Date Lacie Marks MD [address] [facility] 300 [place], [place] [address] PCP - General mva still operator 11/01/14 03/19/19 No Ref-Primary, Physician PCP - General 03/20/19 05/31/19 Nanci Villalba MD [address] [place] [address] [place] [address] PCP - General Internal Medicine 06/01/19 Grace Goodrich MD [facility] [place] [address] [facility] [place] [address] Resident Dermatology 03/22/15 06/04/17 Remi Camacho MD 420 [facility] 136 [place], [place] 57[address] Dermatology 08/28/16 Shane Pemberton MD [facility] 420 [facility] 391 [place], [place] [phone] Resident Student in organized health care education/training program 05/13/17 02/16/18 Alexis Vargas MD 2450 [place], [place] 9[address] Dermatology 07/14/17 Cecilio Velasco DPM 909 [place] [address] Podiatry 12/31/17 Johnny Gauthier MD [address] [place], [place] 0[address] Family Medicine - Sports Medicine 08/20/18 Alpa Max PA-C 420 [facility] 98 [place], [place] [address] Physician Service Station Operator Physician Service Station Operator 08/28/18 Ayana Fuller MD [address] [place] [address] [place] 300 [place], [place] [phone] MD mva still operator 12/01/18 Ashwin Franklin MD [address] [place] [address]23 Assigned Pediatric Specialist Provider 05/19/20 08/27/20 Magda Goode MD [address] [place] [address] 9[address]67 Assigned Musculoskeletal Provider 05/19/20 08/19/20 Ayana Fuller MD [address] [place] [address] 492234 Assigned OBGYN Provider 05/19/20 Ashwin Franklin MD [address] [place] [address] 983745 Assigned Surgical Provider 05/19/20 03/22/22 Cecilio Velasco DPM [address] [place] [address] 773955 Assigned Musculoskeletal Provider 08/20/20 09/30/20 Nanci Villalba MD [address] [place] [address] 738175 Assigned PCP 09/10/20 11/04/20 Magda Goode MD [address] [place] [address] 693365 Assigned Musculoskeletal Provider 10/01/20 01/03/23 Nanci Villalba MD [address] [place] [address] 471395 Assigned PCP 12/21/20 Abdirizak Dowd MD [address] [place] [address] 172465 Dermatology 08/09/21 Abdirizak Dowd MD [address] [place] [address] 9[address] Dermatology 12/21/21 Abdirizak Dowd MD [address] [place] [address] 531585 Assigned Surgical Provider 03/23/22 02/16/24 Jessica Butler MD [address] [place] [address] Dermatology 02/21/23 Ayana Fuller MD [address] 495534 mva still operator 02/24/23 Loli Louis DPJean, Podiatry/Foot and Ankle Surgery [address] [facility] 300 [place], [place] 0[address] Assigned Musculoskeletal Provider 09/19/23 03/18/25 Jessica Butler MD [address] [place] [address] 08966 Assigned Surgical Provider 02/17/24 10/16/24 Ashwin Franklin MD [address] [place] [address] Dermatology 09/17/24 Valeria Sullivan PA-C Dermatology [address] [place] [address] [phone] Assigned Dermatology Provider 10/17/24 03/18/25 Jessica Butler MD [address] [place] [address] 98 [place], [place] 073785 Assigned Dermatology Provider 03/19/25 documented as of this encounter
== END 2025-04-27 07:34 | disposition home or self-care (01) ==
PROVIDERS: Emergency Provider Family Medicine
DX: R22.0 Localized swelling, mass and lump, head (principal)
CPT/HCPCS: 99283; 99284; A9270; J7512